=== PATIENT | male | born 1945 | race Caucasian/White ===

== ENCOUNTER → 2017-09-04 10:28 | Outpatient (CLI) | payer MEDICARE, OTHER, SELFPAY ==
[2017-09-04 11:26] LABS: Alanine Aminotransferase 30 IU/L (21-72); Albumin 4.5 g/dL (3.5-5.0); Albumin Globulin Ratio 1.5 (1.0-2.8); Alkaline Phosphatase 97 U/L (38-126); Aspartate Aminotransferase 21 IU/L (17-59); Bilirubin Total 0.8 mg/dL (0.2-1.3); Calcium 9.5 mg/dL (8.4-10.2); Estimated Glomerular Filt Rate > 60.0 mL/min (>60); Glucose 90 mg/dL (80-110); HEMOLYSIS 21 (0-50); Sodium 141 mmol/L (137-145); Total Protein 7.5 g/dL (6.3-8.2)
[2017-09-04 12:01] LABS: Thyroid Stimulating Hormone 3.75 uIU/mL (0.47-4.68)
== END ==
PROVIDERS: PCP Family Medicine; Visit Provider Family Medicine
DX: E03.9 Hypothyroidism, unspecified (principal)
CPT/HCPCS: 36415; 80053; 84443

== ENCOUNTER → 2017-10-03 14:20 | Outpatient (CLI) | payer MEDICARE, OTHER, SELFPAY ==
[2017-10-03 15:27] LABS: Add Manual Diff / Slide Review NO; Basophils Percent Auto 1.1 % (0-2); Eosinophils Percent Auto 6.1 % (2-4); Hematocrit 45.7 % (41-53); Hemoglobin 15.8 g/dL (13.5-17.5); Lymphocytes Percent Auto 8.6 % (25-40); Mean Corpuscular HGB Conc 34.6 % (30-36); Mean Corpuscular Hemoglobin 31.8 PG (26-34); Mean Corpuscular Volume 92.1 fL (80-100); Monocytes Percent Auto 9.4 % (3-14); Neutrophils Absolute Auto 4700 /uL (3000-5900); Neutrophils Percent Auto 74.8 % (50-75); Platelet Count 206 X10^3/uL (150-400); Red Blood Cell Count 4.97 X10^6/uL (4.5-5.9); Red Cell Distribution Width 14.6 % (11.6-14.8); White Blood Cell Count 6.3 X10^3/uL (4.5-11.0)
[2017-10-03 15:43] LABS: INR 1.2 (0.9-1.3); Prothrombin Time 13.5 SECONDS (10.1-12.7)
[2017-10-03 15:53] LABS: Alanine Aminotransferase 24 IU/L (21-72); Albumin 4.5 g/dL (3.5-5.0); Albumin Globulin Ratio 1.5 (1.0-2.8); Alkaline Phosphatase 105 U/L (38-126); Aspartate Aminotransferase 23 IU/L (17-59); Bilirubin Total 0.5 mg/dL (0.2-1.3); Blood Urea Nitrogen 20 mg/dL (9-20); Calcium 9.5 mg/dL (8.4-10.2); Carbon Dioxide 25 mmol/L (22-32); Chloride 105 mmol/L (98-107); Estimated Glomerular Filt Rate > 60.0 mL/min (>60); Glucose 89 mg/dL (80-110); HEMOLYSIS < 15 (0-50); Sodium 142 mmol/L (137-145); Total Protein 7.5 g/dL (6.3-8.2)
== END ==
PROVIDERS: PCP Family Medicine; Visit Provider Internal Medicine
DX: Z79.01 Long term (current) use of anticoagulants (principal); K92.1 Melena
CPT/HCPCS: 36415; 80053; 85025; 85610

== ENCOUNTER 2017-10-24 09:32 | Day surgery (SDC) | payer MEDICARE, OTHER, SELFPAY ==
--- NOTE | 2017-10-24 | PATH_ITS ---
[facility] Accession Number: [id number] . 01 Material submitted: . PART A: GE JUNCTION PART B: GASTRIC PART C: ASCENDING COLON . 02 Diagnosis: A. Gastroesophageal Junction, Biopsy: Squamocolumnar junctional mucosa with mild reactive features of reflux esophagitis. Negative for specialized intestinal metaplasia on alcian blue. Negative for dysplasia or malignancy. . B. Stomach, Biopsies: Gastric antral mucosa with reactive gastropathy, intestinal metaplasia, and focal active inflammation. Intestinal metaplasia highlighted in one of three antral fragments on alcian blue stain. Negative for Helicobacter organisms by immunohistochemistry. Negative for dysplasia or malignancy. . C. Ascending Colon Polyps: Fragments of tubular adenoma/tubulovillous adenoma. Negative for high-grade dysplasia or malignancy. MRV/10/28/2017 . 02 Comment: Part B) The findings in the gastric biopsy raise a differential diagnosis including infection (including Helicobacter pylori despite negative immunohistochemistry), drug/toxin-induced injury, and in the appropriate clinical setting, Crohn's disease. . 02 Electronically signed: . Rob Cheng MD, PhD, Pathologist NPI- [id number] . 01 Gross description: . Three specimens are received in formalin, labeled Renny Perkins: . A. Labeled GE junction biopsies and consists of four jang tissue fragments, 0.2-0.3 cm. The specimen is submitted in toto in cassette A1. B. Labeled gastric biopsies and consists of three jang tissue fragments, 0.3-0.6 cm. The specimen is submitted in toto in cassette B1. C. Labeled ascending colon polyp and consists of one irregular jang brown polypoid tissue, 1.5 x 1.0 x 1.0 cm. The base cannot be positively identified grossly. The polyp is sectioned and is friable upon sectioning. The specimen is submitted entirely in cassettes C1 and C2. (GUILLERMINA:[id number]) /FRR . 02 Microscopic: . Part A: An alcian blue stain is performed to evaluate for specialized intestinal metaplasia and is negative for goblet cells. A control stain shows appropriate reactivity. . Part B: An alcian blue stain is performed to evaluate for specialized intestinal metaplasia and highlights a focus of goblet cells in one of three fragments of antral mucosa. In the setting of intestinal metaplasia and active gastritis, an immunohistochemical stain is performed to evaluate for Helicobacter organisms and is negative. A control stain shows appropriate reactivity. . * This test was developed and its performance characteristics determined by [employer]. It has not been cleared or approved by the U.S. Food and Drug Administration. The FDA has determined that such clearance or approval is not necessary. This test is used for clinical purposes. It should not be regarded as investigational or for research. . 02 Pathologist provided ICD-10: K21.0, K29.70, D12.2 . 02 CPT . 687773, 669020, 213867, V29305, 338937, 179533 Performed at: 01 [facility] [address] [id number] MD Greg Sierra MD Phone: [phone] Performed at: 02 [facility] [address] [place] [id number] MD Merlin Patel MD Phone: [phone]
[2017-10-24 10:21] VITALS: BP 158/94; PULSE 84; RESP 16; TEMP 36.1; O2SAT 98; BMI 30.5
[2017-10-24] MEDS: SODIUM CHLORIDE 0.9% 1,000 ML 200 ML IV (10:47)
--- NOTE | 2017-10-24 12:16 | PM.PREOP ---
Pre-operative Note Interval Note Pre-op Check: History & Physical Reviewed by Physician and Exam Performed H&P completed within 30 days and has changed as indicated here:: No change ASA Class (for procedural sedation): II
--- NOTE | 2017-10-24 12:47 | SUR.OPER ---
to endo from opd via cart respirations unlabored iv patent positioned per self for procedure
--- NOTE | 2017-10-24 13:25 | SUR.OPER ---
tolerated procedure well
[2017-10-24 13:31] VITALS: BP 140/95; PULSE 70; RESP 18; TEMP 36; O2SAT 95
[2017-10-24] MEDS: LIDOCAINE 4% SOLN 50 ML 20 ML TOP (13:32)
[2017-10-24] MEDS: fentaNYL 250 MCG/5 ML INJ 200 MCG IV (13:32)
[2017-10-24] MEDS: MIDAZOLAM 5 MG/5 ML VIAL IV (13:33)
[2017-10-24 13:36] VITALS: BP 129/96; PULSE 74; RESP 16; O2SAT 95
[2017-10-24 13:41] VITALS: BP 141/93; PULSE 78; RESP 14; O2SAT 94
--- NOTE | 2017-10-24 13:44 | P.OP.ENDO_ITS ---
Operative Date/Time/Diagnoses Date of procedure: 10/24/17 Time of procedure: 13:30 Pre-op diagnosis: Epigastric pain. Melena. Bright red Blood per rectum Post-op diagnosis: same (Extensive diverticulosis of the colon. One large polyp in the ascending colon. Mild gastritis. Distal esophagus inflamed. May have Dennison's.) Procedure & Clinicians Study performed: EGD with cold biopsy. colonoscopy with hot snare polypectomy Same procedure as scheduled: Yes Indications: Blood per GI tract Surgeon: Gerardo Frederick Procedure Notes SCOAP/Timeout: Performed Procedure in detail: The patient had topical anesthetic applied to oropharynx. he was placed in left lateral decubitus position and underwent IV sedation directed by the surgeon consisting of fentanyl and Versed. A bite block was inserted and the scope was advanced through it into the esophagus. The esophagus was unremarkable. GE junction was noted at 40 cm and was inflamed with the suggestion of Dennison's esophagus being present.. The stomach insufflated well. There were no lesions seen in the body, antrum or at the incisura. In the pre-pyloric antrum there was several raised reddened lesions which I biopsied. The pyloric channel was [widely patent]. The duodenum was unremarkable to the 4th part. The scope was brought back into the stomach and retroflexed. The proximal stomach was normal in appearance. There was no hiatal hernia. The scope was straightened and brought out through the esophagus again. No lesions were seen. The scope was removed and the patient tolerated the procedure well. The patient was repositioned and underwent additional IV sedation directed by the surgeon consisting of fentanyl and Versed. Digital exam was unremarkable. The scope was inserted and advanced through the rectum into the sigmoid, descending, transverse, and ascending colon.[The patient was noted to have extensive diverticulosis with the most heavy concentration in the sigmoid. The lumen of some of these were quite large.]. The cecum was reached identified by the ileocecal valve and the appendiceal opening. I had to apply pressure and insert a stiffener in order to reach the cecum. The scope was gradually brought out. Polyps were found at[the ascending colon just before reaching the ileocecal valve. This was snared. It appeared to be completely removed.]. The scope ultimately was retroflexed in the rectum. The appearance was normal except for some small hemorrhoids.. 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 Biopsies taken at the GE junction.), diverticulosis (Extensive especially in the sigmoid.), gastritis (Principally in the antrum pre-pyloric area), internal hemorrhoids and polyp (Ascending colon ) Specimen(s): other (Random stomach. GE junction. Ascending colon polyp) Recommendations: Colonscopy in 5 years Plan for aftercare: Patient received a letter Follow up: as needed Disposition: PACU
[2017-10-24 13:49] VITALS: BP 132/78; PULSE 75; RESP 16; TEMP 36.2; O2SAT 96
[2017-10-24 13:57] VITALS: BP 131/80; PULSE 70; RESP 16; TEMP 36.5; O2SAT 94
== END 2017-10-24 14:18 | disposition home or self-care (01) ==
PROVIDERS: PCP Family Medicine; Visit Provider Specialist
PROC: 0DJD8ZZ Inspection of Lower Intestinal Tract, Via Natural or Artificial Opening Endoscopic (ICD-10-PCS; CPT 45378; principal; 2017-10-24 10:45)
PROC: 0DJ08ZZ Inspection of Upper Intestinal Tract, Via Natural or Artificial Opening Endoscopic (ICD-10-PCS; CPT 43235; 2017-10-24 10:45)
DX: K92.1 Melena (principal); K57.30 Diverticulosis of large intestine without perforation or abscess without bleeding; D12.2 Benign neoplasm of ascending colon; K64.8 Other hemorrhoids; K29.70 Gastritis, unspecified, without bleeding; K21.0 Gastro-esophageal reflux disease with esophagitis; Z87.891 Personal history of nicotine dependence; Z79.01 Long term (current) use of anticoagulants; I48.91 Unspecified atrial fibrillation
CPT/HCPCS: 45380; 43239; 45385; 99152; 99153; J2250; J3010

== ENCOUNTER → 2018-03-25 11:48 | Outpatient (CLI) | payer MEDICARE, OTHER, SELFPAY ==
[2018-03-25 12:54] LABS: Add Manual Diff / Slide Review NO; Basophils Percent Auto 1.4 % (0-2); Eosinophils Percent Auto 6.4 % (2-4); Hematocrit 47.7 % (41-53); Hemoglobin 15.8 g/dL (13.5-17.5); Lymphocytes Percent Auto 8.2 % (25-40); Mean Corpuscular HGB Conc 33.1 % (30-36); Mean Corpuscular Hemoglobin 28.8 PG (26-34); Monocytes Percent Auto 8.3 % (3-14); Neutrophils Absolute Auto 4200 /uL (3000-5900); Neutrophils Percent Auto 75.7 % (50-75); Platelet Count 213 X10^3/uL (150-400); Red Blood Cell Count 5.49 X10^6/uL (4.5-5.9); Red Cell Distribution Width 16.2 % (11.6-14.8); White Blood Cell Count 5.5 X10^3/uL (4.5-11.0)
[2018-03-25 13:28] LABS: BUN Creatinine Ratio 15.8 (6-22); Blood Urea Nitrogen 19 mg/dL (9-20); Calcium 9.6 mg/dL (8.4-10.2); Carbon Dioxide 25 mmol/L (22-32); Chloride 104 mmol/L (98-107); Estimated Glomerular Filt Rate 59.3 mL/min (>60); Glucose 93 mg/dL (80-110); HEMOLYSIS < 15 (0-50); Potassium 4.6 mmol/L (3.4-5.1); Sodium 142 mmol/L (137-145)
== END ==
PROVIDERS: PCP Family Medicine; Visit Provider Internal Medicine Cardiovascular Disease
DX: I48.0 Paroxysmal atrial fibrillation (principal)
CPT/HCPCS: 36415; 80048; 85025

== ENCOUNTER → 2018-05-15 09:28 | Outpatient (CLI) | payer MEDICARE, OTHER, SELFPAY ==
--- NOTE | 2018-05-15 | DI.ECHO.S_ITS ---
[place]---------+ [facility] +---------+ : : [address] : : : : [address] : : : : Phone: [phone] Echocardiogram Report + + :Name: PABLO WHALEN Study Date: 05/15/2018 Height: 72 in : :[facility] Weight: 235 lb : : Gender: Male BSA: 2.3 m2 : :: 1945 Age: 72 yrs BP: 138/70 mmHg: :Reason For Study: Aortic, Ascending Aneurysm : :Ordering Physician: Matt : :Rosanne Carr Performed By: Flaca Keating : :Referring: Dr. Berry Richmond : + + Interpretation Summary 1) Normal left ventricular thickness, size, wall motion, and systolic function (EF 65-70%). 2) Normal right ventricular size and function. 3) Diastolic parameters suggest a pseudonormalization pattern, consistent with probable elevated filling pressures. 4) No significant valvular abnormalities. 5) The aortic root is moderately dilated at 4.8cm. 6) Compared to the Echo done 01/15/2016, no significant change. Procedure: A two-dimensional transthoracic echocardiogram with color flow and Doppler was performed. The study quality was technically adequate. Comparison is made with the echocardiogram of 01-15-16. The patient was in normal sinus rhythm during the exam. Left Ventricle: The left ventricle is normal in size. Proximal septal thickening is noted. There is normal left ventricular wall thickness. The ejection fraction is estimated to be 65-70%. Left ventricular systolic function is normal without focal wall motion abnormalities. Diastolic parameters suggest a pseudonormalization pattern, consistent with probable elevated filling pressures. Right Ventricle: The right ventricle grossly appears normal in size with probable normal systolic function. Atria: The left atrium is moderately dilated. Right atrial size is normal. The interatrial septum is intact with no evidence for an atrial septal defect. Mitral Valve: The mitral valve is grossly normal. There is trace mitral regurgitation. Aortic Valve: The aortic valve opens well. The aortic valve is trileaflet. There is no aortic valve stenosis. There is mild aortic regurgitation. Tricuspid Valve: The tricuspid valve leaflets are thin and pliable. There is mild to moderate tricuspid regurgitation. The right ventricular systolic pressure is estimated to be at least 33 mmHg based on an estimated right atrial pressure of 3 mm Hg. Pulmonic Valve: The pulmonic valve is not well seen, but is grossly normal. There is trace pulmonic regurgitation. Great Vessels: The aortic root is moderately dilated. This is unchanged compared to the previous study. The ascending aorta is at the upper limits of normal in size. The aortic arch is at the upper limits of normal in size. The IVC is of normal diameter and collapses greater than 50% with a sniff. This suggests a low right atrial pressure of 3 mm Hg. Pericardium/ Pleura There is no pericardial effusion. There is no pleural effusion. MMode/2D Measurements & Calculations LVIDd: 4.8 cm Ao root diam: 4.8 cm LVIDs: 2.5 cm Aortic Jxn: 3.3 cm FS: 49.0 % asc Aorta Diam: 3.7 cm EPSS: 1.1 cm Ao Arch Diam (Prox Trans): 3.3 cm IVSd: 1.3 cm LVPWd: 0.79 cm LV frey. diameter/BSA (cm/m^2): 2.1 LV sys. diameter/BSA (cm/m^2): 1.1 LA dimension: 4.6 cm RA long axis: 5.4 cm LA A2 area: 23.6 cm2 RA area: 22.6 cm2 LA A4 area: 28.5 cm2 RA vol: 80.6 ml LA length (vol): 6.2 cm RA : 35.3 ml/m2 LA vol: 91.5 ml IVC diam: 1.8 cm LA vol index: 40.1 ml/m2 RVDd major: 5.1 cm RVD1 (basal): 3.2 cm RVD2 (mid): 2.6 cm Doppler Measurements & Calculations Ao V2 max: 144.9 cm/sec MV E max caden: 97.4 cm/sec Ao V2 mean: 88.9 cm/sec MV A max caden: 93.3 cm/sec Ao max P.4 mmHg MV E/A: 1.0 Ao mean P.8 mmHg Med Peak E' Caden: 6.2 cm/sec Ao V2 VTI: 29.1 cm E/E' med: 15.7 Lat Peak E' Caden: 4.9 cm/sec E/E' lat: 19.7 E/e' average: 17.7 MV dec time: 0.20 sec MV P1/2t: 58.6 msec TR max caden: 271.7 cm/sec MV P1/2t max caden: 98.7 cm/sec TR max P.5 mmHg MVA(P1/2t): 3.8 cm2 PA V2 max: 99.7 cm/sec PA V2 mean: 66.1 cm/sec PA mean P.0 mmHg PA Accel Time: 0.09 sec Reading Physician:05:54 PM
== END ==
PROVIDERS: PCP Family Medicine; Visit Provider Internal Medicine Cardiovascular Disease
DX: I08.3 Combined rheumatic disorders of mitral, aortic and tricuspid valves (principal); I71.2 Thoracic aortic aneurysm, without rupture
CPT/HCPCS: 93306

== ENCOUNTER 2019-03-04 13:04 | Emergency (ER) | payer MEDICARE, OTHER, SELFPAY ==
[2019-03-04 13:05] VITALS: BP 137/81; PULSE 61; RESP 18; O2SAT 96
--- NOTE | 2019-03-04 13:27 | DI.RAD.S_ITS ---
PROCEDURE: XR KNEE RT 3V INDICATIONS: R posterior knee pain TECHNIQUE: 3 views of the knee were acquired. COMPARISON: None. FINDINGS: Bones: No fractures or dislocations. No suspicious bony lesions. There is moderate lateral femoral tibia joint space narrowing seen. On the sunrise view, there is moderate patellofemoral joint space narrowing seen. Osteophyte formation can be seen along the margins of the patella. Soft tissues: No significant joint effusion. No suspicious soft tissue calcifications. 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 If there is strong clinical suspicion for internal derangement of this joint, please consider a dedicated MRI for further evaluation (assuming that there is no contraindication to MRI). Dictated by: Ricardo Lundberg M.D. on 03/04/2019 at 12:40 Approved by: Ricardo Lundberg M.D. on 03/04/2019 at 12:41
--- NOTE | 2019-03-04 13:30 | ED.LOWEXIN ---
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 He states it started 6 days ago while he was dancing. He has neuropathy in his legs and noticed that there was more pressure in his knee and that his boots were sticking to the for and not sliding causing his knee to twist. He complaint of gradually increasing pain over the past few days, this morning he woke up and was unable to stand on his knee due the pain. He states the pain is a constant dull aching 2/10 pain that is worse with palpation, he also has an intermittent 6/10 sharp stabbing pain that is worse with weight-bearing. He denies any swelling, ecchymosis, erythema, increased temperature, fevers, nausea, vomiting, diarrhea, abdominal pain, or other concerns. He denies any trauma to the area. He denies any history of right knee injuries or surgeries. Related Data Previous Rx's Medication Instructions Recorded triamcinolone acetonide 0.5 % 1 applictn TOP BID #15 gram 10/20/18 topical cream apixaban 5 mg tablet 5 mg PO BID #180 tab 11/26/18 diltiazem HCl 180 mg 180 mg PO DAILY #90 cap 11/26/18 capsule,extended release 24 hr levothyroxine 50 mcg tablet 50 mcg PO QAM #90 tab 11/26/18 omeprazole 20 mg capsule,delayed 20 mg PO DAILY #30 cap 11/26/18 release oxycodone 5 mg tablet See Rx Instructions PO Q6H PRN #90 03/04/19 tab Allergies Allergy/AdvReac Type Severity Reaction Status Date / Time No Known Drug Allergies Allergy Unverified 11/26/18 15:11 Review of Systems <BRYANT Orr - Last Filed: 03/04/19 14:08> Review of Systems Narrative: REVIEW OF SYSTEMS: GENERAL: Denies fever or chills. HENT: No head trauma. EYES: No double vision or vision loss. CARDIOVASCULAR: No chest pain or syncope. RESPIRATORY: No shortness of breath or cough. GASTROINTESTINAL: No nausea, vomiting, diarrhea, or constipation. GENITOURINARY: No flank pain or dysuria. MUSCULOSKELETAL: Complains of right knee pain, see HPI. INTEGUMENTARY: No rash, lesions, or pruritus. NEURO: No numbness, tingling. PSYCH: No behavior or mood changes. Patient History <BRYANT Orr - Last Filed: 03/04/19 14:08> Medical History Atrial fibrillation, currently in sinus rhythm (Chronic) Chronic anticoagulation (Chronic) Surgical History History of surgery (Resolved 2014) Status post appendectomy (Inactive) Status post neck dissection (Resolved) Social History household members: spouse Smoking Status: Former smoker alcohol intake: never substance use type: does not use Substance Use Type: does not use Exam <BRYANT Orr - Last Filed: 03/04/19 14:08> Initial Vital Signs Initial Vital Signs: Vital Signs Pulse Rate 61 03/04/19 13:05 Respiratory Rate 18 03/04/19 13:05 Blood Pressure 137/81 03/04/19 13:05 Pulse Oximetry 96 03/04/19 13:05 PHYSICAL EXAMINATION: GENERAL: Well groomed, alert, and cooperative. Answers questions promptly and appropriately. Vital signs noted. HENT: Normocephalic, atraumatic. EYES: Symmetrical, sclera white, no periorbital swelling. CARDIOVASCULAR: Regular rate. RESPIRATORY: Normal respiratory rate, trachea midline, airway patent. No stridor, nasal flaring or accessory muscle use. Lungs are clear in all robles. MUSCULOSKELETAL: Tenderness to the posterior aspect of right knee, no joint line tenderness. Negative drawer sign, knee remain stable. Negative Luís sign. No erythema, swelling, or ecchymosis. Normal gait and coordination. Equal tone and mass bilaterally. No spinal tenderness or deformities. EXTREMITIES: CMS intact. No pedal edema. SKIN: Warm, dry, soft, appropriate color for ethnicity. No lesions, rashes, or wounds. NEURO: Alert and Oriented X 3. No sensory deficits. PSYCH: Appropriate affect and mood. <Jordi Bowens DO - Last Filed: 03/04/19 14:34> Initial Vital Signs Initial Vital Signs: Vital Signs Pulse Rate 61 03/04/19 13:05 Respiratory Rate 18 03/04/19 13:05 Blood Pressure 137/81 03/04/19 13:05 Pulse Oximetry 96 03/04/19 13:05 Course <BRYANT Orr - Last Filed: 03/04/19 14:08> Course Course Narrative: Patient was given crutches and a knee immobilizer emergency department, crutch states she was performed. Orders Ordered: ED Orders 03/04/19 13:27 XR knee RT 3V Stat Consultations Consultation #1: Patient staffed with Dr. Bowens. Vital Signs Vital signs: Vital Signs - 8 hr 03/04/19 13:05 Pulse Rate 61 Respiratory Rate 18 Blood Pressure 137/81 Pulse Oximetry 96 <Jordi Bowens DO - Last Filed: 03/04/19 14:34> Orders Ordered: ED Orders 03/04/19 13:27 XR knee RT 3V Stat Vital Signs Vital signs: Vital Signs - 8 hr 03/04/19 13:05 Pulse Rate 61 Respiratory Rate 18 Blood Pressure 137/81 Pulse Oximetry 96 MDM - Extremity Injury (Lower) <BRYANT Orr - Last Filed: 03/04/19 14:08> Medical Records Attestation: I reviewed the patient's medical records. Lab Data Attestation: I reviewed the patient's lab results. Imaging Data Knee XR: Radiologist's impression: [address] [address] XRay Report Signed Patient: Renny Perkins PMR#: [id number] : 5Acct:[id number] Age/Sex: 73 / MDate of Service: 03/04/19 Loc: ED Accession Number: [id number] Procedure: XR knee RT 3V Ordering Provider: Shannan Cooper PROCEDURE: XR KNEE RT 3V INDICATIONS: R posterior knee pain TECHNIQUE: 3 views of the knee were acquired. COMPARISON: None. FINDINGS: Bones: No fractures or dislocations. No suspicious bony lesions. There is moderate lateral femoral tibia joint space narrowing seen. On the sunrise view, there is moderate patellofemoral joint space narrowing seen. Osteophyte formation can be seen along the margins of the patella. Soft tissues: No significant joint effusion. No suspicious soft tissue calcifications. 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 If there is strong clinical suspicion for internal derangement of this joint, please consider a dedicated MRI for further evaluation (assuming that there is no contraindication to MRI). Dictated by: Ricardo Lundberg M.D. on 03/04/2019 at 12:40 Approved by: Ricardo Lundberg M.D. on 03/04/2019 at 12:41 MDM Narrative Medical decision making narrative: This is a 73-year-old male with right knee pain without reports of trauma. X-rays negative for any fractures. Differential includes pain from arthritis, tendon injury (less likely due to stable knee, negative drawer sign), and/or meniscus injury (possible due to mechanism of injury). Patient was given a knee immobilizer and crutches. He was encouraged to follow up with his primary care provider and or an orthopedic for further evaluation. Strict return precautions given and follow-up instructions discussed. Discharge Plan Departure Patient Disposition: Home Clinical Impression: Acute knee pain Qualifiers: Laterality: right Qualified Code(s): M25.561 - Pain in right knee Internal derangement of knee Qualifiers: Laterality: right Qualified Code(s): M23.91 - Unspecified internal derangement of right knee Instructions: DI for Knee Pain Activity Restrictions/Additional Instructions: Thank you for entrusting me with your care today. As discussed, your x-rays are negative for any fractures, the films did show some arthritis. We have placed her knee in a knee immobilizer and have given you crutches. Please follow up with your primary care provider in the next week or the orthopedic listed below for re-evaluation and/or further testing if indicated. Return emergency department for new or worsening symptoms such as chest pain, shortness of breath, facial droop, or etc. Prescriptions: No Action triamcinolone acetonide 0.5 % cream 1 applictn TOP BID Qty: 15 RF: 0 oxycodone 5 mg tablet See Rx Instructions PO Q6H PRN (Reason: pain) Qty: 90 RF: 0 Eliquis 5 mg tablet 5 mg PO BID Qty: 180 RF: 3 diltiazem HCl 180 mg capsule,extended release 24hr 180 mg PO DAILY Qty: 90 RF: 3 levothyroxine 50 mcg tablet 50 mcg PO QAM Qty: 90 RF: 3 omeprazole 20 mg capsule,delayed release(DR/EC) 20 mg PO DAILY Qty: 30 RF: 4 Referrals: Ramakrishna Arce PA-C [[facility]] - (Right posterior knee pain, negative x-ray. ) Berry Richmond MD [Primary Care Provider] - <Jordi Bowens DO - Last Filed: 03/04/19 14:34> Sign Out Provider Sign Out Attestation: Dr Bowens Co-Sign Statement: I was available for consultation during this patient's emergency department visit. This chart is signed by myself for administrative purposes only. I did not have direct contact with this patient during this visit. They were seen independently by the APC.
[2019-03-04 14:15] VITALS: BP 132/68; PULSE 67; RESP 15; O2SAT 99
== END 2019-03-04 14:16 | disposition home or self-care (01) ==
PROVIDERS: Emergency Provider Nurse Practitioner; PCP Family Medicine
DX: M25.561 Pain in right knee (principal); M23.91 Unspecified internal derangement of right knee
CPT/HCPCS: 73562; 99283

== ENCOUNTER → 2019-03-09 11:10 | Outpatient (CLI) | payer MEDICARE, OTHER, SELFPAY ==
--- NOTE | 2019-03-09 11:39 | DI.MRI.S_ITS ---
PROCEDURE: MR KNEE RT WO CON INDICATIONS: unstable right knee, pain TECHNIQUE: Noncontrast sagittal PD fast spin echo and T2 fast spin echo with fat saturation, sagittal 3-D FLASH with fat saturation; coronal T1 spin echo and PD fast spin echo with fat saturation, and axial PD fast spin echo with fat saturation through the knee. COMPARISON: 8:12. [facility], CR, XR KNEE RT 3V, 03/04/2019, 13:25. FINDINGS: Image quality: Excellent. Menisci: There is complex tear involving the posterior horn and body of the medial meniscus. Lateral meniscal extrusion. There is truncation of the body and posterior horn of the lateral meniscus. There is degenerative tear of the anterior horn of the lateral meniscus extending to the anterior lip statement. Cruciate ligaments: There may be partial tear of the distal anterior cruciate ligament, which is likely chronic. There is no associated soft tissue or bone marrow edema. The posterior cruciate ligament appears intact. Medial structures: The medial collateral ligament appears intact. The semimembranosus tendon insertions appears thickened, likely secondary to tendinitis. The meniscocapsular junction appears intact. Visualized portions of the pes anserinus tendons appear normal. No abnormal bursal fluid. Lateral structures: The lateral collateral ligament and the biceps femoris tendon appear intact. The popliteus tendon appears normal. Iliotibial band appears normal. Anterior structures: The quadriceps and patellar tendons appear intact. Patellar alignment is normal. No femoral trochlear dysplasia or ventral trochlear prominence. No edema in the infrapatellar fat pad. Bones and cartilage: No bone marrow contusions or fractures. There is tricompartmental cartilage thinning and fibrillation, most post in the medial femorotibial compartment. Joint space: There is small to moderate knee joint effusion. No Barrett's cyst. Normal appearing synovial plicae are incidentally noted. IMPRESSION: 1. Complex tear of the posterior horn and body of the medial meniscus. 2. Lateral meniscal extrusion with truncation of the body and posterior horn. There is degenerative tear of the anterior horn extending to the anterior root effacement. 3. Partial tear of the distal anterior cruciate ligament is suspected, most likely chronic. 4. Tricompartmental cartilage loss. 5. Small to moderate knee joint effusion. Dictated by: Yisel Hogue M.D. on 03/09/2019 at 13:29 Approved by: Yisel Hogue M.D. on 03/09/2019 at 18:53
== END ==
PROVIDERS: PCP Family Medicine; Visit Provider Family Medicine
DX: M25.361 Other instability, right knee (principal); M25.561 Pain in right knee; S83.231A Complex tear of medial meniscus, current injury, right knee, initial encounter; M25.461 Effusion, right knee
CPT/HCPCS: 73721

== ENCOUNTER → 2020-02-11 07:03 | Outpatient (CLI) | payer MEDICARE, OTHER, SELFPAY ==
[2020-02-11 08:37] LABS: Add Manual Diff / Slide Review NO; Basophils Absolute Auto 100 /uL (0-100); Basophils Percent Auto 1.2 % (0-2); Eosinophils Absolute Auto 100 /uL (0-450); Eosinophils Percent Auto 1.3 % (2-4); Hematocrit 48.4 % (41-53); Hemoglobin 16.3 g/dL (13.5-17.5); Lymphocytes Absolute Auto 600 /uL (1100-4500); Mean Corpuscular HGB Conc 33.7 % (30-36); Mean Corpuscular Hemoglobin 31.5 PG (26-34); Mean Corpuscular Volume 93.3 fL (80-100); Monocytes Absolute Auto 600 /uL (0-900); Monocytes Percent Auto 9.7 % (3-14); Neutrophils Absolute Auto 5000 /uL (1500-7000); Neutrophils Percent Auto 78.8 % (50-75); Platelet Count 227 X10^3/uL (150-400); Red Blood Cell Count 5.19 X10^6/uL (4.5-5.9); Red Cell Distribution Width 14.1 % (11.6-14.8); White Blood Cell Count 6.4 X10^3/uL (4.5-11.0)
[2020-02-11 08:48] LABS: Alanine Aminotransferase 17 IU/L (<50); Albumin 4.5 g/dL (3.5-5.0); Albumin Globulin Ratio 1.6 (1.0-2.8); Alkaline Phosphatase 100 U/L (38-126); Aspartate Aminotransferase 21 IU/L (17-59); BUN Creatinine Ratio 23.6 (6-22); Bilirubin Total 0.6 mg/dL (0.2-1.3); Blood Urea Nitrogen 26 mg/dL (9-20); Calcium 9.4 mg/dL (8.4-10.2); Carbon Dioxide 29 mmol/L (22-32); Chloride 103 mmol/L (98-107); Cholesterol 196 mg/dL (140-199); Estimated Glomerular Filt Rate > 60.0 mL/min (>60); Globulin 2.8 g/dL (1.7-4.1); Glucose 89 mg/dL (80-110); HDL Cholesterol 46 mg/dL (40-60); HEMOLYSIS < 15 (0-50); LDL Cholesterol Calculated 126 mg/dL (<100); Potassium 4.9 mmol/L (3.4-5.1); Sodium 138 mmol/L (137-145); Total Protein 7.3 g/dL (6.3-8.2); Triglycerides 122 mg/dL (35-150)
[2020-02-11 09:12] LABS: Prostate Specific Antigen Scrn 1.18 ng/mL (0.1-4.0)
[2020-02-11 09:39] LABS: Thyroid Stimulating Hormone 4.58 uIU/mL (0.47-4.68)
== END ==
PROVIDERS: PCP Family Medicine; Referring Provider Family Medicine; Visit Provider Family Medicine
DX: E86.0 Dehydration (principal); Z86.79 Personal history of other diseases of the circulatory system; Z12.5 Encounter for screening for malignant neoplasm of prostate
CPT/HCPCS: 36415; 80053; 80061; 84443; 85025; G0103

== ENCOUNTER → 2020-05-15 13:42 | Outpatient (CLI) | payer MEDICARE, OTHER, SELFPAY ==
[2020-05-15 15:37] LABS: Thyroid Stimulating Hormone 3.42 uIU/mL (0.47-4.68)
[2020-05-15 15:59] LABS: Alanine Aminotransferase 19 IU/L (<50); Albumin 4.7 g/dL (3.5-5.0); Albumin Globulin Ratio 1.6 (1.0-2.8); Alkaline Phosphatase 116 U/L (38-126); Aspartate Aminotransferase 24 IU/L (17-59); BUN Creatinine Ratio 26.8 (6-22); Bilirubin Total 0.5 mg/dL (0.2-1.3); Blood Urea Nitrogen 26 mg/dL (9-20); Calcium 9.6 mg/dL (8.4-10.2); Carbon Dioxide 23 mmol/L (22-32); Chloride 106 mmol/L (98-107); Estimated Glomerular Filt Rate > 60.0 mL/min (>60); Glucose 96 mg/dL (80-110); HEMOLYSIS < 15 (0-50); Potassium 4.6 mmol/L (3.4-5.1); Sodium 139 mmol/L (137-145); Total Protein 7.7 g/dL (6.3-8.2)
[2020-05-23 14:17] LABS: SARS CoV19 IgG NEGATIVE
== END ==
PROVIDERS: PCP Family Medicine; Referring Provider Family Medicine; Visit Provider Family Medicine
DX: E03.9 Hypothyroidism, unspecified (principal); C41.1 Malignant neoplasm of mandible; Z20.822 Contact with and (suspected) exposure to COVID-19
CPT/HCPCS: 36415; 80053; 84439; 84443; 86769

== ENCOUNTER → 2020-08-21 08:10 | Outpatient (CLI) | payer MEDICARE, OTHER, SELFPAY ==
--- NOTE | 2020-08-21 | DI.ECHO.S_ITS ---
[facility]---------+ [facility] +---------+ : : [address] : [place] [address] : : : : [id number] : : : : Phone: [phone]+ Echocardiogram Report + + :Name: PABLO WHALEN Study Date: 08/21/2020 Height: 72 in : :[facility] ReadingLocation: Weight: 235 lb : : Gender: Male BSA: 2.3 m2 : :: 1945 Age: 75 yrs BP: 174/96 mmHg: :Reason For Study: Aortic, Ascending Aneurysm : :Ordering Physician: Augusto : :Rosanne Carr Performed By: Russell Medina : :Referring: AUGUSTO CARR : + + Interpretation Summary 1) Normal left ventricular thickness and size with low normal systolic function (EF 50-55%). 2) Normal right ventricular size and function. 3) No significant valvular abnormalities. 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 5) Hypertension present during the study (BP 174/96mmHg). 6) Compared to the Echo done 05/15/2018, LVEF has decreased from 65-70% to 50- 55% on this study and significant hypertension is present during the current study. Procedure: A two-dimensional transthoracic echocardiogram with color flow and Doppler was performed. The study quality was technically adequate. Comparison is made with the echocardiogram of 05/15/2018. Left Ventricle: The left ventricle is normal in size and wall thickness. Left ventricular systolic function is normal. The ejection fraction is estimated to be 50-55%. There are no focal wall motion abnormalities. Diastolic function could not be accurately assessed due to contradictory data. Right Ventricle: The right ventricle is normal in size and function. Atria: Both atria are normal in size. There is no Doppler evidence for an interatrial shunt. Mitral Valve: The mitral valve is normal in structure and function. There is mild mitral regurgitation. Aortic Valve: The aortic valve is normal in structure and function. There is mild aortic regurgitation. Tricuspid Valve: The tricuspid valve is normal in structure and function. There is a trace or physiologic amount of tricuspid regurgitation. Pulmonary artery pressures cannot be estimated because of the lack of a measurable TR jet velocity but the IVC suggests a CVP of around 3 mmHg. Pulmonic Valve: The pulmonic valve is not well seen, but is grossly normal. There is a trace or physiologic amount of pulmonic regurgitation. Great Vessels: The aortic root is moderately dilated. The dimensions of the ascending aorta are normal. The IVC is of normal diameter and collapses greater than 50% with a sniff. This suggests a low right atrial pressure of 3 mm Hg. Pericardium/ Pleura There is no pericardial effusion. There is no pleural effusion. MMode/2D Measurements & Calculations LVIDd: 5.4 cm LVOT diam: 2.5 cm LVIDs: 3.8 cm Ao root diam: 4.8 cm FS: 29.8 % asc Aorta Diam: 3.5 cm IVSd: 1.2 cm LVPWd: 1.2 cm LV frey. diameter/BSA (cm/m^2): 2.4 LV sys. diameter/BSA (cm/m^2): 1.7 LA A2 area: 14.6 cm2 RA area: 11.7 cm2 LA A4 area: 21.9 cm2 LA length (vol): 5.2 cm LA vol: 51.8 ml LA vol index: 22.7 ml/m2 TAPSE: 2.1 cm Doppler Measurements & Calculations Ao V2 max: 131.1 cm/sec LVOT Max Caden: 78.9 cm/sec Ao V2 mean: 96.1 cm/sec LV V1 max P.5 mmHg Ao max P.9 mmHg LV V1 VTI: 18.5 cm Ao mean P.1 mmHg KIRA(I,D): 2.9 cm2 Ao V2 VTI: 31.3 cm KIRA(V,D): 2.9 cm2 sev ratio: 0.59 KIRA indexed to BSA (cm^2/m^2): 1.3 MV E max caden: 87.7 cm/sec PA V2 max: 95.6 cm/sec MV A max caden: 106.0 cm/sec PA V2 mean: 67.6 cm/sec MV E/A: 0.83 PA mean P.0 mmHg Med Peak E' Caden: 4.0 cm/sec PA pr(Accel): 31.2 mmHg E/E' med: 21.9 Lat Peak E' Caden: 4.4 cm/sec E/E' lat: 19.8 E/e' average: 20.9 MV dec time: 0.23 sec SV(LVOT): 90.8 ml Reading Physician:12:32 PM
[2020-08-21 09:21] LABS: Add Manual Diff / Slide Review NO; Basophils Absolute Auto 100 /uL (0-100); Basophils Percent Auto 1.9 % (0-2); Eosinophils Absolute Auto 700 /uL (0-450); Eosinophils Percent Auto 13.3 % (2-4); Hematocrit 45.5 % (41-53); Hemoglobin 15.6 g/dL (13.5-17.5); Lymphocytes Absolute Auto 500 /uL (1100-4500); Lymphocytes Percent Auto 9.5 % (25-40); Mean Corpuscular HGB Conc 34.3 % (30-36); Mean Corpuscular Hemoglobin 31.3 PG (26-34); Mean Corpuscular Volume 91.2 fL (80-100); Monocytes Absolute Auto 600 /uL (0-900); Monocytes Percent Auto 10.5 % (3-14); Neutrophils Absolute Auto 3600 /uL (1500-7000); Neutrophils Percent Auto 64.8 % (50-75); Platelet Count 216 X10^3/uL (150-400); Red Blood Cell Count 4.99 X10^6/uL (4.5-5.9); Red Cell Distribution Width 14.5 % (11.6-14.8); White Blood Cell Count 5.6 X10^3/uL (4.5-11.0)
[2020-08-21 10:31] LABS: BUN Creatinine Ratio 19.8 (6-22); Blood Urea Nitrogen 21 mg/dL (9-20); Calcium 9.3 mg/dL (8.4-10.2); Carbon Dioxide 27 mmol/L (22-32); Chloride 105 mmol/L (98-107); Cholesterol 206 mg/dL (140-199); Estimated Glomerular Filt Rate > 60.0 mL/min (>60); Glucose 92 mg/dL (80-110); HDL Cholesterol 36 mg/dL (40-60); HEMOLYSIS < 15 (0-50); LDL Cholesterol Calculated 131 mg/dL (<100); Potassium 4.4 mmol/L (3.4-5.1); Sodium 140 mmol/L (137-145); Triglycerides 193 mg/dL (35-150)
== END ==
PROVIDERS: PCP Family Medicine; Referring Provider Internal Medicine Cardiovascular Disease; Visit Provider Internal Medicine Cardiovascular Disease
DX: I08.0 Rheumatic disorders of both mitral and aortic valves (principal); I77.810 Thoracic aortic ectasia; I10 Essential (primary) hypertension
CPT/HCPCS: 36415; 80048; 80061; 85025; 93306

== ENCOUNTER → 2020-08-28 11:47 | Outpatient (CLI) | payer MEDICARE, OTHER, SELFPAY ==
--- NOTE | 2020-08-28 11:49 | DI.RAD.S_ITS ---
PROCEDURE: XR CHEST 2V INDICATIONS: cough TECHNIQUE: 2 views of the chest were acquired. COMPARISON: [facility], CHEST 1 VIEW, 09/16/2015, 21:24. [facility], , CHEST 2 VIEW, 11/07/2012, 9:17. FINDINGS: Surgical changes and devices: Port-A-Cath in normal position from right-sided approach.. Lungs and pleura: Lungs are clear except for minimal linear scarring left lung base present at least since 2015. No pleural effusions or pneumothorax. Mediastinum: Mediastinal contours are normal. Heart size is normal. Bones and chest wall: No suspicious bony abnormalities. Soft tissues appear unremarkable. IMPRESSION: Port-A-Cath positioning normal. Mildly reduced inspiratory volume, no source of cough is found. Dictated by: Evans Lucas M.D. on 08/28/2020 at 13:55 Approved by: Evans Lucas M.D. on 08/28/2020 at 13:55
== END ==
PROVIDERS: PCP Family Medicine; Referring Provider Registered Nurse; Visit Provider Registered Nurse
DX: R05 Cough (principal); Z95.828 Presence of other vascular implants and grafts
CPT/HCPCS: 71046

== ENCOUNTER → 2021-03-23 11:44 | Outpatient (CLI) | payer MEDICARE, OTHER, SELFPAY ==
[2021-03-23 12:58] LABS: TSH w/ Reflex to FT4 2.69 uIU/mL (0.47-4.68)
[2021-03-23 13:00] LABS: Thyroid Stimulating Hormone 2.64 uIU/mL (0.47-4.68)
== END ==
PROVIDERS: PCP Family Medicine; Referring Provider Family Medicine; Visit Provider Family Medicine
DX: E03.9 Hypothyroidism, unspecified (principal)
CPT/HCPCS: 36415; 84439; 84443

== ENCOUNTER → 2021-03-26 09:51 | Outpatient (CLI) | payer MEDICARE, OTHER, SELFPAY ==
[2021-03-26 13:25] LABS: COVID19 -Nasal RAPID Negative (Negative)
== END ==
PROVIDERS: PCP Family Medicine; Visit Provider Nurse Practitioner Family
DX: Z20.822 Contact with and (suspected) exposure to COVID-19 (principal); R05.9 Cough, unspecified; R06.2 Wheezing; R50.9 Fever, unspecified; R51.9 Headache, unspecified
CPT/HCPCS: 87635

== ENCOUNTER → 2021-06-12 16:39 | Outpatient (CLI) | payer MEDICARE, OTHER, SELFPAY ==
[2021-06-12 17:32] LABS: Add Manual Diff / Slide Review NO; Basophils Absolute Auto 100 /uL (0-100); Basophils Percent Auto 1.5 % (0-2); Eosinophils Absolute Auto 500 /uL (0-450); Eosinophils Percent Auto 7.8 % (2-4); Hematocrit 45.5 % (41-53); Hemoglobin 15.3 g/dL (13.5-17.5); Lymphocytes Absolute Auto 700 /uL (1100-4500); Lymphocytes Percent Auto 11.8 % (25-40); Mean Corpuscular HGB Conc 33.5 % (30-36); Mean Corpuscular Hemoglobin 30.1 PG (26-34); Mean Corpuscular Volume 89.8 fL (80-100); Monocytes Absolute Auto 600 /uL (0-900); Monocytes Percent Auto 9.5 % (3-14); Neutrophils Absolute Auto 4100 /uL (1500-7000); Neutrophils Percent Auto 69.4 % (50-75); Platelet Count 215 X10^3/uL (150-400); Red Blood Cell Count 5.07 X10^6/uL (4.5-5.9); Red Cell Distribution Width 14.8 % (11.6-14.8)
[2021-06-12 17:47] LABS: Alanine Aminotransferase 26 IU/L (<50); Albumin 4.7 g/dL (3.5-5.0); Albumin Globulin Ratio 1.7 (1.0-2.8); Alkaline Phosphatase 134 U/L (38-126); Aspartate Aminotransferase 32 IU/L (17-59); BUN Creatinine Ratio 18.6 (6-22); Bilirubin Total 0.3 mg/dL (0.2-1.3); Blood Urea Nitrogen 19 mg/dL (9-20); Carbon Dioxide 25 mmol/L (22-32); Chloride 105 mmol/L (98-107); Estimated Glomerular Filt Rate > 60.0 mL/min (>60); Globulin 2.8 g/dL (1.7-4.1); Glucose 90 mg/dL (80-110); HEMOLYSIS 20 (0-50); Potassium 4.8 mmol/L (3.4-5.1); Sodium 137 mmol/L (137-145); Total Protein 7.5 g/dL (6.3-8.2)
[2021-06-12 18:31] LABS: INR 1.2 (0.9-1.3); Prothrombin Time 13.4 SECONDS (10.1-12.7)
== END ==
PROVIDERS: PCP Family Medicine; Referring Provider Family Medicine; Visit Provider Family Medicine
DX: I82.402 Acute embolism and thrombosis of unspecified deep veins of left lower extremity (principal); Z01.818 Encounter for other preprocedural examination
CPT/HCPCS: 36415; 80053; 85025; 85610

== ENCOUNTER → 2021-07-25 09:21 | Outpatient (CLI) | payer MEDICARE, OTHER, SELFPAY ==
[2021-07-25 10:27] LABS: Add Manual Diff / Slide Review NO; Basophils Absolute Auto 100 /uL (0-100); Basophils Percent Auto 2.1 % (0-2); Eosinophils Absolute Auto 700 /uL (0-450); Eosinophils Percent Auto 12.1 % (2-4); Hematocrit 45.5 % (41-53); Hemoglobin 15.1 g/dL (13.5-17.5); Lymphocytes Absolute Auto 700 /uL (1100-4500); Lymphocytes Percent Auto 13.5 % (25-40); Mean Corpuscular HGB Conc 33.2 % (30-36); Mean Corpuscular Hemoglobin 29.9 PG (26-34); Mean Corpuscular Volume 90.1 fL (80-100); Monocytes Absolute Auto 700 /uL (0-900); Monocytes Percent Auto 11.9 % (3-14); Neutrophils Absolute Auto 3300 /uL (1500-7000); Neutrophils Percent Auto 60.4 % (50-75); Platelet Count 203 X10^3/uL (150-400); Red Blood Cell Count 5.05 X10^6/uL (4.5-5.9); Red Cell Distribution Width 14.9 % (11.6-14.8); White Blood Cell Count 5.5 X10^3/uL (4.5-11.0)
[2021-07-25 10:46] LABS: Carbon Dioxide 26 mmol/L (22-32); Chloride 104 mmol/L (98-107); HEMOLYSIS < 15 (0-50); Potassium 5.1 mmol/L (3.4-5.1); Sodium 140 mmol/L (137-145)
== END ==
PROVIDERS: PCP Family Medicine; Referring Provider Orthopaedic Surgery; Visit Provider Orthopaedic Surgery
DX: Z01.818 Encounter for other preprocedural examination (principal); Z01.812 Encounter for preprocedural laboratory examination
CPT/HCPCS: 36415; 80051; 85025; 93005; 93010

== ENCOUNTER → 2021-08-02 13:17 | Outpatient (CLI) | payer MEDICARE, OTHER, SELFPAY ==
[2021-08-02 15:03] LABS: COVID19 -Nasal RAPID Negative (Negative)
== END ==
PROVIDERS: PCP Family Medicine; Visit Provider Family Medicine Sleep Medicine
DX: Z20.822 Contact with and (suspected) exposure to COVID-19 (principal)
CPT/HCPCS: 87635; C9803

== ENCOUNTER 2021-08-03 11:15 | Day surgery (SDC) | payer MEDICARE, OTHER, SELFPAY ==
[2021-07-26 08:53] VITALS: BMI 32.5
[2021-08-03] VITALS (14 sets, daily range): BP systolic 133–161; BP diastolic 66–96; PULSE 68–90; RESP 12–92; TEMP 35.8–36.8; O2SAT 14–98; BMI 32.5
--- NOTE | 2021-08-03 06:00 | DI.RAD.S_ITS ---
PROCEDURE: XR KNEE RT 1TO2V INDICATIONS: posthesis placement TECHNIQUE: 2 view(s) of the knee acquired. COMPARISON: [facility], CR, XR KNEE RT 3V, 03/04/2019, 13:25. FINDINGS: Bones: Patient is status post knee joint arthroplasty. Hardware components are in expected positions. Visualized bony structures are intact. Soft tissues: Overlying postoperative changes are noted. IMPRESSION: Expected immediate postoperative appearance, status post total right knee arthroplasty. Dictated by: Chang Carrillo M.D. on 08/03/2021 at 16:06 Approved by: Chang Carrillo M.D. on 08/03/2021 at 16:06
[2021-08-03] MEDS: LACTATED RINGERS 1,000 ML 42 ML IV ×2 (12:20→14:13)
[2021-08-03] MEDS: CELECOXIB 200 MG CAPSULE PO (12:21)
[2021-08-03] MEDS: PREGABALIN 75 MG CAPSULE PO (12:21)
[2021-08-03] MEDS: ACETAMINOPHEN 325 MG TABLET 975 MG PO (12:21)
--- NOTE | 2021-08-03 13:10 | PM.PREOP ---
Pre-operative Note COVID-19 COVID-19 status: Negative Interval Note History & Physical reviewed/Exam performed by Physician: Yes Changes to H&P: No
[2021-08-03] MEDS: CEFAZOLIN 2 GM/20 ML SYRINGE IV ×2 (13:18→21:03)
[2021-08-03] MEDS: TRANEXAMIC ACID 1,000 MG VIAL 1000 MG INJ (13:30)
[2021-08-03] MEDS: LIDOCAINE 1% W/EPI 20 ML INJ (13:30)
--- NOTE | 2021-08-03 13:42 | SUR.OPER ---
Supine on padded OR bed. Pillow under head, arms secured on padded armboards <90 degree abduction. Safety belt across torso. Non-operative leg secured with tape over blanket over lower leg. Operative leg secured in DeMayo/Yaw/Nathe positioner. Foam padded brace at thigh of operative leg.
[2021-08-03] MEDS: BUPIVACAINE 0.25% W/ EPI (PF) 40 ML, BUPIVACAINE LIPOSOME 266 MG, SODIUM CHLORIDE 0.9% ... INJ (13:50)
[2021-08-03] MEDS: BUPIVACAINE 0.25% W/ EPI (PF) 20 ML, TRANEXAMIC ACID 1,000 MG, SODIUM CHLORIDE 0.9% 10 ML INJ (13:52)
--- NOTE | 2021-08-03 15:04 | PM.OP.1 ---
Operative Date/Time/Diagnoses Date of procedure: 08/03/21 Time of procedure: 15:06 Pre-op diagnosis: Right knee osteoarthritis Post-op diagnosis: same Procedure & Clinicians Procedure: Right total knee arthroplasty Same procedure as scheduled: Yes Indications: The patient presents today for total knee arthroplasty after failure of conservative treatment. The nature of the procedure including the risks and benefits, alternatives, postoperative course and expected outcome were discussed and all questions answered. Consent was obtained. Operative site confirmed and marked. Surgeon: Greg Fischer Vice President Safety: Nadja Vela Anesthesia Type: General, Spinal and Local Operative Notes Closure Type: primary Specimen(s): none sent Applied: implant(s) Estimated Blood Loss (mL): 20 Blood products transfused: none Tourniquet time (min): 60 Procedure in detail: The patient was taken to the operative suite and placed under anesthesia. The patient was given prophylactic antibiotics prior to surgery. The patient was also given tranexamic acid, 1 g, just prior to surgery for postoperative hemostasis. The lateral knee was prepped and the joint injected with 20 mL of 1% Lidocaine with epinephrine. The knee was then prepped and draped in usual sterile fashion. The leg was exsanguinated with an Esmarch dressing and the tourniquet raised to 250 torr. A 15 cm anterior incision was made. Next a medial trivector arthrotomy was made. The extensor mechanism was marked to ensure accurate repair. Initial exposing dissection was carried out medially and laterally. The knee was then flexed and the intramedullary femoral guide rosa placed. The distal femoral cut was made in 6? of valgus at the +0 position. The femoral size was measured and the appropriate cutting block was then placed and the anterior, posterior and chamfer cuts made. The intramedullary tibial alignment rosa was then placed. The guide was set to remove approximately 10 mm from the less affected medial side. The proximal tibial cut was then made with an oscillating saw. All meniscus and bony debris was then removed. Posterior femoral osteophytes removed with a curved osteotome. Flexion extension gaps were checked. There is mild tightness laterally. This was corrected with percutaneous release of the lateral structures using a pie crust technique with a 15 blade. The soft tissues were then injected with a combination of 20 mL of half percent Marcaine with epinephrine and 20 mL of Exparel. The trial components were then placed. The knee was then extended and the patellar thickness was measured and a cut made removing approximately 7-8 mm of bone. The patella was then sized and drilled. Some excess lateral bone was excised and the patellofemoral ligament released. The knee went into full extension and flexion beyond 130?. There was excellent medial-lateral balance throughout motion. Patellar tracking was excellent. The trial components were removed and the knee was cleansed with Pulsavac irrigation and dried. The final components were cemented with high viscosity vacuum mixed bone cement with antibiotics. The joint was filled with a dilute Betadine solution. The knee was held in extension and the patellar clamped until the cement was adequately cured. The knee was then irrigated. The extensor mechanism was closed with 5 interrupted #1 Vicryl sutures and a running Quill suture at approximately 90 degrees of flexion. The joint was then injected with a combination of 1 g of tranexamic acid and 20 mL of quarter percent Marcaine with epinephrine. The subcutaneous tissue was closed with 2 0 Vicryl. The skin was closed with absorbable subcuticular sutures and surgical adhesive. An Aquacel dressing and Jose wrap were then applied. The patient tolerated the procedure well and was returned to recovery room in good condition. Complications: none Post-operative Condition: stable Disposition: PACU Plan for aftercare: [facility] Protocol.
--- NOTE | 2021-08-03 15:13 | P.DS_ITS ---
History of Present Illness History of Present Illness Chief complaint: RT TKA *OPB* Discharge Providers Provider Discharge Date: 08/31/21 Primary care physician: Marcus Segovia DO Consults: 08/03/21 06:00 Consult to Anesthesiology Routine Comment: Consulting Provider: Anesthesiologist Reason for consultation: Regional block for post operative pain control Discharge provider: Greg Fischer MD Exam Vital Signs (past 8 hours): - 08/03/21 12:05 Temperature 98.2 F Pulse Rate 80 Respiratory Rate 16 Blood Pressure 153/83 H Pulse Oximetry 98 Oxygen Delivery Method Room Air Objective Labs Result Diagrams: 08/04/21 05:18 PFSH Medical History Aortic root dilatation Atrial fibrillation, currently in sinus rhythm Chronic anticoagulation Cough Easy bruising HTN (hypertension) PAF (paroxysmal atrial fibrillation) (2014) Port-A-Cath in place (2014) Preoperative clearance Viral illness Surgical History History of surgery (2014) Hx of tonsillectomy Hx of transurethral resection of prostate Status post appendectomy Status post neck dissection (2014) Social History household members: spouse Smoking Status: Former smoker alcohol intake: never substance use type: does not use Discharge Assessment & Plan Assessment and Plan Assessment: Stable postop day 1 status post right total knee replacement. Plan of Treatment: Discharged home. Follow up in 2 weeks at [facility] orthopedic Surgeons. Discharge prescriptions have been provided by Dr. Fischer yesterday including oxycodone for pain relief. He is on Eliquis and this will be utilized as DVT prophylaxis. Discharge Plan Discharge Plan Patient Disposition: Home Discharge orders & Medications Discharge Orders: Discharge (Order); Ordered 08/04/21 Ordered By: Emiliano Downs Prescriptions: Continued gabapentin 300 mg capsule See Rx Instructions .ROUTE .COMPLEX Qty: 90 2RF Dose Instruction: TAKE ONE CAPSULE BY MOUTH NIGHTLY AT BEDTIME Rx Instructions: TAKE ONE CAPSULE BY MOUTH NIGHTLY AT BEDTIME oxycodone 5 mg tablet See Rx Instructions PO Q6H PRN (Reason: pain) Qty: 120 0RF Dose Instruction: PO Q6H PRN; Rx Instructions: Take 1-2 tabs by mouth every 6 hours as needed for pain. Eliquis 5 mg tablet 5 mg PO BID Qty: 180 3RF diltiazem HCl 240 mg capsule,extended release 24hr 240 mg PO DAILY Qty: 90 3RF losartan 50 mg Tablet 50 mg PO BEDTIME 0RF acetaminophen 500 mg Tablet 1,000 mg PO TID 0RF No Action levothyroxine 50 mcg tablet See Rx Instructions .ROUTE .COMPLEX Qty: 90 3RF Dose Instruction: Take one tablet by mouth once daily in the morning. Rx Instructions: Take one tablet by mouth once daily in the morning. Medication counseling provided by Pharmacist: No Follow up/Referrals: Greg Fischer MD [Physician] - 2 Weeks Marcus Segovia DO [Primary Care Provider] - Diet/Activity/Treatments Diet: Diet as Tolerated and Regular Activity: Progress activity and weight-bearing as tolerated. Cold/Heat Therapy: May ice the knee for 20 minutes at a time as needed for pain and swelling. Other treatments: Use Tylenol 500 mg up to every 4 hours in addition to prescribe oxycodone. Continue Eliquis for DVT prophylaxis. Skin/Wound/Dressing Care Report to your healthcare provider any signs of infection, such as:: chills, fever, increased pain, unusual drainage and unusual redness Dressing: May leave dressing in place until clinic follow-up. May shower over dressing as long as remains intact. Visit Report/Discharge Packet Instructions: DI for Knee Replacement, How to Prevent Falls, DI for Pres cription Opioid Use Stand Alone Forms: Surgery Discharge Discharge Data Primary Care Provider: Marcus Segovia Attending Provider: Greg Fischer
--- NOTE | 2021-08-03 15:47 | PC.NURSE ---
Day shift: Pt on AC unit from PACU at approx 1545. VS WNL. RA 94%. CMS ok. JANEL and Aquacel CDI. Medicated for pain per MAR. IV infusing. Oriented to room and call light. tolerating SCD's. He is A&Ox4. Will continue with post-op plan of care.
--- NOTE | 2021-08-03 15:49 | SUR.PHASEI ---
08/03/[id number] wide awake and alert. reports pain rt knee 04/30. dull ache. ice/elevation. vss. ekg nsr, rare pvc. hx of P.AF. csm rt foot: strong 2+ pulses dp/pt rt foot, cool,refill approx 3 secs. sensation / motion returning more as spinal progressing more downward. can bend knees and weak dorsi/planter flexion. tolerated po fluids. port a cath for iv fluids saline locked for floor. bilateral hearing aids insiut.wearing glasses also. to floor by hospital bed with RNs, one walker,one back pack,and one plastic clothing bag. updated earlier on status.
[2021-08-03] MEDS: OXYCODONE IR 10 MG TABLET PO (16:02)
[2021-08-03] MEDS: LACTATED RINGERS 1,000 ML 100 ML IV (16:15)
[2021-08-03] MEDS: HYDROMORPHONE 2 MG TABLET PO ×3 (17:04→23:03)
[2021-08-03] MEDS: HYDROMORPHONE 0.5 MG INJ 0.2 MG IV (17:05)
[2021-08-03] MEDS: ACETAMINOPHEN 325 MG TABLET 650 MG PO (20:07)
[2021-08-03] MEDS: GABAPENTIN 300 MG CAPSULE PO (20:08)
[2021-08-03] MEDS: ASPIRIN EC 81 MG TABLET PO (20:08)
[2021-08-03] MEDS: DOCUSATE 100 MG CAPSULE PO (20:08)
[2021-08-03] MEDS: APIXABAN 5 MG TABLET PO (20:08)
[2021-08-03] MEDS: LOSARTAN 50 MG TABLET PO (20:10)
--- NOTE | 2021-08-03 21:37 | PC.NURSE ---
Patient is alert and oriented. [place] with bilateral hearing aids. Breath sounds CTA with RA sat of 93%. HRR; BP is trending high and was 152/85 at last check. Denied nausea. BT present and patient states he is passing flatus. Voiding per urinal; denied dysuria, frequency or urgency. Is able to turn himself in bed. Not out of bed since return from surgery so gait not assessed at this time. Aquacel dressing to right knee covered w/jean wrap is CDI. Did complain of 7/10 pain and was medicated with dilaudid and reassessed at 4/10; has ice to knee as well. 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 Wearing bilateral calf SCD's. Fall risk score is moderate and bed alarm is activated.
[2021-08-04] MEDS: LACTATED RINGERS 1,000 ML 100 ML IV (01:24)
[2021-08-04] MEDS: HYDROMORPHONE 2 MG TABLET PO ×4 (02:11→11:25)
[2021-08-04 03:00] VITALS: BP 149/63; PULSE 76; RESP 17; TEMP 36.4; O2SAT 95
[2021-08-04] MEDS: CEFAZOLIN 2 GM/20 ML SYRINGE IV (05:05)
[2021-08-04] MEDS: LEVOTHYROXINE 50 MCG TABLET PO (05:19)
[2021-08-04] MEDS: SODIUM CHLORIDE 0.9% FLUSH 10 ML IV ×2 (05:22→08:33)
[2021-08-04 05:42] LABS: Hemoglobin 13.5 g/dL (13.5-17.5)
[2021-08-04 08:00] VITALS: BP 150/79; PULSE 73; RESP 17; TEMP 36.8; O2SAT 93
[2021-08-04] MEDS: ASPIRIN EC 81 MG TABLET PO (08:19)
[2021-08-04] MEDS: ACETAMINOPHEN 325 MG TABLET 650 MG PO (08:19)
[2021-08-04] MEDS: DOCUSATE 100 MG CAPSULE PO (08:20)
[2021-08-04] MEDS: APIXABAN 5 MG TABLET PO (08:20)
[2021-08-04] MEDS: dilTIAZem CD 240 MG CAP PO (08:20)
--- NOTE | 2021-08-04 09:13 | P.DS_ITS ---
History of Present Illness History of Present Illness Date Patient Seen: 08/04/21 Time Patient Seen: 09:13 Chief complaint: RT TKA *OPB* Narrative: History and physical is contained in the chart previously completed note. Please refer to that note for this information. Discharge Providers Provider Date of admission: August 03, 2021 Discharge Date: 08/04/21 Primary care physician: Marcus Segovia DO Consults: 08/03/21 15:47 Consult to Discharge Planning Routine Comment: Consult to Physical Therapy Evaluate & Treat Comment: Physician Instructions: postop TKA protocol Consult to Respiratory Therapy Evaluate & Treat Comment: Physician Instructions: Evaluate and treat Discharge provider: Emiliano Downs MD Summary Hospital Course Discharge Diagnosis: 1. Right knee osteoarthritis Hospital Course: The patient was admitted to the hospital and taken directly to the operating room on August 03, 2021 where he underwent a right total knee replacement. He did well postoperatively but was admitted overnight. He is stable on postoperative day 1 and ready for discharge. Status at Discharge Cognitive/behavioral status at discharge: at baseline, oriented Functional status at discharge: uses cane/walker Overall status at discharge: patient is progressing back to baseline Time Spent with Patient Time spent: Less than 30 minutes Exam Vital Signs (past 8 hours): - 08/04/21 03:00 08/04/21 08:00 Temperature 97.5 F L 98.2 F Pulse Rate 76 73 Respiratory Rate 17 17 Blood Pressure 149/63 H 150/79 H Pulse Oximetry 95 93 Oxygen Delivery Method Room Air Oxygen Flow Rate 0 Narrative Exam Narrative: Right knee wound is dressed with no drainage on the bandage. Calf is soft. Light touch and motion are intact in the right lower extremity. Objective Labs Result Diagrams: 08/04/21 05:18 Labs: Laboratory Results - last 24 hr 08/04/21 05:18 Hgb 13.5 Hct 41.0 PFSH Medical History (Updated 07/26/21 @ 08:52 by Ivelisse Romero RN) Aortic root dilatation Atrial fibrillation, currently in sinus rhythm Chronic anticoagulation Cough Easy bruising HTN (hypertension) PAF (paroxysmal atrial fibrillation) (2014) Port-A-Cath in place (2014) Preoperative clearance Viral illness Surgical History (Updated 07/25/21 @ 14:14 by Ivelisse Romero RN) History of surgery (2014) Hx of tonsillectomy Hx of transurethral resection of prostate Status post appendectomy Status post neck dissection (2014) Social History household members: spouse Smoking Status: Former smoker alcohol intake: never substance use type: does not use Discharge Assessment & Plan Assessment and Plan Assessment: Stable postop day 1 status post right total knee replacement. Plan of Treatment: Discharged home. Follow up in 2 weeks at [facility] orthopedic Surgeons. Discharge prescriptions have been provided by Dr. Fischer yesterday including oxycodone for pain relief. He is on Eliquis and this will be utilized as DVT prophylaxis. Discharge Plan Discharge Plan Patient Disposition: Home Discharge orders & Medications Discharge Orders: Discharge (Order); Ordered 08/04/21 Ordered By: Emiliano Downs Prescriptions: Continued gabapentin 300 mg capsule See Rx Instructions .ROUTE .COMPLEX Qty: 90 2RF Dose Instruction: TAKE ONE CAPSULE BY MOUTH NIGHTLY AT BEDTIME Rx Instructions: TAKE ONE CAPSULE BY MOUTH NIGHTLY AT BEDTIME levothyroxine 50 mcg tablet See Rx Instructions .ROUTE .COMPLEX Qty: 30 0RF Dose Instruction: Take one tablet by mouth once daily in the morning. Rx Instructions: Take one tablet by mouth once daily in the morning. oxycodone 5 mg tablet See Rx Instructions PO Q6H PRN (Reason: pain) Qty: 120 0RF Dose Instruction: PO Q6H PRN; Rx Instructions: Take 1-2 tabs by mouth every 6 hours as needed for pain. Eliquis 5 mg tablet 5 mg PO BID Qty: 180 3RF diltiazem HCl 240 mg capsule,extended release 24hr 240 mg PO DAILY Qty: 90 3RF losartan 50 mg Tablet 50 mg PO BEDTIME 0RF acetaminophen 500 mg Tablet 1,000 mg PO TID 0RF Medication counseling provided by Pharmacist: No Follow up/Referrals: Greg Fischer MD [Physician] - 2 Weeks Marcus Segovia DO [Primary Care Provider] - Diet/Activity/Treatments Diet: Diet as Tolerated and Regular Activity: Progress activity and weight-bearing as tolerated. Cold/Heat Therapy: May ice the knee for 20 minutes at a time as needed for pain and swelling. Other treatments: Use Tylenol 500 mg up to every 4 hours in addition to prescribe oxycodone. Continue Eliquis for DVT prophylaxis. Skin/Wound/Dressing Care Report to your healthcare provider any signs of infection, such as:: chills, fever, increased pain, unusual drainage and unusual redness Dressing: May leave dressing in place until clinic follow-up. May shower over dressing as long as remains intact. Visit Report/Discharge Packet Instructions: DI for Knee Replacement Stand Alone Forms: Surgery Discharge Discharge Data Primary Care Provider: Marcus Segovia Attending Provider: Greg Fischer
--- NOTE | 2021-08-04 10:33 | PT.IIE ---
Addendum entered and electronically signed by Florinda Lay, PT 08/04/21 10:37: Charges [id number], [id number] x1 Original Note: Current Diagnoses Bilateral primary osteoarthritis of knee (08/03/21) Surgery Performed Operation Date: 08/03/21 13:00 Actual Procedures p Total Knee Arthroplasty(Right) - Greg Fischer MD Medical History (Last Updated 07/26/21 @ 08:52 by Ivelisse Romero RN) Aortic root dilatation Atrial fibrillation, currently in sinus rhythm Chronic anticoagulation Cough Easy bruising HTN (hypertension) PAF (paroxysmal atrial fibrillation) (2014) Port-A-Cath in place (2014) Preoperative clearance Viral illness Physical Therapy Inpatient Evaluation/Re-Eval M1 PT/OT-IP Prior Functional Status Start: 08/04/21 10:15 Freq: Status: Active Protocol: Document 08/04/21 10:16 BC (Rec: 08/04/21 10:31 [id number]) Medical Review Prior Functional Status Medical History Reviewed Yes Mobility and Gait Independent, no a.d. Activities of Daily Living and IADL's Independent Prior Functional Level (Other details) Independent. Lives with spouse in 2 story home. Enjoys gardening. Working with OPPT for knee arthritis. Social History Household Members spouse Living Arrangements House Number of Floors (Floors) Two Floors Number of Stairs To Enter/Railing? 1 step to enter home; 14 steps with landing half way for bedroom. Home Equipment Front Wheel Walker,Straight Cane,Raised Toilet Seat w/ Armrests Employment Status Retired Additional Social History Comment Pt reports spouse is able to provide physical assist as needed M2 PT-IP Current Condition Start: 08/04/21 10:15 Freq: Status: Active Protocol: Document 08/04/21 10:16 BC (Rec: 08/04/21 10:31 [id number]) Physical Therapy Current Condition Current Condition Evaluation Date 08/04/21 Treatment Diagnosis altered gait pattern, impaired LE strength and ROM Onset Date 08/03/21 M3 PT-IP Subjective Start: 08/04/21 10:15 Freq: Status: Active Protocol: Document 08/04/21 10:16 BC (Rec: 08/04/21 10:31 [id number]) Subjective Physical Therapy Visit Type Type Initial Evaluation Visit Start Time 09:00 Visit Stop Time 09:35 Total Visit Minutes 31 Physical Therapy Visit Comments Patient Comments Pt very motivated to participate with PT. He is able to verbalize prior education from PT regarding standard TKA exercises for bed /chair and use of walker. Patient Goals To go home today Review stairs with SPC and railing Therapy Pain Assessment Pain When Pain Assessed At Rest Pain Present Pain Present Pain Reported Location rt knee Intensity 4 Scale Used Numeric (0 - 10) Description Acute M4 PT-IP Mobility and Gait Start: 08/04/21 10:15 Freq: Status: Active Protocol: Document 08/04/21 10:16 (Rec: 08/04/21 10:31 [id number]) PT-Bed Mobility Assessment Supine to Sit Supine to Sit Independent Scooting Scooting to Edge of Bed Independent Scooting Up and Down in Bed Independent PT-Transfer Assessment Sit to and From Stand Sit to and from Stand Standby Assistance Equipment Transfer Assistive Device Front Wheeled Walker Transfers Transfer Destination Bed,Chair,Wheelchair Transfer Technique Stand Pivot Transfer Ability Level of Assist Standby Assistance Comments Mobility Comments STS x6 reps from recliner, EOB and w/c levels. Cued for first rep in regards to RLE placement. Stand pivot x3 reps with FWW Gait Assessment Gait Gait Assistance Required: Standby Assistance Distance (Feet) 50 Assistive Devices Assistive Device Front Wheeled Walker Gait Deviations General Gait Pattern Decreased Stride Length,Step- to Gait Factors Limiting Gait Function Factors Limiting Gait Function Decreased Strength,Limited Range of Motion Comments Gait Comments 50' x4 reps with FWW. Gait pattern is typical step to s/p R TKA. No signs of RLE buckling during weight shifting. Stair Climbing Assessment Evaluation Level of Assist On Stairs Contact Guard Assistance, Minimal Assistance Devices Stair Climbing Assistive Devices Straight Cane,Left Railing, Right Railing Technique/Endurance Stair Climbing Direction Ascend and Descend Stair Climbing Technique Step to Step Number of Steps Climbed 3 Query Text: Comments Stair Climbing Comments Pt requesting review of technique for stair mgmt with rail/SPC. Visual demonstration provided first. Pt then able to complete 3 steps with CGA to min A. Min A needed 1x when he did not properly sequence cane. This was allowed so that he could learn difference between placement of cane on proper step and how this provides support. PT-Balance Assessment Sitting Balance and Reactions Static Sitting Balance Ability Normal Dynamic Sitting Balance Ability Normal Standing Balance and Reactions Static Standing Balance Ability Fair Dynamic Standing Balance Ability Fair Device Used FWW M5 PT-IP Objective Assessments Start: 08/04/21 10:15 Freq: Status: Active Protocol: Document 08/04/21 10:16 (Rec: 08/04/21 10:31 [id number]) Orientation Orientation/Cognition Level of Alertness Alert Orientation Name,Age,Birthday,Month,Date, Year,Day of Week,Place, Situation Safety Awareness Understands Safety Issues Memory Description No Deficits Noted Gross Range of Motion Upper Extremity ROM Assessment Within Functional Limits Lower Extremity ROM Assessment Right Impaired Impairments R knee AROM grossly 5-80 demonstrated Strength Upper Extremity Strength Assessment Within Functional Limits Lower Extremity Strength Assessment Right Impaired Hip 3/5 Knee 3/5 Ankle 5/5 Coordination Assessment Gross Coordination Gross Coordination WNL Sensation Assessment Sensation Gross Sensation Right LE Impaired,Left LE Impaired Light Touch Impaired Sensation Description Numbness Comments Sensation Comments 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 Muscle Tone Muscle Tone WNL Yes M6 PT-IP Treatment Start: 08/04/21 10:15 Freq: Status: Active Protocol: Document 08/04/21 10:16 BC (Rec: 08/04/21 10:31 [id number]) Physical Therapy Treatment Exercises Exercises Ankle Pumps,Quad Sets Education Education Provided Precautions,Post-Op Packet, Safety M7 PT-IP Assessment and Plan Start: 08/04/21 10:15 Freq: Status: Active Protocol: Document 08/04/21 10:16 BC (Rec: 08/04/21 10:31 [id number]) PT Summary Assessment and Plan Potential Rehabilitation Potential Excellent Status of Condition at Evaluation Stable Summary Impairments Pain,ROM,Strength,Balance, Transfers,Gait Progress Towards Goals Progressing Toward Goals Assessment Summary Pt admitted s/p R TKA due to OA. He reports PLOF of complete independence with worsening knee pain and strength over last year. He was attended OPPT. He lives with his spouse in a two story home. 1 step to enter. He has a bath/bed on first floor but reports to therapist he would really like to be able to sleep in his own bed on second floor. CLOF: Pt is able to demonstrate independent bed mobility and SBA for transfers /gait. He has excellent recall of training he received from OPPT. He uses FWW appropriately. He was able to consistently demonstrate good transfer and gait techniques. Per Pt request, we reviewed stair mgmt with single rail and SPC (he was taught this in OPPT). After visual demonstration Pt was able to ascend/descend stairs with CGA . He did note fatigability with stairs. He does have a landing usp up his 13-14 steps that he can safely place a chair to sit and rest if needed. At this time I educated him on risks with stairs on his first several days at home. Recommend that if he is feeling weak, lightheaded he should stay on first floor. If he elects to do stairs he has excellent recall of proper technique, good strength and a safety plan with chair to rest/ assisting. Pt will be appropriate for d/c home when medically stable. Goals Transfer Goal Independent Gait Goal Independent Gait Distance 150 Other Goals Ascend/descend 13 steps with SBA, railing and SPC. Days to Meet Goals 4 Frequency of Treatment Frequency Of Treatment Twice a Day Treatment Plan Physical Therapy Treatment Plan Bed Mobility Training,Transfer Training,Gait Training, Therapeutic Exercise,Balance Retraining,Post Op Education, Discharge Planning, Neuromuscular Re-ed, Coordination Retraining,Manual Therapy Weight Bearing Status Weight Bearing Status Weight Bear as Tolerated Recommendations To Nursing Amount of Assist Needed Standby Assistance,1 Person Assist Discharge Recommendations PT Discharge Recommendations Home with Assistance, Outpatient PT Transportation Needs at Discharge Private Vehicle
[2021-08-04 11:00] VITALS: BP 137/76; PULSE 84; RESP 17; TEMP 37.2; O2SAT 93
--- NOTE | 2021-08-04 12:51 | CM.DANOTE ---
DCP Brief Assessment Note Patient is a 76 yo male who was admitted on 08/03/21 for RTKA. Pt has M[place] and [place] for [place] and his PCP is Dr. Marcus Segovia. EMR was reviewed. Per Ortho , pt tolerated surgical intervention well and is medically stable to d/c home today with no identified barriers to discharge. Per PT, pt lives at home in [place] in a two level home with spouse and is active and independent with ADLs and mobility at baseline. Pt participated in stair training and was able to tolerate with cane and has plan for chair for rest half way up his 16 split level stairs. Spouse was present and can assist pt as needed and physically capable to help. Recommending safe d/c home with outpt PT that pt already has set up. Per RN, pt voiding independently with bowel tones and tolerating diet and no concerns with discharge at this time. SW attempted to meet bedside with pt and spouse but they had discharged home prior to lunch time. No needs identified. Plan: Patient discharged home via spouse POV and outpt PT set up and no further discharge needs at this time. AVELINO Rodriguez
== END 2021-08-04 12:14 | disposition home or self-care (01) ==
LOC: OR 11:19 → AC 11:22
PROVIDERS: PCP Family Medicine; Referring Provider Orthopaedic Surgery; Visit Provider Orthopaedic Surgery
PROC: 0SRC0JZ Replacement of Right Knee Joint with Synthetic Substitute, Open Approach (ICD-10-PCS; CPT 27447; principal; 2021-08-03 13:00)
DX: M17.11 Unilateral primary osteoarthritis, right knee (principal); I48.91 Unspecified atrial fibrillation; I10 Essential (primary) hypertension; Z79.01 Long term (current) use of anticoagulants; Z87.891 Personal history of nicotine dependence
CPT/HCPCS: 27447; 36415; 73560; 85014; 85018; 97161; 97530; C1776; C9290; J0690; J1100; J1170; J1642; J2250; J2405; J2704; J3010

== ENCOUNTER 2021-08-06 18:29 | Inpatient (IN) | payer MEDICARE, OTHER, SELFPAY ==
[2021-08-03 18:16] VITALS: BMI 32.5
[2021-08-06] VITALS (27 sets, daily range): BP systolic 120–173; BP diastolic 44–73; PULSE 74–103; RESP 15–63; TEMP 37.1–37.2; O2SAT 86–97
--- NOTE | 2021-08-06 18:41 | DI.RAD.S_ITS ---
PROCEDURE: XR CHEST 1V INDICATIONS: SOB, recent surgery TECHNIQUE: One view of the chest was acquired. COMPARISON: [facility], CR, XR CHEST 2V, 08/28/2020, 12:00. FINDINGS: Surgical changes and devices: Right-sided Port-A-Cath in place Lungs and pleura: Blunting the right costophrenic angle with right basilar atelectasis and or infiltrate. Left lung and pleural space clear. Mediastinum: Mediastinal contours appear normal. Heart size is normal. Bones and chest wall: No suspicious bony lesions. Overlying soft tissues appear unremarkable. IMPRESSION: Right basilar atelectasis and or infiltrate with small pleural effusion Approved by: Mehul Brown M.D. on 08/06/2021 at 18:07
--- NOTE | 2021-08-06 19:12 | ED_ITS ---
HPI - Weakness General Chief complaint: Weakness Stated complaint: Unable to ambulate Time Seen by Provider: 08/06/21 18:41 Source: patient and EMS Mode of arrival: EMS History of Present Illness HPI Narrative: 76-year-old male with history of squamous cell of the mandible, DVT, previously on anticoagulation which had been stopped just prior to his right total knee surgery performed on Friday. He presents today by EMS for evaluation of significant pain in his right knee with generalized weakness and inability to ambulate. He denies any fever chills. He has no dizziness, chest pain, nausea or vomiting. He denies shortness of breath, however EMS noted pulse ox in the mid 80s. He states he has had a rather poor appetite since the surgery and pain is been difficult to control. His pain is worse with motion and seems to improve with rest Related Data Home Medications Medication Instructions Recorded Confirmed acetaminophen 500 mg tablet 1,000 mg PO TID 07/25/21 08/03/21 losartan 50 mg tablet 50 mg PO BEDTIME 07/25/21 07/25/21 Previous Rx's Medication Instructions Recorded apixaban 5 mg tablet (Eliquis) 5 mg PO BID #180 tab 02/15/20 diltiazem HCl 240 mg 240 mg PO DAILY #90 cap 02/15/20 capsule,extended release 24 hr gabapentin 300 mg capsule See Rx Instructions .ROUTE 05/08/21 .COMPLEX #90 cap oxycodone 5 mg tablet See Rx Instructions PO Q6H PRN 08/01/21 #120 tab levothyroxine 50 mcg tablet See Rx Instructions .ROUTE 08/06/21 .COMPLEX #90 tab Allergies Allergy/AdvReac Type Severity Reaction Status Date / Time No Known Drug Allergies Allergy Verified 08/06/21 18:51 Review of Systems Review of Systems Narrative: GENERAL: See HPI HEENT: Denies sinus pain, ear pain, sore throat, difficulty swallowing, dizziness. RESPIRATORY: See HPI CARDIOVASCULAR: See HPI GASTROINTESTINAL: Denies nausea, vomiting, abdominal pain, diarrhea, constipation, melena. : Denies dysuria, frequency, incontinence, hematuria, urinary retention. MUSCULOSKELETAL: d see HPI SKIN: Denies rash, skin lesions, or other NEUROLOGIC: Denies weakness, headache, numbness, change in speech, confusion, seizures, incoordination. PSYCHIATRIC: No concerning psychosocial issues. 12 point review of systems is negative except for those stated above Patient History Medical History Aortic root dilatation Atrial fibrillation, currently in sinus rhythm Chronic anticoagulation Cough Easy bruising HTN (hypertension) PAF (paroxysmal atrial fibrillation) (2014) Port-A-Cath in place (2014) Preoperative clearance Viral illness Surgical History History of surgery (2014) Hx of tonsillectomy Hx of transurethral resection of prostate Status post appendectomy Status post neck dissection (2014) Social History household members: spouse Smoking Status: Former smoker alcohol intake: never substance use type: does not use Smoking Status: Former smoker Substance Use Type: does not use Exam Narrative Exam Narrative: GENERAL: 76 year old patient appears stated age. Ill-appearing, no significant increased work of breathing, however hypoxemic on arrival HEAD: Atraumatic. Normocephalic. EYES: Pupils equal round and reactive. Extraocular motions intact. No scleral icterus. No injection or drainage. ENT: Nose without bleeding, purulent drainage. Throat without erythema, tonsillar hypertrophy or exudate. Airway patent. NECK: Trachea midline. Non tender CARDIOVASCULAR: Regular rate and rhythm without murmurs, gallops, or rubs. RESPIRATORY: Clear to auscultation. Breath sounds equal bilaterally. No wheezes, rales, or rhonchi. GASTROINTESTINAL: Abdomen soft, non-tender, nondistended. EXTREMITIES: Right knee with decreased range of motion secondary to pain, moderate effusion and erythema, expected postop appearance BACK: Nontender without deformity or crepitance. No flank tenderness. NEURO: AOx3. SKIN: No rash or erythema of visible areas Initial Vital Signs Initial Vital Signs: Vital Signs Temperature 98.7 F 08/06/21 18:38 Pulse Rate 89 08/06/21 18:38 Respiratory Rate 19 08/06/21 18:38 Blood Pressure 144/70 H 08/06/21 18:38 Pulse Oximetry 87 L 08/06/21 18:38 Course Orders Ordered: ED Orders 08/06/21 18:41 XR chest 1V Stat Urinalysis and Microscopic Stat Urine Culture Stat EKG-12 Lead Stat 08/06/21 19:09 ABG [Arterial Blood Gas] Stat 08/06/21 19:10 Blood Culture Stat Complete Blood Count AUTO DIFF Stat Comprehensive Metabolic Panel Stat Lactate (Lactic Acid) Stat NT-proBNP (BNP-Adult 18+) Stat Procalcitonin Stat Troponin & CK Cardiac Panel Stat Type and Screen Stat 08/06/21 19:16 CT angio chest PE protocol Stat Respiratory Panel (Film Array) Stat Sodium Chloride (Normal Saline 0.9%) 1,000 mls @ 200 mls/hr IV CONT CLAUDE Last Admin: 08/06/21 19:42 Dose: 200 mls/hr Documented by: ITZ Discontinued Medications Hydromorphone HCl (Hydromorphone 0.5 Mg Inj) 0.5 mg IV NOW ONE Stop: 08/06/21 19:16 Last Admin: 08/06/21 19:42 Dose: 0.5 mg Documented by: ITZ Ondansetron HCl (Ondansetron 4 Mg/2 Ml Inj) 4 mg IV NOW ONE Stop: 08/06/21 19:16 Last Admin: 08/06/21 19:42 Dose: 4 mg Documented by: ITZ Vital Signs Vital signs: Vital Signs - 8 hr 08/06/21 18:38 08/06/21 18:52 08/06/21 18:54 Temperature 98.7 F Pulse Rate 89 101 H 101 H Respiratory Rate 19 20 15 Blood Pressure 144/70 H 147/67 H Pulse Oximetry 87 L 91 89 L 08/06/21 19:00 08/06/21 19:15 08/06/21 19:30 Temperature Pulse Rate 100 H 103 H 98 H Respiratory Rate 33 H 19 23 Blood Pressure 141/62 H 163/71 H Pulse Oximetry 97 93 94 08/06/21 19:45 08/06/21 20:09 08/06/21 20:15 Temperature Pulse Rate 98 H 93 H 93 H Respiratory Rate 24 24 19 Blood Pressure Pulse Oximetry 94 92 91 08/06/21 20:26 08/06/21 20:30 08/06/21 20:33 Temperature Pulse Rate 89 92 H 91 H Respiratory Rate 24 23 22 Blood Pressure 173/73 H Pulse Oximetry 88 L 92 91 08/06/21 20:45 08/06/21 21:00 08/06/21 21:15 Temperature Pulse Rate 86 84 93 H Respiratory Rate 20 21 27 H Blood Pressure Pulse Oximetry 91 90 L 91 08/06/21 21:30 08/06/21 21:45 08/06/21 22:00 Temperature Pulse Rate 93 H 87 84 Respiratory Rate 25 H Blood Pressure Pulse Oximetry 93 90 L 86 L 08/06/21 22:01 08/06/21 22:15 08/06/21 22:16 Temperature Pulse Rate 85 91 H 87 Respiratory Rate 63 H Blood Pressure 147/71 H 120/56 L Pulse Oximetry 94 95 95 08/06/21 22:30 08/06/21 22:31 08/06/21 22:45 Temperature Pulse Rate 83 80 82 Respiratory Rate Blood Pressure 169/71 H Pulse Oximetry 95 96 96 08/06/21 22:46 Temperature Pulse Rate 86 Respiratory Rate Blood Pressure 166/71 H Pulse Oximetry 94 MDM - Weakness Lab Data Result diagrams: 08/06/21 19:10 08/06/21 19:10 Labs: Lab Results 08/06/21 08/06/21 08/06/21 Range/Units 18:41 19:09 19:10 WBC 10.6 (4.5-11.0) X10^3/uL RBC 3.76 L (4.5-5.9) X10^6/uL Hgb 11.3 L (13.5-17.5) g/dL Hct 33.4 L (41-53) % MCV 88.8 (80-100) fL MCH 30.1 (26-34) PG MCHC 33.9 (30-36) % RDW 14.5 (11.6-14.8) % Plt Count 180 (150-400) X10^3/uL Neut % (Auto) 83.6 H (50-75) % Lymph % (Auto) 2.5 L (25-40) % [place] % (Auto) 12.6 (3-14) % Eos % (Auto) 0.4 L (2-4) % Baso % (Auto) 0.9 (0-2) % Neut # (Auto) 8800 H (4336-6246) /uL Lymph # (Auto) 300 L (3518-9987) /uL [place] # (Auto) 1300 H (0-900) /uL Eos # (Auto) 0 (0-450) /uL Baso # (Auto) 100 (0-100) /uL ABG pH 7.46 H (7.35-7.45) ABG pCO2 36.5 (35-45) mmHg ABG pO2 77 L (80-100) mmHg ABG HCO3 26 (22-26) mmol/L ABG Total CO2 27 (21-31) mmol/L ABG O2 Saturation 96 (95-100) % ABG Base Excess 2.0 (-2-2) mmol/L FiO2 36 Sodium (137-145) mmol/L Potassium (3.4-5.1) mmol/L Chloride (98-107) mmol/L Carbon Dioxide (22-32) mmol/L BUN (9-20) mg/dL Creatinine (0.66-1.25) mg/dL Estimated GFR (>60) mL/min BUN/Creatinine Ratio (6-22) Glucose (80-110) mg/dL Lactate (0.7-2.1) mmol/L Calcium (8.4-10.2) mg/dL Total Bilirubin (0.2-1.3) mg/dL AST (17-59) IU/L ALT (<50) IU/L Alkaline Phosphatase (38-126) U/L Total Creatine Kinase (55-170) U/L CK-MB (CK-2) (<2.37) ng/mL CK-MB (CK-2) Rel Index (1.5-5.0) % Troponin I (0.01-0.034) ng/mL NT-Pro-B Natriuret Pep (<450) pg/mL Total Protein (6.3-8.2) g/dL Albumin (3.5-5.0) g/dL Globulin (1.7-4.1) g/dL Albumin/Globulin Ratio (1.0-2.8) Procalcitonin (<0.5) ng/mL Urine Color Yellow Urine Appearance Clear Urine pH 6.0 (4.5-8.0) Ur Specific [place] 1.020 (1.000-1.035) Urine Protein 1+ H (Negative) Urine Glucose (UA) Negative (Negative) g/dL Urine Ketones 1+ H (NEGATIVE) Urine Occult Blood 3+ H (Negative) Urine Nitrate Negative (Negative) Urine Bilirubin Negative (NEGATIVE) Urine Urobilinogen 0.2 (0.2) E.U./dL Ur Leukocyte Esterase Negative (NEGATIVE) Urine RBC 5-10/hpf H (0-5/HPF) Urine WBC 1-5/hpf (0-5/HPF) Ur Squamous Epith Cells 0-1 /hpf (0-5/HPF) Amorphous Sediment 1+ Urine Bacteria Few (2-10) H (None) Urine Mucus 1+ H (Negative) Ur Culture Indicated? Specimen cultured Chlamy pneumoniae PCR (Not Detect) Adenovirus (PCR) (Not Detect) B. pertussis DNA (PCR) (Not Detecte) B.parapertussis DNA PCR (Not Detecte) Coronavirus OC43 (PCR) (Not Detect) Coronavirus HKU1 (PCR) (Not Detect) Coronavirus 229E (PCR) (Not Detect) SARS-CoV-2 (PCR) (Not Detecte) Coronavirus NL63 (PCR) (Not Detect) Human Metapneumovir PCR (Not Detect) Influenza Type A (PCR) (Not Detect) Influenza Type B (PCR) (Not Detect) M. pneumoniae (PCR) (Not Detect) Parainfluenza 1 (PCR) (Not Detect) Parainfluenza 2 (PCR) (Not Detect) Parainfluenza 3 (PCR) (Not Detect) Parainfluenza 4 (PCR) (Not Detect) RSV (PCR) (Not Detect) Entero/Rhino (PCR) (Not Detect) Blood Type Antibody Screen 08/06/21 08/06/21 08/06/21 Range/Units 19:10 19:10 19:10 WBC (4.5-11.0) X10^3/uL RBC (4.5-5.9) X10^6/uL Hgb (13.5-17.5) g/dL Hct (41-53) % MCV (80-100) fL MCH (26-34) PG MCHC (30-36) % RDW (11.6-14.8) % Plt Count (150-400) X10^3/uL Neut % (Auto) (50-75) % Lymph % (Auto) (25-40) % [place] % (Auto) (3-14) % Eos % (Auto) (2-4) % Baso % (Auto) (0-2) % Neut # (Auto) (5002-5483) /uL Lymph # (Auto) (7014-8608) /uL [place] # (Auto) (0-900) /uL Eos # (Auto) (0-450) /uL Baso # (Auto) (0-100) /uL ABG pH (7.35-7.45) ABG pCO2 (35-45) mmHg ABG pO2 (80-100) mmHg ABG HCO3 (22-26) mmol/L ABG Total CO2 (21-31) mmol/L ABG O2 Saturation (95-100) % ABG Base Excess (-2-2) mmol/L FiO2 Sodium 134 L (137-145) mmol/L Potassium 4.1 (3.4-5.1) mmol/L Chloride 98 (98-107) mmol/L Carbon Dioxide 26 (22-32) mmol/L BUN 17 (9-20) mg/dL Creatinine 1.23 (0.66-1.25) mg/dL Estimated GFR > 60 (>60) mL/min BUN/Creatinine Ratio 13.8 (6-22) Glucose 122 H (80-110) mg/dL Lactate 1.4 (0.7-2.1) mmol/L Calcium 8.0 L (8.4-10.2) mg/dL Total Bilirubin 1.2 (0.2-1.3) mg/dL AST 29 (17-59) IU/L ALT 20 (<50) IU/L Alkaline Phosphatase 96 (38-126) U/L Total Creatine Kinase 322 H (55-170) U/L CK-MB (CK-2) 1.07 (<2.37) ng/mL CK-MB (CK-2) Rel Index 0.3 L (1.5-5.0) % Troponin I < 0.012 (0.01-0.034) ng/mL NT-Pro-B Natriuret Pep 218 (<450) pg/mL Total Protein 6.5 (6.3-8.2) g/dL Albumin 3.8 (3.5-5.0) g/dL Globulin 2.7 (1.7-4.1) g/dL Albumin/Globulin Ratio 1.4 (1.0-2.8) Procalcitonin 0.35 (<0.5) ng/mL Urine Color Urine Appearance Urine pH (4.5-8.0) Ur Specific [place] (1.000-1.035) Urine Protein (Negative) Urine Glucose (UA) (Negative) g/dL Urine Ketones (NEGATIVE) Urine Occult Blood (Negative) Urine Nitrate (Negative) Urine Bilirubin (NEGATIVE) Urine Urobilinogen (0.2) E.U./dL Ur Leukocyte Esterase (NEGATIVE) Urine RBC (0-5/HPF) Urine WBC (0-5/HPF) Ur Squamous Epith Cells (0-5/HPF) Amorphous Sediment Urine Bacteria (None) Urine Mucus (Negative) Ur Culture Indicated? Chlamy pneumoniae PCR (Not Detect) Adenovirus (PCR) (Not Detect) B. pertussis DNA (PCR) (Not Detecte) B.parapertussis DNA PCR (Not Detecte) Coronavirus OC43 (PCR) (Not Detect) Coronavirus HKU1 (PCR) (Not Detect) Coronavirus 229E (PCR) (Not Detect) SARS-CoV-2 (PCR) (Not Detecte) Coronavirus NL63 (PCR) (Not Detect) Human Metapneumovir PCR (Not Detect) Influenza Type A (PCR) (Not Detect) Influenza Type B (PCR) (Not Detect) M. pneumoniae (PCR) (Not Detect) Parainfluenza 1 (PCR) (Not Detect) Parainfluenza 2 (PCR) (Not Detect) Parainfluenza 3 (PCR) (Not Detect) Parainfluenza 4 (PCR) (Not Detect) RSV (PCR) (Not Detect) Entero/Rhino (PCR) (Not Detect) Blood Type O Negative Antibody Screen Negative 08/06/21 Range/Units 19:16 WBC (4.5-11.0) X10^3/uL RBC (4.5-5.9) X10^6/uL Hgb (13.5-17.5) g/dL Hct (41-53) % MCV (80-100) fL MCH (26-34) PG MCHC (30-36) % RDW (11.6-14.8) % Plt Count (150-400) X10^3/uL Neut % (Auto) (50-75) % Lymph % (Auto) (25-40) % [place] % (Auto) (3-14) % Eos % (Auto) (2-4) % Baso % (Auto) (0-2) % Neut # (Auto) (7293-0870) /uL Lymph # (Auto) (1374-5237) /uL [place] # (Auto) (0-900) /uL Eos # (Auto) (0-450) /uL Baso # (Auto) (0-100) /uL ABG pH (7.35-7.45) ABG pCO2 (35-45) mmHg ABG pO2 (80-100) mmHg ABG HCO3 (22-26) mmol/L ABG Total CO2 (21-31) mmol/L ABG O2 Saturation (95-100) % ABG Base Excess (-2-2) mmol/L FiO2 Sodium (137-145) mmol/L Potassium (3.4-5.1) mmol/L Chloride (98-107) mmol/L Carbon Dioxide (22-32) mmol/L BUN (9-20) mg/dL Creatinine (0.66-1.25) mg/dL Estimated GFR (>60) mL/min BUN/Creatinine Ratio (6-22) Glucose (80-110) mg/dL Lactate (0.7-2.1) mmol/L Calcium (8.4-10.2) mg/dL Total Bilirubin (0.2-1.3) mg/dL AST (17-59) IU/L ALT (<50) IU/L Alkaline Phosphatase (38-126) U/L Total Creatine Kinase (55-170) U/L CK-MB (CK-2) (<2.37) ng/mL CK-MB (CK-2) Rel Index (1.5-5.0) % Troponin I (0.01-0.034) ng/mL NT-Pro-B Natriuret Pep (<450) pg/mL Total Protein (6.3-8.2) g/dL Albumin (3.5-5.0) g/dL Globulin (1.7-4.1) g/dL Albumin/Globulin Ratio (1.0-2.8) Procalcitonin (<0.5) ng/mL Urine Color Urine Appearance Urine pH (4.5-8.0) Ur Specific [place] (1.000-1.035) Urine Protein (Negative) Urine Glucose (UA) (Negative) g/dL Urine Ketones (NEGATIVE) Urine Occult Blood (Negative) Urine Nitrate (Negative) Urine Bilirubin (NEGATIVE) Urine Urobilinogen (0.2) E.U./dL Ur Leukocyte Esterase (NEGATIVE) Urine RBC (0-5/HPF) Urine WBC (0-5/HPF) Ur Squamous Epith Cells (0-5/HPF) Amorphous Sediment Urine Bacteria (None) Urine Mucus (Negative) Ur Culture Indicated? Chlamy pneumoniae PCR Not detected (Not Detect) Adenovirus (PCR) Not detected (Not Detect) B. pertussis DNA (PCR) Not detected (Not Detecte) B.parapertussis DNA PCR Not detected (Not Detecte) Coronavirus OC43 (PCR) Not detected (Not Detect) Coronavirus HKU1 (PCR) Not detected (Not Detect) Coronavirus 229E (PCR) Not detected (Not Detect) SARS-CoV-2 (PCR) Not detected (Not Detecte) Coronavirus NL63 (PCR) Not detected (Not Detect) Human Metapneumovir PCR Not detected (Not Detect) Influenza Type A (PCR) Not detected (Not Detect) Influenza Type B (PCR) Not detected (Not Detect) M. pneumoniae (PCR) Not detected (Not Detect) Parainfluenza 1 (PCR) Not detected (Not Detect) Parainfluenza 2 (PCR) Not detected (Not Detect) Parainfluenza 3 (PCR) Not detected (Not Detect) Parainfluenza 4 (PCR) Not detected (Not Detect) RSV (PCR) Not detected (Not Detect) Entero/Rhino (PCR) Not detected (Not Detect) Blood Type Antibody Screen Imaging Data Chest x-ray: Radiologist Impression: [address] [address] XRay Report Signed Patient: Renny Perkins MR#: [id number] : 1945 Acct:[id number] Age/Sex: 76 / M Date of Service: 08/06/21 Loc: ED Accession Number: [id number] ?? Procedure: XR chest 1V Ordering Provider: Yvon Kolb D.O. PROCEDURE:? XR CHEST 1V ? INDICATIONS:? SOB, recent surgery ? TECHNIQUE:? One view of the chest was acquired.? ? COMPARISON:? [facility], CR, XR CHEST 2V, 08/28/2020, 12:00. ? FINDINGS:? ? Surgical changes and devices:? Right-sided Port-A-Cath in place ? Lungs and pleura:? Blunting the right costophrenic angle with right basilar atelectasis and or infiltrate.? Left lung and pleural space clear. ? Mediastinum:? Mediastinal contours appear normal.? Heart size is normal.? ? Bones and chest wall:? No suspicious bony lesions.? Overlying soft tissues appear unremarkable.? ? IMPRESSION:? ? Right basilar atelectasis and or infiltrate with small pleural effusion ? ? ? Approved by: Mehul Brown M.D. on 08/06/2021 at 18:07? CT scan - chest: Radiologist Impression: Renny Perkins??76??M??1945 ? Allergy/Adv: No Known Drug Allergies Close Chest CTA (Signed) Refugio Yee - 08/06/21 Chest X-Ray (Signed) Mehul Brown - 08/06/21 Knee X-Ray (Signed) Chang Carrillo - 08/03/21 Chest X-Ray (Signed) Evans Lucas - 08/28/20 Echocardiogram Ultrasound (Signed) Matt Carr - 08/21/20 Knee MRI (Signed) LennieEledwayne - 03/09/19 Knee X-Ray (Signed) Ricardo Lundberg - 03/04/19 Echocardiogram Ultrasound (Signed) Matt Carr - 05/15/18 Telemetry Strips 10/24/17 Radiology - Historical 02/21/17 Radiology - Historical 01/15/16 Telemetry Strips 01/10/16 Radiology - Historical 01/10/16 Radiology - Historical 09/16/15 Launch?[place] [address] CT Scan Report Signed Patient: Renny Perkins MR#: [id number] : 1945 Acct:[id number] Age/Sex: 76 / M Date of Service: 08/06/21 Loc: ED Accession Number: [id number] ?? Procedure: CT angio chest PE protocol Ordering Provider: Yvon Kolb D.O. PROCEDURE:? CT ANGIO CHEST PE PROTOCOL ? INDICATIONS:? hypoxemia, recent surgery, hx cancer ? TECHNIQUE:? After the administration of intravenous contrast, 2 mm thick sections acquired from the pulmonary apices to the posterior costophrenic angles.? 3-dimensional maximum intensity projection (MIP) coronal and sagittal reformats were then acquired through the thorax.? For radiation dose reduction, the following was used:? automated exposure control, adjustment of mA and/or kV according to patient size.? ? COMPARISON:? None. ? FINDINGS:? Image quality:? Excellent.? ? Pulmonary arteries:? Pulmonary arteries are normal in size, and demonstrate no intraluminal filling defects to suggest central pulmonary embolism.? ? Lungs and pleura:? Dependent atelectasis.? Calcified granuloma in the left upper lobe.? No pleural effusions or pneumothorax.? Central and peripheral airways are patent.? ? Mediastinum:? Heart size is normal, without pericardial effusion.? Moderate coronary artery calcifications in the LAD.? No mediastinal or hilar adenopathy.? Mediastinal and left hilar calcified lymph nodes.? Thoracic aorta is normal in caliber and enhancement.? Esophagus is normal in caliber, without hiatal hernia.? ? Bones and chest wall:? Right-sided port with the catheter in the upper 3rd of the SVC.? No suspicious bony lesions.? Ribs and thoracic spine appear intact throughout.? Thyroid gland is unremarkable.? No axillary or supraclavicular adenopathy.? ? Abdomen:? Low-density right renal cyst.? Probable punctate nonobstructing left kidney stone.? Cholelithiasis.? Diverticulosis.? Splenic calcified granuloma.? Small splenule at the left abdomen.? ? IMPRESSION:? 1. No pulmonary embolism. ? 2. Dependent atelectasis.? No pleural effusion. ? 3. Cholelithiasis. ? ? ? Dictated by: Refugio Yee M.D. on 08/06/2021 at 21:11 ? ? Approved by: Refugio Yee M.D. on 08/06/2021 at 21:1 MDM Narrative Medical decision making narrative: Patient with recent knee surgery presents with weakness and knee pain and though he does not complain of shortness of breath he is hypoxemic. Labs are reassuring and imaging shows no pneumonia, abnormal fluid collection or pulmonary embolism. He is having pain in his knee and other is some swelling and redness it is not out of the expected in the aftermath of his recent surgery a few days ago. He does not normally require supplemental oxygen and will be hospitalized for further evaluation, treatment and stabilization Discharge Plan Departure Patient Disposition: Admitted as Observation Clinical Impression: Acute hypoxemic respiratory failure Admit Date/Time: 08/06/21 22:53 Admit Provider: Loren Keita
--- NOTE | 2021-08-06 19:16 | DI.CT.S_ITS ---
PROCEDURE: CT ANGIO CHEST PE PROTOCOL INDICATIONS: hypoxemia, recent surgery, hx cancer TECHNIQUE: After the administration of intravenous contrast, 2 mm thick sections acquired from the pulmonary apices to the posterior costophrenic angles. 3-dimensional maximum intensity projection (MIP) coronal and sagittal reformats were then acquired through the thorax. For radiation dose reduction, the following was used: automated exposure control, adjustment of mA and/or kV according to patient size. COMPARISON: None. FINDINGS: Image quality: Excellent. Pulmonary arteries: Pulmonary arteries are normal in size, and demonstrate no intraluminal filling defects to suggest central pulmonary embolism. Lungs and pleura: Dependent atelectasis. Calcified granuloma in the left upper lobe. No pleural effusions or pneumothorax. Central and peripheral airways are patent. Mediastinum: Heart size is normal, without pericardial effusion. Moderate coronary artery calcifications in the LAD. No mediastinal or hilar adenopathy. Mediastinal and left hilar calcified lymph nodes. Thoracic aorta is normal in caliber and enhancement. Esophagus is normal in caliber, without hiatal hernia. Bones and chest wall: Right-sided port with the catheter in the upper 3rd of the SVC. No suspicious bony lesions. Ribs and thoracic spine appear intact throughout. Thyroid gland is unremarkable. No axillary or supraclavicular adenopathy. Abdomen: Low-density right renal cyst. Probable punctate nonobstructing left kidney stone. Cholelithiasis. Diverticulosis. Splenic calcified granuloma. Small splenule at the left abdomen. IMPRESSION: 1. No pulmonary embolism. 2. Dependent atelectasis. No pleural effusion. 3. Cholelithiasis. Dictated by: Refugio Yee M.D. on 08/06/2021 at 21:11 Approved by: Refugio Yee M.D. on 08/06/2021 at 21:17
[2021-08-06 19:20] LABS: pH ABG 7.46 (7.35-7.45)
[2021-08-06 19:21] LABS: Fractionated Inspired Oxygen 36; HCO3 ABG 26 mmol/L (22-26); Oxygen Saturation ABG 96 % (95-100); PCO2 ABG 36.5 mmHg (35-45); PO2 ABG 77 mmHg (80-100); TCO2 ABG 27 mmol/L (21-31)
[2021-08-06 19:31] LABS: Add Manual Diff / Slide Review NO; Basophils Absolute Auto 100 /uL (0-100); Basophils Percent Auto 0.9 % (0-2); Eosinophils Absolute Auto 0 /uL (0-450); Eosinophils Percent Auto 0.4 % (2-4); Hematocrit 33.4 % (41-53); Hemoglobin 11.3 g/dL (13.5-17.5); Lymphocytes Absolute Auto 300 /uL (1100-4500); Lymphocytes Percent Auto 2.5 % (25-40); Mean Corpuscular HGB Conc 33.9 % (30-36); Mean Corpuscular Hemoglobin 30.1 PG (26-34); Mean Corpuscular Volume 88.8 fL (80-100); Monocytes Absolute Auto 1300 /uL (0-900); Monocytes Percent Auto 12.6 % (3-14); Neutrophils Absolute Auto 8800 /uL (1500-7000); Neutrophils Percent Auto 83.6 % (50-75); Platelet Count 180 X10^3/uL (150-400); Red Blood Cell Count 3.76 X10^6/uL (4.5-5.9); Red Cell Distribution Width 14.5 % (11.6-14.8); White Blood Cell Count 10.6 X10^3/uL (4.5-11.0)
[2021-08-06 19:38] LABS: Alanine Aminotransferase 20 IU/L (<50); Albumin 3.8 g/dL (3.5-5.0); Albumin Globulin Ratio 1.4 (1.0-2.8); Alkaline Phosphatase 96 U/L (38-126); Aspartate Aminotransferase 29 IU/L (17-59); BUN Creatinine Ratio 13.8 (6-22); Bilirubin Total 1.2 mg/dL (0.2-1.3); Blood Urea Nitrogen 17 mg/dL (9-20); Carbon Dioxide 26 mmol/L (22-32); Chloride 98 mmol/L (98-107); Creatine Kinase 322 U/L (55-170); Estimated Glomerular Filt Rate > 60 mL/min (>60); Globulin 2.7 g/dL (1.7-4.1); Glucose 122 mg/dL (80-110); HEMOLYSIS < 15 (0-50); Lactate (Lactic Acid) 1.4 mmol/L (0.7-2.1); Potassium 4.1 mmol/L (3.4-5.1); Sodium 134 mmol/L (137-145); Total Protein 6.5 g/dL (6.3-8.2)
[2021-08-06] MEDS: ONDANSETRON 4 MG/2 ML INJ IV (19:42)
[2021-08-06] MEDS: SODIUM CHLORIDE 0.9% 1,000 ML 200 ML IV (19:42)
[2021-08-06] MEDS: HYDROMORPHONE 0.5 MG INJ IV (19:42)
[2021-08-06 19:50] LABS: NT-proBNP (BNP-Adult 18+) 218 pg/mL (<450); Troponin I < 0.012 ng/mL (0.01-0.034)
[2021-08-06 19:53] LABS: CKMB % Relative Index 0.3 % (1.5-5.0); Creatine Kinase MB 1.07 ng/mL (<2.37)
[2021-08-06 19:55] LABS: Procalcitonin 0.35 ng/mL (<0.5)
[2021-08-06 19:56] LABS: Appearance Urine UA CLEAR; Bilirubin Urine UA NEGATIVE (NEGATIVE); Color Urine UA YELLOW; Glucose Urine UA NEGATIVE (Negative); Ketones Urine UA 1+ (NEGATIVE); Leukocyte Esterase Urine UA NEGATIVE (NEGATIVE); Nitrite Urine UA NEGATIVE (Negative); Occult Blood Urine UA 3+ (Negative); Protein Urine UA 1+ (Negative); Urobilinogen Urine UA 0.2 E.U./dL (0.2)
[2021-08-06 20:03] LABS: Amorphous Sediment Urine 1+; Bacteria Urine Few (2-10); Culture Indicated Urine Specimen Cultured; Mucus Urine 1+ (Negative); RBC Urine 5-10/HPF (0-5/HPF); Squamous Epithelial Cell Urine 0-1 /HPF (0-5/HPF); WBC Urine 1-5/HPF (0-5/HPF)
[2021-08-06 20:43] LABS: Adenovirus Not Detected (Not Detect); B. parapertussis Not Detected (Not Detecte); Bordetella pertussis Not Detected (Not Detecte); Chlamydophila pneumoniae Not Detected (Not Detect); Coronavirus 229E Not Detected (Not Detect); Coronavirus HKU1 Not Detected (Not Detect); Coronavirus NL 63 Not Detected (Not Detect); Coronavirus OC43 Not Detected (Not Detect); Human Metapneumovirus Not Detected (Not Detect); Human Rhinovirus/Enterovirus Not Detected (Not Detect); Influenza A Not Detected (Not Detect); Influenza B Not Detected (Not Detect); Mycoplasma pneumoniae Not Detected (Not Detect); Parainfluenza Virus 1 Not Detected (Not Detect); Parainfluenza Virus 2 Not Detected (Not Detect); Parainfluenza Virus 3 Not Detected (Not Detect); Parainfluenza Virus 4 Not Detected (Not Detect); Respiratory Syncytial Virus Not Detected (Not Detect); SARS- CoV-2 Not Detected (Not Detecte)
[2021-08-07] VITALS (13 sets, daily range): BP systolic 116–147; BP diastolic 44–70; PULSE 71–100; RESP 14–20; TEMP 36.5–38; O2SAT 90–98; BMI 27.1
[2021-08-07] MEDS: ACETAMINOPHEN 325 MG TABLET 650 MG PO ×2 (01:12→12:00)
[2021-08-07] MEDS: SODIUM CHLORIDE 0.9% 1,000 ML 150 ML IV ×2 (01:14→06:58)
--- NOTE | 2021-08-07 01:34 | PC.ADMIT ---
Admission Note: Pt admitted to acute care, arrived on 08/06/21 0195. Pt alert and oriented X 3. c/o right knee pain which is red and warm to touch. Pt is on 6 L [place] oxygen and sating 85-94%. lungs are diminished throughout. Tele in place. Pt NPO for the night. will continue to monitor. The patient,Renny Perkins,76 y/o, was given written information regarding hospital policies, unit procedures and contact persons. Patient's smoking status: Former smoker. Vital Signs - 8 hr 08/06/21 18:38 08/06/21 18:52 08/06/21 18:54 Temperature 98.7 F Pulse Rate 89 101 H 101 H Respiratory Rate 19 20 15 Blood Pressure 144/70 H 147/67 H Pulse Oximetry 87 L 91 89 L 08/06/21 19:00 08/06/21 19:15 08/06/21 19:30 Temperature Pulse Rate 100 H 103 H 98 H Respiratory Rate 33 H 19 23 Blood Pressure 141/62 H 163/71 H Pulse Oximetry 97 93 94 08/06/21 19:45 08/06/21 20:09 08/06/21 20:15 Temperature Pulse Rate 98 H 93 H 93 H Respiratory Rate 24 24 19 Blood Pressure Pulse Oximetry 94 92 91 08/06/21 20:26 08/06/21 20:30 08/06/21 20:33 Temperature Pulse Rate 89 92 H 91 H Respiratory Rate 24 23 22 Blood Pressure 173/73 H Pulse Oximetry 88 L 92 91 08/06/21 20:45 08/06/21 21:00 08/06/21 21:15 Temperature Pulse Rate 86 84 93 H Respiratory Rate 20 21 27 H Blood Pressure Pulse Oximetry 91 90 L 91 08/06/21 21:30 08/06/21 21:45 08/06/21 22:00 Temperature Pulse Rate 93 H 87 84 Respiratory Rate 25 H Blood Pressure Pulse Oximetry 93 90 L 86 L 08/06/21 22:01 08/06/21 22:15 08/06/21 22:16 Temperature Pulse Rate 85 91 H 87 Respiratory Rate 63 H Blood Pressure 147/71 H 120/56 L Pulse Oximetry 94 95 95 08/06/21 22:30 08/06/21 22:31 08/06/21 22:45 Temperature Pulse Rate 83 80 82 Respiratory Rate Blood Pressure 169/71 H Pulse Oximetry 95 96 96 08/06/21 22:46 08/06/21 23:00 08/06/21 23:30 Temperature 98.9 F Pulse Rate 86 82 74 Respiratory Rate 20 Blood Pressure 166/71 H 127/44 L Pulse Oximetry 94 93 08/07/21 01:12 Temperature 100.4 F H Pulse Rate Respiratory Rate Blood Pressure Pulse Oximetry
--- NOTE | 2021-08-07 04:13 | P.HP_ITS ---
History of Present Illness History of Present Illness Date Patient Seen: 08/07/21 Time Patient Seen: 01:15 Chief complaint: S/P R TKR, unable to ambulate, hypoxia Narrative: Renny Perkins is a 76-year-old male with a history of atrial fibrillation currently anticoagulated on apixaban, hypertension, paroxysmal atrial fibrillation, history of cancer the mandible with a Port-A-Cath, and DVT, previously on anticoagulation which was stoped 3 days prior to a total right knee replacement surgery done on August 03 and discharged on August 04. He re-presented today stating he has been unable to get in and out of bed without having to call EMS to help him. He states that the bed is too high for him to get easily in and out of. He denies shortness of breath though feels that he is quite weak, denies chest pain, nausea vomiting, abdominal pain, changes in bl adder or bowel control, and lower extremity neuropathy. He is been taking pain medications for his right knee and states he is constipated due to taking pain meds. When he presented to the emergency room he was noted to be hypoxic and there was concerned that he might have a pulmonary embolism. Studies they did were negative for a PE. He was asked to be admitted for further strengthening and mobilization and to help address his ongoing hypoxia and to see if it would develop into something to definitively treat such as a pneumonia. When he arrived to the floor the patient was febrile with a temperature of 102? and examination of the patient's surgical site appeared to be swollen and hotter at the site than the surrounding tissues concerning for postoperative wound infection or possible hardware rejection. Orthopedic surgery was consulted by myself and they recommended the patient be made NPO and that they would see him 1st thing in the morning. Patient's T-max was 100.4? and it is currently 97.7, blood pressure is 126/48, heart rate 78, respiratory rate 18 with an oxygen satu ration of 94% on 6 L, he weighs 90.7 kg with a BMI of 27.1. He is mildly anemic with a hemoglobin and hematocrit of 11.3 and 33.4 which is a drop from his normal baseline, he has a very mild left shift of 80 100, CABG pH is 7.46 with an ABG PO2 of 77, sodium 134, glucose 122, lactate is normal, calcium 8.0, total creatinine kinase was 322, troponin was normal, and proBNP was within normal limits, procalcitonin was 0.35, UA indicated bacteria, and COVID-19 PCR is negative. Patient History Medical History Aortic root dilatation Atrial fibrillation, currently in sinus rhythm Chronic anticoagulation Cough Easy bruising HTN (hypertension) PAF (paroxysmal atrial fibrillation) (2014) Port-A-Cath in place (2014) Preoperative clearance Viral illness Surgical History History of surgery (2014) Hx of tonsillectomy Hx of transurethral resection of prostate Status post appendectomy Status post neck dissection (2014) Family & Social History Social History: household members spouse Prior Living Arrangements House Safety & Behavioral: Feels Safe in Current No Environment Been Physically Hurt or No Threatened By a Person Suicidal Ideation Description None Tobacco & Substance use: Tobacco type cigarettes,smokeless tobacco Smoking Status Former smoker alcohol intake never Substance Use Type does not use Meds Home Medications and Allergies Home Medications Medication Instructions Recorded Confirmed Type apixaban 5 mg tablet (Eliquis) 5 mg PO BID #180 tab 02/15/20 08/07/21 Rx diltiazem HCl 240 mg 240 mg PO DAILY #90 cap 02/15/20 08/07/21 Rx capsule,extended release 24 hr gabapentin 300 mg capsule See Rx Instructions .ROUTE 05/08/21 08/07/21 Rx .COMPLEX #90 cap acetaminophen 500 mg tablet 1,000 mg PO TID 07/25/21 08/07/21 History losartan 50 mg tablet 50 mg PO BEDTIME 07/25/21 08/07/21 History oxycodone 5 mg tablet See Rx Instructions PO Q6H PRN 08/01/21 08/07/21 Rx #120 tab levothyroxine 50 mcg tablet See Rx Instructions .ROUTE 08/06/21 08/07/21 Rx .COMPLEX #90 tab Allergies Allergy/AdvReac Type Severity Reaction Status Date / Time No Known Drug Allergies Allergy Verified 08/06/21 18:51 Review of Systems Review of Systems ROS: Yes All systems reviewed with the patient and are negative except as otherwise documented Exam Vital Signs (past 8 hours): - 08/06/21 20:15 08/06/21 20:26 04/18/22 20:30 Temperature Pulse Rate 93 H 89 92 H Respiratory Rate 19 24 23 Blood Pressure Pulse Oximetry 91 88 L 92 08/06/21 20:33 08/06/21 20:45 08/06/21 21:00 Temperature Pulse Rate 91 H 86 84 Respiratory Rate 22 20 21 Blood Pressure 173/73 H Pulse Oximetry 91 91 90 L 08/06/21 21:15 08/06/21 21:30 08/06/21 21:45 Temperature Pulse Rate 93 H 93 H 87 Respiratory Rate 27 H 25 H Blood Pressure Pulse Oximetry 91 93 90 L 08/06/21 22:00 08/06/21 22:01 08/06/21 22:15 Temperature Pulse Rate 84 85 91 H Respiratory Rate Blood Pressure 147/71 H Pulse Oximetry 86 L 94 95 08/06/21 22:16 08/06/21 22:30 08/06/21 22:31 Temperature Pulse Rate 87 83 80 Respiratory Rate 63 H Blood Pressure 120/56 L 169/71 H Pulse Oximetry 95 95 96 08/06/21 22:45 08/06/21 22:46 08/06/21 23:00 Temperature Pulse Rate 82 86 82 Respiratory Rate Blood Pressure 166/71 H Pulse Oximetry 96 94 93 08/06/21 23:30 08/07/21 00:00 08/07/21 01:12 Temperature 98.9 F 98.0 F 100.4 F H Pulse Rate 74 74 Respiratory Rate 20 20 Blood Pressure 127/44 L 127/44 L Pulse Oximetry 91 08/07/21 02:00 Temperature 98.6 F Pulse Rate Respiratory Rate Blood Pressure Pulse Oximetry Oxygen Delivery Method Nasal Cannula Oxygen Flow Rate 6 Narrative Exam Narrative: Gen: Alert, oriented, well-developed 76 y.o. male, appears uncomfortable HEENT: normocephalic, atraumatic, conjunctiva clear, sclera non-icteric, oral mucosa pink and moist Neck: supple, full ROM, no JVD, trachea is midline Resp: Lungs CTA, non-labored breathing CV: RRR, no murmur or rubs Abd: soft, non-tender, normoactive BTs Skin: no lesions or rashes, dry and intact Neuro: Alert and oriented X 4 w/no focal deficits. Speech clear and coherent. Extremities: right knee is swollen and surgical site ouside of the dressing is warm to touch compared to other parts of his upper and lower leg, is normall ambulatory, negative Rom?s sign Psyche: normal mood and affect. Objective Labs Result Diagrams: 08/06/21 19:10 08/06/21 19:10 Labs: Laboratory Results - last 24 hr 08/06/21 08/06/21 08/06/21 18:41 19:09 19:10 WBC 10.6 RBC 3.76 L Hgb 11.3 L Hct 33.4 L MCV 88.8 MCH 30.1 MCHC 33.9 RDW 14.5 Plt Count 180 Neut % (Auto) 83.6 H Lymph % (Auto) 2.5 L [place] % (Auto) 12.6 Eos % (Auto) 0.4 L Baso % (Auto) 0.9 Neut # (Auto) 8800 H Lymph # (Auto) 300 L [place] # (Auto) 1300 H Eos # (Auto) 0 Baso # (Auto) 100 ABG pH 7.46 H ABG pCO2 36.5 ABG pO2 77 L ABG HCO3 26 ABG Total CO2 27 ABG O2 Saturation 96 ABG Base Excess 2.0 FiO2 36 Sodium Potassium Chloride Carbon Dioxide BUN Creatinine Estimated GFR BUN/Creatinine Ratio Glucose Lactate Calcium Total Bilirubin AST ALT Alkaline Phosphatase Total Creatine Kinase CK-MB (CK-2) CK-MB (CK-2) Rel Index Troponin I NT-Pro-B Natriuret Pep Total Protein Albumin Globulin Albumin/Globulin Ratio Procalcitonin Urine Color Yellow Urine Appearance Clear Urine pH 6.0 Ur Specific [place] 1.020 Urine Protein 1+ H Urine Glucose (UA) Negative Urine Ketones 1+ H Urine Occult Blood 3+ H Urine Nitrate Negative Urine Bilirubin Negative Urine Urobilinogen 0.2 Ur Leukocyte Esterase Negative Urine RBC 5-10/hpf H Urine WBC 1-5/hpf Ur Squamous Epith Cells 0-1 /hpf Amorphous Sediment 1+ Urine Bacteria Few (2-10) H Urine Mucus 1+ H Ur Culture Indicated? Specimen cultured Chlamy pneumoniae PCR Adenovirus (PCR) B. pertussis DNA (PCR) B.parapertussis DNA PCR Coronavirus OC43 (PCR) Coronavirus HKU1 (PCR) Coronavirus 229E (PCR) SARS-CoV-2 (PCR) Coronavirus NL63 (PCR) Human Metapneumovir PCR Influenza Type A (PCR) Influenza Type B (PCR) M. pneumoniae (PCR) Parainfluenza 1 (PCR) Parainfluenza 2 (PCR) Parainfluenza 3 (PCR) Parainfluenza 4 (PCR) RSV (PCR) Entero/Rhino (PCR) Blood Type Antibody Screen 08/06/21 08/06/21 08/06/21 19:10 19:10 19:10 WBC RBC Hgb Hct MCV MCH MCHC RDW Plt Count Neut % (Auto) Lymph % (Auto) [place] % (Auto) Eos % (Auto) Baso % (Auto) Neut # (Auto) Lymph # (Auto) [place] # (Auto) Eos # (Auto) Baso # (Auto) ABG pH ABG pCO2 ABG pO2 ABG HCO3 ABG Total CO2 ABG O2 Saturation ABG Base Excess FiO2 Sodium 134 L Potassium 4.1 Chloride 98 Carbon Dioxide 26 BUN 17 Creatinine 1.23 Estimated GFR > 60 BUN/Creatinine Ratio 13.8 Glucose 122 H Lactate 1.4 Calcium 8.0 L Total Bilirubin 1.2 AST 29 ALT 20 Alkaline Phosphatase 96 Total Creatine Kinase 322 H CK-MB (CK-2) 1.07 CK-MB (CK-2) Rel Index 0.3 L Troponin I < 0.012 NT-Pro-B Natriuret Pep 218 Total Protein 6.5 Albumin 3.8 Globulin 2.7 Albumin/Globulin Ratio 1.4 Procalcitonin 0.35 Urine Color Urine Appearance Urine pH Ur Specific [place] Urine Protein Urine Glucose (UA) Urine Ketones Urine Occult Blood Urine Nitrate Urine Bilirubin Urine Urobilinogen Ur Leukocyte Esterase Urine RBC Urine WBC Ur Squamous Epith Cells Amorphous Sediment Urine Bacteria Urine Mucus Ur Culture Indicated? Chlamy pneumoniae PCR Adenovirus (PCR) B. pertussis DNA (PCR) B.parapertussis DNA PCR Coronavirus OC43 (PCR) Coronavirus HKU1 (PCR) Coronavirus 229E (PCR) SARS-CoV-2 (PCR) Coronavirus NL63 (PCR) Human Metapneumovir PCR Influenza Type A (PCR) Influenza Type B (PCR) M. pneumoniae (PCR) Parainfluenza 1 (PCR) Parainfluenza 2 (PCR) Parainfluenza 3 (PCR) Parainfluenza 4 (PCR) RSV (PCR) Entero/Rhino (PCR) Blood Type O Negative Antibody Screen Negative 08/06/21 19:16 WBC RBC Hgb Hct MCV MCH MCHC RDW Plt Count Neut % (Auto) Lymph % (Auto) [place] % (Auto) Eos % (Auto) Baso % (Auto) Neut # (Auto) Lymph # (Auto) [place] # (Auto) Eos # (Auto) Baso # (Auto) ABG pH ABG pCO2 ABG pO2 ABG HCO3 ABG Total CO2 ABG O2 Saturation ABG Base Excess FiO2 Sodium Potassium Chloride Carbon Dioxide BUN Creatinine Estimated GFR BUN/Creatinine Ratio Glucose Lactate Calcium Total Bilirubin AST ALT Alkaline Phosphatase Total Creatine Kinase CK-MB (CK-2) CK-MB (CK-2) Rel Index Troponin I NT-Pro-B Natriuret Pep Total Protein Albumin Globulin Albumin/Globulin Ratio Procalcitonin Urine Color Urine Appearance Urine pH Ur Specific [place] Urine Protein Urine Glucose (UA) Urine Ketones Urine Occult Blood Urine Nitrate Urine Bilirubin Urine Urobilinogen Ur Leukocyte Esterase Urine RBC Urine WBC Ur Squamous Epith Cells Amorphous Sediment Urine Bacteria Urine Mucus Ur Culture Indicated? Chlamy pneumoniae PCR Not detected Adenovirus (PCR) Not detected B. pertussis DNA (PCR) Not detected B.parapertussis DNA PCR Not detected Coronavirus OC43 (PCR) Not detected Coronavirus HKU1 (PCR) Not detected Coronavirus 229E (PCR) Not detected SARS-CoV-2 (PCR) Not detected Coronavirus NL63 (PCR) Not detected Human Metapneumovir PCR Not detected Influenza Type A (PCR) Not detected Influenza Type B (PCR) Not detected M. pneumoniae (PCR) Not detected Parainfluenza 1 (PCR) Not detected Parainfluenza 2 (PCR) Not detected Parainfluenza 3 (PCR) Not detected Parainfluenza 4 (PCR) Not detected RSV (PCR) Not detected Entero/Rhino (PCR) Not detected Blood Type Antibody Screen Assessment & Plan Assessment & Plan narrative: Renny Perkins is admitted for further evaluation of acute hypoxic respiratory failure and a suspected post-operative wound infection. 1. Acute hypoxic respiratory failure, present on admission * CT angio of the chest r/out PE, noting a calcified granuloma of the left upper lobe and dependent atelectasis * RT consult for supplemental oxygen and DuoNeb nebulizers 2. Suspected postoperative wound infection, acute, present on admission * Consulted with Dr. Downs, orthopedic surgery, recommended patient be made NPO and that they would see him in the morning * He was to have resumed his apixaban in the morning and this is been held * Pain control with acetaminophen, gabapentin, tramadol and oxycodone 3. Paroxysmal atrial fibrillation, chronic * Continue home dose of diltiazem 240 mg extended release once daily 4. Hypothyroidism, chronic * Continue home dose of levothyroxine 50 mcg p.o. daily 5. Essential hypertension, chronic * Continue home dose of losartan 50 mg p.o. at bedtime VTE Prophylaxis: Wells risk score 6 [X] Bilateral SCDs [] Patient is currently anticoagulated on apixaban but this is being held in anticipation that the patient may require 2nd surgery tomorrow. Patient is admitted to the inpatient service due to the severity of disease, risks of further disease progression and this stay is expected to exceed 2 mi dnights. FEN: IV fluids: NS at 100 ml/hour, diet: NPO, labs: CBC, C/BMP, liver enzymes, Mag, PT/INR Consultants Dr. Downs, care and involvement in the patient?s care is appreciated. Dispo: unknown at this time Code status: DNR/DNI as discussed with the patient who identifies his Genoveva as his surrogate and POA. [X] I have utilized all available immediate resources to obtain, update, or r eview of the patient's current medications COVID-19 COVID-19 status: Negative Result date/Date tested (Pos, Neg/Pending): 08/07/21 Scores Wells' Criteria for PE Clinical signs and symptoms of DVT: Yes PE is #1 Dx or equally likely: No Heart rate > 100: No Immobilization at least 3 days or surg in previous 4 weeks: Yes History of PE or DVT: Yes Hemoptysis: No Malignancy w/Treatment within 6 months or palliative: No Wells' PE Score total: 6.0 Quality VTE Deep Vein Thrombosis/Pulmonary Embolism Present on Admission: No MIPS - Admit I confirm the patient?s Advance Care Plan is present, Code status is documented, Surrogate decision maker is in patient?s record [If Yes, STOP here]: Yes MIPS - DC The patient has current or prior documentation of left ventricular ejection fraction (LVEF) less than 40%, or moderate or severely depressed left ventricular systolic function.: No
[2021-08-07] MEDS: LEVOTHYROXINE 50 MCG TABLET PO (05:50)
[2021-08-07 06:16] LABS: Add Manual Diff / Slide Review NO; Basophils Absolute Auto 100 /uL (0-100); Basophils Percent Auto 0.7 % (0-2); Eosinophils Absolute Auto 200 /uL (0-450); Eosinophils Percent Auto 1.8 % (2-4); Hematocrit 27.4 % (41-53); Hemoglobin 9.3 g/dL (13.5-17.5); Lymphocytes Absolute Auto 500 /uL (1100-4500); Lymphocytes Percent Auto 5.8 % (25-40); Mean Corpuscular HGB Conc 34.1 % (30-36); Mean Corpuscular Hemoglobin 30.4 PG (26-34); Monocytes Absolute Auto 1400 /uL (0-900); Neutrophils Absolute Auto 6400 /uL (1500-7000); Neutrophils Percent Auto 75.7 % (50-75); Platelet Count 148 X10^3/uL (150-400); Red Blood Cell Count 3.08 X10^6/uL (4.5-5.9); Red Cell Distribution Width 14.5 % (11.6-14.8); White Blood Cell Count 8.5 X10^3/uL (4.5-11.0)
[2021-08-07 06:23] LABS: INR 1.5 (0.9-1.3); Prothrombin Time 17.3 SECONDS (10.1-12.7)
[2021-08-07 06:27] LABS: Alanine Aminotransferase 17 IU/L (<50); Albumin 2.8 g/dL (3.5-5.0); Albumin Globulin Ratio 1.2 (1.0-2.8); Alkaline Phosphatase 77 U/L (38-126); Aspartate Aminotransferase 25 IU/L (17-59); Bilirubin Total 0.7 mg/dL (0.2-1.3); Bilirubin Unconjugated 0.8 mg/dL (0.0-1.1); Globulin 2.4 g/dL (1.7-4.1); HEMOLYSIS < 15 (0-50); Total Protein 5.2 g/dL (6.3-8.2)
--- NOTE | 2021-08-07 06:53 | P.CONS_ITS ---
History of Present Illness Consult details Date Patient Seen: 08/07/21 Time Patient Seen: 06:54 Chief complaint: S/P R TKR, unable to ambulate, hypoxia Reason for consult: Rule out infection of right knee Requesting provider: Loren Keita Narrative: Mr. Perkins is a 76-year-old gentleman who underwent a right total knee replacement performed by Dr. Greg Fischer on August 03, 2021. He was admitted late yesterday evening for hypoxia and difficulty with ambulation. This was initially for a potential pulmonary embolism workup. His CT scan for pulmonary embolism is negative but it does show atelectasis. Orthopedics was consulted for ongoing postoperative care and due to cutaneous warmth around the knee and a low-grade fever of 100.4. Meds Home Medications and Allergies Home Medications Medication Instructions Recorded Confirmed Type apixaban 5 mg tablet (Eliquis) 5 mg PO BID #180 tab 02/15/20 08/07/21 Rx diltiazem HCl 240 mg 240 mg PO DAILY #90 cap 02/15/20 08/07/21 Rx capsule,extended release 24 hr gabapentin 300 mg capsule See Rx Instructions .ROUTE 05/08/21 08/07/21 Rx .COMPLEX #90 cap acetaminophen 500 mg tablet 1,000 mg PO TID 07/25/21 08/07/21 History losartan 50 mg tablet 50 mg PO BEDTIME 07/25/21 08/07/21 History oxycodone 5 mg tablet See Rx Instructions PO Q6H PRN 08/01/21 08/07/21 Rx #120 tab levothyroxine 50 mcg tablet See Rx Instructions .ROUTE 08/06/21 08/07/21 Rx .COMPLEX #90 tab Allergies Allergy/AdvReac Type Severity Reaction Status Date / Time No Known Drug Allergies Allergy Verified 08/06/21 18:51 Review of Systems Review of Systems Narrative: He has had difficulty with breathing and trouble ambulating postoperatively. Exam Vital Signs (past 8 hours): - 08/06/21 23:00 08/06/21 23:30 08/07/21 00:00 Temperature 98.9 F 98.0 F Pulse Rate 82 74 74 Respiratory Rate 20 20 Blood Pressure 127/44 L 127/44 L Pulse Oximetry 93 91 08/07/21 01:12 08/07/21 02:00 08/07/21 03:58 Temperature 100.4 F H 98.6 F Pulse Rate 78 Respiratory Rate 20 Blood Pressure Pulse Oximetry 91 08/07/21 04:00 Temperature 97.7 F Pulse Rate 78 Respiratory Rate 18 Blood Pressure 126/48 L Pulse Oximetry 94 Oxygen Delivery Method Nasal Cannula Oxygen Flow Rate 14 Narrative Exam Narrative: On physical examination he is resting comfortably in his hospital bed. Respirations are even and nonlabored however pulse oximetry reading on nasal cannula is 87%. The right lower extremity is examined after removal of the dressing. There is significant edema surrounding the knee with bruising. There is no erythema around the wound, no new drainage, only dried blood. Skin is slightly warm as one would anticipate after major surgery. Objective Labs Result Diagrams: 08/07/21 06:00 08/06/21 19:10 Labs: Laboratory Results - last 24 hr 08/06/21 08/06/21 08/06/21 18:41 19:09 19:10 WBC 10.6 RBC 3.76 L Hgb 11.3 L Hct 33.4 L MCV 88.8 MCH 30.1 MCHC 33.9 RDW 14.5 Plt Count 180 Neut % (Auto) 83.6 H Lymph % (Auto) 2.5 L Bonner % (Auto) 12.6 Eos % (Auto) 0.4 L Baso % (Auto) 0.9 Neut # (Auto) 8800 H Lymph # (Auto) 300 L Bonner # (Auto) 1300 H Eos # (Auto) 0 Baso # (Auto) 100 PT INR ABG pH 7.46 H ABG pCO2 36.5 ABG pO2 77 L ABG HCO3 26 ABG Total CO2 27 ABG O2 Saturation 96 ABG Base Excess 2.0 FiO2 36 Sodium Potassium Chloride Carbon Dioxide BUN Creatinine Estimated GFR BUN/Creatinine Ratio Glucose Lactate Calcium Total Bilirubin Conjugated Bilirubin Unconjugated Bilirubin AST ALT Alkaline Phosphatase Total Creatine Kinase CK-MB (CK-2) CK-MB (CK-2) Rel Index Troponin I NT-Pro-B Natriuret Pep Total Protein Albumin Globulin Albumin/Globulin Ratio Procalcitonin Urine Color Yellow Urine Appearance Clear Urine pH 6.0 Ur Specific [place] 1.020 Urine Protein 1+ H Urine Glucose (UA) Negative Urine Ketones 1+ H Urine Occult Blood 3+ H Urine Nitrate Negative Urine Bilirubin Negative Urine Urobilinogen 0.2 Ur Leukocyte Esterase Negative Urine RBC 5-10/hpf H Urine WBC 1-5/hpf Ur Squamous Epith Cells 0-1 /hpf Amorphous Sediment 1+ Urine Bacteria Few (2-10) H Urine Mucus 1+ H Ur Culture Indicated? Specimen cultured Chlamy pneumoniae PCR Adenovirus (PCR) B. pertussis DNA (PCR) B.parapertussis DNA PCR Coronavirus OC43 (PCR) Coronavirus HKU1 (PCR) Coronavirus 229E (PCR) SARS-CoV-2 (PCR) Coronavirus NL63 (PCR) Human Metapneumovir PCR Influenza Type A (PCR) Influenza Type B (PCR) M. pneumoniae (PCR) Parainfluenza 1 (PCR) Parainfluenza 2 (PCR) Parainfluenza 3 (PCR) Parainfluenza 4 (PCR) RSV (PCR) Entero/Rhino (PCR) Blood Type Antibody Screen 08/06/21 08/06/21 08/06/21 19:10 19:10 19:10 WBC RBC Hgb Hct MCV MCH MCHC RDW Plt Count Neut % (Auto) Lymph % (Auto) Bonner % (Auto) Eos % (Auto) Baso % (Auto) Neut # (Auto) Lymph # (Auto) Bonner # (Auto) Eos # (Auto) Baso # (Auto) PT INR ABG pH ABG pCO2 ABG pO2 ABG HCO3 ABG Total CO2 ABG O2 Saturation ABG Base Excess FiO2 Sodium 134 L Potassium 4.1 Chloride 98 Carbon Dioxide 26 BUN 17 Creatinine 1.23 Estimated GFR > 60 BUN/Creatinine Ratio 13.8 Glucose 122 H Lactate 1.4 Calcium 8.0 L Total Bilirubin 1.2 Conjugated Bilirubin Unconjugated Bilirubin AST 29 ALT 20 Alkaline Phosphatase 96 Total Creatine Kinase 322 H CK-MB (CK-2) 1.07 CK-MB (CK-2) Rel Index 0.3 L Troponin I < 0.012 NT-Pro-B Natriuret Pep 218 Total Protein 6.5 Albumin 3.8 Globulin 2.7 Albumin/Globulin Ratio 1.4 Procalcitonin 0.35 Urine Color Urine Appearance Urine pH Ur Specific [place] Urine Protein Urine Glucose (UA) Urine Ketones Urine Occult Blood Urine Nitrate Urine Bilirubin Urine Urobilinogen Ur Leukocyte Esterase Urine RBC Urine WBC Ur Squamous Epith Cells Amorphous Sediment Urine Bacteria Urine Mucus Ur Culture Indicated? Chlamy pneumoniae PCR Adenovirus (PCR) B. pertussis DNA (PCR) B.parapertussis DNA PCR Coronavirus OC43 (PCR) Coronavirus HKU1 (PCR) Coronavirus 229E (PCR) SARS-CoV-2 (PCR) Coronavirus NL63 (PCR) Human Metapneumovir PCR Influenza Type A (PCR) Influenza Type B (PCR) M. pneumoniae (PCR) Parainfluenza 1 (PCR) Parainfluenza 2 (PCR) Parainfluenza 3 (PCR) Parainfluenza 4 (PCR) RSV (PCR) Entero/Rhino (PCR) Blood Type O Negative Antibody Screen Negative 08/06/21 08/07/21 08/07/21 19:16 06:00 06:00 WBC 8.5 RBC 3.08 L Hgb 9.3 L Hct 27.4 L MCV 89.0 MCH 30.4 MCHC 34.1 RDW 14.5 Plt Count 148 L Neut % (Auto) 75.7 H Lymph % (Auto) 5.8 L Bonner % (Auto) 16.0 H Eos % (Auto) 1.8 L Baso % (Auto) 0.7 Neut # (Auto) 6400 Lymph # (Auto) 500 L Bonner # (Auto) 1400 H Eos # (Auto) 200 Baso # (Auto) 100 PT INR ABG pH ABG pCO2 ABG pO2 ABG HCO3 ABG Total CO2 ABG O2 Saturation ABG Base Excess FiO2 Sodium Potassium Chloride Carbon Dioxide BUN Creatinine Estimated GFR BUN/Creatinine Ratio Glucose Lactate Calcium Total Bilirubin 0.7 Conjugated Bilirubin 0.0 Unconjugated Bilirubin 0.8 AST 25 ALT 17 Alkaline Phosphatase 77 Total Creatine Kinase CK-MB (CK-2) CK-MB (CK-2) Rel Index Troponin I NT-Pro-B Natriuret Pep Total Protein 5.2 L Albumin 2.8 L Globulin 2.4 Albumin/Globulin Ratio 1.2 Procalcitonin Urine Color Urine Appearance Urine pH Ur Specific [place] Urine Protein Urine Glucose (UA) Urine Ketones Urine Occult Blood Urine Nitrate Urine Bilirubin Urine Urobilinogen Ur Leukocyte Esterase Urine RBC Urine WBC Ur Squamous Epith Cells Amorphous Sediment Urine Bacteria Urine Mucus Ur Culture Indicated? Chlamy pneumoniae PCR Not detected Adenovirus (PCR) Not detected B. pertussis DNA (PCR) Not detected B.parapertussis DNA PCR Not detected Coronavirus OC43 (PCR) Not detected Coronavirus HKU1 (PCR) Not detected Coronavirus 229E (PCR) Not detected SARS-CoV-2 (PCR) Not detected Coronavirus NL63 (PCR) Not detected Human Metapneumovir PCR Not detected Influenza Type A (PCR) Not detected Influenza Type B (PCR) Not detected M. pneumoniae (PCR) Not detected Parainfluenza 1 (PCR) Not detected Parainfluenza 2 (PCR) Not detected Parainfluenza 3 (PCR) Not detected Parainfluenza 4 (PCR) Not detected RSV (PCR) Not detected Entero/Rhino (PCR) Not detected Blood Type Antibody Screen 08/07/21 06:00 WBC RBC Hgb Hct MCV MCH MCHC RDW Plt Count Neut % (Auto) Lymph % (Auto) Bonner % (Auto) Eos % (Auto) Baso % (Auto) Neut # (Auto) Lymph # (Auto) Bonner # (Auto) Eos # (Auto) Baso # (Auto) PT 17.3 H INR 1.5 H ABG pH ABG pCO2 ABG pO2 ABG HCO3 ABG Total CO2 ABG O2 Saturation ABG Base Excess FiO2 Sodium Potassium Chloride Carbon Dioxide BUN Creatinine Estimated GFR BUN/Creatinine Ratio Glucose Lactate Calcium Total Bilirubin Conjugated Bilirubin Unconjugated Bilirubin AST ALT Alkaline Phosphatase Total Creatine Kinase CK-MB (CK-2) CK-MB (CK-2) Rel Index Troponin I NT-Pro-B Natriuret Pep Total Protein Albumin Globulin Albumin/Globulin Ratio Procalcitonin Urine Color Urine Appearance Urine pH Ur Specific [place] Urine Protein Urine Glucose (UA) Urine Ketones Urine Occult Blood Urine Nitrate Urine Bilirubin Urine Urobilinogen Ur Leukocyte Esterase Urine RBC Urine WBC Ur Squamous Epith Cells Amorphous Sediment Urine Bacteria Urine Mucus Ur Culture Indicated? Chlamy pneumoniae PCR Adenovirus (PCR) B. pertussis DNA (PCR) B.parapertussis DNA PCR Coronavirus OC43 (PCR) Coronavirus HKU1 (PCR) Coronavirus 229E (PCR) SARS-CoV-2 (PCR) Coronavirus NL63 (PCR) Human Metapneumovir PCR Influenza Type A (PCR) Influenza Type B (PCR) M. pneumoniae (PCR) Parainfluenza 1 (PCR) Parainfluenza 2 (PCR) Parainfluenza 3 (PCR) Parainfluenza 4 (PCR) RSV (PCR) Entero/Rhino (PCR) Blood Type Antibody Screen [facility] Medical History Aortic root dilatation Atrial fibrillation, currently in sinus rhythm Chronic anticoagulation Cough Easy bruising HTN (hypertension) PAF (paroxysmal atrial fibrillation) (2015) Port-A-Cath in place (2015) Preoperative clearance Viral illness Surgical History History of surgery (2015) Hx of tonsillectomy Hx of transurethral resection of prostate Status post appendectomy Status post neck dissection (2015) Social History household members: spouse Tobacco & Substance Use Smoking Status: Former smoker alcohol intake: never substance use type: does not use Assessment & Plan Assessment & Plan narrative: He appears to have no evidence of infection currently in the knee. The swelling, cutaneous warmth and bruising are all consistent with a total knee replacement 4 days ago. There is no erythema or drainage at the wound site. His white count is normal. His procalcitonin level is also normal. A temperature maximum of 100.4 is consistent with atelectasis and with inflammation after surgery. At this point he can continue physical therapy. Orthopedics will monitor him while he is in the hospital. Dr. Fischer has been informed, he is currently out of town. Time Spent With Patient Critical Care time: I spent a total of [] minutes of critical care time on this patient's care today; this time is exclusive of procedural time.
[2021-08-07] MEDS: DOCUSATE 100 MG CAPSULE PO ×2 (08:41→22:06)
[2021-08-07] MEDS: dilTIAZem CD 240 MG CAP PO (08:43)
[2021-08-07] MEDS: HYDROMORPHONE 0.5 MG INJ IV (08:59)
--- NOTE | 2021-08-07 12:12 | CM.DANOTE ---
DCP: Case received, EMR reviewed and met with patient. Introduced self and role. Was able to obtain information regarding patient's baseline activity level prior to hospitalization. DCP assessment completed with information currently available. Patient is a 76 year old male who admitted yesterday evening to the care of the hospitalist team. PCP: Dr. Segovia. Payer: confirmed: Medicare/[facility]. Patient came to the hospital via private ambulance secondary to having a fall at home. Patient had fallen out of his bed, unable to get up. He just had recent knee surgery here at the hospital last Friday. Patient was diagnosed with acute respiratory failure, is currently on oxygen. Met with patient in his room. He is alert and oriented, oxygen in place. He resides here in [place] with his spouse, Genoveva. He confirmed that he had recent knee surgery, has stairs, was able to climb stairs into his room, but his knee started stiffening up, and he fell twice. He stated, I didn't feel short of breath at the time. He has been using a FWW at home, not currently driving. P: DCP to continue to follow closely. He has P.T. orders, will see how he does with P.T. Jelena Diane RN/Firefighting Equipment Specialist Discharge Planning/Care Management CM Discharge Assessment Start: 08/07/21 11:51 Freq: Status: Active Protocol: Document 08/07/21 11:51 (Rec: 08/07/21 12:00 [id number]) Discharge Planning Assessment Assigned Production Operations Inspector Jelena Diane RN/Firefighting Equipment Specialist Advance Directives? Yes Advance Directives on File No History Provided By Patient,Medical Record Prior Living Arrangements House Household Members spouse Type of transporation used prior to Drives own vehicle admit Caregiver for Another No DME Already Rented / Owned FWW / Walker Comment Patient does have history of alcohol use. Discussed resources. Discharge Plan Home Transportation Arrangement Spouse Referrals Initiated None needed Whiteboard Updated in Patient Room with Yes name and ext. # of Production Operations Inspector Review Status In Process Next Review Type Continued Stay Review
[2021-08-07] MEDS: MORPHINE 2 MG/ML INJ IV (13:09)
--- NOTE | 2021-08-07 13:17 | PT-IP ANOTE ---
Received PT orders and reviewed the chart. Met with pt to discuss PLOF. Noted pt's SpO2 was 88-89% on 14L/min O2. RN was aware and consulting RT. Will check on pt later if appropriate for PT evaluation.
--- NOTE | 2021-08-07 13:32 | DI.RAD.S_ITS ---
PROCEDURE: XR CHEST 1V INDICATIONS: Hypoxia TECHNIQUE: One view of the chest was acquired. COMPARISON: [facility], CR, XR CHEST 1V, 08/06/2021, 18:45. FINDINGS: Surgical changes and devices: Right chest wall central venous port a catheter. Lungs and pleura: Right costophrenic angle blunting may represent a tiny pleural effusion. No visible pleural effusion on the left. No pneumothorax. No acute airspace opacity identified. Mediastinum: Mediastinal contours appear normal. Heart size is normal. Bones and chest wall: No suspicious bony lesions. Overlying soft tissues appear unremarkable. IMPRESSION: Right costophrenic angle blunting which may represent a small pleural effusion. No acute finding otherwise. Dictated by: Anselmo Pleitez M.D. on 08/07/2021 at 16:03 Approved by: Anselmo Pleitez M.D. on 08/07/2021 at 16:03
--- NOTE | 2021-08-07 13:33 | DI.ECHO.S_ITS ---
[facility] +---------+ [facility] +---------+ : : [address] : : : : [id number] : : : : Phone: [phone] Echocardiogram Report + + :Name: PABLO WHALEN Study Date: 08/07/2021 Height: 72 in : :[facility] ReadingLocation: Weight: 200 lb : : Gender: Male BSA: 2.1 m2 : :: 1945 Age: 76 yrs BP: 147/61 mmHg: :Reason For Study: [id number] : :Ordering Physician: ZACK, : :ADRIÁN Performed By: Emily Pepe : :Referring: ADRIÁN DIXON : + + Interpretation Summary 1) Normal left ventricular thickness, size, normal systolic function (EF 60- 65%). 2) Normal right ventricular size and function. 3) No significant valvular abnormalities. 4) The aortic root is moderately dilated at 4.7cm. 5) Compared to the Echo done 08/21/2020, no significant change. Procedure: A two-dimensional transthoracic echocardiogram with color flow and Doppler was performed. The study quality was technically adequate. Comparison is made with the echocardiogram of 08/21/2020. Patient had difficulty laying on left side due to recent knee surgery and pain. The patient had frequent PVCs during the exam. The patient was in sinus rhythm with heart rates between 82-94 bpm during the exam. Left Ventricle: The left ventricle is normal in size and wall thickness. The ejection fraction is estimated to be 60-65%. There are no obvious focal wall motion abnormalities noted but poor endocardial definition reduces the sensitivity for the detection of such. Right Ventricle: The right ventricle is normal in size and function. Atria: The left atrial size is normal. Right atrial size is normal. There is no Doppler evidence for an interatrial shunt. Mitral Valve: The mitral valve is normal in structure and function. There is no mitral regurgitation noted. Aortic Valve: The aortic valve is trileaflet. The aortic valve opens well. There is no aortic valve stenosis. There is mild aortic regurgitation. Tricuspid Valve: The tricuspid valve is normal in structure and function. There is a trace or physiologic amount of tricuspid regurgitation. Pulmonary artery pressures cannot be estimated because of the lack of a measurable TR jet velocity but the IVC suggests a CVP of around 3 mmHg. Pulmonic Valve: The pulmonic valve leaflets are thin and pliable; valve motion is normal. There is a trace or physiologic amount of pulmonic regurgitation. Great Vessels: The aortic root is moderately dilated. The dimensions of the ascending aorta are normal. The IVC is of normal diameter and collapses greater than 50% with a sniff. This suggests a low right atrial pressure of 3 mm Hg. Pericardium/ Pleura There is no pericardial effusion. There is no pleural effusion. MMode/2D Measurements & Calculations LVIDd: 4.3 cm LVOT diam: 2.3 cm LVIDs: 2.9 cm Ao root diam: 4.7 cm FS: 32.2 % asc Aorta Diam: 3.5 cm IVSd: 1.1 cm LVPWd: 0.91 cm LV frey. diameter/BSA (cm/m^2): 2.0 LV sys. diameter/BSA (cm/m^2): 1.4 LA A2 area: 19.6 cm2 RA long axis: 5.5 cm LA A4 area: 21.2 cm2 RA area: 13.8 cm2 LA length (vol): 5.7 cm RA vol: 29.5 ml LA vol: 61.7 ml RA : 13.8 ml/m2 LA vol index: 29.0 ml/m2 IVC diam: 1.9 cm RVD1 (basal): 3.4 cm RVD2 (mid): 3.4 cm TAPSE: 2.2 cm Doppler Measurements & Calculations Ao V2 max: 195.0 cm/sec LVOT Max Caden: 116.6 cm/sec Ao V2 mean: 140.5 cm/sec LV V1 max P.4 mmHg Ao max P.4 mmHg LV V1 VTI: 23.9 cm Ao mean P.8 mmHg KIRA(I,D): 2.9 cm2 Ao V2 VTI: 34.4 cm KIRA(V,D): 2.5 cm2 sev ratio: 0.69 KIRA indexed to BSA (cm^2/m^2): 1.4 MV E max caden: 95.7 cm/sec PA V2 max: 130.9 cm/sec MV A max caden: 77.8 cm/sec PA V2 mean: 89.7 cm/sec MV E/A: 1.2 PA mean P.6 mmHg Med Peak E' Caden: 6.9 cm/sec PA pr(Accel): 46.9 mmHg E/E' med: 13.9 Lat Peak E' Caden: 9.5 cm/sec E/E' lat: 10.1 E/e' average: 12.0 MV dec time: 0.24 sec SV(LVOT): 100.8 ml Reading Physician:04:34 PM
--- NOTE | 2021-08-07 13:50 | P.PN_ITS ---
Subjective Subjective Date Patient Seen: 08/07/21 Interval history: 76-year-old man status post right total knee arthroplasty admitted to the hospital with significant right knee pain and generalized weakness. Patient has been found to be markedly hypoxic. He is on 13 L of oxygen to maintain a saturation 92%. He denies any chest pain. The patient had evaluation in the emergency room which revealed a CT angio which was negative for PE. He is on apixaban which was held prior to his knee surgery. The patient reports he is constipated. He also feels the oxycodone is not helpful for his significant right knee pain. Exam Vital Signs (past 8 hours): - 08/07/21 08:00 08/07/21 11:40 08/07/21 11:45 Temperature 99.5 F Pulse Rate 83 81 Respiratory Rate 18 20 Blood Pressure 147/61 H Pulse Oximetry 90 L 94 08/07/21 12:00 Temperature 98.7 F Pulse Rate 80 Respiratory Rate 18 Blood Pressure 128/59 L Pulse Oximetry 92 Oxygen Delivery Method High Flow Nasal Cannula Oxygen Flow Rate 13 Narrative Exam Narrative: Elderly male lying in bed uncomfortable Chest Other: Right chest wall with a Port-A-Cath in place Resp Other: Lungs: Clear to auscultation Cardio Other: Cardiac exam: Regular rate and rhythm normal S1-S2 GI Other: Abdomen soft and nontender Extrem Other: Right knee with warmth, mild erythema, mild tenderness on the lateral portion jelly in place No drainage, no exudates noted Objective Labs Result Diagrams: 08/07/21 06:00 08/06/21 19:10 Labs: Laboratory Results - last 24 hr 08/06/21 08/06/21 08/06/21 18:41 19:09 19:10 WBC 10.6 RBC 3.76 L Hgb 11.3 L Hct 33.4 L MCV 88.8 MCH 30.1 MCHC 33.9 RDW 14.5 Plt Count 180 Neut % (Auto) 83.6 H Lymph % (Auto) 2.5 L Drew % (Auto) 12.6 Eos % (Auto) 0.4 L Baso % (Auto) 0.9 Neut # (Auto) 8800 H Lymph # (Auto) 300 L Drew # (Auto) 1300 H Eos # (Auto) 0 Baso # (Auto) 100 PT INR ABG pH 7.46 H ABG pCO2 36.5 ABG pO2 77 L ABG HCO3 26 ABG Total CO2 27 ABG O2 Saturation 96 ABG Base Excess 2.0 FiO2 36 Sodium Potassium Chloride Carbon Dioxide BUN Creatinine Estimated GFR BUN/Creatinine Ratio Glucose Lactate Calcium Total Bilirubin Conjugated Bilirubin Unconjugated Bilirubin AST ALT Alkaline Phosphatase Total Creatine Kinase CK-MB (CK-2) CK-MB (CK-2) Rel Index Troponin I NT-Pro-B Natriuret Pep Total Protein Albumin Globulin Albumin/Globulin Ratio Procalcitonin Urine Color Yellow Urine Appearance Clear Urine pH 6.0 Ur Specific [place] 1.020 Urine Protein 1+ H Urine Glucose (UA) Negative Urine Ketones 1+ H Urine Occult Blood 3+ H Urine Nitrate Negative Urine Bilirubin Negative Urine Urobilinogen 0.2 Ur Leukocyte Esterase Negative Urine RBC 5-10/hpf H Urine WBC 1-5/hpf Ur Squamous Epith Cells 0-1 /hpf Amorphous Sediment 1+ Urine Bacteria Few (2-10) H Urine Mucus 1+ H Ur Culture Indicated? Specimen cultured Chlamy pneumoniae PCR Adenovirus (PCR) B. pertussis DNA (PCR) B.parapertussis DNA PCR Coronavirus OC43 (PCR) Coronavirus HKU1 (PCR) Coronavirus 229E (PCR) SARS-CoV-2 (PCR) Coronavirus NL63 (PCR) Human Metapneumovir PCR Influenza Type A (PCR) Influenza Type B (PCR) M. pneumoniae (PCR) Parainfluenza 1 (PCR) Parainfluenza 2 (PCR) Parainfluenza 3 (PCR) Parainfluenza 4 (PCR) RSV (PCR) Entero/Rhino (PCR) Blood Type Antibody Screen 08/06/21 08/06/21 08/06/21 19:10 19:10 19:10 WBC RBC Hgb Hct MCV MCH MCHC RDW Plt Count Neut % (Auto) Lymph % (Auto) Drew % (Auto) Eos % (Auto) Baso % (Auto) Neut # (Auto) Lymph # (Auto) Drew # (Auto) Eos # (Auto) Baso # (Auto) PT INR ABG pH ABG pCO2 ABG pO2 ABG HCO3 ABG Total CO2 ABG O2 Saturation ABG Base Excess FiO2 Sodium 134 L Potassium 4.1 Chloride 98 Carbon Dioxide 26 BUN 17 Creatinine 1.23 Estimated GFR > 60 BUN/Creatinine Ratio 13.8 Glucose 122 H Lactate 1.4 Calcium 8.0 L Total Bilirubin 1.2 Conjugated Bilirubin Unconjugated Bilirubin AST 29 ALT 20 Alkaline Phosphatase 96 Total Creatine Kinase 322 H CK-MB (CK-2) 1.07 CK-MB (CK-2) Rel Index 0.3 L Troponin I < 0.012 NT-Pro-B Natriuret Pep 218 Total Protein 6.5 Albumin 3.8 Globulin 2.7 Albumin/Globulin Ratio 1.4 Procalcitonin 0.35 Urine Color Urine Appearance Urine pH Ur Specific [place] Urine Protein Urine Glucose (UA) Urine Ketones Urine Occult Blood Urine Nitrate Urine Bilirubin Urine Urobilinogen Ur Leukocyte Esterase Urine RBC Urine WBC Ur Squamous Epith Cells Amorphous Sediment Urine Bacteria Urine Mucus Ur Culture Indicated? Chlamy pneumoniae PCR Adenovirus (PCR) B. pertussis DNA (PCR) B.parapertussis DNA PCR Coronavirus OC43 (PCR) Coronavirus HKU1 (PCR) Coronavirus 229E (PCR) SARS-CoV-2 (PCR) Coronavirus NL63 (PCR) Human Metapneumovir PCR Influenza Type A (PCR) Influenza Type B (PCR) M. pneumoniae (PCR) Parainfluenza 1 (PCR) Parainfluenza 2 (PCR) Parainfluenza 3 (PCR) Parainfluenza 4 (PCR) RSV (PCR) Entero/Rhino (PCR) Blood Type O Negative Antibody Screen Negative 08/06/21 08/07/21 08/07/21 19:16 06:00 06:00 WBC 8.5 RBC 3.08 L Hgb 9.3 L Hct 27.4 L MCV 89.0 MCH 30.4 MCHC 34.1 RDW 14.5 Plt Count 148 L Neut % (Auto) 75.7 H Lymph % (Auto) 5.8 L Drew % (Auto) 16.0 H Eos % (Auto) 1.8 L Baso % (Auto) 0.7 Neut # (Auto) 6400 Lymph # (Auto) 500 L Drew # (Auto) 1400 H Eos # (Auto) 200 Baso # (Auto) 100 PT INR ABG pH ABG pCO2 ABG pO2 ABG HCO3 ABG Total CO2 ABG O2 Saturation ABG Base Excess FiO2 Sodium Potassium Chloride Carbon Dioxide BUN Creatinine Estimated GFR BUN/Creatinine Ratio Glucose Lactate Calcium Total Bilirubin 0.7 Conjugated Bilirubin 0.0 Unconjugated Bilirubin 0.8 AST 25 ALT 17 Alkaline Phosphatase 77 Total Creatine Kinase CK-MB (CK-2) CK-MB (CK-2) Rel Index Troponin I NT-Pro-B Natriuret Pep Total Protein 5.2 L Albumin 2.8 L Globulin 2.4 Albumin/Globulin Ratio 1.2 Procalcitonin Urine Color Urine Appearance Urine pH Ur Specific [place] Urine Protein Urine Glucose (UA) Urine Ketones Urine Occult Blood Urine Nitrate Urine Bilirubin Urine Urobilinogen Ur Leukocyte Esterase Urine RBC Urine WBC Ur Squamous Epith Cells Amorphous Sediment Urine Bacteria Urine Mucus Ur Culture Indicated? Chlamy pneumoniae PCR Not detected Adenovirus (PCR) Not detected B. pertussis DNA (PCR) Not detected B.parapertussis DNA PCR Not detected Coronavirus OC43 (PCR) Not detected Coronavirus HKU1 (PCR) Not detected Coronavirus 229E (PCR) Not detected SARS-CoV-2 (PCR) Not detected Coronavirus NL63 (PCR) Not detected Human Metapneumovir PCR Not detected Influenza Type A (PCR) Not detected Influenza Type B (PCR) Not detected M. pneumoniae (PCR) Not detected Parainfluenza 1 (PCR) Not detected Parainfluenza 2 (PCR) Not detected Parainfluenza 3 (PCR) Not detected Parainfluenza 4 (PCR) Not detected RSV (PCR) Not detected Entero/Rhino (PCR) Not detected Blood Type Antibody Screen 08/07/21 06:00 WBC RBC Hgb Hct MCV MCH MCHC RDW Plt Count Neut % (Auto) Lymph % (Auto) Drew % (Auto) Eos % (Auto) Baso % (Auto) Neut # (Auto) Lymph # (Auto) Drew # (Auto) Eos # (Auto) Baso # (Auto) PT 17.3 H INR 1.5 H ABG pH ABG pCO2 ABG pO2 ABG HCO3 ABG Total CO2 ABG O2 Saturation ABG Base Excess FiO2 Sodium Potassium Chloride Carbon Dioxide BUN Creatinine Estimated GFR BUN/Creatinine Ratio Glucose Lactate Calcium Total Bilirubin Conjugated Bilirubin Unconjugated Bilirubin AST ALT Alkaline Phosphatase Total Creatine Kinase CK-MB (CK-2) CK-MB (CK-2) Rel Index Troponin I NT-Pro-B Natriuret Pep Total Protein Albumin Globulin Albumin/Globulin Ratio Procalcitonin Urine Color Urine Appearance Urine pH Ur Specific [place] Urine Protein Urine Glucose (UA) Urine Ketones Urine Occult Blood Urine Nitrate Urine Bilirubin Urine Urobilinogen Ur Leukocyte Esterase Urine RBC Urine WBC Ur Squamous Epith Cells Amorphous Sediment Urine Bacteria Urine Mucus Ur Culture Indicated? Chlamy pneumoniae PCR Adenovirus (PCR) B. pertussis DNA (PCR) B.parapertussis DNA PCR Coronavirus OC43 (PCR) Coronavirus HKU1 (PCR) Coronavirus 229E (PCR) SARS-CoV-2 (PCR) Coronavirus NL63 (PCR) Human Metapneumovir PCR Influenza Type A (PCR) Influenza Type B (PCR) M. pneumoniae (PCR) Parainfluenza 1 (PCR) Parainfluenza 2 (PCR) Parainfluenza 3 (PCR) Parainfluenza 4 (PCR) RSV (PCR) Entero/Rhino (PCR) Blood Type Antibody Screen [facility] Medical History Aortic root dilatation Atrial fibrillation, currently in sinus rhythm Chronic anticoagulation Cough Easy bruising HTN (hypertension) PAF (paroxysmal atrial fibrillation) (2014) Port-A-Cath in place (2014) Preoperative clearance Viral illness Surgical History History of surgery (2014) Hx of tonsillectomy Hx of transurethral resection of prostate Status post appendectomy Status post neck dissection (2015) Social History household members: spouse Smoking Status: Former smoker alcohol intake: never substance use type: does not use Assessment & Plan Assessment & Plan narrative: Acute hypoxic respiratory failure, present on admission * CT angio of the chest r/out PE, noting a calcified granuloma of the left upper lobe and dependent atelectasis * RT consult for supplemental oxygen and DuoNeb nebulizers * will check proBNP, check Troponin, repeat Echo, recheck ABG, Chest Xray, continue IS 2. Right Knee Pain, post operative pain * Consulted with Dr. Downs, orthopedic surgery, recommended patient be made NPO and that they would see him in the morning, ORtho consulted, no intervention n eeded * will resume apixaban * Pain poorly controlled, d/c oxycodone, start oral dilaudid 3. Paroxysmal atrial fibrillation, chronic * Continue home dose of diltiazem 240 mg extended release once daily 4. Hypothyroidism, chronic * Continue home dose of levothyroxine 50 mcg p.o. daily 5. Essential hypertension, chronic * Continue home dose of losartan 50 mg p.o. at bedtime Time Spent With Patient Critical Care time: I spent a total of [] minutes of critical care time on this patient's care today; this time is exclusive of procedural time. Quality VTE Deep Vein Thrombosis/Pulmonary Embolism Present on Admission: No
--- NOTE | 2021-08-07 14:18 | PT.IIE ---
Current Diagnoses Acute respiratory failure with hypoxia (08/06/21) Medical History (Last Reviewed 08/07/21 @ 06:56 by Emiliano Downs MD) Aortic root dilatation Atrial fibrillation, currently in sinus rhythm Chronic anticoagulation Cough Easy bruising HTN (hypertension) PAF (paroxysmal atrial fibrillation) (2014) Port-A-Cath in place (2014) Preoperative clearance Viral illness Physical Therapy Inpatient Evaluation/Re-Eval M1 PT/OT-IP Prior Functional Status Start: 08/07/21 11:38 Freq: NEEDED Status: Active Protocol: Document 08/07/21 14:18 AW (Rec: 08/07/21 15:29 AW [id number]) Medical Review Prior Functional Status Medical History Reviewed Yes Communication Pt is [place] and typically uses [employer]. He is able to make his needs known. Mobility and Gait Pt is typically indpendent without AD. He has been using FWW since R TKA on 08/03/21. He reports falling twice while home after surgery. Activities of Daily Living and IADL's Independent at baseline. Since surgery, has needed assist to get dressed and to shower. Social History Household Members spouse Living Arrangements House Number of Floors (Floors) Two Floors Number of Stairs To Enter/Railing? 1 BIRGIT. 15 steps up to bedroom level (3 + landing + 12 all with unilateral rail). Home Equipment Front Wheel Walker,Straight Cane,Raised Toilet Seat w/ Armrests Employment Status Retired Additional Social History Comment Pt states his bed is too tall for him to comfortably get into since surgery. He has a recliner downstairs where he can sleep when he goes home. Pt lives with his spouse, Genoveva, who is able to provide physical assist as needed. M2 PT-IP Current Condition Start: 08/07/21 11:38 Freq: NEEDED Status: Active Protocol: Document 08/07/21 14:18 AW (Rec: 08/07/21 15:29 AW [id number]) Physical Therapy Current Condition Current Condition Evaluation Date 08/07/21 Treatment Diagnosis acute hypoxic respiratory failure; s/p R TKA; impaired mobility Onset Date 08/04/21 M3 PT-IP Subjective Start: 08/07/21 11:38 Freq: NEEDED Status: Active Protocol: Document 08/07/21 14:18 AW (Rec: 08/07/21 15:29 AW [id number]) Subjective Physical Therapy Visit Type Type Initial Evaluation Visit Start Time 13:38 Visit Stop Time 14:18 Total Visit Minutes 40 Notes Pt was initially hypoxic with sats 87-89% on 13 L/min O2. Checked back and pt was 92-94% on same flow rate at rest. Physical Therapy Visit Comments Patient Comments Pt agreed to work with PT Patient Goals Pt hopes to return home with spouse support but is open to rehab options. Therapy Pain Assessment Pain When Pain Assessed During Mobility Pain Present Pain Present Pain Reported Location Right Lower Leg Intensity 6 Scale Used 4/10 at rest after medication Pain Behaviors Facial Grimacing,Guarding, Wincing Pain Management Techniques Apply Cold,Elevation, Modification of Treatment, Timing of Activity with Medications M4 PT-IP Mobility and Gait Start: 08/07/21 11:38 Freq: NEEDED Status: Active Protocol: Document 08/07/21 14:18 AW (Rec: 08/07/21 15:29 AW [id number]) PT-Bed Mobility Assessment Supine to Sit Supine to Sit Maximum Assistance,1 Person Assistance,Head of Bed Elevated Sit to Supine Sit to Supine Moderate Assistance,1 Person Assistance Scooting Scooting to Edge of Bed Contact Guard Assistance Scooting Up and Down in Bed Minimal Assistance PT-Transfer Assessment Sit to and From Stand Sit to and from Stand Maximum Assistance,1 Person Assistance,Use of Upper Extremities Equipment Transfer Assistive Device Gait Belt,Front Wheeled Walker Orthotic/Prosthetic Devices or Brace: No Comments Mobility Comments Pt was lying in bed as PT arrived. BP 120/58 HR 89 SpO2 92% on 13 L/min. Pt needed max assist to move his operative leg to the right side of the bed and to sit up EOB. He was SOB and SpO2 decreased to 87%. PT cued pt for breathing through nose and SpO2 recovered to 90% as respiratory rate decreased. Pt agreed to try standing next to bed and needed max A and max cues. He was unable to extend knees or hips but he did clear his hips from the bed. He sat EOB and SpO2 dropped to 85%. After recovering SpO2 to 90%, pt tried to stand again with similar result. He was severely fatigued and requested return to bed. Mod A for return to supine and min A for scooting up in the bed with heavy dependence on the bed rail. SpO2 was 89% as PT departed. Informed RN. Gait Assessment Comments Gait Comments Unable to advance to gait at this encounter. Stair Climbing Assessment Comments Stair Climbing Comments Not assessed. Pt not safe for stairs. PT-Balance Assessment Sitting Balance and Reactions Static Sitting Balance Ability Good Dynamic Sitting Balance Ability Fair Standing Balance and Reactions Static Standing Balance Ability Poor Dynamic Standing Balance Ability Poor Device Used FWW M5 PT-IP Objective Assessments Start: 08/07/21 11:38 Freq: NEEDED Status: Active Protocol: Document 08/07/21 14:18 AW (Rec: 08/07/21 15:29 AW [id number]) Orientation Orientation/Cognition Level of Alertness Alert Orientation Name,Day of Week,Place, Situation Language Function Ability Hard of Hearing Safety Awareness Understands Safety Issues Gross Range of Motion Lower Extremity ROM Assessment Right Impaired Strength Lower Extremity Strength Assessment Right Impaired Hip 3/5 Knee 3-/5 Ankle 4/5 Sensation Assessment Sensation Gross Sensation Right LE Impaired,Left LE Impaired Light Touch Impaired Proprioception (Position) Impaired Sensation Description Numbness Comments Sensation Comments 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 Muscle Tone Muscle Tone WNL Yes M6 PT-IP Treatment Start: 08/07/21 11:38 Freq: NEEDED Status: Active Protocol: Document 08/07/21 14:18 AW (Rec: 08/07/21 15:29 AW [id number]) Physical Therapy Treatment Exercises Exercises Ankle Pumps,Quad Sets,Heel Slides Education Education Provided Weight Bearing Status,Safety Other Treatments Other Treatment Performed Pt tolerates heel slides only passively and only to ~30 degrees flexion. M7 PT-IP Assessment and Plan Start: 08/07/21 11:38 Freq: NEEDED Status: Active Protocol: Document 08/07/21 14:18 AW (Rec: 08/07/21 15:29 AW [id number]) PT Summary Assessment and Plan Potential Rehabilitation Potential Good Status of Condition at Evaluation Evolving Summary Impairments Pain,ROM,Strength,Balance, Sensation,Bed Mobility, Transfers,Gait,Activity Tolerance Assessment Summary Sergio is a 76 yo man seen for PT evaluation on POD4 following R TKA. He was discharged home with assist on POD1 but developed increased RLE pain and hypoxia. He is independent in all regards at baseline. When he discharged home, he was using FWW but had two falls. Pt required max assist for bed mobility and attempts to stand at the bedside today. SpO2 dropped from 92% to 85% during attempts to stand with 13L/min supplemental O2. RLE pain is significantly limiting his mobility. Depending on progress, pt may need SNF rehab. If he improves during his hospital course, he may be able to discharge home with home health services. Goals Bed Mobility Goal Standby Assistance Transfer Goal Contact Guard Assistance,Front Wheeled Walker Gait Goal Contact Guard Assistance,Front Wheel Walker Gait Distance 150 Other Goals - up/down 1 platform step with FWW CGA Days to Meet Goals 7 Frequency of Treatment Frequency Of Treatment Once a Day Treatment Plan Physical Therapy Treatment Plan Bed Mobility Training,Transfer Training,Gait Training, Therapeutic Exercise,Balance Retraining,Post Op Education, Discharge Planning,Hot or Cold Pack,Neuromuscular Re-ed Other Recommendations and Next Treatment monitor SpO2; sit to stand; Focus transfer; gait with FWW if able Precautions Other Precautions SpO2; falls Recommendations To Nursing Amount of Assist Needed 2 Person Assist Discharge Recommendations PT Discharge Recommendations Home with Assistance,Home Health,SNF Rehab,Home vs SNF Transportation Needs at Discharge Wheelchair/Cabulance
[2021-08-07 15:04] LABS: Creatine Kinase 351 U/L (55-170)
[2021-08-07 15:14] LABS: NT-proBNP (BNP-Adult 18+) 154 pg/mL (<450)
[2021-08-07 15:18] LABS: Troponin I < 0.012 ng/mL (0.01-0.034)
[2021-08-07 15:20] LABS: CKMB % Relative Index 0.3 % (1.5-5.0); Creatine Kinase MB 1.05 ng/mL (<2.37)
[2021-08-07] MEDS: APIXABAN 5 MG TABLET PO ×2 (15:28→22:07)
[2021-08-07] MEDS: HYDROMORPHONE 2 MG TABLET PO ×3 (15:29→22:06)
[2021-08-07] MEDS: MAGNESIUM HYDROXIDE 30 ML UDC PO (19:24)
[2021-08-07] MEDS: BISACODYL 5 MG TABLET 10 MG PO (19:24)
[2021-08-07 20:35] LABS: Creatine Kinase 283 U/L (55-170)
[2021-08-07 20:48] LABS: Troponin I < 0.012 ng/mL (0.01-0.034)
[2021-08-07 20:51] LABS: CKMB % Relative Index 0.2 % (1.5-5.0); Creatine Kinase MB 0.68 ng/mL (<2.37)
[2021-08-07] MEDS: ACETAMINOPHEN 325 MG TABLET 975 MG PO (22:06)
[2021-08-07] MEDS: SENNOSIDES 8.6 MG TABLET 17.2 MG PO (22:06)
[2021-08-07] MEDS: GABAPENTIN 300 MG CAPSULE PO (22:07)
[2021-08-08] VITALS (9 sets, daily range): BP systolic 109–137; BP diastolic 56–73; PULSE 56–87; RESP 16–20; TEMP 36–37.7; O2SAT 93–98
[2021-08-08 06:05] LABS: Add Manual Diff / Slide Review NO; Basophils Absolute Auto 100 /uL (0-100); Basophils Percent Auto 0.9 % (0-2); Eosinophils Absolute Auto 400 /uL (0-450); Eosinophils Percent Auto 5.6 % (2-4); Hematocrit 30.3 % (41-53); Hemoglobin 10.3 g/dL (13.5-17.5); Lymphocytes Absolute Auto 400 /uL (1100-4500); Lymphocytes Percent Auto 4.7 % (25-40); Mean Corpuscular HGB Conc 33.9 % (30-36); Mean Corpuscular Hemoglobin 30.4 PG (26-34); Mean Corpuscular Volume 89.8 fL (80-100); Monocytes Absolute Auto 1100 /uL (0-900); Monocytes Percent Auto 14.3 % (3-14); Neutrophils Absolute Auto 5900 /uL (1500-7000); Neutrophils Percent Auto 74.5 % (50-75); Platelet Count 169 X10^3/uL (150-400); Red Blood Cell Count 3.37 X10^6/uL (4.5-5.9); Red Cell Distribution Width 14.1 % (11.6-14.8)
[2021-08-08] MEDS: ACETAMINOPHEN 325 MG TABLET 975 MG PO ×3 (06:07→22:09)
[2021-08-08] MEDS: LEVOTHYROXINE 50 MCG TABLET PO (06:07)
[2021-08-08] MEDS: HYDROMORPHONE 2 MG TABLET PO ×6 (06:08→22:24)
[2021-08-08 06:11] LABS: Alanine Aminotransferase 35 IU/L (<50); Albumin 2.7 g/dL (3.5-5.0); Albumin Globulin Ratio 1.2 (1.0-2.8); Alkaline Phosphatase 109 U/L (38-126); Aspartate Aminotransferase 42 IU/L (17-59); Bilirubin Total 0.7 mg/dL (0.2-1.3); Bilirubin Unconjugated 0.7 mg/dL (0.0-1.1); Globulin 2.3 g/dL (1.7-4.1); HEMOLYSIS < 15 (0-50)
[2021-08-08 06:13] LABS: BUN Creatinine Ratio 21.2 (6-22); Blood Urea Nitrogen 21 mg/dL (9-20); Calcium 7.9 mg/dL (8.4-10.2); Carbon Dioxide 30 mmol/L (22-32); Chloride 106 mmol/L (98-107); Estimated Glomerular Filt Rate > 60 mL/min (>60); Glucose 105 mg/dL (80-110); HEMOLYSIS < 15 (0-50); Magnesium 2.3 mg/dL (1.6-2.3); Potassium 4.1 mmol/L (3.4-5.1); Sodium 139 mmol/L (137-145)
--- NOTE | 2021-08-08 08:06 | P.PN_ITS ---
Subjective Subjective Date Patient Seen: 08/08/21 Time Patient Seen: 08:06 Interval history: patient states his pain is moderate to severe. currently well controlled with current pain meds. Denies shortness of breath or chest pain. No nausea or vomiting. Denies fever or chills. Exam Vital Signs (past 8 hours): - 08/08/21 00:30 08/08/21 04:00 08/08/21 07:41 Temperature 99.9 F H 96.8 F L Pulse Rate 79 66 84 Respiratory Rate 18 18 18 Blood Pressure 109/61 113/58 L Pulse Oximetry 96 94 Oxygen Delivery Method High Flow Nasal Cannula Oxygen Flow Rate 8 Narrative Exam Narrative: 76-year-old male resting comfortably in bed in no apparent distress. Dressing is clean, dry and intact. Right calf is Soft and nontender. Motor function is intact bilateral lower extremities. Sensation grossly intact to light touch bilat. LE. Const General: cooperative Orientation: alert Resp Effort & Inspection: normal respiratory effort Objective Labs Result Diagrams: 08/08/21 05:36 08/08/21 05:36 Labs: Laboratory Results - last 24 hr 08/06/21 08/07/21 08/07/21 19:09 14:47 14:47 WBC RBC Hgb Hct MCV MCH MCHC RDW Plt Count Neut % (Auto) Lymph % (Auto) [place] % (Auto) Eos % (Auto) Baso % (Auto) Neut # (Auto) Lymph # (Auto) [place] # (Auto) Eos # (Auto) Baso # (Auto) ABG pH 7.46 H ABG pCO2 36.5 ABG pO2 77 L ABG HCO3 26 ABG Total CO2 27 ABG O2 Saturation 96 ABG Base Excess 2.0 FiO2 36 Sodium Potassium Chloride Carbon Dioxide BUN Creatinine Estimated GFR BUN/Creatinine Ratio Glucose Calcium Magnesium Total Bilirubin Conjugated Bilirubin Unconjugated Bilirubin AST ALT Alkaline Phosphatase Total Creatine Kinase 351 H CK-MB (CK-2) 1.05 CK-MB (CK-2) Rel Index 0.3 L Troponin I < 0.012 NT-Pro-B Natriuret Pep 154 Total Protein Albumin Globulin Albumin/Globulin Ratio 08/07/21 08/08/21 08/08/21 20:16 05:36 05:36 WBC 8.0 RBC 3.37 L Hgb 10.3 L Hct 30.3 L MCV 89.8 MCH 30.4 MCHC 33.9 RDW 14.1 Plt Count 169 Neut % (Auto) 74.5 Lymph % (Auto) 4.7 L [place] % (Auto) 14.3 H Eos % (Auto) 5.6 H Baso % (Auto) 0.9 Neut # (Auto) 5900 Lymph # (Auto) 400 L [place] # (Auto) 1100 H Eos # (Auto) 400 Baso # (Auto) 100 ABG pH ABG pCO2 ABG pO2 ABG HCO3 ABG Total CO2 ABG O2 Saturation ABG Base Excess FiO2 Sodium Potassium Chloride Carbon Dioxide BUN Creatinine Estimated GFR BUN/Creatinine Ratio Glucose Calcium Magnesium Total Bilirubin 0.7 Conjugated Bilirubin 0.0 Unconjugated Bilirubin 0.7 AST 42 ALT 35 Alkaline Phosphatase 109 Total Creatine Kinase 283 H CK-MB (CK-2) 0.68 CK-MB (CK-2) Rel Index 0.2 L Troponin I < 0.012 NT-Pro-B Natriuret Pep Total Protein 5.0 L Albumin 2.7 L Globulin 2.3 Albumin/Globulin Ratio 1.2 08/08/21 05:36 WBC RBC Hgb Hct MCV MCH MCHC RDW Plt Count Neut % (Auto) Lymph % (Auto) [place] % (Auto) Eos % (Auto) Baso % (Auto) Neut # (Auto) Lymph # (Auto) [place] # (Auto) Eos # (Auto) Baso # (Auto) ABG pH ABG pCO2 ABG pO2 ABG HCO3 ABG Total CO2 ABG O2 Saturation ABG Base Excess FiO2 Sodium 139 Potassium 4.1 Chloride 106 Carbon Dioxide 30 BUN 21 H Creatinine 0.99 Estimated GFR > 60 BUN/Creatinine Ratio 21.2 Glucose 105 Calcium 7.9 L Magnesium 2.3 Total Bilirubin Conjugated Bilirubin Unconjugated Bilirubin AST ALT Alkaline Phosphatase Total Creatine Kinase CK-MB (CK-2) CK-MB (CK-2) Rel Index Troponin I NT-Pro-B Natriuret Pep Total Protein Albumin Globulin Albumin/Globulin Ratio [facility] Medical History Aortic root dilatation Atrial fibrillation, currently in sinus rhythm Chronic anticoagulation Cough Easy bruising HTN (hypertension) PAF (paroxysmal atrial fibrillation) (2014) Port-A-Cath in place (2014) Preoperative clearance Viral illness Surgical History History of surgery (2015) Hx of tonsillectomy Hx of transurethral resection of prostate Status post appendectomy Status post neck dissection (2014) Social History household members: spouse Smoking Status: Former smoker alcohol intake: never substance use type: does not use Assessment & Plan Assessment & Plan narrative: Patient readmitted on August 07, 2021 and being followed by hospitalist for acute hypoxic respiratory failure, paroxysmal atrial fibrillation chronic, hypothyroidism, essential hypertension Patient status post right total knee arthroplasty, continue routine total knee arthroplasty protocol Multimodal pain management Disposition home when medically stable per hospitalist Follow-up with [facility] for routine postop appointment Time Spent With Patient Critical Care time: I spent a total of [] minutes of critical care time on this patient's care today; this time is exclusive of procedural time. Quality VTE Deep Vein Thrombosis/Pulmonary Embolism Present on Admission: No
[2021-08-08] MEDS: dilTIAZem CD 240 MG CAP PO (09:27)
[2021-08-08] MEDS: SENNOSIDES 8.6 MG TABLET 17.2 MG PO ×2 (09:27→21:01)
[2021-08-08] MEDS: DOCUSATE 100 MG CAPSULE PO ×2 (09:28→21:01)
[2021-08-08] MEDS: MAGNESIUM HYDROXIDE 30 ML UDC PO (09:28)
[2021-08-08] MEDS: APIXABAN 5 MG TABLET PO ×2 (09:28→21:01)
--- NOTE | 2021-08-08 11:44 | PT-IP ANOTE ---
Pt declined working with therapy when arrived at 1140 stated just got back into bed from being on BSC, and got in trouble because did it himself. Pt requested be seen by PT latest in afternoon so can take a nap and have more energy. SALES/MARKETING unable see pt, will return in afternoon to assess progress.
--- NOTE | 2021-08-08 14:56 | PT.IPTN ---
Current Diagnoses Acute respiratory failure with hypoxia (08/06/21) Physical Therapy Treatment Note M2 PT-IP Current Condition Start: 08/07/21 11:38 Freq: NEEDED Status: Active Protocol: Document 08/07/21 14:18 AW (Rec: 08/07/21 15:29 AW [id number]) Physical Therapy Current Condition Current Condition Evaluation Date 08/07/21 Treatment Diagnosis acute hypoxic respiratory failure; s/p R TKA; impaired mobility Onset Date 08/04/21 M3 PT-IP Subjective Start: 08/07/21 11:38 Freq: NEEDED Status: Active Protocol: Document 08/08/21 14:42 KS (Rec: 08/08/21 15:21 KS [id number]) Subjective Physical Therapy Visit Type Type Treatment Note Visit Start Time 14:42 Visit Stop Time 14:56 Total Visit Minutes 14 Physical Therapy Visit Comments Patient Comments Pt agreed to work with PT Patient Goals Pt hopes to return home with spouse support but is open to rehab options. M4 PT-IP Mobility and Gait Start: 08/07/21 11:38 Freq: NEEDED Status: Active Protocol: Document 08/08/21 14:42 KS (Rec: 08/08/21 15:21 KS [id number]) PT-Bed Mobility Assessment Supine to Sit Supine to Sit Minimal Assistance,1 Person Assistance,Head of Bed Elevated,Bedrails Sit to Supine Sit to Supine Minimal Assistance,1 Person Assistance Scooting Scooting to Edge of Bed Contact Guard Assistance Scooting Up and Down in Bed Minimal Assistance PT-Transfer Assessment Sit to and From Stand Sit to and from Stand Minimal Assistance,1 Person Assistance,Use of Upper Extremities Equipment Transfer Assistive Device Gait Belt,Front Wheeled Walker Orthotic/Prosthetic Devices or Brace: No Transfers Transfer Destination Bed Transfer Technique Pt ambulated w/ FWW Transfer Ability Level of Assist Minimal Assistance,1 Person Assistance,Use of Upper Extremities Comments Mobility Comments Pt in bed upon arrival on 3L O2 95% and agreeable to PT. Min A for sup<>sit w/ HOB elevated, CGA for scooting EOB , Min A and cues for sit<> stand w/ FWW. Pt then took ~4 small steps forward and c/o fatigue in BUE and O2 desat 79 %. Instructed pt to back up and sit down. Pt able to back up and take small steps laterally towards HOB. Upon sitting, O2 quickly increased to mid 90s w/ cues. Pt refused further ambulation or sit<> stands due to fatigue and required Min A for LE elevation back into bed. Pt then completed 1x10 quad sets and glute sets. Pt left in bed w/ all needs in reach. Gait Assessment Gait Gait Assistance Required: Contact Guard Assist,Minimum Assistance,1 Person Assist Distance (Feet) 6 Able to Maintain Weight Bearing Status Yes During Gait Assistive Devices Assistive Device Front Wheeled Walker Gait Deviations General Gait Pattern Antalgic,Decreased Stride Length,Decreased Feet Clearance,Flexed Trunk,Step-to Gait Factors Limiting Gait Function Factors Limiting Gait Function Decreased Strength,Pain,Poor Balance Comments Gait Comments Pt only able to tolerate ~6 ft ambulation w/ FWW due to low activity tolerance and quick approach to fatigue. Required cues for upright posture. Stair Climbing Assessment Comments Stair Climbing Comments Not assessed. Pt not safe for stairs. PT-Balance Assessment Sitting Balance and Reactions Static Sitting Balance Ability Good Dynamic Sitting Balance Ability Fair Standing Balance and Reactions Static Standing Balance Ability Fair Dynamic Standing Balance Ability Poor Device Used FWW M5 PT-IP Objective Assessments Start: 08/07/21 11:38 Freq: NEEDED Status: Active Protocol: Document 08/07/21 14:18 AW (Rec: 08/07/21 15:29 AW [id number]) Orientation Orientation/Cognition Level of Alertness Alert Orientation Name,Day of Week,Place, Situation Language Function Ability Hard of Hearing Safety Awareness Understands Safety Issues Gross Range of Motion Lower Extremity ROM Assessment Right Impaired Strength Lower Extremity Strength Assessment Right Impaired Hip 3/5 Knee 3-/5 Ankle 4/5 Sensation Assessment Sensation Gross Sensation Right LE Impaired,Left LE Impaired Light Touch Impaired Proprioception (Position) Impaired Sensation Description Numbness Comments Sensation Comments 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 Muscle Tone Muscle Tone WNL Yes M6 PT-IP Treatment Start: 08/07/21 11:38 Freq: NEEDED Status: Active Protocol: Document 08/08/21 14:42 KS (Rec: 08/08/21 15:21 KS [id number]) Physical Therapy Treatment Exercises Exercises Gluteal Sets,Quad Sets Education Education Provided Weight Bearing Status,Safety M7 PT-IP Assessment and Plan Start: 08/07/21 11:38 Freq: NEEDED Status: Active Protocol: Document 08/08/21 14:42 KS (Rec: 08/08/21 15:21 KS [id number]) PT Summary Assessment and Plan Potential Rehabilitation Potential Good Status of Condition at Evaluation Evolving Summary Impairments Pain,ROM,Strength,Balance, Sensation,Bed Mobility, Transfers,Gait,Activity Tolerance Assessment Summary Pt continues to be limited by low tolerance for activity and weakness. Min A for bed mobility and sit<>stand. Only able to tolerate ~6 ft ambulation w/ cues for upright posture, quick approach to BUE fatigue. Desat to 79% on 3L following ambulation but recovered quickly to low-mid 90s. Pt may likely need SNF rehab due to poor activity tolerance. If he improves during his hospital course, he may be able to discharge home with home health services. Goals Bed Mobility Goal Standby Assistance Transfer Goal Contact Guard Assistance,Front Wheeled Walker Gait Goal Contact Guard Assistance,Front Wheel Walker Gait Distance 150 Other Goals - up/down 1 platform step with FWW CGA Days to Meet Goals 7 Frequency of Treatment Frequency Of Treatment Once a Day Treatment Plan Physical Therapy Treatment Plan Bed Mobility Training,Transfer Training,Gait Training, Therapeutic Exercise,Balance Retraining,Post Op Education, Discharge Planning,Hot or Cold Pack,Neuromuscular Re-ed Other Recommendations and Next Treatment monitor SpO2; sit to stand; Focus transfer; gait with FWW if able Precautions Other Precautions SpO2; falls Recommendations To Nursing Amount of Assist Needed 2 Person Assist Discharge Recommendations PT Discharge Recommendations Home with Assistance,Home Health,SNF Rehab,Home vs SNF Transportation Needs at Discharge Wheelchair/Cabulance
--- NOTE | 2021-08-08 15:38 | CM.DPC ---
DCP Cont: Per MD, pt had significant oxygen needs yesterday and last night (14LO2) but has been able to be weaned down today but still requiring oxygen NC but all imaging negative. Pt was recently here for knee surgery and discharged to home and then readmit for SOB, weakness. Per PT, pt was able to participate but only went 6 feet ambulation before de-satting and pending progress recommending SNF vs HH. SW met bedside with pt and explained role and he confirms he is feeling better and feels he has made good progress. SW discussed SNF vs HH and pt states he has not had HH but his spouse has. Pt feels he will continue to make progress by tomorrow and he is very motivated and capable and has plans to not go upstairs to the bedroom but now has the main floor set up to stay there. Pt currently strongly declines SNF and also does not feel HH needed if he continues to progress and declines HH referral at this time but agreeable with SW to check in tomorrow to see if any d/c needs. Pt states spouse is available for assist and very capable. Plan: SW to follow tomorrow for pt progress to determine if HH needed at discharge as pt currently declining both SNF and HH. AVELINO Rodriguez
--- NOTE | 2021-08-08 15:46 | P.PN_ITS ---
Subjective Subjective Date Patient Seen: 08/08/21 Interval history: 76-year-old male known status post right total knee arthroplasty admitted to the hospital for generalized weakness. Patient reports his pain has improved significantly. He remains hypoxic however his oxygenation has improved. He is now on 4 L of oxygen. The patient does admit to taking several oxycodone at home for pain. It is suspected that this may have suppressed his respiratory drive resulting in hypoventilation, and hypoxia. He denies any chest pain. Overall he feels significantly improved Exam Vital Signs (past 8 hours): - 08/08/21 12:00 08/08/21 15:05 Temperature 98.1 F Pulse Rate 87 Respiratory Rate 20 Blood Pressure 137/56 L Pulse Oximetry 98 94 Oxygen Delivery Method High Flow Nasal Cannula Oxygen Flow Rate 4 Narrative Exam Narrative: Pleasant male lying in bed in no obvious distress Resp Other: Lungs decreased breath sounds but clear to auscultation Cardio Other: Cardiac exam: Regular rate and rhythm normal S1-S2 GI Other: Abdomen: Soft and nontender nondistended Extrem Other: Extremities: Right knee with an Jose bandage in place Objective Labs Result Diagrams: 08/08/21 05:36 08/08/21 05:36 Labs: Laboratory Results - last 24 hr 08/07/21 08/08/21 08/08/21 20:16 05:36 05:36 WBC 8.0 RBC 3.37 L Hgb 10.3 L Hct 30.3 L MCV 89.8 MCH 30.4 MCHC 33.9 RDW 14.1 Plt Count 169 Neut % (Auto) 74.5 Lymph % (Auto) 4.7 L [place] % (Auto) 14.3 H Eos % (Auto) 5.6 H Baso % (Auto) 0.9 Neut # (Auto) 5900 Lymph # (Auto) 400 L [place] # (Auto) 1100 H Eos # (Auto) 400 Baso # (Auto) 100 Sodium Potassium Chloride Carbon Dioxide BUN Creatinine Estimated GFR BUN/Creatinine Ratio Glucose Calcium Magnesium Total Bilirubin 0.7 Conjugated Bilirubin 0.0 Unconjugated Bilirubin 0.7 AST 42 ALT 35 Alkaline Phosphatase 109 Total Creatine Kinase 283 H CK-MB (CK-2) 0.68 CK-MB (CK-2) Rel Index 0.2 L Troponin I < 0.012 Total Protein 5.0 L Albumin 2.7 L Globulin 2.3 Albumin/Globulin Ratio 1.2 08/08/21 05:36 WBC RBC Hgb Hct MCV MCH MCHC RDW Plt Count Neut % (Auto) Lymph % (Auto) [place] % (Auto) Eos % (Auto) Baso % (Auto) Neut # (Auto) Lymph # (Auto) [place] # (Auto) Eos # (Auto) Baso # (Auto) Sodium 139 Potassium 4.1 Chloride 106 Carbon Dioxide 30 BUN 21 H Creatinine 0.99 Estimated GFR > 60 BUN/Creatinine Ratio 21.2 Glucose 105 Calcium 7.9 L Magnesium 2.3 Total Bilirubin Conjugated Bilirubin Unconjugated Bilirubin AST ALT Alkaline Phosphatase Total Creatine Kinase CK-MB (CK-2) CK-MB (CK-2) Rel Index Troponin I Total Protein Albumin Globulin Albumin/Globulin Ratio [facility] Medical History Aortic root dilatation Atrial fibrillation, currently in sinus rhythm Chronic anticoagulation Cough Easy bruising HTN (hypertension) PAF (paroxysmal atrial fibrillation) (2014) Port-A-Cath in place (2014) Preoperative clearance Viral illness Surgical History History of surgery (2014) Hx of tonsillectomy Hx of transurethral resection of prostate Status post appendectomy Status post neck dissection (2014) Social History household members: spouse Smoking Status: Former smoker alcohol intake: never substance use type: does not use Assessment & Plan Assessment & Plan narrative: Acute hypoxic respiratory failure, present on admission * CT angio of the chest r/out PE, noting a calcified granuloma of the left upper lobe and dependent atelectasis * RT consult for supplemental oxygen and DuoNeb nebulizers * will check proBNP, check Troponin, repeat Echo, recheck ABG, Chest Xray, continue IS2. * Chest x-ray shows small pleural effusion, no pulmonary edema, repeat echo is unchanged from previously, no wall motion abnormalities, EF 60%, troponins are negative * Overall the patient's oxygenation is improving, will continue to titrate oxygen off suspect hypoxia related to hypoventilation * Continue physical therapy, once patient is able to ambulate and is no longer hypoxic he will be appropriate for discharge home Right Knee Pain, post operative pain * Consulted with Dr. Downs, orthopedic surgery, ORtho consulted, no intervention needed * will resume apixaban * Pain poorly controlled, d/c oxycodone, start oral dilaudid-pain control improved * 3. Paroxysmal atrial fibrillation, chronic * Continue home dose of diltiazem 240 mg extended release once daily and apixaban 4. Hypothyroidism, chronic * Continue home dose of levothyroxine 50 mcg p.o. daily 5. Essential hypertension, chronic * Continue home dose of losartan 50 mg p.o. at bedtime Time Spent With Patient Critical Care time: I spent a total of [] minutes of critical care time on this patient's care today; this time is exclusive of procedural time. Quality VTE Deep Vein Thrombosis/Pulmonary Embolism Present on Admission: No
[2021-08-08] MEDS: GABAPENTIN 300 MG CAPSULE PO (21:01)
[2021-08-08] MEDS: LOSARTAN 50 MG TABLET PO (21:01)
[2021-08-08] MEDS: SODIUM CHLORIDE 0.9% FLUSH 10 ML IV (21:03)
[2021-08-09] VITALS (10 sets, daily range): BP systolic 106–150; BP diastolic 53–69; PULSE 72–87; RESP 15–17; TEMP 36–37.2; O2SAT 87–96
[2021-08-09] MEDS: HYDROMORPHONE 2 MG TABLET PO ×7 (01:58→23:01)
[2021-08-09] MEDS: LEVOTHYROXINE 50 MCG TABLET PO (05:11)
[2021-08-09] MEDS: ACETAMINOPHEN 325 MG TABLET 975 MG PO ×3 (05:22→21:44)
[2021-08-09 06:48] LABS: BUN Creatinine Ratio 20.2 (6-22); Blood Urea Nitrogen 19 mg/dL (9-20); Calcium 7.9 mg/dL (8.4-10.2); Carbon Dioxide 32 mmol/L (22-32); Chloride 102 mmol/L (98-107); Estimated Glomerular Filt Rate > 60 mL/min (>60); Glucose 98 mg/dL (80-110); HEMOLYSIS < 15 (0-50); Magnesium 2.2 mg/dL (1.6-2.3); Sodium 136 mmol/L (137-145)
[2021-08-09 06:49] LABS: Alanine Aminotransferase 40 IU/L (<50); Albumin 2.9 g/dL (3.5-5.0); Albumin Globulin Ratio 1.3 (1.0-2.8); Alkaline Phosphatase 122 U/L (38-126); Aspartate Aminotransferase 39 IU/L (17-59); Bilirubin Total 0.9 mg/dL (0.2-1.3); Globulin 2.2 g/dL (1.7-4.1); HEMOLYSIS < 15 (0-50); Total Protein 5.1 g/dL (6.3-8.2)
[2021-08-09] MEDS: DOCUSATE 100 MG CAPSULE PO (08:54)
[2021-08-09] MEDS: MAGNESIUM HYDROXIDE 30 ML UDC PO (08:54)
[2021-08-09] MEDS: APIXABAN 5 MG TABLET PO ×2 (08:55→21:45)
[2021-08-09] MEDS: SENNOSIDES 8.6 MG TABLET 17.2 MG PO (08:55)
[2021-08-09] MEDS: SODIUM CHLORIDE 0.9% FLUSH 10 ML IV ×3 (08:55→21:47)
[2021-08-09] MEDS: dilTIAZem CD 240 MG CAP PO (08:55)
--- NOTE | 2021-08-09 09:47 | PT.IPTN ---
Current Diagnoses Acute respiratory failure with hypoxia (08/08/21) Physical Therapy Treatment Note M2 PT-IP Current Condition Start: 08/07/21 11:38 Freq: NEEDED Status: Active Protocol: Document 08/07/21 14:18 AW (Rec: 08/07/21 15:29 AW [id number]) Physical Therapy Current Condition Current Condition Evaluation Date 08/07/21 Treatment Diagnosis acute hypoxic respiratory failure; s/p R TKA; impaired mobility Onset Date 08/04/21 M3 PT-IP Subjective Start: 08/07/21 11:38 Freq: NEEDED Status: Active Protocol: Document 08/09/21 09:27 KS (Rec: 08/09/21 12:11 KS [id number]) Subjective Physical Therapy Visit Type Type Treatment Note Visit Start Time 09:27 Visit Stop Time 09:47 Total Visit Minutes 20 Physical Therapy Visit Comments Patient Comments Pt agreed to work with PT Patient Goals Pt hopes to return home with spouse support but is open to rehab options. M4 PT-IP Mobility and Gait Start: 08/07/21 11:38 Freq: NEEDED Status: Active Protocol: Document 08/09/21 09:27 KS (Rec: 08/09/21 12:11 KS [id number]) PT-Bed Mobility Assessment Supine to Sit Supine to Sit Contact Guard Assistance,Head of Bed Elevated,Bedrails Sit to Supine Sit to Supine Minimal Assistance,1 Person Assistance Scooting Scooting to Edge of Bed Contact Guard Assistance PT-Transfer Assessment Sit to and From Stand Sit to and from Stand Contact Guard Assistance, Minimal Assistance,1 Person Assistance,Use of Upper Extremities Equipment Transfer Assistive Device Gait Belt,Front Wheeled Walker Orthotic/Prosthetic Devices or Brace: No Transfers Transfer Destination Bed Transfer Technique Pt ambulated w/ FWW Transfer Ability Level of Assist Minimal Assistance,1 Person Assistance,Use of Upper Extremities Comments Mobility Comments Pt in bed on 3L upon arrival satting mid 90s. CGA for sup<> sit w/ HOB raised and bed rails. CGA for scooting EOB. Pt sit<>stand w/ CGA/Min A w/ FWW and O2 stable. Pt ambulated ~20 ft w/ FWW CGA w/ very slow step to gait and cues for upright posture. Pt returned to bed to take seated rest break and O2 91%. Pt completed second bout of 20 ft ambulation w/ FWW CGA but had very quick approach to fatigue and mildly labored breathing. O2 89% but increased quickly after sitting down. Pt refused further ambulation. Min A for sit<>sup for LE assistance into bed. Reveiwed LE exercises and pt left in bed w / all needs in reach. Gait Assessment Gait Gait Assistance Required: Contact Guard Assist,1 Person Assist Distance (Feet) 20 Able to Maintain Weight Bearing Status Yes During Gait Assistive Devices Assistive Device Gait Belt,Front Wheeled Walker Gait Deviations General Gait Pattern Antalgic,Decreased Stride Length,Decreased Feet Clearance,Flexed Trunk,Step-to Gait Factors Limiting Gait Function Factors Limiting Gait Function Decreased Strength,Pain,Poor Balance Comments Gait Comments Pt able to complete 2 bouts of 20 ft ambulation w/ FWW on 3L O2 w/ very quick approach to fatigue. Stair Climbing Assessment Comments Stair Climbing Comments Not assessed. Pt not safe for stairs. Will try tomorrow if pt stronger. PT-Balance Assessment Sitting Balance and Reactions Static Sitting Balance Ability Good Dynamic Sitting Balance Ability Fair Standing Balance and Reactions Static Standing Balance Ability Fair Dynamic Standing Balance Ability Fair Device Used FWW M5 PT-IP Objective Assessments Start: 08/07/21 11:38 Freq: NEEDED Status: Active Protocol: Document 08/07/21 14:18 AW (Rec: 08/07/21 15:29 AW [id number]) Orientation Orientation/Cognition Level of Alertness Alert Orientation Name,Day of Week,Place, Situation Language Function Ability Hard of Hearing Safety Awareness Understands Safety Issues Gross Range of Motion Lower Extremity ROM Assessment Right Impaired Strength Lower Extremity Strength Assessment Right Impaired Hip 3/5 Knee 3-/5 Ankle 4/5 Sensation Assessment Sensation Gross Sensation Right LE Impaired,Left LE Impaired Light Touch Impaired Proprioception (Position) Impaired Sensation Description Numbness Comments Sensation Comments 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 Muscle Tone Muscle Tone WNL Yes M6 PT-IP Treatment Start: 08/07/21 11:38 Freq: NEEDED Status: Active Protocol: Document 08/09/21 09:27 KS (Rec: 08/09/21 12:11 KS [id number]) Physical Therapy Treatment Exercises Exercises Ankle Pumps,Gluteal Sets,Quad Sets,Heel Slides Education Education Provided Weight Bearing Status,Safety M7 PT-IP Assessment and Plan Start: 08/07/21 11:38 Freq: NEEDED Status: Active Protocol: Document 08/09/21 09:27 KS (Rec: 08/09/21 12:11 KS [id number]) PT Summary Assessment and Plan Potential Rehabilitation Potential Good Status of Condition at Evaluation Evolving Summary Impairments Pain,ROM,Strength,Balance, Sensation,Bed Mobility, Transfers,Gait,Activity Tolerance Assessment Summary Pt tolerated more activity w/ less assist tday but still limited by weakness and low activity tolerance. Only able to ambulate 20 ft before requiring seated rest break due to SOB and fatigue. CGA to Min A for bed mobility and transfers. Pt will need to complete stair training and improve activity tolerance if going home. Goals Bed Mobility Goal Standby Assistance Transfer Goal Contact Guard Assistance,Front Wheeled Walker Gait Goal Contact Guard Assistance,Front Wheel Walker Gait Distance 150 Other Goals - up/down 1 platform step with FWW CGA Days to Meet Goals 7 Frequency of Treatment Frequency Of Treatment Once a Day Treatment Plan Physical Therapy Treatment Plan Bed Mobility Training,Transfer Training,Gait Training, Therapeutic Exercise,Balance Retraining,Post Op Education, Discharge Planning,Hot or Cold Pack,Neuromuscular Re-ed Other Recommendations and Next Treatment monitor SpO2; sit to stand; Focus transfer; gait with FWW if able Precautions Other Precautions SpO2; falls Recommendations To Nursing Amount of Assist Needed 2 Person Assist Discharge Recommendations PT Discharge Recommendations Home with Assistance,Home Health,SNF Rehab,Home vs SNF Transportation Needs at Discharge Wheelchair/Cabulance
[2021-08-09] MEDS: POLYVINYL ALCOHOL DROPS 1 DROPS EYE-BOTH (14:40)
--- NOTE | 2021-08-09 14:53 | PM.PN.1 ---
Subjective Subjective Date Patient Seen: 08/09/21 Time Patient Seen: 14:54 Interval history: Patient states his of right knee pain is currently moderate. It is well controlled with current pain medications. He denies any chest pain or shortness of breath. No nausea or vomiting. No fevers, chills, night sweats. He notes he is overall feeling much improved from yesterday. Exam Vital Signs (past 8 hours): - 08/09/21 10:00 08/09/21 11:15 08/09/21 14:28 Temperature 97.9 F Pulse Rate 87 Respiratory Rate 15 Blood Pressure 106/53 L Pulse Oximetry 93 87 L 92 Oxygen Delivery Method Nasal Cannula Oxygen Flow Rate 2 Narrative Exam Narrative: Pleasant 76-year-old male, resting comfortably in bed, no acute distress. Dressing is clean, dry, intact. Bilateral lower extremity: Motor functions are grossly intact, sensation is grossly intact to light touch, calves are soft and nontender to palpation. Respirations are normal and he is able to speak easily in full sentences. Objective Labs Result Diagrams: 08/08/21 05:36 08/09/21 06:04 Labs: Laboratory Results - last 24 hr 08/09/21 08/09/21 06:04 06:04 Sodium 136 L Potassium 4.0 Chloride 102 Carbon Dioxide 32 BUN 19 Creatinine 0.94 Estimated GFR > 60 BUN/Creatinine Ratio 20.2 Glucose 98 Calcium 7.9 L Magnesium 2.2 Total Bilirubin 0.9 Conjugated Bilirubin 0.0 Unconjugated Bilirubin 1.0 AST 39 ALT 40 Alkaline Phosphatase 122 Total Protein 5.1 L Albumin 2.9 L Globulin 2.2 Albumin/Globulin Ratio 1.3 [facility] Medical History Aortic root dilatation Atrial fibrillation, currently in sinus rhythm Chronic anticoagulation Cough Easy bruising HTN (hypertension) PAF (paroxysmal atrial fibrillation) (2014) Port-A-Cath in place (2014) Preoperative clearance Viral illness Surgical History History of surgery (2014) Hx of tonsillectomy Hx of transurethral resection of prostate Status post appendectomy Status post neck dissection (2014) Social History household members: spouse Smoking Status: Former smoker alcohol intake: never substance use type: does not use Assessment & Plan Assessment & Plan narrative: Patient readmitted on August 07, 2021 and being followed by hospitalist for acute hypoxic respiratory failure, paroxysmal atrial fibrillation chronic, hypothyroidism, essential hypertension Patient status post right total knee arthroplasty, continue routine total knee arthroplasty protocol Multimodal pain management Disposition home when medically stable per hospitalist Follow-up with [facility] for routine postop appointment Dr. Fischer is specifically requesting that the patient be discharged on a prescription of oral Dilaudid, as he feels oral oxycodone help contribute to his current readmission. Time Spent With Patient Critical Care time: I spent a total of [] minutes of critical care time on this patient's care today; this time is exclusive of procedural time. Quality VTE Deep Vein Thrombosis/Pulmonary Embolism Present on Admission: No
--- NOTE | 2021-08-09 15:27 | P.PN_ITS ---
Subjective Subjective Date Patient Seen: 08/09/21 Interval history: 76-year-old male status post total knee arthroplasty admitted to the hospital for generalized weakness and significant pain. Patient has been hypoxic however he feels significantly improved. His pain is well controlled. He was able to get up with physical therapy. We have been tapering his oxygen down quite nicely. Patient feels like he is making significant progress Exam Vital Signs (past 8 hours): - 08/09/21 10:00 08/09/21 11:15 08/09/21 14:28 Temperature 97.9 F Pulse Rate 87 Respiratory Rate 15 Blood Pressure 106/53 L Pulse Oximetry 93 87 L 92 08/09/21 15:25 Temperature 96.8 F L Pulse Rate 72 Respiratory Rate 16 Blood Pressure 133/61 Pulse Oximetry 96 Oxygen Delivery Method Nasal Cannula Oxygen Flow Rate 3 Narrative Exam Narrative: Pleasant male lying in bed in no obvious distress Resp Other: Lungs: Clear to auscultation Cardio Other: Cardiac exam: Irregularly irregular normal S1-S2 GI Other: Abdomen soft nontender nondistended Objective Labs Result Diagrams: 08/08/21 05:36 08/09/21 06:04 Labs: Laboratory Results - last 24 hr 08/09/21 08/09/21 06:04 06:04 Sodium 136 L Potassium 4.0 Chloride 102 Carbon Dioxide 32 BUN 19 Creatinine 0.94 Estimated GFR > 60 BUN/Creatinine Ratio 20.2 Glucose 98 Calcium 7.9 L Magnesium 2.2 Total Bilirubin 0.9 Conjugated Bilirubin 0.0 Unconjugated Bilirubin 1.0 AST 39 ALT 40 Alkaline Phosphatase 122 Total Protein 5.1 L Albumin 2.9 L Globulin 2.2 Albumin/Globulin Ratio 1.3 [facility] Medical History Aortic root dilatation Atrial fibrillation, currently in sinus rhythm Chronic anticoagulation Cough Easy bruising HTN (hypertension) PAF (paroxysmal atrial fibrillation) (2014) Port-A-Cath in place (2014) Preoperative clearance Viral illness Surgical History History of surgery (2014) Hx of tonsillectomy Hx of transurethral resection of prostate Status post appendectomy Status post neck dissection (2014) Social History household members: spouse Smoking Status: Former smoker alcohol intake: never substance use type: does not use Assessment & Plan Assessment & Plan narrative: Acute hypoxic respiratory failure, present on admission * CT angio of the chest r/out PE, noting a calcified granuloma of the left upper lobe and dependent atelectasis * RT consult for supplemental oxygen and DuoNeb nebulizers * will check proBNP, check Troponin, repeat Echo, recheck ABG, Chest Xray, continue IS2. * Chest x-ray shows small pleural effusion, no pulmonary edema, repeat echo is unchanged from previously, no wall motion abnormalities, EF 60%, troponins are negative * Overall the patient's oxygenation is improving, will continue to titrate oxygen off suspect hypoxia related to hypoventilation, now on 2 liters and at times off oxygen * Continue physical therapy, once patient is able to ambulate and is no longer hypoxic he will be appropriate for discharge home?Right Knee Pain, post operative pain * Consulted with Dr. Downs, orthopedic surgery, ORtho consulted, no intervention needed * will resume apixaban * Pain poorly controlled, d/c oxycodone, start oral dilaudid-pain control improved * plans is discharge home off oxycodone and on oral dilaudid * 3. Paroxysmal atrial fibrillation, chronic * Continue home dose of diltiazem 240 mg extended release once daily and apixaban ?4. Hypothyroidism, chronic * Continue home dose of levothyroxine 50 mcg p.o. daily 5. Essential hypertension, chronic * Continue home dose of losartan 50 mg p.o. at bedtime Aniticipate discharge home tomorrow Time Spent With Patient Critical Care time: I spent a total of [] minutes of critical care time on this patient's care today; this time is exclusive of procedural time. Quality VTE Deep Vein Thrombosis/Pulmonary Embolism Present on Admission: No
[2021-08-09] MEDS: GABAPENTIN 300 MG CAPSULE PO (21:44)
[2021-08-09] MEDS: LOSARTAN 50 MG TABLET PO (21:45)
[2021-08-10] VITALS (10 sets, daily range): BP systolic 114–138; BP diastolic 55–69; PULSE 72–88; RESP 16–18; TEMP 35.6–37.3; O2SAT 91–97
[2021-08-10] MEDS: HYDROMORPHONE 2 MG TABLET PO ×6 (02:55→21:20)
[2021-08-10] MEDS: ACETAMINOPHEN 325 MG TABLET 975 MG PO ×3 (06:18→21:55)
[2021-08-10] MEDS: LEVOTHYROXINE 50 MCG TABLET PO (06:19)
[2021-08-10] MEDS: MAGNESIUM HYDROXIDE 30 ML UDC PO (10:22)
[2021-08-10] MEDS: dilTIAZem CD 240 MG CAP PO (10:23)
[2021-08-10] MEDS: DOCUSATE 100 MG CAPSULE PO ×2 (10:23→21:19)
[2021-08-10] MEDS: APIXABAN 5 MG TABLET PO ×2 (10:24→21:19)
[2021-08-10] MEDS: SENNOSIDES 8.6 MG TABLET 17.2 MG PO ×2 (10:24→21:18)
--- NOTE | 2021-08-10 11:28 | PT.IPTN ---
Current Diagnoses Acute respiratory failure with hypoxia (08/08/21) Physical Therapy Treatment Note M2 PT-IP Current Condition Start: 08/07/21 11:38 Freq: NEEDED Status: Active Protocol: Document 08/07/21 14:18 AW (Rec: 08/07/21 15:29 AW [id number]) Physical Therapy Current Condition Current Condition Evaluation Date 08/07/21 Treatment Diagnosis acute hypoxic respiratory failure; s/p R TKA; impaired mobility Onset Date 08/04/21 M3 PT-IP Subjective Start: 08/07/21 11:38 Freq: NEEDED Status: Active Protocol: Document 08/10/21 11:00 KS (Rec: 08/10/21 13:33 KS [id number]) Subjective Physical Therapy Visit Type Type Treatment Note Visit Start Time 11:00 Visit Stop Time 11:28 Total Visit Minutes 28 Physical Therapy Visit Comments Patient Comments Pt agreed to work with PT Patient Goals Pt hopes to return home with spouse support but is open to rehab options. M4 PT-IP Mobility and Gait Start: 08/07/21 11:38 Freq: NEEDED Status: Active Protocol: Document 08/10/21 11:00 KS (Rec: 08/10/21 13:33 KS [id number]) PT-Bed Mobility Assessment Supine to Sit Supine to Sit Contact Guard Assistance,Head of Bed Elevated,Bedrails Sit to Supine Sit to Supine Standby Assistance,1 Person Assistance,Head of Bed Elevated Scooting Scooting to Edge of Bed Contact Guard Assistance PT-Transfer Assessment Sit to and From Stand Sit to and from Stand Contact Guard Assistance,1 Person Assistance,Use of Upper Extremities Equipment Transfer Assistive Device Gait Belt,Front Wheeled Walker Orthotic/Prosthetic Devices or Brace: No Transfers Transfer Destination Bed Transfer Technique Pt ambulated w/ FWW Transfer Ability Level of Assist Contact Guard Assistance,1 Person Assistance,Use of Upper Extremities Comments Mobility Comments Pt in bed upon arrival w/ spouse in room for caregiver training. Pt sup<>sit and scooted EOB CGA w/ HOB raised. Pt states he will sleep in recliner at home. Instructed pts on how to apply gaitbelt and provide assistance and FWW stabilization. Pt sit<>stand CGA and ambulated ~10 ft to platform step. Pt able to ascend/descend platform step w / FWW w/ CGA and cues for sequencing. He then sat EOB for rest break. O2 mid to high 90s throughout . After seated rest break, pt completed platform step again this time w/ providing CGA and FWW stabilization. He then ambulated back to bed and returned to bed SBA. He still has quick approach to fatigue and can only tolerate short distances ambulation. Instructed pts to place chair inside doorway of home so pt can sit and rest after ambulating and completing step to get inside. Pt and agreeable. Pt left in bed w/ all needs in reach. Gait Assessment Gait Gait Assistance Required: Contact Guard Assist,1 Person Assist Distance (Feet) 20 Able to Maintain Weight Bearing Status Yes During Gait Assistive Devices Assistive Device Gait Belt,Front Wheeled Walker Gait Deviations General Gait Pattern Antalgic,Decreased Stride Length,Decreased Feet Clearance,Flexed Trunk,Step-to Gait Factors Limiting Gait Function Factors Limiting Gait Function Decreased Strength,Pain,Poor Balance Comments Gait Comments Pt still limited by low tolerance for activity but states his can pull right up to front step leading into home. Pt agreeable to build up ambulaton tolerance slowly and pay close attention to breathing and enery conservation techniques. Stair Climbing Assessment Evaluation Level of Assist On Stairs Contact Guard Assistance,1 Person Assistance Devices Stair Climbing Assistive Devices Front Wheel Walker Technique/Endurance Stair Climbing Direction Ascend and Descend Stair Climbing Technique Step to Step Number of Steps Climbed 1 Stair Climbing Set # Repetitions (reps) 2 Comments Stair Climbing Comments Pt able to ascend/descend platform step twice this AM, once w/ [employer]OR [employer] and once w/ his providing CGA. Required cues for sequencing of FWW and LE. Pt and feel safe to complete step leading into home. PT-Balance Assessment Sitting Balance and Reactions Static Sitting Balance Ability Good Dynamic Sitting Balance Ability Good Standing Balance and Reactions Static Standing Balance Ability Good Dynamic Standing Balance Ability Fair Device Used FWW M5 PT-IP Objective Assessments Start: 08/07/21 11:38 Freq: NEEDED Status: Active Protocol: Document 08/07/21 14:18 AW (Rec: 08/07/21 15:29 AW [id number]) Orientation Orientation/Cognition Level of Alertness Alert Orientation Name,Day of Week,Place, Situation Language Function Ability Hard of Hearing Safety Awareness Understands Safety Issues Gross Range of Motion Lower Extremity ROM Assessment Right Impaired Strength Lower Extremity Strength Assessment Right Impaired Hip 3/5 Knee 3-/5 Ankle 4/5 Sensation Assessment Sensation Gross Sensation Right LE Impaired,Left LE Impaired Light Touch Impaired Proprioception (Position) Impaired Sensation Description Numbness Comments Sensation Comments 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 Muscle Tone Muscle Tone WNL Yes M6 PT-IP Treatment Start: 08/07/21 11:38 Freq: NEEDED Status: Active Protocol: Document 08/10/21 11:00 KS (Rec: 08/10/21 13:33 KS [id number]) Physical Therapy Treatment Education Education Provided Weight Bearing Status,Safety M7 PT-IP Assessment and Plan Start: 08/07/21 11:38 Freq: NEEDED Status: Active Protocol: Document 08/10/21 11:00 KS (Rec: 08/10/21 13:33 KS [id number]) PT Summary Assessment and Plan Potential Rehabilitation Potential Good Status of Condition at Evaluation Evolving Summary Impairments Pain,ROM,Strength,Balance, Sensation,Bed Mobility, Transfers,Gait,Activity Tolerance Assessment Summary Completed caregiver training w / pts today who was able to provide appropriate cues and assistance for gait belt application, sit<>stand, ambulation, and platform step. Pt SBA to CGA for bed mobility and CGA for transfers , ambulation, and stairs. He ambulated ~20 ft and completed 2x platform step CGA w/ cues for sequencing. He continues to be limited by low activity tolerance, but denied SOB todat and remained in 90s on RA. Pts states she feels capable of assisting pt when needed and he has outpatient rehab scheduled to begin next week. Pt may go home w/ assisting when medically stable. Goals Bed Mobility Goal Standby Assistance Transfer Goal Contact Guard Assistance,Front Wheeled Walker Gait Goal Contact Guard Assistance,Front Wheel Walker Gait Distance 150 Other Goals - up/down 1 platform step with FWW CGA Days to Meet Goals 7 Frequency of Treatment Frequency Of Treatment Once a Day Treatment Plan Physical Therapy Treatment Plan Bed Mobility Training,Transfer Training,Gait Training, Therapeutic Exercise,Balance Retraining,Post Op Education, Discharge Planning,Hot or Cold Pack,Neuromuscular Re-ed Other Recommendations and Next Treatment monitor SpO2; sit to stand; Focus transfer; gait with FWW if able Precautions Other Precautions SpO2; falls Recommendations To Nursing Amount of Assist Needed 2 Person Assist Discharge Recommendations PT Discharge Recommendations Home with Assistance,Home Health Transportation Needs at Discharge Wheelchair/Cabulance
--- NOTE | 2021-08-10 13:34 | CM.DPC ---
DCP Cont: Met with patient in his room. Introduced self. Had met patient a couple of days ago. He is pleasant, alert and oriented. He indicated, I really wanted to go home today, but they were worried about my oxygen. According to nurse, Selvin, he is mostly in need of oxygen when he sleeps. Patient indicated, he really doesn't think he needs home health, but can check in with him tomorrow. P: DCP to continue to follow, and will check in with patient tomorrow. Jelena Diane RN/Radiographer Angiogram
[2021-08-10] MEDS: POLYVINYL ALCOHOL DROPS 1 DROPS EYE-BOTH ×2 (14:10→21:27)
--- NOTE | 2021-08-10 17:52 | P.PN_ITS ---
Subjective Subjective Date Patient Seen: 08/10/21 Time Patient Seen: 17:52 Interval history: 76-year-old male status post total knee arthroplasty admitted to the hospital for generalized weakness and significant pain.? Patient has been hypoxic however he feels significantly improved.? His pain is well controlled.? He was able to get up with physical therapy.? We have been tapering his oxygen down quite nicely but still is requiring 1-2 L today.? Patient feels like he is making significant progress Exam Vital Signs (past 8 hours): - 08/10/21 11:00 08/10/21 15:00 Temperature 97.0 F L 99.2 F Pulse Rate 88 83 Respiratory Rate 18 18 Blood Pressure 114/69 135/60 Pulse Oximetry 96 94 Oxygen Delivery Method Nasal Cannula Oxygen Flow Rate 1 Narrative Exam Narrative: Pleasant male lying in bed in no obvious distress Resp Other: Lungs:? Clear to auscultation Cardio Other: Cardiac exam:? Irregularly irregular normal S1-S2 GI Other: Abdomen soft nontender nondistended Objective Labs Result Diagrams: 08/08/21 05:36 08/09/21 06:04 [facility] Medical History Aortic root dilatation Atrial fibrillation, currently in sinus rhythm Chronic anticoagulation Cough Easy bruising HTN (hypertension) PAF (paroxysmal atrial fibrillation) (2014) Port-A-Cath in place (2014) Preoperative clearance Viral illness Surgical History History of surgery (2014) Hx of tonsillectomy Hx of transurethral resection of prostate Status post appendectomy Status post neck dissection (2014) Social History household members: spouse Smoking Status: Former smoker alcohol intake: never substance use type: does not use Assessment & Plan Assessment & Plan narrative: 1. Acute hypoxic respiratory failure, present on admission, * CT angio of the chest r/out PE, noting a calcified granuloma of the left upper lobe and dependent atelectasis * RT consult for supplemental oxygen and DuoNeb nebulizers * likely secondary to opiate use in setting of recent surgery and severe atelectasis. Continues to improve but still requiring O2 today. * Chest x-ray shows small pleural effusion, no pulmonary edema, repeat echo is unchanged from previously, no wall motion abnormalities, EF 60%, troponins are negative * Continue physical therapy, once patient is able to ambulate and is no longer hypoxic he will be appropriate for discharge home? 2. Right Knee Pain, post operative pain * Consulted with Dr. Downs, orthopedic surgery, ORtho consulted, no intervention needed * will resume apixaban * Pain poorly controlled, d/c oxycodone, start oral dilaudid-pain control improved * plans is discharge home off oxycodone and on oral dilaudid 3. Paroxysmal atrial fibrillation, chronic * Continue home dose of diltiazem 240 mg extended release once daily and apixaban? 4. Hypothyroidism, chronic * Continue home dose of levothyroxine 50 mcg p.o. daily 5. Essential hypertension, chronic * Continue home dose of losartan 50 mg p.o. at bedtime Aniticipate discharge home tomorrow (once O2 is no longer needed which appears to be soon). Time Spent With Patient Critical Care time: I spent a total of [] minutes of critical care time on this patient's care today; this time is exclusive of procedural time. Quality VTE Deep Vein Thrombosis/Pulmonary Embolism Present on Admission: No
[2021-08-10] MEDS: LOSARTAN 50 MG TABLET PO (21:19)
[2021-08-10] MEDS: GABAPENTIN 300 MG CAPSULE PO (21:20)
[2021-08-11] MEDS: HYDROMORPHONE 2 MG TABLET PO ×3 (00:59→11:48)
[2021-08-11 04:00] VITALS: BP 137/71; PULSE 80; RESP 17; TEMP 35.9; O2SAT 97
[2021-08-11] MEDS: ACETAMINOPHEN 325 MG TABLET 975 MG PO (06:07)
[2021-08-11] MEDS: LEVOTHYROXINE 50 MCG TABLET PO (06:07)
--- NOTE | 2021-08-11 07:11 | PM.PN.1 ---
Subjective Subjective Date Patient Seen: 08/11/21 Time Patient Seen: 07:11 Interval history: Patient states his knee pain is mild. Denies fever or chills. No nausea vomiting. No shortness of breath or chest pain. Exam Vital Signs (past 8 hours): - 08/10/21 23:15 08/11/21 04:00 Temperature 98 F 96.7 F L Pulse Rate 74 80 Respiratory Rate 17 17 Blood Pressure 127/64 137/71 Pulse Oximetry 96 97 Oxygen Delivery Method Nasal Cannula Oxygen Flow Rate 0 Narrative Exam Narrative: 76-year-old male resting comfortably in bed in no apparent distress. Knee dressing is Clean, dry, intact.. Motor functions intact distal right lower extremity. Sensation grossly intact light touch distal right lower extremity. Const General: cooperative Nutritional Appearance: average body habitus Resp Effort & Inspection: normal respiratory effort and able to speak in complete sentences Objective Labs Result Diagrams: 08/08/21 05:36 08/09/21 06:04 [facility] Medical History Aortic root dilatation Atrial fibrillation, currently in sinus rhythm Chronic anticoagulation Cough Easy bruising HTN (hypertension) PAF (paroxysmal atrial fibrillation) (2014) Port-A-Cath in place (2014) Preoperative clearance Viral illness Surgical History History of surgery (2014) Hx of tonsillectomy Hx of transurethral resection of prostate Status post appendectomy Status post neck dissection (2014) Social History household members: spouse Smoking Status: Former smoker alcohol intake: never substance use type: does not use Assessment & Plan Assessment & Plan narrative: Patient underwent right total knee replacement by Dr. Fischer on August 03, 2021. He was readmitted on August 07, 2021 for hypoxia and difficulty with ambulation. Patient strengths in ambulation has improved. Patient is requiring less oxygen while in the hospital. Patient to continue physical therapy, routine postop total knee replacement protocol Patient will be discharged home when stable per hospitalist. Time Spent With Patient Time with patient: less than 30 minutes Critical Care time: I spent a total of [] minutes of critical care time on this patient's care today; this time is exclusive of procedural time. Quality VTE Deep Vein Thrombosis/Pulmonary Embolism Present on Admission: No
[2021-08-11 07:30] VITALS: O2SAT 92
[2021-08-11 07:32] VITALS: O2SAT 98
[2021-08-11 07:34] VITALS: O2SAT 96
[2021-08-11 08:00] VITALS: BP 123/63; PULSE 77; RESP 18; TEMP 36.8; O2SAT 95
[2021-08-11] MEDS: SENNOSIDES 8.6 MG TABLET 17.2 MG PO (08:54)
[2021-08-11] MEDS: DOCUSATE 100 MG CAPSULE PO (08:54)
[2021-08-11] MEDS: dilTIAZem CD 240 MG CAP PO (08:54)
[2021-08-11] MEDS: APIXABAN 5 MG TABLET PO (08:54)
--- NOTE | 2021-08-11 09:35 | PT-IP ANOTE ---
Attempted to see pt at 9:35 AM, pt refused therapy stating he is ready to go home and has no further needs. Successfully completed caregiver training yesterday.
[2021-08-11 12:05] VITALS: BP 146/61; PULSE 77; RESP 18; TEMP 36.9; O2SAT 99
--- NOTE | 2021-08-11 12:33 | PM.DS.1 ---
History of Present Illness History of Present Illness Date Patient Seen: 08/11/21 Time Patient Seen: 12:33 Chief complaint: S/P R TKR, unable to ambulate, hypoxia Narrative: Per BRYANT Gramajo: Renny Perkins is a 76-year-old male with a history of atrial fibrillation currently anticoagulated on apixaban, hypertension, paroxysmal atrial fibrillation, history of cancer the mandible with a Port-A-Cath, and DVT, previously on anticoagulation which was stoped 3 days prior to a total right knee replacement surgery done on August 03 and discharged on August 04.? He re-presented today stating he has been unable to get in and out of bed without having to call EMS to help him.? He states that the bed is too high for him to get easily in and out of.? He denies shortness of breath though feels that he is quite weak, denies chest pain, nausea vomiting, abdominal pain, changes in bladder or bowel control, and lower extremity neuropathy.? He is been taking pain medications for his right knee and states he is constipated due to taking pain meds.? When he presented to the emergency room he was noted to be hypoxic and there was concerned that he might have a pulmonary embolism.? Studies they did were negative for a PE.? He was asked to be admitted for further strengthening and mobilization and to help address his ongoing hypoxia and to see if it would develop into something to definitively treat such as a pneumonia.? When he arrived to the floor the patient was febrile with a temperature of 102? and examination of the patient's surgical site appeared to be swollen and hotter at the site than the surrounding tissues concerning for postoperative wound infection or possible hardware rejection.? Orthopedic surgery was consulted by myself and they recommended the patient be made NPO and that they would see him 1st thing in the morning.? Patient's T-max was 100.4? and it is currently 97.7, blood pressure is 126/48, heart rate 78, respiratory rate 18 with an oxygen saturation of 94% on 6 L, he weighs 90.7 kg with a BMI of 27.1.? He is mildly anemic with a hemoglobin and hematocrit of 11.3 and 33.4 which is a drop from his normal baseline, he has a very mild left shift of 80 100, CABG pH is 7.46 with an ABG PO2 of 77, sodium 134, glucose 122, lactate is normal, calcium 8.0, total creatinine kinase was 322, troponin was normal, and proBNP was within normal limits, procalcitonin was 0.35, UA indicated bacteria, and COVID-19 PCR is negative. Discharge Providers Provider Date of admission: 08/08/21 09:45 Discharge Date: 08/11/21 Primary care physician: Marcus Segovia DO Consults: 08/07/21 00:03 Consult to Physical Therapy Evaluate & Treat Comment: s/p right total knee Physician Instructions: Evaluate and Treat 08/07/21 00:08 Consult to Respiratory Therapy Evaluate & Treat Comment: ARF, hypoxia Physician Instructions: Evaluate and treat 08/07/21 01:12 Consult to Physician Routine Comment: Consulting Provider: Emiliano Downs Reason for consultation: s/p TKR 08/03, wound area is hot, pt. febrile Has provider been notified: Yes 08/07/21 09:04 Consult to Respiratory Therapy Evaluate & Treat Comment: Physician Instructions: Evaluate and treat Discharge provider: Yoandy Gonzalez DO Summary Hospital Course Discharge Diagnosis: Please see hospital course by problem list noted below Hospital Course: 1. Acute hypoxic respiratory failure, present on admission, due to atelectasis from opiate use. -his acute respiratory failure was likely in the setting of opiate use in severe atelectasis. CT angiogram of the chest was done to rule out PE which was negative but did show a calcified granuloma of the left upper lobe and atelectasis. Chest x-ray did show small pleural effusion without pulmonary edema, repeat echocardiogram was performed which showed a normal ejection fraction with an EF of 60%, that was unchanged from prior studies. He was slowly weaned off of oxygen, which took a bit longer than expected, but on the day of discharge he was no longer requiring oxygen at rest or with ambulation with physical therapy. 2. Right Knee Pain, post operative pain -orthopedic surgery was consulted but there were no further operative interventions. His oxycodone was changed to oral Dilaudid as an inpatient. 3. Paroxysmal atrial fibrillation, chronic - Continued home dose of diltiazem 240 mg extended release once daily and apixaban? 4. Hypothyroidism, chronic - Continued home dose of levothyroxine 50 mcg p.o. daily 5. Essential hypertension, chronic - Continued home dose of losartan 50 mg p.o. at bedtime Time Spent with Patient Time spent: Greater than 30 minutes Exam Vital Signs (past 8 hours): - 08/11/21 07:30 08/11/21 07:32 08/11/21 07:34 Temperature Pulse Rate Respiratory Rate Blood Pressure Pulse Oximetry 92 98 96 08/11/21 08:00 08/11/21 12:05 Temperature 98.3 F 98.4 F Pulse Rate 77 77 Respiratory Rate 18 18 Blood Pressure 123/63 146/61 H Pulse Oximetry 95 99 Oxygen Delivery Method Room Air Oxygen Flow Rate 0 Narrative Exam Narrative: Pleasant male lying in bed in no obvious distress Resp Other: Lungs:? Clear to auscultation Cardio Other: Cardiac exam:? Irregularly irregular normal S1-S2 GI Other: Abdomen soft nontender nondistended Objective Labs Result Diagrams: 08/08/21 05:36 08/09/21 06:04 [facility] Medical History Aortic root dilatation Atrial fibrillation, currently in sinus rhythm Chronic anticoagulation Cough Easy bruising HTN (hypertension) PAF (paroxysmal atrial fibrillation) (2014) Port-A-Cath in place (2014) Preoperative clearance Viral illness Surgical History History of surgery (2014) Hx of tonsillectomy Hx of transurethral resection of prostate Status post appendectomy Status post neck dissection (2014) Social History household members: spouse Smoking Status: Former smoker alcohol intake: never substance use type: does not use Discharge Plan Discharge Plan Patient Disposition: Home Provider Discharge Comment: You were admitted to the hospital with low oxygen, likely due to opiate pain medications. Please follow up with your PCP and surgeon as previously scheduled. Continue to use the incentive spirometer at home. Would recommend a pulse oximeter at home to monitor your oxygen intermittently. Discharge orders & Medications Prescriptions: Continued gabapentin 300 mg capsule See Rx Instructions .ROUTE .COMPLEX Qty: 90 2RF Dose Instruction: TAKE ONE CAPSULE BY MOUTH NIGHTLY AT BEDTIME Rx Instructions: TAKE ONE CAPSULE BY MOUTH NIGHTLY AT BEDTIME oxycodone 5 mg tablet See Rx Instructions PO Q6H PRN (Reason: pain) Qty: 120 0RF Dose Instruction: PO Q6H PRN; Rx Instructions: Take 1-2 tabs by mouth every 6 hours as needed for pain. levothyroxine 50 mcg tablet See Rx Instructions .ROUTE .COMPLEX Qty: 90 3RF Dose Instruction: Take one tablet by mouth once daily in the morning. Rx Instructions: Take one tablet by mouth once daily in the morning. Eliquis 5 mg tablet 5 mg PO BID Qty: 180 3RF diltiazem HCl 240 mg capsule,extended release 24hr 240 mg PO DAILY Qty: 90 3RF losartan 50 mg Tablet 50 mg PO BEDTIME 0RF acetaminophen 500 mg Tablet 1,000 mg PO TID 0RF Follow up/Referrals: Marcus Segovia, [Primary Care Provider] - Diet/Activity/Treatments Diet: Diet as Tolerated Activity: As tolerated. Visit Report/Discharge Packet Instructions: DI for Heart Failure, DI for Prescription Opioid Use Discharge Data Primary Care Provider: Marcus Segovia Quality VTE Deep Vein Thrombosis/Pulmonary Embolism Present on Admission: No
== END 2021-08-11 13:41 | disposition home or self-care (01) | DRG 189 ==
LOC: ED 18:55 → AC 22:53
PROVIDERS: Internal Medicine; Admitting Provider Nurse Practitioner Family; Emergency Provider Emergency Medicine; PCP Family Medicine; Visit Provider Nurse Practitioner Family
DX: J96.01 Acute respiratory failure with hypoxia (principal); J98.11 Atelectasis; I48.0 Paroxysmal atrial fibrillation; E03.9 Hypothyroidism, unspecified; I10 Essential (primary) hypertension; G89.18 Other acute postprocedural pain; R53.1 Weakness; T40.605A Adverse effect of unspecified narcotics, initial encounter; Z79.01 Long term (current) use of anticoagulants; Z87.891 Personal history of nicotine dependence; Z66 Do not resuscitate; Z96.651 Presence of right artificial knee joint; Z20.822 Contact with and (suspected) exposure to COVID-19
CPT/HCPCS: 36415; 36600; 71045; 71275; 80048; 80053; 80076; 81001; 82550; 82553; 82805; 83605; 83735; 83880; 84145; 84484; 85025; 85610; 86850; 86900; 86901; 87040; 87086; 87633; 93005; 93306; 94762; 96374; 96375; 97116; 97162; 97530; 99284; 99285; G0378; J1170; J1642; J2270; J2405; Q9967

== ENCOUNTER → 2021-09-21 09:04 | Outpatient (CLI) | payer MEDICARE, OTHER, SELFPAY ==
[2021-08-07 01:22] VITALS: BMI 27.1
--- NOTE | 2021-09-21 09:06 | DI.ECHO.S_ITS ---
[facility]---------+ [facility] +---------+ : : [address] : [place] : : : : [id number] : : : : Phone: [phone] Echocardiogram Report + + :Name: PABLO WHALEN Study Date: 09/21/2021 Height: 72 in : :[facility] ReadingLocation: Weight: 230 lb : : Gender: Male BSA: 2.3 m2 : :: 1945 Age: 76 yrs BP: 157/93 mmHg: :Reason For Study: Aortic, Ascending Aneurysm : :Ordering Physician: CHRISTINA, : :[place] Performed By: Russell Medina : :Referring: AUGUSTO CARR : + + Interpretation Summary 1) Normal left ventricular thickness, size, normal systolic function (EF 55- 60%). 2) Normal right ventricular size and function. 3) There is mild aortic regurgitation. 4) The aortic root is moderately dilated at 4.6cm. 5) Hypertension present during the study (BP 157/93mm Hg(). 6) Compared to the Echo done 08/07/2021, no significant change. Procedure: A two-dimensional transthoracic echocardiogram with color flow and Doppler was performed. The study quality was technically adequate. Comparison is made with the echocardiogram of 08/07/2021. Left Ventricle: The left ventricle is normal in size and wall thickness. Left ventricular systolic function is normal. The ejection fraction is estimated to be 55-60%. There are no focal wall motion abnormalities. Diastolic parameters suggest a relaxation abnormality of the left ventricle, consistent with probable normal filling pressures. Right Ventricle: The right ventricle is normal in size and function. Atria: Both atria are normal in size. The interatrial septum grossly appears intact with no obvious evidence for an atrial septal defect. Mitral Valve: The mitral valve is normal in structure and function. There is mild mitral regurgitation. Aortic Valve: The aortic valve is normal in structure and function. There is no aortic valve stenosis. There is mild aortic regurgitation. Tricuspid Valve: The tricuspid valve is normal in structure and function. There is trace tricuspid regurgitation. Pulmonary artery pressures cannot be estimated because of the lack of a measurable TR jet velocity. Pulmonic Valve: The pulmonic valve is normal in structure and function. There is a trace or physiologic amount of pulmonic regurgitation. Great Vessels: The aortic root is moderately dilated. The dimensions of the ascending aorta are normal. The IVC is of normal diameter and collapses greater than 50% with a sniff. This suggests a low right atrial pressure of 3 mm Hg. Pericardium/ Pleura There is no pericardial effusion. There is no pleural effusion. MMode/2D Measurements & Calculations LVIDd: 4.4 cm LVOT diam: 2.3 cm LVIDs: 3.0 cm Ao root diam: 4.6 cm FS: 32.6 % asc Aorta Diam: 3.4 cm IVSd: 0.97 cm LVPWd: 0.80 cm LV frey. diameter/BSA (cm/m^2): 2.0 LV sys. diameter/BSA (cm/m^2): 1.3 LA A2 area: 20.1 cm2 RA long axis: 5.6 cm LA A4 area: 16.8 cm2 RA area: 16.6 cm2 LA length (vol): 5.3 cm RA vol: 42.0 ml LA vol: 54.3 ml RA : 18.6 ml/m2 LA vol index: 24.0 ml/m2 TAPSE: 3.7 cm Doppler Measurements & Calculations Ao V2 max: 145.9 cm/sec LVOT Max Caden: 81.3 cm/sec Ao V2 mean: 105.8 cm/sec LV V1 max P.6 mmHg Ao max P.5 mmHg LV V1 VTI: 18.1 cm Ao mean P.8 mmHg KIRA(I,D): 2.3 cm2 Ao V2 VTI: 31.8 cm KIRA(V,D): 2.3 cm2 sev ratio: 0.57 KIRA indexed to BSA (cm^2/m^2): 1.0 MV E max caden: 68.2 cm/sec SV(LVOT): 74.3 ml MV A max caden: 96.5 cm/sec MV E/A: 0.71 Med Peak E' Caden: 5.4 cm/sec E/E' med: 12.7 Lat Peak E' Caden: 6.6 cm/sec E/E' lat: 10.4 E/e' average: 11.5 MV dec time: 0.25 sec Reading Physician:11:15 AM
== END ==
PROVIDERS: PCP Family Medicine; Referring Provider Internal Medicine Cardiovascular Disease; Visit Provider Internal Medicine Cardiovascular Disease
DX: I08.0 Rheumatic disorders of both mitral and aortic valves (principal); I77.810 Thoracic aortic ectasia
CPT/HCPCS: 93306

== ENCOUNTER 2021-11-08 12:13 | Inpatient (IN) | payer MEDICARE, OTHER, SELFPAY ==
[2021-08-07 01:22] VITALS: BMI 27.1
[2021-11-08 12:21] VITALS: BP 136/72; PULSE 77; RESP 20; TEMP 36.4; O2SAT 98; BMI 31.8
--- NOTE | 2021-11-08 12:28 | DI.RAD.S_ITS ---
PROCEDURE: XR HIP W PEL IF DONE LT 2V INDICATIONS: Fall TECHNIQUE: AP pelvis with lateral view(s) of the left hip(s). COMPARISON: None. FINDINGS: Bones: Impacted transcervical femoral neck fracture is not well seen on radiography due to limited positioning. No acute pelvic ring disruption identified. Lumbosacral degenerative changes. Mild right hip osteoarthritis. Soft tissues: The visualized bowel gas pattern is normal. No suspicious soft tissue calcifications. IMPRESSION: Limited positioning. Impacted left femoral transcervical fracture. Dictated by: Simba Mercedes M.D. on 11/08/2021 at 13:05 Approved by: Simba Mercedes M.D. on 11/08/2021 at 13:08
--- NOTE | 2021-11-08 13:33 | ED_ITS ---
HPI - Fall <Clau Rothman [facility] - Last Filed: 11/08/21 18:58> General Chief Complaint: Fall Stated Complaint: fell on lt. hip Time Seen by Provider: 11/08/21 12:31 Source: patient Mode of arrival: Wheelchair History of Present Illness HPI Narrative: This is a 76-year-old male with history of atrial fibrillation on Eliquis, three months status post right total knee replacement, who presents to the emergency department complaining of left hip pain after he tripped on a hose at the gas station falling with all of his weight onto his left hip. Patient reports that he was not able to get up, he states that he is never fallen so hard before and he has never experienced type of pain before. A good Mormon helped him into his van which he drove to the hospital for evaluation. The good Mormon helped him into the emergency department and patient reports that he is not able to put any weight on his foot. He denies any numbness or tingling in his foot, he denies any open wound. Dr. Fischer completed his right total knee replacement, his primary care provider is Dr. Segovia. Patient reports that he has been a good state of health without any recent illness. He denies any groin pain or incontinence, denies hitting his head. He takes oxycodone at home for his pain, he denies taking any oxycodone today. Patient has a right chest port, reports that he last took his Eliquis this morning. States that his tetanus likely needs updated. Related Data Home Medications Medication Instructions Recorded Confirmed acetaminophen 500 mg tablet 1,000 mg PO TID 07/25/21 11/08/21 losartan 50 mg tablet 50 mg PO BEDTIME 07/25/21 11/08/21 Previous Rx's Medication Instructions Recorded apixaban 5 mg tablet (Eliquis) 5 mg PO BID #180 tabs 02/15/20 diltiazem HCl 240 mg 240 mg PO DAILY #90 caps 02/15/20 capsule,extended release 24 hr gabapentin 300 mg capsule See Rx Instructions .Route 05/08/21 .COMPLEX #90 caps levothyroxine 50 mcg tablet See Rx Instructions .Route 08/06/21 .COMPLEX #90 tabs oxycodone 5 mg tablet See Rx Instructions PO Q6H PRN 11/01/21 pain #120 tabs Allergies Allergy/AdvReac Type Severity Reaction Status Date / Time No Known Drug Allergies Allergy Verified 11/08/21 12:31 Review of Systems <BRYANT Ames - Last Filed: 11/08/21 18:58> Review of Systems Narrative: General: denies fever, chills Head/Neck: denies headache, neck pain Eyes: denies visual changes, eye pain Cardio: denies chest pain, palpitations Respiratory: denies shortness of breath, cough GI: denies abdominal pain, nausea, vomiting, or diarrhea : denies dysuria, hematuria or flank pain MSK: Endorses 10/10 left hip pain especially with movement, denies muscle weakness, sensation changes or swelling Skin: denies rash, itching or wound Neuro: denies numbness, tingling, dizziness Patient History <BRYANT Ames - Last Filed: 11/08/21 18:58> Medical History Aortic root dilatation Atrial fibrillation, currently in sinus rhythm Chronic anticoagulation Cough Easy bruising HTN (hypertension) PAF (paroxysmal atrial fibrillation) (2014) Port-A-Cath in place (2014) Preoperative clearance Viral illness Surgical History History of surgery (2014) Hx of tonsillectomy Hx of total knee replacement Hx of transurethral resection of prostate Status post appendectomy Status post neck dissection (2014) Social History household members: spouse Smoking Status: Former smoker alcohol intake: never substance use type: does not use Smoking Status: Former smoker alcohol intake frequency: 0-2 drinks per day Substance Use Type: does not use Exam <BRYANT Ames - Last Filed: 11/08/21 18:58> Narrative Exam Narrative: Independently reviewed vitals signs and nursing notes. General: cooperative, comfortable, in no acute distress, well groomed Head: atraumatic, symmetrical facial expressions Neck: supple Eyes: equal round and reactive, EOMI, conjunctiva normal Nose: nares patent, no rhinorrhea Mouth/Throat: moist mucus membranes Cardiovascular: regular rate and rhythm, no peripheral edema, warm extremities Respiratory: normal effort, able to speak in complete sentences, no audible wheezing, stridor, or rales. No retractions or tachypnea. GI: abdomen soft, nontender to palpation, nondistended, no masses, no exquisite tenderness with exam, without guarding or rebound. MSK: moves all extremities, left hip movement limited due to pain, neuro vascularly intact, normal tone Skin: brisk capillary refill, no rash, no erythema Neuro: normal speech and cognition, A&O x3 Psych: mental status is grossly normal, congruent mood, normal affect, pleasant and cooperative Initial Vital Signs Initial Vital Signs: Vital Signs Temperature 97.6 F 11/08/21 12:21 Pulse Rate 77 11/08/21 12:21 Respiratory Rate 20 11/08/21 12:21 Blood Pressure 136/72 11/08/21 12:21 Pulse Oximetry 98 11/08/21 12:21 Oxygen Delivery Method 11/08/21 12:21 <Molly Olivares DO - Last Filed: 11/09/21 18:42> Initial Vital Signs Initial Vital Signs: Vital Signs Temperature 97.6 F 11/08/21 12:21 Pulse Rate 77 11/08/21 12:21 Respiratory Rate 20 11/08/21 12:21 Blood Pressure 136/72 11/08/21 12:21 Pulse Oximetry 98 11/08/21 12:21 Oxygen Delivery Method 11/08/21 12:21 Course <BRYANT Ames - Last Filed: 11/08/21 18:58> Orders Ordered: Acetaminophen (Acetaminophen 325 Mg Tablet) 650 mg PO Q6HR PRN PRN Reason: Fever/Mild Pain (1-3) Diltiazem HCl (Diltiazem Cd 240 Mg Cap) 240 mg PO DAILY [facility] Last Admin: 11/09/21 10:49 Dose: 240 mg Documented By: CLL Gabapentin (Gabapentin 300 Mg Capsule) 300 mg PO BEDTIME [facility] Last Admin: 11/08/21 22:12 Dose: 300 mg Documented By: CN Heparin Sodium (Porcine) (Heparin 500 Unit/5 Ml Port Flush) 500 unit IV PRN PRN PRN Reason: Flush Hydromorphone HCl (Hydromorphone 0.5 Mg Inj) 0.5 mg IV Q3H PRN PRN Reason: Pain, Moderate (4-6) Last Admin: 11/09/21 14:03 Dose: 0.5 mg Documented By: Admin: 11/09/21 10:49 Dose: 0.5 mg Documented By: Admin: 11/09/21 07:40 Dose: 0.5 mg Documented By: Admin: 11/09/21 04:07 Dose: 0.5 mg Documented By: Admin: 11/09/21 00:30 Dose: 0.5 mg Documented By: Admin: 11/08/21 20:39 Dose: 0.5 mg Documented By: Admin: 11/08/21 15:25 Dose: 0.5 mg Documented By: JAMIR Sodium Chloride (Normal Saline 0.9%) 1,000 mls @ 100 mls/hr IV CONT [facility] Last Admin: 11/09/21 17:15 Dose: 100 mls/hr Documented By: Infusion: 11/09/21 17:13 Dose: 100 mls/hr Documented By: Admin: 11/09/21 14:03 Dose: 100 mls/hr Documented By: KAMILLA Lactated Ringer's (Lactated Ringers) 1,000 mls @ 42 mls/hr IV CONT [facility] Last Admin: 11/09/21 18:13 Dose: 42 mls/hr Documented By: SKYLER Ceftriaxone Sodium 2,000 mg/ (Sodium Chloride) 100 mls @ 200 mls/hr IV Q24H [facility] Vancomycin HCl/Dextrose (Vancomycin) 2,000 mg in 400 mls @ 200 mls/hr IV NOW ONE Stop: 11/09/21 20:59 Levothyroxine Sodium (Levothyroxine 50 Mcg Tablet) 50 mcg PO DAILY@0600 [facility] Last Admin: 11/09/21 06:05 Dose: 50 mcg Documented By: AMANDA Losartan Potassium (Losartan 50 Mg Tablet) 50 mg PO BEDTIME [facility] Last Admin: 11/08/21 20:40 Dose: 50 mg Documented By: AMANDA Oxycodone/Acetaminophen (Oxycodone/Acetaminophen 5/325 Tablet) 1 tab PO Q4HR PRN PRN Reason: Pain, Moderate (4-6) Last Admin: 11/09/21 06:12 Dose: 1 tab Documented By: Admin: 11/09/21 02:13 Dose: 1 tab Documented By: Admin: 11/08/21 22:12 Dose: 1 tab Documented By: AMANDA Vancomycin HCl (Vancomycin Per Pharmacy) 1 request MISC NOW ONE Stop: 11/09/21 18:26 Discontinued Medications Cefazolin Sodium/Dextrose (Cefazolin 2 Gm/20 Ml Syringe) 2 gm IV NOW ONE Stop: 11/09/21 18:15 Diphtheria/Tetanus/Acell Pertussis (Tet,Diph,Pertuss(Acell),Vac/Pf 0.5 Ml Syringe) 0.5 ml IM .ONCE ONE Stop: 11/08/21 14:02 Last Admin: 11/08/21 15:26 Dose: Not Given Documented By: JAMIR Gabapentin (Gabapentin 300 Mg Capsule) 300 mg PO BEDTIME [facility] Heparin Sodium (Porcine) (Heparin 5,000 Unit/Ml Vial) 5,000 unit SUBCUT BID [facility] Stop: 11/08/21 21:01 Hydromorphone HCl (Hydromorphone 0.5 Mg Inj) 0.3 mg IV NOW ONE Stop: 11/08/21 13:29 Last Admin: 11/08/21 14:16 Dose: 0.3 mg Documented By: NIKI Sodium Chloride (Normal Saline 0.9%) 500 mls @ 21 mls/hr IV CONT [facility] Last Admin: 11/08/21 15:20 Dose: Not Given Documented By: JAMIR Naloxone HCl (Naloxone 0.4 Mg/Ml Vial) 0.1 mg IV Q2MIN PRN PRN Reason: Opiate Reversal Oxycodone/Acetaminophen (Oxycodone/Acetaminophen 5/325 Tablet) 1 tab PO NOW ONE Stop: 11/08/21 13:28 Last Admin: 11/08/21 14:16 Dose: 1 tab Documented By: NIKI Polyethylene Glycol (Polyethylene Glycol 3350 17 Gm Powd.Pack) 17 gm PO DAILY PRN PRN Reason: Constipation Sennosides (Sennosides 8.6 Mg Tablet) 17.2 mg PO DAILY PRN PRN Reason: Constipation Consultations Consultation #1: Consultation with Dr. Meyers regarding patient's left femoral neck fracture, he understands that the patient will be admitted through the hospitalist and a consultation was placed for him. He declines any imaging requests. Vital Signs Vital signs: Vital Signs - 8 hr 11/08/21 12:21 Temperature 97.6 F Pulse Rate 77 Respiratory Rate 20 Blood Pressure 136/72 Pulse Oximetry 98 Oxygen Delivery Method Room Air <Molly Olivares, DO - Last Filed: 11/09/21 18:42> Orders Ordered: Acetaminophen (Acetaminophen 325 Mg Tablet) 650 mg PO Q6HR PRN PRN Reason: Fever/Mild Pain (1-3) Diltiazem HCl (Diltiazem Cd 240 Mg Cap) 240 mg PO DAILY [facility] Last Admin: 11/09/21 10:49 Dose: 240 mg Documented By: MARISA Gabapentin (Gabapentin 300 Mg Capsule) 300 mg PO BEDTIME [facility] Last Admin: 11/08/21 22:12 Dose: 300 mg Documented By: AMANDA Heparin Sodium (Porcine) (Heparin 500 Unit/5 Ml Port Flush) 500 unit IV PRN PRN PRN Reason: Flush Hydromorphone HCl (Hydromorphone 0.5 Mg Inj) 0.5 mg IV Q3H PRN PRN Reason: Pain, Moderate (4-6) Last Admin: 11/09/21 14:03 Dose: 0.5 mg Documented By: Admin: 11/09/21 10:49 Dose: 0.5 mg Documented By: Admin: 11/09/21 07:40 Dose: 0.5 mg Documented By: Admin: 11/09/21 04:07 Dose: 0.5 mg Documented By: Admin: 11/09/21 00:30 Dose: 0.5 mg Documented By: Admin: 11/08/21 20:39 Dose: 0.5 mg Documented By: Admin: 11/08/21 15:25 Dose: 0.5 mg Documented By: JAMIR Sodium Chloride (Normal Saline 0.9%) 1,000 mls @ 100 mls/hr IV CONT [facility] Last Admin: 11/09/21 17:15 Dose: 100 mls/hr Documented By: Infusion: 11/09/21 17:13 Dose: 100 mls/hr Documented By: Admin: 11/09/21 14:03 Dose: 100 mls/hr Documented By: KAMILLA Lactated Ringer's (Lactated Ringers) 1,000 mls @ 42 mls/hr IV CONT [facility] Last Admin: 11/09/21 18:13 Dose: 42 mls/hr Documented By: SKYLER Ceftriaxone Sodium 2,000 mg/ (Sodium Chloride) 100 mls @ 200 mls/hr IV Q24H [facility] Vancomycin HCl/Dextrose (Vancomycin) 2,000 mg in 400 mls @ 200 mls/hr IV NOW ONE Stop: 11/09/21 20:59 Levothyroxine Sodium (Levothyroxine 50 Mcg Tablet) 50 mcg PO DAILY@0600 [facility] Last Admin: 11/09/21 06:05 Dose: 50 mcg Documented By: AMANDA Losartan Potassium (Losartan 50 Mg Tablet) 50 mg PO BEDTIME [facility] Last Admin: 11/08/21 20:40 Dose: 50 mg Documented By: AMANDA Oxycodone/Acetaminophen (Oxycodone/Acetaminophen 5/325 Tablet) 1 tab PO Q4HR PRN PRN Reason: Pain, Moderate (4-6) Last Admin: 11/09/21 06:12 Dose: 1 tab Documented By: Admin: 11/09/21 02:13 Dose: 1 tab Documented By: Admin: 11/08/21 22:12 Dose: 1 tab Documented By: AMANDA Vancomycin HCl (Vancomycin Per Pharmacy) 1 request MISC NOW ONE Stop: 11/09/21 18:26 Discontinued Medications Cefazolin Sodium/Dextrose (Cefazolin 2 Gm/20 Ml Syringe) 2 gm IV NOW ONE Stop: 11/09/21 18:15 Diphtheria/Tetanus/Acell Pertussis (Tet,Diph,Pertuss(Acell),Vac/Pf 0.5 Ml Syringe) 0.5 ml IM .ONCE ONE Stop: 11/08/21 14:02 Last Admin: 11/08/21 15:26 Dose: Not Given Documented By: JAMIR Gabapentin (Gabapentin 300 Mg Capsule) 300 mg PO BEDTIME [facility] Heparin Sodium (Porcine) (Heparin 5,000 Unit/Ml Vial) 5,000 unit SUBCUT BID [facility] Stop: 11/08/21 21:01 Hydromorphone HCl (Hydromorphone 0.5 Mg Inj) 0.3 mg IV NOW ONE Stop: 11/08/21 13:29 Last Admin: 11/08/21 14:16 Dose: 0.3 mg Documented By: NIKI Sodium Chloride (Normal Saline 0.9%) 500 mls @ 21 mls/hr IV CONT [facility] Last Admin: 11/08/21 15:20 Dose: Not Given Documented By: JAMIR Naloxone HCl (Naloxone 0.4 Mg/Ml Vial) 0.1 mg IV Q2MIN PRN PRN Reason: Opiate Reversal Oxycodone/Acetaminophen (Oxycodone/Acetaminophen 5/325 Tablet) 1 tab PO NOW ONE Stop: 11/08/21 13:28 Last Admin: 11/08/21 14:16 Dose: 1 tab Documented By: CSD Polyethylene Glycol (Polyethylene Glycol 3350 17 Gm Powd.Pack) 17 gm PO DAILY PRN PRN Reason: Constipation Sennosides (Sennosides 8.6 Mg Tablet) 17.2 mg PO DAILY PRN PRN Reason: Constipation Vital Signs Vital signs: Vital Signs - 8 hr 11/08/21 12:21 Temperature 97.6 F Pulse Rate 77 Respiratory Rate 20 Blood Pressure 136/72 Pulse Oximetry 98 Oxygen Delivery Method Room Air MDM - Fall <Clau Neirw, [facility] - Last Filed: 11/08/21 18:58> Lab Data Result diagrams: 11/09/21 05:30 11/09/21 05:30 Imaging Data Extremity x-ray #1: Radiologist's Impression: PROCEDURE:? XR HIP W PEL IF DONE LT 2V ? INDICATIONS:? Fall ? TECHNIQUE:? AP pelvis with lateral view(s) of the left hip(s).? ? COMPARISON:? None. ? FINDINGS:? ? Bones:? Impacted transcervical femoral neck fracture is not well seen on ra diography due to limited positioning.? No acute pelvic ring disruption identified.? Lumbosacral degenerative changes.? Mild right hip osteoarthritis. ? Soft tissues:? The visualized bowel gas pattern is normal.? No suspicious soft tissue calcifications.? ? ? IMPRESSION:? Limited positioning.? Impacted left femoral transcervical fracture. ? ? Dictated by: Simba Mercedes M.D. on 11/08/2021 at 13:05 ? ? Approved by: Simba Mercedes M.D. on 11/08/2021 at 13:08 ? ECG Data Interpretation: EKG independently reviewed by Dr. Olivares and reveals normal sinus rhythm at 65 bpm with regular axis and intervals. No STEMI, ST segment changes, arrhythmia, or acute ischemic changes. [facility] Narrative Medical decision making narrative: This is a 76-year-old male with a history of atrial fibrillation and chronic anticoagulation on apixaban 5 mg b.i.d. who presents to the emergency department after he tripped on a hose at the gas station falling directly onto his left hip. X-ray shows that he has a impacted transcervical femoral neck fracture. X-ray also shows mild right hip osteoarthritis, no pelvic ring disruption, and lumbosacral degenerative changes. This is a closed injury, patient's left pedal PT and DP pulses are 2+, he does not have any palpable or visible hematomas, his range of motion of his knee ankle and toes are intact without deficit, painful to change positions of his left leg. Was given 0.3 mg of IV hydromorphone and 5 mg of Percocet for his acute pain, patient takes oxycodone at home for his pain currently. He is three months status post a right total knee replacement completed by Dr. Fischer. For patient's cardiac history he takes diltiazem and losartan as well. Reports that he takes gabapentin for his chronic pain, levothyroxine, and acetaminophen. Patient is pleasant, did not have any loss of consciousness, his COVID PCR is negative. No leukocytosis or anemia, his PT is 14.5, INR is 1.3, patient last took his apixaban this morning. Patient's creatinine is 1.02 and this is stable with his baseline, no electrolyte abnormalities, no elevation in liver enzymes, his EKG does not show any acute changes or ST elevation, TSH is pending. Consultation with Dr. Meyers who understands that patient has a closed, neurovascularly intact, left transcervical femoral neck fracture and is currently anticoagulated on apixaban. Consultation with Dr. Lama the hospitalist who accepts patient for admission under the medicine service. Patient's tetanus was updated, patient was admitted under Dr. Lama the hospitalist with Dr. Meyers consulting. Discharge Plan Departure Patient Disposition: Admitted As Inpatient Clinical Impression: Chronic anticoagulation Femoral neck fracture Qualifiers: Encounter type: initial encounter Fracture type: closed Laterality: left Qualified Code(s): S72.002A - Fracture of unspecified part of neck of left femur, initial encounter for closed fracture Fall from standing Qualifiers: Encounter type: initial encounter Qualified Code(s): W19.XXXA - Unspecified fall, initial encounter Admit Date/Time: 11/08/21 13:54 Admit Provider: Rob Lama <Molly Olivares DO - Last Filed: 11/09/21 18:42> Cosign ED Attending Cosignature Attestation: I was immediately available in the department for consultation. Documentation has been reviewed. Patient has hip fracture. Agree with plan.
--- NOTE | 2021-11-08 14:01 | PM.HP.1 ---
History of Present Illness History of Present Illness Chief complaint: fell on lt. hip Narrative: Srinivasa Perkins is a 76-year-old male with past medical history of paroxysmal atrial fibrillation on Eliquis, hypertension, hypothyroidism, squamous cell carcinoma of the left neck in remission and obesity who presents with left hip fracture after tripping over a gas station hose while filling up his car. Patient states he attempted to grab onto a pilon to stabilize himself but instead and fell with his full weight onto his left side. He had immediate pain in his left hip. Bystander helped him into a scar where he then drove to the ER states his pain is currently an 8/10 in the hip. He did not strike his head. It is on Eliquis and last took a dose this morning 11/08. He denies any bleeding after his fall. He also denies chest pain, cough, shortness of breath, abdominal pain, diarrhea or dysuria. In the ED patient had a hip x-ray which showed impacted left femoral neck fracture. Dr. Meyers orthopedics was consulted. His vitals were normal but he was still in pain despite 0.3 mg of Dilaudid. Patient refused Tdap vaccine. Patient History Medical History (Updated 11/08/21 @ 15:59 by ELAINE AmesP) Aortic root dilatation Atrial fibrillation, currently in sinus rhythm Chronic anticoagulation Cough Easy bruising HTN (hypertension) PAF (paroxysmal atrial fibrillation) (2014) Port-A-Cath in place (2014) Preoperative clearance Viral illness Surgical History (Updated 11/08/21 @ 17:10 by Rob Lama DO) History of surgery (2014) Hx of tonsillectomy Hx of total knee replacement Hx of transurethral resection of prostate Status post appendectomy Status post neck dissection (2015) Family & Social History Social History: household members spouse Safety & Behavioral: Feels Safe in Current Yes Environment Been Physically Hurt or No Threatened By a Person Tobacco & Substance use: Tobacco type cigarettes,smokeless tobacco Smoking Status Former smoker alcohol intake never alcohol intake frequency 0-2 drinks per day Substance Use Type does not use Meds Home Medications and Allergies Home Medications Medication Instructions Recorded Confirmed Type apixaban 5 mg tablet (Eliquis) 5 mg PO BID #180 tabs 02/15/20 11/08/21 Rx diltiazem HCl 240 mg 240 mg PO DAILY #90 caps 02/15/20 11/08/21 Rx capsule,extended release 24 hr gabapentin 300 mg capsule See Rx Instructions .Route 05/08/21 11/08/21 Rx .COMPLEX #90 caps acetaminophen 500 mg tablet 1,000 mg PO TID 07/25/21 11/08/21 History losartan 50 mg tablet 50 mg PO BEDTIME 07/25/21 11/08/21 History levothyroxine 50 mcg tablet See Rx Instructions .Route 08/06/21 11/08/21 Rx .COMPLEX #90 tabs oxycodone 5 mg tablet See Rx Instructions PO Q6H PRN 11/01/21 11/08/21 Rx pain #120 tabs Allergies Allergy/AdvReac Type Severity Reaction Status Date / Time No Known Drug Allergies Allergy Verified 11/08/21 12:31 Review of Systems Review of Systems Narrative: All other systems reviewed with the patient and are negative unless otherwise stated. Exam Vital Signs (past 8 hours): - 11/08/21 12:21 Temperature 97.6 F Pulse Rate 77 Respiratory Rate 20 Blood Pressure 136/72 Pulse Oximetry 98 Oxygen Delivery Method Room Air Oxygen Delivery Method Room Air Narrative Exam Narrative: GEN: no acute distress HEENT: moist mucous membranes, PERRL NECK: trachea midline, no JVD CV: regular rate and rhythm, no murmurs CHEST: Port present on right chest, no surrounding erythema or induration PULM: clear bilaterally ABD: soft, nontender, nondistended, no organomegaly EXT: warm and well perfused with no edema, left extremity shortened and externally rotated, pain to palpation of left hip NEURO: awake, alert, oriented, no focal deficits Objective Labs Result Diagrams: 11/08/21 14:13 11/08/21 14:13 Assessment & Plan Assessment & Plan narrative: Srinivasa Perkins is a 76-year-old male with past medical history of paroxysmal atrial fibrillation on Eliquis, hypertension, hypothyroidism, squamous cell carcinoma of the left neck in remission and obesity who presents with left hip fracture after tripping over a gas station hose while filling up his car. # acute left femoral neck fracture -due to fall onto the pavement at a gas station -left hip x-ray shows impacted left femoral transcervical fracture -Dr. Meyers, ortho consulted by ED -hold home Eliquis for surgery, last dose morning of 11/08 -pain control -NPO at midnight # hypertension -BP elevated at 155/85 on admission -continue home losartan 50 mg at bedtime # neutrophilia with normal WBC -neutrophil count 780, WBC 9.1, afebrile -monitor for infection # obesity -BMI 31.9 # DVT prophylaxis -subcutaneous heparin then back to home Eliquis after surgery # hyperglycemia -glucose 112 on admission -monitor so with BMPs # paroxysmal atrial fibrillation, chronic -holding home Eliquis as above -continue home diltiazem 240 mg daily # hypothyroidism, chronic -continue home levothyroxine 50 mcg daily -check TSH # 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 Time Spent With Patient Critical Care time: I spent a total of [] minutes of critical care time on this patient's care today; this time is exclusive of procedural time.
[2021-11-08] MEDS: OXYCODONE/ACETAMINOPHEN 5/325 TABLET 1 TAB PO ×2 (14:16→22:12)
[2021-11-08] MEDS: HYDROMORPHONE 0.5 MG INJ 0.3 MG IV (14:16)
[2021-11-08 14:17] LABS: Add Manual Diff / Slide Review NO; Basophils Absolute Auto 100 /uL (0-100); Basophils Percent Auto 0.8 % (0-2); Eosinophils Absolute Auto 400 /uL (0-450); Eosinophils Percent Auto 3.8 % (2-4); Hematocrit 44.2 % (41-53); Hemoglobin 14.8 g/dL (13.5-17.5); Lymphocytes Absolute Auto 300 /uL (1100-4500); Lymphocytes Percent Auto 3.8 % (25-40); Mean Corpuscular HGB Conc 33.4 % (30-36); Mean Corpuscular Hemoglobin 29.3 PG (26-34); Mean Corpuscular Volume 87.7 fL (80-100); Monocytes Absolute Auto 600 /uL (0-900); Monocytes Percent Auto 6.6 % (3-14); Neutrophils Absolute Auto 7800 /uL (1500-7000); Platelet Count 231 X10^3/uL (150-400); Red Blood Cell Count 5.04 X10^6/uL (4.5-5.9); Red Cell Distribution Width 14.6 % (11.6-14.8); White Blood Cell Count 9.1 X10^3/uL (4.5-11.0)
[2021-11-08 14:29] LABS: INR 1.3 (0.9-1.3); Prothrombin Time 14.5 SECONDS (10.1-12.7)
[2021-11-08 14:37] LABS: Alanine Aminotransferase 17 IU/L (<50); Albumin 4.4 g/dL (3.5-5.0); Albumin Globulin Ratio 1.7 (1.0-2.8); Alkaline Phosphatase 126 U/L (38-126); Aspartate Aminotransferase 26 IU/L (17-59); BUN Creatinine Ratio 20.6 (6-22); Bilirubin Total 0.4 mg/dL (0.2-1.3); Blood Urea Nitrogen 21 mg/dL (9-20); Calcium 8.7 mg/dL (8.4-10.2); Carbon Dioxide 27 mmol/L (22-32); Chloride 105 mmol/L (98-107); Estimated Glomerular Filt Rate > 60 mL/min (>60); Globulin 2.6 g/dL (1.7-4.1); Glucose 112 mg/dL (80-110); HEMOLYSIS 22 (0-50); Potassium 4.8 mmol/L (3.4-5.1); Sodium 139 mmol/L (137-145)
[2021-11-08] MEDS: HYDROMORPHONE 0.5 MG INJ IV ×2 (15:25→20:39)
[2021-11-08 15:56] LABS: TSH w/ Reflex to FT4 2.78 uIU/mL (0.47-4.68)
[2021-11-08 16:34] LABS: COVID19 -Nasal RAPID Negative (Negative)
[2021-11-08 16:48] VITALS: BMI 31.8
[2021-11-08 16:59] VITALS: BP 155/85; PULSE 74; RESP 16; TEMP 36.7; O2SAT 98
[2021-11-08 18:00] VITALS: O2SAT 96
--- NOTE | 2021-11-08 18:06 | PM.CN ---
History of Present Illness Consult details Date Patient Seen: 11/08/21 Time Patient Seen: 18:00 Chief complaint: fell on lt. hip Narrative: 76-year-old gentleman who was admitted earlier today due to a ground level fall onto his left hip. Patient was at the gas station tripped over a hose and fell quite hard onto his left side. Patient is mainly complaining of left hip pain. Does have some abrasions to the arm and elbow but no significant injury to the upper extremity. After the fall was unable to get up and bear weight and was taken to the emergency room where x-ray showed a minimally displaced impacted femoral neck fracture. Patient states before the fall he was ambulating well and did not require any ambulatory devices. Meds Home Medications and Allergies Home Medications Medication Instructions Recorded Confirmed Type apixaban 5 mg tablet (Eliquis) 5 mg PO BID #180 tabs 02/15/20 11/08/21 Rx diltiazem HCl 240 mg 240 mg PO DAILY #90 caps 02/15/20 11/08/21 Rx capsule,extended release 24 hr gabapentin 300 mg capsule See Rx Instructions .Route 05/08/21 11/08/21 Rx .COMPLEX #90 caps acetaminophen 500 mg tablet 1,000 mg PO TID 07/25/21 11/08/21 History losartan 50 mg tablet 50 mg PO BEDTIME 07/25/21 11/08/21 History levothyroxine 50 mcg tablet See Rx Instructions .Route 08/06/21 11/08/21 Rx .COMPLEX #90 tabs oxycodone 5 mg tablet See Rx Instructions PO Q6H PRN 11/01/21 11/08/21 Rx pain #120 tabs Allergies Allergy/AdvReac Type Severity Reaction Status Date / Time No Known Drug Allergies Allergy Verified 11/08/21 12:31 Exam Vital Signs (past 8 hours): - 11/08/21 12:21 11/08/21 16:59 Temperature 97.6 F 98.1 F Pulse Rate 77 74 Respiratory Rate 20 16 Blood Pressure 136/72 155/85 H Pulse Oximetry 98 98 Oxygen Delivery Method Room Air Oxygen Delivery Method Room Air Narrative Exam Narrative: Patient is alert and oriented x3 in no apparent distress. Small cut to the left hand and some bruising over the left olecranon but normal range of motion of the elbow no pain with palpation over the olecranon no sign of any crepitus or instability. Full range of motion of the wrist and fingers. In regards to the lower extremity patient's left leg is slightly shortened and rotated when compared to the right. Normal range of motion of his toes ankle and knee. No sign of any significant swelling to the lower extremity. Compartments are soft. Nontender to palpation. Palpable pedal pulses. Objective Labs Result Diagrams: 11/08/21 14:13 11/08/21 14:13 Labs: Laboratory Results - last 24 hr 11/08/21 11/08/21 11/08/21 14:13 14:13 14:13 WBC 9.1 RBC 5.04 Hgb 14.8 Hct 44.2 MCV 87.7 MCH 29.3 MCHC 33.4 RDW 14.6 Plt Count 231 Neut % (Auto) 85.0 H Lymph % (Auto) 3.8 L [place] % (Auto) 6.6 Eos % (Auto) 3.8 Baso % (Auto) 0.8 Neut # (Auto) 7800 H Lymph # (Auto) 300 L [place] # (Auto) 600 Eos # (Auto) 400 Baso # (Auto) 100 PT 14.5 H INR 1.3 Sodium 139 Potassium 4.8 Chloride 105 Carbon Dioxide 27 BUN 21 H Creatinine 1.02 Estimated GFR > 60 BUN/Creatinine Ratio 20.6 Glucose 112 H Calcium 8.7 Total Bilirubin 0.4 AST 26 ALT 17 Alkaline Phosphatase 126 Total Protein 7.0 Albumin 4.4 Globulin 2.6 Albumin/Globulin Ratio 1.7 TSH SARS-CoV-2 (PCR) Blood Type Antibody Screen 11/08/21 11/08/21 11/08/21 14:13 14:20 14:20 WBC RBC Hgb Hct MCV MCH MCHC RDW Plt Count Neut % (Auto) Lymph % (Auto) [place] % (Auto) Eos % (Auto) Baso % (Auto) Neut # (Auto) Lymph # (Auto) [place] # (Auto) Eos # (Auto) Baso # (Auto) PT INR Sodium Potassium Chloride Carbon Dioxide BUN Creatinine Estimated GFR BUN/Creatinine Ratio Glucose Calcium Total Bilirubin AST ALT Alkaline Phosphatase Total Protein Albumin Globulin Albumin/Globulin Ratio TSH SARS-CoV-2 (PCR) Cancelled Negative Blood Type O Negative Antibody Screen Negative 11/08/21 15:01 WBC RBC Hgb Hct MCV MCH MCHC RDW Plt Count Neut % (Auto) Lymph % (Auto) [place] % (Auto) Eos % (Auto) Baso % (Auto) Neut # (Auto) Lymph # (Auto) [place] # (Auto) Eos # (Auto) Baso # (Auto) PT INR Sodium Potassium Chloride Carbon Dioxide BUN Creatinine Estimated GFR BUN/Creatinine Ratio Glucose Calcium Total Bilirubin AST ALT Alkaline Phosphatase Total Protein Albumin Globulin Albumin/Globulin Ratio TSH 2.78 SARS-CoV-2 (PCR) Blood Type Antibody Screen [facility] Medical History Aortic root dilatation Atrial fibrillation, currently in sinus rhythm Chronic anticoagulation Cough Easy bruising HTN (hypertension) PAF (paroxysmal atrial fibrillation) (2014) Port-A-Cath in place (2014) Preoperative clearance Viral illness Surgical History History of surgery (2014) Hx of tonsillectomy Hx of total knee replacement Hx of transurethral resection of prostate Status post appendectomy Status post neck dissection (2014) Social History household members: spouse Tobacco & Substance Use Smoking Status: Former smoker alcohol intake: never substance use type: does not use Assessment & Plan Assessment & Plan narrative: Patient with a impacted left femoral neck fracture. Due to this injury I did recommend surgical treatment to address the femoral neck fracture. This would require a closed reduction and percutaneous pinning of the femoral neck fracture. I went over the particular risk and limitations associated with the procedure and all of his questions and concerns were answered to his full satisfaction. The risk, benefits, alternatives, possible complications, operative course, and postop outcomes were discussed. Complications including but not limiting to bleeding, infection, fracture, nerve injury, continued pain postoperatively or instability postoperatively were discussed in detail. Medical complications including but not limited to deep venous thrombosis event, anesthesia complications with excessive bleeding, vascular events or cardiac events and other possible complications were discussed in detail. Need for postoperative rehabilitation and anticipated hospital stay and clinical course were discussed in detail. Patient acknowledges understanding and elects to proceed with surgery. Time Spent With Patient Critical Care time: I spent a total of [] minutes of critical care time on this patient's care today; this time is exclusive of procedural time.
[2021-11-08 20:30] VITALS: BP 147/84; PULSE 64; RESP 20; TEMP 36.4; O2SAT 96
[2021-11-08] MEDS: LOSARTAN 50 MG TABLET PO (20:40)
[2021-11-08] MEDS: GABAPENTIN 300 MG CAPSULE PO (22:12)
[2021-11-09] VITALS (18 sets, daily range): BP systolic 115–170; BP diastolic 55–99; PULSE 17–102; RESP 13–30; TEMP 36.2–38.1; O2SAT 88–97; BMI 31.8
--- NOTE | 2021-11-09 | DI.RAD.S_ITS ---
PROCEDURE: XR HIP W PEL IF DONE LT 2V INDICATIONS: LT HIP SURGERY TECHNIQUE: 2 views of the hip were acquired. COMPARISON: [facility], CR, XR HIP W PEL IF DONE LT 2V, 11/08/2021, 13:16. FINDINGS: 2 intraoperative fluoroscopic views demonstrate open reduction internal fixation of the previously described left femoral neck fracture. There is improved alignment status post placement of 3 fixation screws traversing the femoral neck. IMPRESSION: 1. Improved alignment status post ORIF of left femoral neck fracture. Dictated by: Greg Colon M.D. on 11/10/2021 at 1:25 Approved by: Greg Colon M.D. on 11/10/2021 at 1:26
[2021-11-09] MEDS: HYDROMORPHONE 0.5 MG INJ IV ×5 (00:30→14:03)
[2021-11-09] MEDS: OXYCODONE/ACETAMINOPHEN 5/325 TABLET 1 TAB PO ×3 (02:13→19:38)
[2021-11-09 06:01] LABS: Add Manual Diff / Slide Review NO; Basophils Absolute Auto 100 /uL (0-100); Basophils Percent Auto 1.3 % (0-2); Eosinophils Absolute Auto 600 /uL (0-450); Eosinophils Percent Auto 9.8 % (2-4); Hematocrit 42.1 % (41-53); Hemoglobin 14.1 g/dL (13.5-17.5); Lymphocytes Absolute Auto 500 /uL (1100-4500); Lymphocytes Percent Auto 7.6 % (25-40); Mean Corpuscular HGB Conc 33.4 % (30-36); Mean Corpuscular Hemoglobin 29.4 PG (26-34); Mean Corpuscular Volume 87.9 fL (80-100); Monocytes Absolute Auto 600 /uL (0-900); Monocytes Percent Auto 10.7 % (3-14); Neutrophils Absolute Auto 4200 /uL (1500-7000); Neutrophils Percent Auto 70.6 % (50-75); Platelet Count 207 X10^3/uL (150-400); Red Blood Cell Count 4.79 X10^6/uL (4.5-5.9); Red Cell Distribution Width 14.9 % (11.6-14.8)
[2021-11-09] MEDS: LEVOTHYROXINE 50 MCG TABLET PO (06:05)
[2021-11-09 06:10] LABS: BUN Creatinine Ratio 17.8 (6-22); Blood Urea Nitrogen 18 mg/dL (9-20); Calcium 8.4 mg/dL (8.4-10.2); Carbon Dioxide 29 mmol/L (22-32); Chloride 101 mmol/L (98-107); Estimated Glomerular Filt Rate > 60 mL/min (>60); Glucose 91 mg/dL (80-110); HEMOLYSIS < 15 (0-50); Potassium 4.5 mmol/L (3.4-5.1); Sodium 136 mmol/L (137-145)
--- NOTE | 2021-11-09 07:58 | PC.NURSE ---
Addendum entered by Maria Guadalupe Banerjee R.N. 11/09/21 17:57: Patients last dilaudid iv given around 1400. Patient just brought down to surgery at 1715. He was denying pain at that time. He had NS at 100cc/hr infusing that was heplocked. down to PACU for a short while to meet the Doctor. Addendum entered by Maria Guadalupe Banerjee R.N. 11/09/21 11:45: Patient given iv dilaudid and helpful. He is now npo and will have surgery around 1800. Original Note: Assessment- Patient is alert and oriented x4, he states that his pain level to l.hip is 8/10. Given iv dilaudid at 0740 and this does help with his discomfort. Ortho called this am and patient is to be NPO today until his surgery this evening. Water glass taken from patient, he asked for a sip and this RN explained to him that he has to remain NPO. IV Dilaudid will be used for pain medication and oral meds held. There is not an order to take medications by mouth, will talk to PA about this. Resting supine comfortably. PPx2.
--- NOTE | 2021-11-09 08:17 | OT.IPNOTE ---
Pt having sx this evening, therefore discharge OT eval orders and await for new orders after sx.
--- NOTE | 2021-11-09 08:19 | PM.PN.1 ---
Subjective Subjective Date Patient Seen: 11/09/21 Time Patient Seen: 15:00 Interval history: Patient states his pain 8/10 in the left hip but manageable if he doesn't move. Asking for increased dose of his pain meds. Has been NPO all day waiting for hip surgery with Dr. Meyers. To go tonight at 6pm. Exam Vital Signs (past 8 hours): - 11/09/21 00:40 11/09/21 06:05 Temperature 97.5 F L 97.2 F L Pulse Rate 78 67 Respiratory Rate 16 16 Blood Pressure 128/74 115/64 Pulse Oximetry 93 97 Oxygen Delivery Method Room Air Narrative Exam Narrative: GEN: no acute distress HEENT: moist mucous membranes, PERRL NECK: trachea midline, no JVD CV: regular rate and rhythm, no murmurs CHEST: Port present on right chest, no surrounding erythema or induration PULM: clear bilaterally ABD: soft, nontender, nondistended, no organomegaly EXT: warm and well perfused with no edema, left extremity shortened and externally rotated, pain to palpation of left hip NEURO: awake, alert, oriented, no focal deficits Objective Labs Result Diagrams: 11/09/21 05:30 11/09/21 05:30 Labs: Laboratory Results - last 24 hr 11/08/21 11/08/21 11/08/21 14:13 14:13 14:13 WBC 9.1 RBC 5.04 Hgb 14.8 Hct 44.2 MCV 87.7 MCH 29.3 MCHC 33.4 RDW 14.6 Plt Count 231 Neut % (Auto) 85.0 H Lymph % (Auto) 3.8 L [place] % (Auto) 6.6 Eos % (Auto) 3.8 Baso % (Auto) 0.8 Neut # (Auto) 7800 H Lymph # (Auto) 300 L [place] # (Auto) 600 Eos # (Auto) 400 Baso # (Auto) 100 PT 14.5 H INR 1.3 Sodium 139 Potassium 4.8 Chloride 105 Carbon Dioxide 27 BUN 21 H Creatinine 1.02 Estimated GFR > 60 BUN/Creatinine Ratio 20.6 Glucose 112 H Calcium 8.7 Total Bilirubin 0.4 AST 26 ALT 17 Alkaline Phosphatase 126 Total Protein 7.0 Albumin 4.4 Globulin 2.6 Albumin/Globulin Ratio 1.7 TSH SARS-CoV-2 (PCR) Blood Type Antibody Screen 11/08/21 11/08/21 11/08/21 14:13 14:20 14:20 WBC RBC Hgb Hct MCV MCH MCHC RDW Plt Count Neut % (Auto) Lymph % (Auto) [place] % (Auto) Eos % (Auto) Baso % (Auto) Neut # (Auto) Lymph # (Auto) [place] # (Auto) Eos # (Auto) Baso # (Auto) PT INR Sodium Potassium Chloride Carbon Dioxide BUN Creatinine Estimated GFR BUN/Creatinine Ratio Glucose Calcium Total Bilirubin AST ALT Alkaline Phosphatase Total Protein Albumin Globulin Albumin/Globulin Ratio TSH SARS-CoV-2 (PCR) Cancelled Negative Blood Type O Negative Antibody Screen Negative 11/08/21 11/09/21 11/09/21 15:01 05:30 05:30 WBC 6.0 RBC 4.79 Hgb 14.1 Hct 42.1 MCV 87.9 MCH 29.4 MCHC 33.4 RDW 14.9 H Plt Count 207 Neut % (Auto) 70.6 Lymph % (Auto) 7.6 L [place] % (Auto) 10.7 Eos % (Auto) 9.8 H Baso % (Auto) 1.3 Neut # (Auto) 4200 Lymph # (Auto) 500 L [place] # (Auto) 600 Eos # (Auto) 600 H Baso # (Auto) 100 PT INR Sodium 136 L Potassium 4.5 Chloride 101 Carbon Dioxide 29 BUN 18 Creatinine 1.01 Estimated GFR > 60 BUN/Creatinine Ratio 17.8 Glucose 91 Calcium 8.4 Total Bilirubin AST ALT Alkaline Phosphatase Total Protein Albumin Globulin Albumin/Globulin Ratio TSH 2.78 SARS-CoV-2 (PCR) Blood Type Antibody Screen [facility] Medical History Aortic root dilatation Atrial fibrillation, currently in sinus rhythm Chronic anticoagulation Cough Easy bruising HTN (hypertension) PAF (paroxysmal atrial fibrillation) (2014) Port-A-Cath in place (2014) Preoperative clearance Viral illness Surgical History History of surgery (2014) Hx of tonsillectomy Hx of total knee replacement Hx of transurethral resection of prostate Status post appendectomy Status post neck dissection (2014) Social History household members: spouse Smoking Status: Former smoker alcohol intake: never substance use type: does not use Assessment & Plan Assessment & Plan narrative: Srinivasa Perkins is a 76-year-old male with past medical history of paroxysmal atrial fibrillation on Eliquis, hypertension, hypothyroidism, squamous cell carcinoma of the left neck in remission and obesity who presents with left hip fracture after tripping over a gas station hose while filling up his car. # acute left femoral neck fracture -due to fall onto the pavement at a gas station -left hip x-ray shows impacted left femoral transcervical fracture -Dr. Meyers, ortho consulted by ED -hold home Eliquis for surgery, last dose morning of 11/08 -pain not well-controlled, increase dilaudid -OR at 6pm tonight # acute fever, not present on admission -patient has port, will need to rule out line infection vs PNA vs UTI -Temp 100.6F on 11/09 -Draw blood cultures from port and peripheral, UA and CXR -Start ceftriaxone and vanc post-op -F/u cultures # hypertension -BP elevated at 155/85 on admission -continue home losartan 50 mg at bedtime # neutrophilia with normal WBC -neutrophil count 780, WBC 9.1, afebrile -monitor for infection # obesity -BMI 31.9 # DVT prophylaxis -subcutaneous heparin then back to home Eliquis after surgery # hyperglycemia -glucose 112 on admission -monitor so with BMPs # paroxysmal atrial fibrillation, chronic -holding home Eliquis as above -continue home diltiazem 240 mg daily # hypothyroidism, chronic -continue home levothyroxine 50 mcg daily -check TSH # 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 Code status is full code COVID negative Proxy is Genoveva I have reviewed home meds and used all available resources to reconcile the home meds. Time Spent With Patient Critical Care time: I spent a total of [] minutes of critical care time on this patient's care today; this time is exclusive of procedural time. Quality VTE Deep Vein Thrombosis/Pulmonary Embolism Present on Admission: No
--- NOTE | 2021-11-09 08:53 | PT-IP ANOTE ---
PT eval received and EMR reviewed. Pt with L hip fx and is scheduled to have surgery today. Will d/c PT eval and will await new PT eval order post-surgery.
[2021-11-09] MEDS: dilTIAZem CD 240 MG CAP PO (10:49)
[2021-11-09] MEDS: SODIUM CHLORIDE 0.9% 1,000 ML 100 ML IV ×2 (14:03→17:15)
--- NOTE | 2021-11-09 16:27 | CM.DANOTE ---
Initial DCP Assessment Note Pt is a 76 yo male, resident of [place], arrives after a GLF w/subsequent hip fx, going to the OR today for repair. PCP: Dr. Segovia. Payer: confirmed: Medicare/[facility]. Reviewed chart, pt admitted mid July for his RT TKA and returned a few days later secondary to having a fall at home. Patient had returned home after both of these admissions. Patient off the floor today for his hip repair; according to recent notes: pt lives at home in [place] in a two level home with spouse and is active and independent with ADLs and mobility at baseline. Dispo depending on progress w/PT, may benefit from SNF before return home. Patient has MCR and currently inpatient status. CM team will plan to follow closely for coordination of plan AVELINO Stearns Discharge Planning/Care Management CM Discharge Assessment Start: 11/09/21 16:25 Freq: Status: Active Protocol: Document 11/09/21 16:25 LIU (Rec: 11/09/21 16:27 LIU [id number]) Discharge Planning Assessment Assigned Edi Programmer AVELINO Hagen DPOA/Assigned Designee Name Estrellita Perkins, spouse Contact Information [phone] Advance Directives? Yes Advance Directives on File No History Provided By Patient,Medical Record Prior Living Arrangements House Household Members spouse Type of transporation used prior to Drives own vehicle admit Independent with ADL's Yes Is patient alert and oriented? Yes Comment Will have to see how he does with P.T. Discharge Plan Home Transportation Arrangement Spouse
--- NOTE | 2021-11-09 18:02 | SUR.HOLD ---
Patient to pre-op/holding area from inpatient room 217 with at side; GCS 15; pain 8/10 to left hip; VSS; oral temperature 100.6. Oxygen saturation 88% on room air; placed on oxygen via 2 liters nasal cannula. NSR noted on monitor. Right chest wall portacath flushing well with good blood return; patent.
--- NOTE | 2021-11-09 18:05 | SUR.HOLD ---
Patient using urinal at bedside.
[2021-11-09] MEDS: LACTATED RINGERS 1,000 ML 42 ML IV (18:13)
--- NOTE | 2021-11-09 18:15 | PM.PREOP ---
Pre-operative Note Interval Note History & Physical reviewed/Exam performed by Physician: Yes Changes to H&P: No
--- NOTE | 2021-11-09 18:22 | DI.RAD.S_ITS ---
PROCEDURE: XR CHEST 1V INDICATIONS: fever TECHNIQUE: One view of the chest was acquired. COMPARISON: [facility], CR, XR CHEST 1V, 08/07/2021, 14:25. FINDINGS: Surgical changes and devices: Right IJ MediPort. Overlying monitoring wires. Lungs and pleura: Slightly decreased lung volumes. The visible lung robles are clear. Right lateral costophrenic sulcus blunting is again seen, potentially pleural tethering or effusion. Mediastinum: Heart is enlarged, stable. Normal mediastinal contour. No central venous congestion. Bones and chest wall: No suspicious bony lesions. Overlying soft tissues appear unremarkable. IMPRESSION: 1. Cardiomegaly without radiographic evidence of acute CHF. Dictated by: Philly Herr M.D. on 11/09/2021 at 20:24 Approved by: Philly Herr M.D. on 11/09/2021 at 20:26
[2021-11-09] MEDS: CEFAZOLIN 2 GM/20 ML SYRINGE IV (18:45)
--- NOTE | 2021-11-09 18:52 | SUR.HOLD ---
late entry: Hospitalist Dr Lama called to address patient's fever of 100.6 oral in pre-op holding area. Orders received for two sets of blood cultures, one from patient's indwelling port-a-cath and one from a separate peripheral line; Urine culture and CXR. This nurse demetris blood from portacath for first set of blood cultures; second set of cultures drawn from new IV site to Right forearm. Blood cultures to lab. Will obtain urine specimen and CXR after surgery.
--- NOTE | 2021-11-09 19:01 | SUR.OPER ---
Supine on padded [place] table with left leg secured in padded positioning boots and suspended in positioning spars, operative leg in traction per surgeon. Right leg on padded well leg mittal with gel pad and secured. Head on one pillow. Arm on non-operative side secured on padded armboard <90 degrees abduction. Arm on operative side padded and resting across chest then secured with tape over sheet. Padded perineal post in place per surgeon.
[2021-11-09] MEDS: BUPIVACAINE 0.5% (PF) VIAL 30 ML INJ (19:07)
[2021-11-09] MEDS: EPINEPHrine 1 MG/ML 0.15 MG INJ (19:09)
--- NOTE | 2021-11-09 19:31 | P.OP_ITS ---
Operative Date/Time/Diagnoses Date of procedure: 11/09/21 Time of procedure: 18:30 Pre-op diagnosis: Left femoral neck fracture Post-op diagnosis: same Procedure & Clinicians Procedure: Close reduction internal fixation left femoral neck fracture Same procedure as scheduled: Yes Indications: Impacted femoral neck fracture left Surgeon: Clark Meyers Click Yes if Unassisted: Yes Anesthesia Type: General Operative Notes Findings: Impacted minimally displaced femoral neck fracture left Closure Type: primary Estimated Blood Loss (mL): 20 Procedure in detail: On date of service, patient was met in the holding area where his operative site was signed and witnessed by the OR staff. Surgeries once again discussed with the patient and any remaining questions or concerns he had were answered fully. Patient received 2 g of Ancef preoperatively. Patient was taken back to the operating theater where general anesthesia was admitted. Patient was then transferred to the fracture table. Both feet were well padded and placed into fracture boot. A well-padded perineal post was placed. The left leg was slightly elevated and internally rotated was some distraction. The right leg was placed in scissor position on a lowered position. X-ray was brought in and AP and lateral views were obtained showing maintenance of a nondisplaced femoral neck fracture. Time-out had previously been formed verifying patient's name, procedure, and operative site. The leg was then prepped and draped in the normal sterile fashion. Ten blade was used to make a small incision on the lateral aspect of thigh. [place]wood elevator was then used to elevate off a small area of the muscular tissue so we could get to the shaft of the femur. Guidewire was placed up into the femoral head in a center center position. This was verified on x-ray. Once we were satisfied with the position of the guidewire 2 additional guidewires were placed using the targeting guide. These were also verified with AP and lateral views with the C- arm. Once we were satisfied with the positioning and of the 3 guidewires they were measured and the appropriate screws were placed. Final x-rays were obtained verifying screw positioning and maintenance of reduction of the femoral neck fracture. The wound was then copiously irrigated and then closed in a layered fashion. The wound was cleaned, dried, and dressed. Patient was taken to the PACU in stable condition. Complications: none Post-operative Condition: stable Disposition: Acute Care Plan for aftercare: Patient will follow-up postoperative protocol for close reduction internal fixation left femoral neck fracture. Patient can be partial weight-bearing to the left lower extremity.
[2021-11-09] MEDS: HYDROMORPHONE 2 MG INJ IV (19:37)
[2021-11-09] MEDS: ONDANSETRON 4 MG/2 ML INJ IV (19:38)
[2021-11-09] MEDS: ACETAMINOPHEN 325 MG TABLET 650 MG PO (19:38)
--- NOTE | 2021-11-09 19:50 | SUR.PHASEI ---
Patient using urinal at bedside to void. Urine specimen sent to lab; CXR completed at bedside.
--- NOTE | 2021-11-09 20:13 | SUR.PHASEI ---
Patient voiding to urinal 100 mls; urine specimen sent to lab.
[2021-11-09] MEDS: cefTRIAXone 2,000 MG in SODIUM CHLORIDE 0.9% 100 ML 200 MG IV (21:28)
[2021-11-09] MEDS: VANCOMYCIN 2,000 MG/400 ML PIGGYBACK 200 MG IV (21:28)
[2021-11-09] MEDS: LACTATED RINGERS 1,000 ML 125 ML IV (21:29)
[2021-11-09] MEDS: ACETAMINOPHEN SUSP 650 MG/20.3 ML UDC 1000 MG PO (21:29)
[2021-11-09] MEDS: MAGNESIUM HYDROXIDE 30 ML UDC PO (21:30)
[2021-11-09] MEDS: LOSARTAN 50 MG TABLET PO (21:30)
[2021-11-09] MEDS: GABAPENTIN 300 MG CAPSULE PO (21:30)
[2021-11-09] MEDS: DOCUSATE 100 MG CAPSULE PO (21:30)
[2021-11-09] MEDS: APIXABAN 5 MG TABLET PO (21:30)
--- NOTE | 2021-11-09 22:46 | PC.NURSE ---
Spoke to hospitalist Bossman BAUTISTA. Only use PIV while pending results for blood cultures to rule out possible Port access infection. No blood draws via port access.
[2021-11-09] MEDS: OXYCODONE IR 10 MG TABLET PO (22:54)
[2021-11-10] MEDS: OXYCODONE IR 10 MG TABLET PO ×7 (02:03→23:25)
[2021-11-10 04:28] VITALS: BP 118/57; PULSE 65; RESP 16; TEMP 36.8; O2SAT 96
[2021-11-10 05:21] LABS: Appearance Urine UA CLEAR; Bilirubin Urine UA NEGATIVE (NEGATIVE); Color Urine UA YELLOW; Glucose Urine UA NEGATIVE (Negative); Ketones Urine UA NEGATIVE (NEGATIVE); Leukocyte Esterase Urine UA NEGATIVE (NEGATIVE); Nitrite Urine UA NEGATIVE (Negative); Occult Blood Urine UA 3+ (Negative); Protein Urine UA NEGATIVE (Negative); Specific Gravity Urine UA 1.025 (1.000-1.035); Urobilinogen Urine UA 0.2 E.U./dL (0.2)
[2021-11-10 05:23] LABS: RBC Urine 1-5/HPF (0-5/HPF); WBC Urine None Seen (0-5/HPF)
[2021-11-10 05:24] LABS: Bacteria Urine Few (2-10); Culture Indicated Urine Cult Not Indicated
[2021-11-10] MEDS: LEVOTHYROXINE 50 MCG TABLET PO (05:35)
[2021-11-10 08:00] VITALS: BP 107/61; PULSE 64; RESP 18; TEMP 36.5; O2SAT 98
--- NOTE | 2021-11-10 08:13 | P.PN_ITS ---
Subjective Subjective Date Patient Seen: 11/10/21 Time Patient Seen: 12:00 Interval history: Patient had hip surgery last night and just prior to surgery had a fever of 100.6 F some blood cultures were drawn and antibiotics were started. He currently states he feels well with no fever, chills and his hip pain is well managed. Exam Vital Signs (past 8 hours): - 11/10/21 04:28 Temperature 98.3 F Pulse Rate 65 Respiratory Rate 16 Blood Pressure 118/57 L Pulse Oximetry 96 Oxygen Delivery Method Nasal Cannula Oxygen Flow Rate 2 Narrative Exam Narrative: GEN: no acute distress HEENT: moist mucous membranes, PERRL NECK: trachea midline, no JVD. Evidence of prior left mandibulectomy surgery. CV: regular rate and rhythm, no murmurs CHEST: Port present on right chest, no surrounding erythema or induration PULM: clear bilaterally ABD: soft, nontender, nondistended, no organomegaly EXT: warm and well perfused with no edema, left extremity with bandage over hip NEURO: awake, alert, oriented, no focal deficits Objective Labs Result Diagrams: 11/10/21 08:31 11/10/21 08:31 Labs: Laboratory Results - last 24 hr 11/10/21 04:20 Urine Color Yellow Urine Appearance Clear Urine pH 5.0 Ur Specific [place] 1.025 Urine Protein Negative Urine Glucose (UA) Negative Urine Ketones Negative Urine Occult Blood 3+ H Urine Nitrate Negative Urine Bilirubin Negative Urine Urobilinogen 0.2 Ur Leukocyte Esterase Negative Urine RBC 1-5/hpf Urine WBC None seen Urine Bacteria Few (2-10) H Ur Culture Indicated? Cult not indicated [facility] Medical History Aortic root dilatation Atrial fibrillation, currently in sinus rhythm Chronic anticoagulation Cough Easy bruising HTN (hypertension) PAF (paroxysmal atrial fibrillation) (2014) Port-A-Cath in place (2014) Preoperative clearance Viral illness Surgical History History of surgery (2014) Hx of tonsillectomy Hx of total knee replacement Hx of transurethral resection of prostate Status post appendectomy Status post neck dissection (2014) Social History household members: spouse Smoking Status: Former smoker alcohol intake: never substance use type: does not use Assessment & Plan Assessment & Plan narrative: Srinivasa Perkins is a 76-year-old male with past medical history of paroxysmal a trial fibrillation on Eliquis, hypertension, hypothyroidism, squamous cell carcinoma of the left neck in remission and obesity who presents with left hip fracture after tripping over a gas station hose while filling up his car. # acute left femoral neck fracture -due to fall onto the pavement at a gas station -left hip x-ray shows impacted left femoral transcervical fracture -Dr. Meyers, ortho consulted by ED -hold home Eliquis for surgery, last dose morning of 11/08 -pain well controlled on current regimen -can restart home eliquis per ortho -PT/OT evals, partial weight bearing per ortho # acute fever, not present on admission -patient has port, will need to rule out line infection vs PNA vs UTI -Temp 100.6F on 11/09 -UA and CXR normal -Continue ceftriaxone and vanc -F/u blood cultures, if negative at 48 hours can stop abx # hypertension -BP elevated at 155/85 on admission -continue home losartan 50 mg at bedtime # neutrophilia with normal WBC -neutrophil count 780, WBC 9.1, afebrile -monitor for infection # obesity -BMI 31.9 # DVT prophylaxis -eliquis # hyperglycemia -glucose elevated since admission -check A1c # paroxysmal atrial fibrillation, chronic -ortho restarted home elqiuis -continue home diltiazem 240 mg daily # hypothyroidism, chronic -continue home levothyroxine 50 mcg daily -check TSH # 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 -was on chemotherapy and radiation with last round of chemo in 2017 -still has a port -port flush orders placed Dispo: Likely home in 1-2 days per PT. Code status is full code COVID negative Proxy is [facility]. I have reviewed home meds and used all available resources to reconcile the home meds. Time Spent With Patient Critical Care time: I spent a total of [] minutes of critical care time on this patient's care today; this time is exclusive of procedural time. Quality VTE Deep Vein Thrombosis/Pulmonary Embolism Present on Admission: No
[2021-11-10 08:39] LABS: Add Manual Diff / Slide Review NO; Basophils Absolute Auto 0 /uL (0-100); Basophils Percent Auto 0.2 % (0-2); Eosinophils Absolute Auto 0 /uL (0-450); Eosinophils Percent Auto 0.1 % (2-4); Hematocrit 42.4 % (41-53); Hemoglobin 14.2 g/dL (13.5-17.5); Lymphocytes Absolute Auto 300 /uL (1100-4500); Lymphocytes Percent Auto 3.1 % (25-40); Mean Corpuscular HGB Conc 33.4 % (30-36); Mean Corpuscular Hemoglobin 29.3 PG (26-34); Mean Corpuscular Volume 87.7 fL (80-100); Monocytes Absolute Auto 300 /uL (0-900); Monocytes Percent Auto 3.7 % (3-14); Neutrophils Absolute Auto 8000 /uL (1500-7000); Neutrophils Percent Auto 92.9 % (50-75); Platelet Count 209 X10^3/uL (150-400); Red Blood Cell Count 4.83 X10^6/uL (4.5-5.9); Red Cell Distribution Width 15.3 % (11.6-14.8); White Blood Cell Count 8.7 X10^3/uL (4.5-11.0)
[2021-11-10 08:49] LABS: BUN Creatinine Ratio 18.3 (6-22); Blood Urea Nitrogen 19 mg/dL (9-20); Calcium 8.6 mg/dL (8.4-10.2); Carbon Dioxide 27 mmol/L (22-32); Chloride 98 mmol/L (98-107); Estimated Glomerular Filt Rate > 60 mL/min (>60); Glucose 157 mg/dL (80-110); HEMOLYSIS < 15 (0-50); Potassium 5.1 mmol/L (3.4-5.1); Sodium 134 mmol/L (137-145)
[2021-11-10] MEDS: DOCUSATE 100 MG CAPSULE PO ×2 (08:59→21:05)
[2021-11-10] MEDS: ACETAMINOPHEN SUSP 650 MG/20.3 ML UDC 1000 MG PO ×3 (09:00→20:39)
[2021-11-10] MEDS: APIXABAN 5 MG TABLET PO ×2 (09:01→20:38)
[2021-11-10] MEDS: dilTIAZem CD 240 MG CAP PO (09:01)
[2021-11-10 09:12] VITALS: O2SAT 93
--- NOTE | 2021-11-10 10:00 | PT.IIE ---
Current Diagnoses Displaced midcervical fracture of left femur, initial encounter for closed fracture (11/08/21) Surgery Performed Operation Date: 11/09/21 18:00 Actual Procedures p ORIF Left Femoral Neck Fracture/Cannulated Screws(Left) - Clark Meyers MD Surgical History (Last Reviewed 11/10/21 @ 10:20 by Ramakrishna Arce PA-C) History of surgery (2014) Hx of tonsillectomy Hx of total knee replacement Hx of transurethral resection of prostate Status post appendectomy Status post neck dissection (2014) Medical History (Last Reviewed 11/10/21 @ 10:20 by Ramakrishna Arce PA-C) Aortic root dilatation Atrial fibrillation, currently in sinus rhythm Chronic anticoagulation Cough Easy bruising HTN (hypertension) PAF (paroxysmal atrial fibrillation) (2014) Port-A-Cath in place (2014) Preoperative clearance Viral illness Physical Therapy Inpatient Evaluation/Re-Eval M1 PT/OT-IP Prior Functional Status Start: 11/10/21 12:47 Freq: NEEDED Status: Active Protocol: Document 11/10/21 10:00 AB (Rec: 11/10/21 13:08 [email or web address]) Medical Review Prior Functional Status Medical History Reviewed Yes Communication able to make needs known Mobility and Gait pt stated that he is independent with ambulation without AD. stated that he had TKA 3 months ago Activities of Daily Living and IADL's Pt was IND in most ADLs and IADLs. Pt states his assist with LB dressing when needed. Social History Household Members spouse Living Arrangements House Number of Floors (Floors) Two Floors Number of Stairs To Enter/Railing? Pt has one step to enter 15 steps to the second floor with R rail ascending Home Environment Standard Height Toilet,Walk in Shower,Tub/Shower Home Equipment Front Wheel Walker,Straight Cane Employment Status Retired Additional Social History Comment Pt states that his will get equipment from the [employer] closet. Pt can stay on the first floor of the house and sleep in the recliner. M2 PT-IP Current Condition Start: 11/10/21 12:47 Freq: NEEDED Status: Active Protocol: Document 11/10/21 10:00 AB (Rec: 11/10/21 13:08 [email or web address]) Physical Therapy Current Condition Current Condition Evaluation Date 11/10/21 Treatment Diagnosis L fem fx s/p close reduction & fixation; difficulty in walking Onset Date 11/08/21 M3 PT-IP Subjective Start: 11/10/21 12:47 Freq: NEEDED Status: Active Protocol: Document 11/10/21 10:00 AB (Rec: 11/10/21 13:08 AB [id number]) Subjective Physical Therapy Visit Type Type Initial Evaluation Visit Start Time 10:00 Visit Stop Time 10:48 Total Visit Minutes 48 Notes Clarification obtained from PAYAM Arce regarding pt's weight bearing status of PWB. stated that pt is 50% PWB. Number of RUBBER COMPOUNDER SUPERVISOR Visits 0 Physical Therapy Visit Comments Patient Comments agreeable to do PT M4 PT-IP Mobility and Gait Start: 11/10/21 12:47 Freq: NEEDED Status: Active Protocol: Document 11/10/21 10:00 AB (Rec: 11/10/21 13:08 AB [id number]) PT-Bed Mobility Assessment Supine to Sit Supine to Sit Maximum Assistance PT-Transfer Assessment Sit to and From Stand Sit to and from Stand Contact Guard Assistance, Moderate Assistance,Maximum Assistance Equipment Transfer Assistive Device Gait Belt,Front Wheeled Walker Orthotic/Prosthetic Devices or Brace: No Transfers Transfer Destination Chair Transfer Technique ambulated Transfer Ability Level of Assist Moderate Assistance,Maximum Assistance,1 Person Assistance ,Use of Upper Extremities Comments Mobility Comments educated pt on weight bearing restriction on LLE of 50% PWB. O2 sat with 2L/min O2: 94%. assessed O2 sat at room air: 92% completed supine to sit max A and max cues. able to sit on EOB SBA. O2 sat decreased to 87%. O2 put back on. educated on sit to stand technique while adhereing to LLE PWB restriction. completed sit to stand from EOB mod to max A and max cues. ambulated in room using FWW mod to max A ~ 25 ft. pt with increase R knee flexion in standing/ ambulation. pt ambulated to the sink using FWW mod A and was able to maintain standing min A while completing handwashing. pt ambulated to the chair using FWW mod A. agreed to sit on the chair and positioned. completed sit to stand from the chair CGA and repositioned. O2 sat 88% and cued for deep breathing. call light and table placed within reach. caregiver trainig set up with spouse at 1 pm today. Gait Assessment Gait Gait Assistance Required: Moderate Assistance,Maximum Assistance Distance (Feet) 25 Able to Maintain Weight Bearing Status Yes During Gait Assistive Devices Assistive Device Gait Belt,Front Wheeled Walker Orthotic/Prosthetic Devices or Brace: No Gait Deviations General Gait Pattern Decreased Stride Length, Decreased Feet Clearance,Step- to Gait Factors Limiting Gait Function Factors Limiting Gait Function Decreased Activity Tolerance, Decreased Strength,Limited Range of Motion,Pain,Poor Balance,Poor Safety Awareness PT-Balance Assessment Sitting Balance and Reactions Static Sitting Balance Ability Normal Dynamic Sitting Balance Ability Good Standing Balance and Reactions Static Standing Balance Ability Fair Dynamic Standing Balance Ability Fair Device Used FWW M5 PT-IP Objective Assessments Start: 11/10/21 12:47 Freq: NEEDED Status: Active Protocol: Document 11/10/21 10:00 AB (Rec: 11/10/21 13:08 AB [email or web address]) Orientation Orientation/Cognition Level of Alertness Alert Orientation Name,Age,Birthday,Month,Date, Year,Day of Week,Place, Situation Language Function Ability No Deficits Noted Safety Awareness Understands Safety Issues Memory Description No Deficits Noted Gross Range of Motion Lower Extremity ROM Assessment Right Impaired Impairments R knee extension : ~ 15 deg less to 0 Strength Lower Extremity Strength Hip 4-/5 Knee 4-/5 Coordination Assessment Gross Coordination Gross Coordination WNL Sensation Assessment Sensation Gross Sensation WNL Muscle Tone Muscle Tone WNL Yes M6 PT-IP Treatment Start: 11/10/21 12:47 Freq: NEEDED Status: Active Protocol: Document 11/10/21 10:00 AB (Rec: 11/10/21 13:08 [email or web address]) Physical Therapy Treatment Education Education Provided Precautions,Weight Bearing Status,Post-Op Packet,Safety M7 PT-IP Assessment and Plan Start: 11/10/21 12:47 Freq: NEEDED Status: Active Protocol: Document 11/10/21 10:00 AB (Rec: 11/10/21 13:08 [email or web address]) PT Summary Assessment and Plan Potential Rehabilitation Potential Good Status of Condition at Evaluation Evolving Summary Impairments Pain,ROM,Strength,Balance, Coordination,Sensation,Tone, Cognition,Bed Mobility, Transfers,Gait,Activity Tolerance Assessment Summary pt requiring max A with bed mobility. initially requiring mod to max A ambulation but able to complete with just mod A towards end of PT session. caregiver training set up at 1pm today. will continue to assess progress. Goals Bed Mobility Goal Independent Transfer Goal Independent,Front Wheeled Walker Gait Goal Independent,Front Wheel Walker Gait Distance 50 Other Goals up/down 1 step using fWW CGA Days to Meet Goals 5 Frequency of Treatment Frequency Of Treatment Twice a Day Treatment Plan Physical Therapy Treatment Plan Bed Mobility Training,Transfer Training,Gait Training, Therapeutic Exercise,Balance Retraining,Post Op Education, Discharge Planning,Hot or Cold Pack,Neuromuscular Re-ed, Coordination Retraining,Manual Therapy Weight Bearing Status Weight Bearing Status Partial Weight Bearing Allowed Weight Bearing Amount (enter % LLE: 50% PWB or #) (%) Recommendations To Nursing Amount of Assist Needed 1 Person Assist Discharge Recommendations PT Discharge Recommendations Home with 11/11 Assist Available,Home Health, Outpatient PT Transportation Needs at Discharge Private Vehicle
--- NOTE | 2021-11-10 10:18 | P.PN_ITS ---
Subjective Subjective Date Patient Seen: 11/10/21 Time Patient Seen: 10:18 Interval history: Patient's pain is mild. Denies fever or chills. No nausea or vomiting. Exam Vital Signs (past 8 hours): - 11/10/21 04:28 11/10/21 08:00 11/10/21 09:00 Temperature 98.3 F 97.7 F Pulse Rate 65 64 Respiratory Rate 16 18 Blood Pressure 118/57 L 107/61 Pulse Oximetry 96 98 Oxygen Delivery Method Nasal Cannula Oxygen Flow Rate 0 11/10/21 09:12 Temperature Pulse Rate Respiratory Rate Blood Pressure Pulse Oximetry 93 Oxygen Delivery Method Nasal Cannula Oxygen Flow Rate 2 Oxygen Delivery Method Nasal Cannula Oxygen Flow Rate 2 Narrative Exam Narrative: Pleasant 76-year-old male resting comfortably in bed in no apparent distress. Left hip dressing is Clean, dry, intact. Motor functions intact distal left lower extremity. Sensation grossly intact to light touch distal left lower extremity Const General: cooperative and comfortable Objective Labs Result Diagrams: 11/10/21 08:31 11/10/21 08:31 Labs: Laboratory Results - last 24 hr 11/10/21 11/10/21 11/10/21 04:20 08:31 08:31 WBC 8.7 RBC 4.83 Hgb 14.2 Hct 42.4 MCV 87.7 MCH 29.3 MCHC 33.4 RDW 15.3 H Plt Count 209 Neut % (Auto) 92.9 H D Lymph % (Auto) 3.1 L [place] % (Auto) 3.7 Eos % (Auto) 0.1 L Baso % (Auto) 0.2 Neut # (Auto) 8000 H Lymph # (Auto) 300 L [place] # (Auto) 300 Eos # (Auto) 0 Baso # (Auto) 0 Sodium 134 L Potassium 5.1 Chloride 98 Carbon Dioxide 27 BUN 19 Creatinine 1.04 Estimated GFR > 60 BUN/Creatinine Ratio 18.3 Glucose 157 H Calcium 8.6 Urine Color Yellow Urine Appearance Clear Urine pH 5.0 Ur Specific [place] 1.025 Urine Protein Negative Urine Glucose (UA) Negative Urine Ketones Negative Urine Occult Blood 3+ H Urine Nitrate Negative Urine Bilirubin Negative Urine Urobilinogen 0.2 Ur Leukocyte Esterase Negative Urine RBC 1-5/hpf Urine WBC None seen Urine Bacteria Few (2-10) H Ur Culture Indicated? Cult not indicated PFSH Medical History Aortic root dilatation Atrial fibrillation, currently in sinus rhythm Chronic anticoagulation Cough Easy bruising HTN (hypertension) PAF (paroxysmal atrial fibrillation) (2014) Port-A-Cath in place (2014) Preoperative clearance Viral illness Surgical History History of surgery (2014) Hx of tonsillectomy Hx of total knee replacement Hx of transurethral resection of prostate Status post appendectomy Status post neck dissection (2014) Social History household members: spouse Smoking Status: Former smoker alcohol intake: never substance use type: does not use Assessment & Plan Post-op Postoperative Procedures: Procedures Operation Date: 11/09/21 18:00 Actual Procedure Side Surgeon p ORIF Left Femoral Neck Fracture/Cannulated Screws Left Clark Meyers MD Postoperative day: 1 Postoperative status: doing well Postoperative status narrative: Postop day 1 status post closed reduction internal fixation left femoral neck fracture Postoperative plan narrative: Patient will follow-up postop protocol for closed reduction internal fixation left femoral neck fracture, can be partial weight- bearing to left lower extremity Disposition, per hospitalist Quality VTE Deep Vein Thrombosis/Pulmonary Embolism Present on Admission: No
--- NOTE | 2021-11-10 10:48 | OT.IP.EVAL ---
Current Diagnoses Displaced midcervical fracture of left femur, initial encounter for closed fracture (11/08/21) Surgery Performed Operation Date: 11/09/21 18:00 Actual Procedures p ORIF Left Femoral Neck Fracture/Cannulated Screws(Left) - Clark Meyers MD Past Medical History (Last Reviewed 11/10/21 @ 10:20 by Ramakrishna Arce PA-C) Aortic root dilatation Atrial fibrillation, currently in sinus rhythm Chronic anticoagulation Cough Easy bruising HTN (hypertension) PAF (paroxysmal atrial fibrillation) (2014) Port-A-Cath in place (2014) Preoperative clearance Viral illness Surgical History (Last Reviewed 11/10/21 @ 10:20 by Ramakrishna Arce PA-C) History of surgery (2014) Hx of tonsillectomy Hx of total knee replacement Hx of transurethral resection of prostate Status post appendectomy Status post neck dissection (2014) Occupational Therapy Inpatient Evaluation/Re-Eval M1 PT/OT-IP Prior Functional Status Start: 11/10/21 11:01 Freq: NEEDED Status: Active Protocol: Document 11/10/21 11:02 CGR (Rec: 11/10/21 11:22 CGR [id number]) Medical Review Prior Functional Status Medical History Reviewed Yes Communication Pt is an effective verbal communicator but is [place] with B hearing aides. Mobility and Gait Pt was IND in mobility prior to admit. Pt has a recent R knee replacement and is still getting therapy. Activities of Daily Living and IADL's Pt was IND in most ADLs and IADLs. Pt states his assist with LB dressing when needed. Social History Household Members spouse Living Arrangements House Number of Floors (Floors) Two Floors Number of Stairs To Enter/Railing? Pt has one step to enter and 15 steps to the second floor ( 3 steps, landing, then 12 steps). Home Environment Standard Height Toilet,Walk in Shower,Tub/Shower Home Equipment Front Wheel Walker,Straight Cane Employment Status Retired Additional Social History Comment Pt states that his will get equipment from the loan closet. Pt can stay on the first floor of the house and sleep in the recliner. M2 OT-IP Current Condition Start: 11/10/21 11:01 Freq: Status: Active Protocol: Document 11/10/21 11:02 CGR (Rec: 11/10/21 11:22 CGR [id number]) Occupational Therapy Current Condition Current Condition Evaluation Date 11/10/21 Treatment Diagnosis L hip fx, underwent closed reduction and internal fixation 11/09/21 Diagnosis Onset Date 11/08/21 Weight Bearing Status Weight Bearing Status Partial Weight Bearing Allowed Weight Bearing Amount (enter % 50% or less or #) (%) M3 OT- IP Subjective and Pain Start: 11/10/21 11:01 Freq: Status: Active Protocol: Document 11/10/21 11:02 CGR (Rec: 11/10/21 11:22 R [id number]) OT- Subjective Occupational Therapy Visit Type Type Initial Evaluation Visit Start Time 10:10 Visit Stop Time 10:48 Total Visit Minutes 38 Notes co-eval with P.T. OT Pain Assessment Pain When Pain Assessed At Rest Pain Present Pain Present Pain Reported Location Left Upper Leg Intensity 4 Scale Used Numeric (0 - 10) Management Techniques Distraction,Modification of Treatment,Re-positioning, Timing of Activity with Medications M4 OT- IP ADL's Start: 11/10/21 11:01 Freq: Status: Active Protocol: Document 11/10/21 11:02 CGR (Rec: 11/10/21 11:22 R [id number]) OT XUM-Udzy-Safldpt Comments OT Self-Feeding Comments not meal time OT ADL-Grooming General Evaluation Grooming Ability Standby Assistance Areas Needing Assistance Face Washing Comments OT Grooming Comments washing hands at sink OT ADL-Oral Care Comments Oral Care Comments pt performed prior to OT entering the room OT ADL-Dressing General Eval Lower Body Dressing Ability Total Assistance Areas Needing Assistance Socks Comments OT Dressing Comments Pt states his often helps him with LB dressing. OT ADL-Toileting Comments OT Toileting Comments not performed OT ADL-Bathing Comments OT Bathing Comments not performed M5 OT- IP IADL's Start: 11/10/21 11:01 Freq: Status: Active Protocol: Document 11/10/21 11:02 CGR (Rec: 11/10/21 11:22 R [id number]) OT-Instrumental Activities of Daily Living Deficits IADL Deficits Identified No Deficits Home Safety Awareness Awareness of Need for Assistance at Home Good Awareness Ability to Problem Solve Emergency Able to Problem Solve Situations Medication Management Medication Management No Deficits Identified Money Management Money Management No Deficits Identified Meal Preparation Meal Preparation Caregiver Provides Assist Advertising Photographer Advertising Photographer Caregiver Provides Assist Driving Driving Comments Pt understands that he can not drive till cleared by his MD. M6 OT- IP Functional Cognition Start: 11/10/21 11:01 Freq: Status: Active Protocol: Document 11/10/21 11:02 CGR (Rec: 11/10/21 11:22 CGR [id number]) Cognitive Factors Limiting Selfcare Function Cognitive Ability Level of Alertness Alert Patient Orientation Name,Age,Birthday,Month,Date, Year,Day of Week,Place, Situation Attention Span Ability Capable of Focused Attention, Capable of Sustained Attention Ability to Follow Commands Able to Follow Multi-Step Commands OT- Vision and Hearing OT- Hearing Assessment OT- Hearing Assessment Hearing Impaired,Use of Hearing Aids OT- Vision Assessment Visual Acuity Glasses All The Time Visual Attentiveness WFL Occular Pursuits WFL Visual Convergence WFL Vision Assessment Comments Pt wears bifocals M7 OT- IP Mobility and Balance Start: 11/10/21 11:01 Freq: Status: Active Protocol: Document 11/10/21 11:02 CGR (Rec: 11/10/21 11: CGR [id number]) OT- Bed Mobility Assessment Supine to Sit Supine to Sit Assist Maximum Assistance,1 Person Assistance Scooting Scooting to Edge of Bed Standby Assistance OT-Transfer Assessment Sit to and From Stand Sit to and from Stand Contact Guard Assistance, Maximum Assistance,1 Person Assistance Transfers Transfer Ability Moderate Assistance,1 Person Assistance Technique Transfer Destination Bed,Chair Transfer Technique Stand Step Pivot Devices Transfer Assistive Devices Gait Belt,Front Wheeled Walker Comments Mobility Comments Pt initially needed max a for sit to stand from bed for first attempt to stand. Pt then demonstrated CGA for sit to stand from chair with B arm rails. Pt ambulated in the room with mod a and use of the FWW and was able to maintain 50% or less weight to the L foot. OT- Gait Assessment Gait Gait Assistance Required: Moderate Assistance,1 Person Assist Assistive Devices Assistive Device Gait Belt,Front Wheeled Walker OT- Balance Assessment Sitting Balance and Reactions Static Sitting Balance Ability Good Dynamic Sitting Balance Ability Good M8 OT- IP Objective Assessments Start: 11/10/21 11:01 Freq: Status: Active Protocol: Document 11/10/21 11:02 CGR (Rec: 11/10/21 11:22 CGR [id number]) OT Gross Range of Motion Upper Extremity Range of Motion Assessment Within Functional Limits OT Strength Upper Extremity Strength Assessment Within Functional Limits Comments Strength Comments 08/23 OT- Coordination Assessment Upper Extremity Finger to Nose Test Within Functional Limits Finger Tapping Test Within Functional Limits OT-Muscle Tone Assessment Muscle Tone WNL Yes OT Sensation Assessment Comments Summary Comments Pt states he has no sensation to the L side of his face from a previous facial sx. All sensation is typical for his baseline at this time. M9 OT- IP Assessment and Plan Start: 11/10/21 11:01 Freq: Status: Active Protocol: Document 11/10/21 11:02 CGR (Rec: 11/10/21 11:22 CGR [id number]) OT Summary Assessment and Plan Potential Rehabilitation Potential Excellent Analytic Complexity at Evaluation Moderate Summary OT Impairments Pain,Balance,Functional Mobility,Grooming,Dressing, Toileting,Bathing,Toilet Transfers,Shower Transfers, Activity Tolerance Progress Towards Goals Progressing Toward Goals Assessment Summary Pt presents as a moderate complexity evaluation s/p admit for fall with L hip fx and underwent 11/09/21 closed fixation of the hip. Pt is 50% or less wb to the L hip. Pt has 1 step to enter and a flight to get to his bedroom but he states he can sleep in the first floor. Pt will need 2ww, tub transfer bench (tub is on the main level) and a toilet riser with arm rails. Pt is likely to be safe for discharge home with support from . Goals Grooming Goal Independent Dressing Goal Independent Toileting Goal Independent Bathing Goal Independent Toilet Transfer Goal Independent Shower Transfer Goal Independent Days to Meet Goals 5 Frequency of Treatment Frequency Of Treatment Once a Day Treatment Plan OT Treatment Plan ADL Training,Functional Mobility,Patient/Family Education,Discharge Planning Other Treatment Recommendations and Next Shower, LB dressing Treatment Focus Discharge Recommendations OT Discharge Recommendations Home with Assistance Home Equipment Needs tub transfer bench, 2ww, toilet riser with arm rests, w /c Transportation Needs at Discharge Private Vehicle
[2021-11-10 12:34] VITALS: BP 111/69; PULSE 75; RESP 18; TEMP 35.7; O2SAT 96
--- NOTE | 2021-11-10 13:09 | PT.IPTN ---
Current Diagnoses Displaced midcervical fracture of left femur, initial encounter for closed fracture (11/08/21) Surgery Performed Operation Date: 11/09/21 18:00 Actual Procedures p ORIF Left Femoral Neck Fracture/Cannulated Screws(Left) - Clark Meyers MD Physical Therapy Treatment Note M2 PT-IP Current Condition Start: 11/10/21 12:47 Freq: NEEDED Status: Active Protocol: Document 11/10/21 10:00 AB (Rec: 11/10/21 13:08 AB [email or web address]) Physical Therapy Current Condition Current Condition Evaluation Date 11/10/21 Treatment Diagnosis L fem fx s/p close reduction & fixation; difficulty in walking Onset Date 11/08/21 M3 PT-IP Subjective Start: 11/10/21 12:47 Freq: NEEDED Status: Active Protocol: Document 11/10/21 13:09 AB (Rec: 11/10/21 14:47 AB [email or web address]) Subjective Physical Therapy Visit Type Type Treatment Note Visit Start Time 13:09 Visit Stop Time 13:56 Total Visit Minutes 47 Number of IT PROGRAM AUDITOR Visits 0 Physical Therapy Visit Comments Patient Comments agreeable to do PT; spouse in room for caregiver training M4 PT-IP Mobility and Gait Start: 11/10/21 12:47 Freq: NEEDED Status: Active Protocol: Document 11/10/21 13:09 AB (Rec: 11/10/21 14:47 AB [email or web address]) PT-Bed Mobility Assessment Supine to Sit Supine to Sit Maximum Assistance Sit to Supine Sit to Supine Minimal Assistance,Moderate Assistance PT-Transfer Assessment Sit to and From Stand Sit to and from Stand Moderate Assistance,Maximum Assistance,1 Person Assistance ,Use of Upper Extremities Equipment Transfer Assistive Device Gait Belt,Front Wheeled Walker Orthotic/Prosthetic Devices or Brace: No Transfers Transfer Destination Bed Transfer Technique ambulated Transfer Ability Level of Assist Minimal Assistance,1 Person Assistance,Use of Upper Extremities Comments Mobility Comments pt sititng on chair. spouse in room for caregiver training. educated spouse on use of safety belt and how to assist pt. spouse was able to put safety belt on . assist pt with sit to stand but PT has to cue on techniques and how to assist. pt ambulated in room ~ 20 ft using FWW min A and sat on EOB. completed sit to supine min A with LE elevation. educated spouse on how to assist pt. pt completed supine to sit max A and max cues. educated again on techniques. Pt repeated supine to sit with spouse assisting and completed. sit to stand from EOB mod A to max A and max cues and spouse assisted and ambulated ~ 10 ft using fWW min A and back to bed. completed sit to supine mod A to elevate LE and spouse assisted. positioned pt in bed. call light and table placed within reach. pt stated that he is just tired and does not want to do stair climbing. Pt has one step to enter and talked about techniques on how to complete with 50% PWB. informed regarding attempted to do steps backwards so pt will have FWW UE support to step up and pt understood. Pt and spouse agreed to further caregiver training and set up at 1030 am tomorrow. Gait Assessment Gait Gait Assistance Required: Minimum Assistance Distance (Feet) 20 Able to Maintain Weight Bearing Status Yes During Gait Assistive Devices Assistive Device Gait Belt,Front Wheeled Walker Orthotic/Prosthetic Devices or Brace: No Gait Deviations General Gait Pattern Antalgic,Decreased Stride Length,Decreased Feet Clearance Factors Limiting Gait Function Factors Limiting Gait Function Decreased Activity Tolerance, Decreased Strength,Limited Range of Motion,Pain,Poor Balance,Poor Safety Awareness, Respiratory Distress M5 PT-IP Objective Assessments Start: 11/10/21 12:47 Freq: NEEDED Status: Active Protocol: Document 11/10/21 10:00 AB (Rec: 11/10/21 13:08 [email or web address]) Orientation Orientation/Cognition Level of Alertness Alert Orientation Name,Age,Birthday,Month,Date, Year,Day of Week,Place, Situation Language Function Ability No Deficits Noted Safety Awareness Understands Safety Issues Memory Description No Deficits Noted Gross Range of Motion Lower Extremity ROM Assessment Right Impaired Impairments R knee extension : ~ 15 deg less to 0 Strength Lower Extremity Strength Hip 4-/5 Knee 4-/5 Coordination Assessment Gross Coordination Gross Coordination WNL Sensation Assessment Sensation Gross Sensation WNL Muscle Tone Muscle Tone WNL Yes M6 PT-IP Treatment Start: 11/10/21 12:47 Freq: NEEDED Status: Active Protocol: Document 11/10/21 13:09 AB (Rec: 11/10/21 14:47 AB [email or web address]) Physical Therapy Treatment Education Education Provided Weight Bearing Status,Safety M7 PT-IP Assessment and Plan Start: 11/10/21 12:47 Freq: NEEDED Status: Active Protocol: Document 11/10/21 13:09 AB (Rec: 11/10/21 14:47 AB [email or web address]) PT Summary Assessment and Plan Potential Rehabilitation Potential Fair Summary Impairments Pain,ROM,Strength,Balance, Coordination,Sensation,Tone, Cognition,Bed Mobility, Transfers,Gait,Activity Tolerance Progress Towards Goals Slow Progress due to Activity Tolerance Assessment Summary caregiver training initiated but further training needed. set up another caregiver training for tomorrow at 1030 am. will continue to assess progress. pt also needs to complete stair climbing training prior to d/c. pt will also benefit from HHPT Goals Bed Mobility Goal Independent Transfer Goal Independent,Front Wheeled Walker Gait Goal Independent,Front Wheel Walker Gait Distance 50 Other Goals up/down 1 step using fWW CGA Days to Meet Goals 5 Frequency of Treatment Frequency Of Treatment Twice a Day Treatment Plan Physical Therapy Treatment Plan Bed Mobility Training,Transfer Training,Gait Training, Therapeutic Exercise,Balance Retraining,Post Op Education, Discharge Planning,Hot or Cold Pack,Neuromuscular Re-ed, Coordination Retraining,Manual Therapy Weight Bearing Status Weight Bearing Status Partial Weight Bearing Allowed Weight Bearing Amount (enter % LLE: 50% PWB or #) (%) Recommendations To Nursing Amount of Assist Needed 1 Person Assist Discharge Recommendations PT Discharge Recommendations Home with 11/11 Assist Available,Home Health, Outpatient PT Transportation Needs at Discharge Private Vehicle
[2021-11-10] MEDS: cefTRIAXone 2,000 MG in SODIUM CHLORIDE 0.9% 100 ML 200 MG IV (17:08)
[2021-11-10 19:00] VITALS: BP 126/62; PULSE 74; RESP 18; TEMP 36.3; O2SAT 100
[2021-11-10] MEDS: MAGNESIUM HYDROXIDE 30 ML UDC PO (21:02)
[2021-11-10 21:03] VITALS: BP 145/65; PULSE 67
[2021-11-10] MEDS: LOSARTAN 50 MG TABLET PO (21:03)
[2021-11-10] MEDS: GABAPENTIN 300 MG CAPSULE PO (21:05)
[2021-11-10] MEDS: VANCOMYCIN 1,750 MG in SODIUM CHLORIDE 0.9% 500 ML 250 MG IV (21:40)
[2021-11-11 00:33] VITALS: BP 109/55; PULSE 69; RESP 18; TEMP 36.3; O2SAT 94
[2021-11-11 04:56] VITALS: BP 123/58; PULSE 60; RESP 18; TEMP 36.5; O2SAT 94
[2021-11-11] MEDS: OXYCODONE IR 10 MG TABLET PO ×5 (05:30→23:40)
[2021-11-11] MEDS: LEVOTHYROXINE 50 MCG TABLET PO (05:30)
[2021-11-11 06:18] LABS: Add Manual Diff / Slide Review NO; Basophils Absolute Auto 100 /uL (0-100); Basophils Percent Auto 0.7 % (0-2); Eosinophils Absolute Auto 300 /uL (0-450); Eosinophils Percent Auto 3.1 % (2-4); Hematocrit 39.9 % (41-53); Hemoglobin 13.2 g/dL (13.5-17.5); Lymphocytes Absolute Auto 500 /uL (1100-4500); Lymphocytes Percent Auto 5.7 % (25-40); Mean Corpuscular HGB Conc 33.1 % (30-36); Mean Corpuscular Hemoglobin 29.1 PG (26-34); Mean Corpuscular Volume 87.9 fL (80-100); Monocytes Absolute Auto 900 /uL (0-900); Monocytes Percent Auto 10.3 % (3-14); Neutrophils Absolute Auto 6700 /uL (1500-7000); Neutrophils Percent Auto 80.2 % (50-75); Platelet Count 203 X10^3/uL (150-400); Red Blood Cell Count 4.54 X10^6/uL (4.5-5.9); Red Cell Distribution Width 14.9 % (11.6-14.8); White Blood Cell Count 8.3 X10^3/uL (4.5-11.0)
[2021-11-11 06:23] LABS: BUN Creatinine Ratio 24.7 (6-22); Blood Urea Nitrogen 23 mg/dL (9-20); Calcium 8.3 mg/dL (8.4-10.2); Carbon Dioxide 27 mmol/L (22-32); Chloride 103 mmol/L (98-107); Estimated Glomerular Filt Rate > 60 mL/min (>60); Glucose 100 mg/dL (80-110); HEMOLYSIS < 15 (0-50); Potassium 4.6 mmol/L (3.4-5.1); Sodium 136 mmol/L (137-145)
[2021-11-11 06:45] LABS: Hemoglobin A1C% w Est Avg Glu 5.5 % (4.0-6.0)
[2021-11-11 08:00] VITALS: BP 147/59; PULSE 68; RESP 16; TEMP 35.9; O2SAT 95
--- NOTE | 2021-11-11 08:19 | PM.PN.1 ---
Subjective Subjective Date Patient Seen: 11/11/21 Time Patient Seen: 10:00 Interval history: Patient does have some pain in his left hip but otherwise feels well. Denies fever or chills. Sitting up in bed eating currently. Exam Vital Signs (past 8 hours): - 11/11/21 00:33 11/11/21 04:56 Temperature 97.4 F L 97.7 F Pulse Rate 69 60 Respiratory Rate 18 18 Blood Pressure 109/55 L 123/58 L Pulse Oximetry 94 94 Oxygen Flow Rate 0 0 Oxygen Delivery Method Nasal Cannula Oxygen Flow Rate 0 Narrative Exam Narrative: GEN: no acute distress HEENT: moist mucous membranes, PERRL NECK: trachea midline, no JVD. Evidence of prior left mandibulectomy surgery. CV: regular rate and rhythm, no murmurs CHEST: Port present on right chest, no surrounding erythema or induration PULM: clear bilaterally ABD: soft, nontender, nondistended, no organomegaly EXT: warm and well perfused with no edema, left extremity with bandage over hip. Pain to palpation of the L hip. NEURO: awake, alert, oriented, no focal deficits Objective Labs Result Diagrams: 11/11/21 06:05 11/11/21 06:05 Labs: Laboratory Results - last 24 hr 11/10/21 11/10/21 11/11/21 08:31 08:31 06:05 WBC 8.7 8.3 RBC 4.83 4.54 Hgb 14.2 13.2 L Hct 42.4 39.9 L MCV 87.7 87.9 MCH 29.3 29.1 MCHC 33.4 33.1 RDW 15.3 H 14.9 H Plt Count 209 203 Neut % (Auto) 92.9 H D 80.2 H Lymph % (Auto) 3.1 L 5.7 L [place] % (Auto) 3.7 10.3 Eos % (Auto) 0.1 L 3.1 Baso % (Auto) 0.2 0.7 Neut # (Auto) 8000 H 6700 Lymph # (Auto) 300 L 500 L [place] # (Auto) 300 900 Eos # (Auto) 0 300 Baso # (Auto) 0 100 Sodium 134 L Potassium 5.1 Chloride 98 Carbon Dioxide 27 BUN 19 Creatinine 1.04 Estimated GFR > 60 BUN/Creatinine Ratio 18.3 Glucose 157 H Hemoglobin A1c Calcium 8.6 11/11/21 11/11/21 06:05 06:05 WBC RBC Hgb Hct MCV MCH MCHC RDW Plt Count Neut % (Auto) Lymph % (Auto) [place] % (Auto) Eos % (Auto) Baso % (Auto) Neut # (Auto) Lymph # (Auto) [place] # (Auto) Eos # (Auto) Baso # (Auto) Sodium 136 L Potassium 4.6 Chloride 103 Carbon Dioxide 27 BUN 23 H Creatinine 0.93 Estimated GFR > 60 BUN/Creatinine Ratio 24.7 H Glucose 100 Hemoglobin A1c 5.5 Calcium 8.3 L PFSH Medical History Aortic root dilatation Atrial fibrillation, currently in sinus rhythm Chronic anticoagulation Cough Easy bruising HTN (hypertension) PAF (paroxysmal atrial fibrillation) (2014) Port-A-Cath in place (2014) Preoperative clearance Viral illness Surgical History History of surgery (2014) Hx of tonsillectomy Hx of total knee replacement Hx of transurethral resection of prostate Status post appendectomy Status post neck dissection (2014) Social History household members: spouse Smoking Status: Former smoker alcohol intake: never substance use type: does not use Assessment & Plan Assessment & Plan narrative: Srinivasa Perkins is a 76-year-old male with past medical history of paroxysmal atrial fibrillation on Eliquis, hypertension, hypothyroidism, squamous cell carcinoma of the left neck in remission and obesity who presents with left hip fracture after tripping over a gas station hose while filling up his car. # acute left femoral neck fracture -due to fall onto the pavement at a gas station -left hip x-ray showed impacted left femoral transcervical fracture -Dr. Meyers, ortho consulted by ED -continue home eliquis -pain well controlled on current regimen -PT/OT evals, partial weight bearing per ortho -patient requesting HH, ADHESIVE BONDING MACHINE OPERATOR to setup # acute fever, not present on admission -patient has port, will need to rule out line infection vs PNA vs UTI -Temp 100.6F on 11/09 -UA and CXR normal -Continue ceftriaxone and vanc -Blood cultures negative at 24 hours, if negative at 48 hours can stop abx # hypertension -BP elevated at 155/85 on admission -continue home losartan 50 mg at bedtime # neutrophilia with normal WBC -neutrophil count 780, WBC 9.1, afebrile -monitor for infection # obesity -BMI 31.9 # DVT prophylaxis -eliquis # hyperglycemia -glucose elevated since admission -A1c 5.5% # paroxysmal atrial fibrillation, chronic -continue elqiuis -continue home diltiazem 240 mg daily # hypothyroidism, chronic -continue home levothyroxine 50 mcg daily -TSH 2.78 # 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 Code status is full code COVID negative Proxy is Gen[facility]. I have reviewed home meds and used all available resources to reconcile the home meds. Time Spent With Patient Critical Care time: I spent a total of [] minutes of critical care time on this patient's care today; this time is exclusive of procedural time. Quality VTE Deep Vein Thrombosis/Pulmonary Embolism Present on Admission: No
--- NOTE | 2021-11-11 09:24 | P.PN_ITS ---
Subjective Subjective Date Patient Seen: 11/11/21 Time Patient Seen: 09:15 Interval history: Patient is now postoperative day 2. From a left hip closed reduction internal fixation of left femoral neck fracture. Patient is doing very well. Pain is well controlled with his oral medication. Has been up with physical therapy. Exam Vital Signs (past 8 hours): - 11/11/21 04:56 Temperature 97.7 F Pulse Rate 60 Respiratory Rate 18 Blood Pressure 123/58 L Pulse Oximetry 94 Oxygen Flow Rate 0 Oxygen Delivery Method Nasal Cannula Oxygen Flow Rate 0 Narrative Exam Narrative: Patient's dressing is clean, dry, and intact. Positive dorsiflexion plantar flexion of the toes and ankles. Nontender to palpation to the posterior aspect of the calves. Palpable pedal pulses. Objective Labs Result Diagrams: 11/11/21 06:05 11/11/21 06:05 Labs: Laboratory Results - last 24 hr 11/11/21 11/11/21 11/11/21 06:05 06:05 06:05 WBC 8.3 RBC 4.54 Hgb 13.2 L Hct 39.9 L MCV 87.9 MCH 29.1 MCHC 33.1 RDW 14.9 H Plt Count 203 Neut % (Auto) 80.2 H Lymph % (Auto) 5.7 L [place] % (Auto) 10.3 Eos % (Auto) 3.1 Baso % (Auto) 0.7 Neut # (Auto) 6700 Lymph # (Auto) 500 L [place] # (Auto) 900 Eos # (Auto) 300 Baso # (Auto) 100 Sodium 136 L Potassium 4.6 Chloride 103 Carbon Dioxide 27 BUN 23 H Creatinine 0.93 Estimated GFR > 60 BUN/Creatinine Ratio 24.7 H Glucose 100 Hemoglobin A1c 5.5 Calcium 8.3 L PFS Medical History Aortic root dilatation Atrial fibrillation, currently in sinus rhythm Chronic anticoagulation Cough Easy bruising HTN (hypertension) PAF (paroxysmal atrial fibrillation) (2014) Port-A-Cath in place (2014) Preoperative clearance Viral illness Surgical History History of surgery (2014) Hx of tonsillectomy Hx of total knee replacement Hx of transurethral resection of prostate Status post appendectomy Status post neck dissection (2014) Social History household members: spouse Smoking Status: Former smoker alcohol intake: never substance use type: does not use Assessment & Plan Post-op Postoperative Procedures: Procedures Operation Date: 11/09/21 18:00 Actual Procedure Side Surgeon p ORIF Left Femoral Neck Fracture/Cannulated Screws Left Clark Meyers MD Postoperative day: 2 Postoperative status: doing well Postoperative plan: routine post-op care Postoperative plan narrative: Patient doing well after surgery to the left hip. Patient will continue to mobilize with physical therapy. Patient can be discharged home when medically cleared. Quality VTE Deep Vein Thrombosis/Pulmonary Embolism Present on Admission: No
[2021-11-11] MEDS: ACETAMINOPHEN SUSP 650 MG/20.3 ML UDC 1000 MG PO ×3 (09:39→20:32)
[2021-11-11] MEDS: APIXABAN 5 MG TABLET PO ×2 (09:41→20:34)
[2021-11-11] MEDS: DOCUSATE 100 MG CAPSULE PO ×2 (09:41→20:34)
[2021-11-11] MEDS: dilTIAZem CD 240 MG CAP PO (09:46)
--- NOTE | 2021-11-11 10:52 | CM.DPC ---
Addendum entered by AVELINO Rodriguez 11/11/21 11:43: ADD: Per PT, pt now requesting HH as he will have transportation issues and HH recommended. SW updated MD who was agreeable with HH and signed the F2F. SW called [facility] based on Vendor Calendar as pt has no preference and based on HH availability and made new referral to [facility] and confirmed they should have openings within 48 hours this week from d/c and SW faxed referral for review along with signed F2F and HH orders. Plan: SW to follow for likely d/c home with new [facility] and just faxing d/c summary to [facility] at discharge. BF Original Note: DCP Cont: Per MD, pt's final cultures will return tonight and if negative then pt can d/c home tomorrow if he remains medically stable. Per PT/OT, recommending safe d/c to home with spouse assist and PT set up further CG training for today around 1030 for stairs and pt could possibly benefit from HH. Per MD, pt really likes his established outpt PT and wants to continue with outpt rather than HH. Plan: SW to follow for final cultures to return to confirm plan of home via spouse POV tomorrow Mon with outpt PT f/u. AVELINO Rodriguez
--- NOTE | 2021-11-11 11:06 | PT.IPTN ---
Current Diagnoses Displaced midcervical fracture of left femur, initial encounter for closed fracture (11/08/21) Surgery Performed Operation Date: 11/09/21 18:00 Actual Procedures p ORIF Left Femoral Neck Fracture/Cannulated Screws(Left) - Clark Meyers MD Physical Therapy Treatment Note M2 PT-IP Current Condition Start: 11/10/21 12:47 Freq: NEEDED Status: Active Protocol: Document 11/10/21 10:00 AB (Rec: 11/10/21 13:08 AB [email or web address]) Physical Therapy Current Condition Current Condition Evaluation Date 11/10/21 Treatment Diagnosis L fem fx s/p close reduction & fixation; difficulty in walking Onset Date 11/08/21 M3 PT-IP Subjective Start: 11/10/21 12:47 Freq: NEEDED Status: Active Protocol: Document 11/11/21 11:06 NBM (Rec: 11/11/21 13:19 NBM [id number]) Subjective Physical Therapy Visit Type Type Treatment Note Visit Start Time 10:33 Visit Stop Time 11:06 Total Visit Minutes 33 Notes 50% PWB Number of DIRECTOR OF NATIONAL SALES Visits 1 Physical Therapy Visit Comments Patient Comments agreeable to do PT; spouse in room for caregiver training M4 PT-IP Mobility and Gait Start: 11/10/21 12:47 Freq: NEEDED Status: Active Protocol: Document 11/11/21 11:06 NBM (Rec: 11/11/21 13:19 NBM [id number]) PT-Bed Mobility Assessment Supine to Sit Supine to Sit Minimal Assistance,Moderate Assistance Sit to Supine Sit to Supine Minimal Assistance,Moderate Assistance Scooting Scooting to Edge of Bed Standby Assistance Scooting Up and Down in Bed Independent PT-Transfer Assessment Sit to and From Stand Sit to and from Stand Contact Guard Assistance, Minimal Assistance,1 Person Assistance,Use of Upper Extremities Equipment Transfer Assistive Device Gait Belt,Front Wheeled Walker Orthotic/Prosthetic Devices or Brace: No Transfers Transfer Destination Bed Transfer Technique ambulated Transfer Ability Level of Assist Minimal Assistance,1 Person Assistance,Use of Upper Extremities Comments Mobility Comments Pt in bed upon arrival. Spouse in room for caregiver training. Pt completed ankle pumps, heel slides and SAQ. Pt SBA to min A with bed mobility, completed supine to sit SBA to min A w/ min cues. Pt able to sit on EOB SBA. Spouse was able to put safety belt on w/ min cues from pt. Sit<>stand w/ caregiver modA with mod cues for technique while adhereing to LLE PWB restriction. Pt ambulated ~ 10ft w/FWW Abelardo, min cues for upright posture and weightbearing into UE. Pt completed ascending/descending PF w/ FWW x 2 (backwards approach ascending) w/ mod A and use of UE - caregiver provided assistance w/ 2nd rep successfully. Pt requested to return to bed d/t fatigue. Pt ambulated w/FWW CGA to bed and stand<>sit w/ mod cues for PWB technique. EOB<>supine Abelardo from caregiver w/ cues from PT to hook R foot under L - Abelardo from caregiver at end range. Pt ind w/ bed positioning. Call light and all needs within reach. Gait Assessment Gait Gait Assistance Required: Minimum Assistance Distance (Feet) 20 Able to Maintain Weight Bearing Status Yes During Gait Assistive Devices Assistive Device Gait Belt,Front Wheeled Walker Orthotic/Prosthetic Devices or Brace: No Gait Deviations General Gait Pattern Antalgic,Decreased Stride Length,Decreased Feet Clearance Factors Limiting Gait Function Factors Limiting Gait Function Decreased Activity Tolerance, Decreased Strength,Limited Range of Motion,Pain,Poor Balance,Poor Safety Awareness, Respiratory Distress Comments Gait Comments see Mobility Stair Climbing Assessment Evaluation Level of Assist On Stairs Moderate Assistance,1 Person Assistance Devices Stair Climbing Assistive Devices Front Wheel Walker Technique/Endurance Stair Climbing Direction Ascend and Descend Stair Climbing Technique Step to Step Number of Steps Climbed 1 Stair Climbing Set # Repetitions (reps) 2 Comments Stair Climbing Comments platform step w/ backwards approach for ascension. PT-Balance Assessment Sitting Balance and Reactions Static Sitting Balance Ability Good Dynamic Sitting Balance Ability Good Standing Balance and Reactions Static Standing Balance Ability Fair Dynamic Standing Balance Ability Fair Device Used FWW M5 PT-IP Objective Assessments Start: 11/10/21 12:47 Freq: NEEDED Status: Active Protocol: Document 11/10/21 10:00 AB (Rec: 11/10/21 13:08 AB [email or web address]) Orientation Orientation/Cognition Level of Alertness Alert Orientation Name,Age,Birthday,Month,Date, Year,Day of Week,Place, Situation Language Function Ability No Deficits Noted Safety Awareness Understands Safety Issues Memory Description No Deficits Noted Gross Range of Motion Lower Extremity ROM Assessment Right Impaired Impairments R knee extension : ~ 15 deg less to 0 Strength Lower Extremity Strength Hip 4-/5 Knee 4-/5 Coordination Assessment Gross Coordination Gross Coordination WNL Sensation Assessment Sensation Gross Sensation WNL Muscle Tone Muscle Tone WNL Yes M6 PT-IP Treatment Start: 11/10/21 12:47 Freq: NEEDED Status: Active Protocol: Document 11/11/21 11:06 NBM (Rec: 11/11/21 13:19 [facility] [id number]) Physical Therapy Treatment Exercises Exercises Ankle Pumps,Heel Slides,Short Arc Quads Education Education Provided Precautions,Weight Bearing Status,Safety M7 PT-IP Assessment and Plan Start: 11/10/21 12:47 Freq: NEEDED Status: Active Protocol: Document 11/11/21 11:06 NBM (Rec: 11/11/21 13:19 [facility] [id number]) PT Summary Assessment and Plan Potential Rehabilitation Potential Fair Summary Impairments Pain,ROM,Strength,Balance, Coordination,Sensation,Tone, Cognition,Bed Mobility, Transfers,Gait,Activity Tolerance Progress Towards Goals Slow Progress due to Activity Tolerance Assessment Summary Pt SBA to min A with bed mobility. Caregiver placed and secured safety belt correctly w/ min cues from pt. Pt progress is challenged w/ activity tolerance as pt walked in room ~20ft total and performed 2 reps up/down 1 PF step and was fatigued. Pt completed ascending/descending backwards w/ PF x 2 w/ mod A and use of UE. Pt would benefit from HHPT which pt and caregiver now request - HH notified. Goals Bed Mobility Goal Independent Transfer Goal Independent,Front Wheeled Walker Gait Goal Independent,Front Wheel Walker Gait Distance 50 Other Goals up/down 1 step using fWW CGA Days to Meet Goals 5 Frequency of Treatment Frequency Of Treatment Twice a Day Treatment Plan Physical Therapy Treatment Plan Bed Mobility Training,Transfer Training,Gait Training, Therapeutic Exercise,Balance Retraining,Post Op Education, Discharge Planning,Hot or Cold Pack,Neuromuscular Re-ed, Coordination Retraining,Manual Therapy Weight Bearing Status Weight Bearing Status Partial Weight Bearing Allowed Weight Bearing Amount (enter % LLE: 50% PWB or #) (%) Recommendations To Nursing Amount of Assist Needed 1 Person Assist Discharge Recommendations PT Discharge Recommendations Home with 11/11 Assist Available,Home Health, Outpatient PT Transportation Needs at Discharge Private Vehicle
[2021-11-11 12:00] VITALS: BP 135/79; PULSE 76; RESP 16; TEMP 36.6; O2SAT 92
--- NOTE | 2021-11-11 14:02 | PT-IP ANOTE ---
Checked on pt - pt sleeping.
--- NOTE | 2021-11-11 16:32 | PT.IPTN ---
Current Diagnoses Displaced midcervical fracture of left femur, initial encounter for closed fracture (11/08/21) Surgery Performed Operation Date: 11/09/21 18:00 Actual Procedures p ORIF Left Femoral Neck Fracture/Cannulated Screws(Left) - Clark Meyers MD Physical Therapy Treatment Note M2 PT-IP Current Condition Start: 11/10/21 12:47 Freq: NEEDED Status: Active Protocol: Document 11/10/21 10:00 AB (Rec: 11/10/21 13:08 AB [id number]) Physical Therapy Current Condition Current Condition Evaluation Date 11/10/21 Treatment Diagnosis L fem fx s/p close reduction & fixation; difficulty in walking Onset Date 11/08/21 M3 PT-IP Subjective Start: 11/10/21 12:47 Freq: NEEDED Status: Active Protocol: Document 11/11/21 16:32 NBM (Rec: 11/11/21 18:02 NBM [id number]) Subjective Physical Therapy Visit Type Type Treatment Note Visit Start Time 16:03 Visit Stop Time 16:32 Total Visit Minutes 29 Notes 50% PWB Number of CANINE SERVICE INSTRUCTOR TRAINER Visits 2 Physical Therapy Visit Comments Patient Comments agreeable to do PT; states spouse checked and two stairs into house, not three; wants to shower right after. M4 PT-IP Mobility and Gait Start: 11/10/21 12:47 Freq: NEEDED Status: Active Protocol: Document 11/11/21 16:32 NBM (Rec: 11/11/21 18:02 NBM [id number]) PT-Transfer Assessment Sit to and From Stand Sit to and from Stand Contact Guard Assistance, Minimal Assistance,1 Person Assistance,Use of Upper Extremities Equipment Transfer Assistive Device Gait Belt,Front Wheeled Walker Orthotic/Prosthetic Devices or Brace: No Transfers Transfer Destination Bedside Commode Transfer Technique ambulated Transfer Ability Level of Assist Minimal Assistance,1 Person Assistance,Use of Upper Extremities Comments Mobility Comments Pt in bed upon arrival w/ hearing aids in and wants to shower after PT. Advised pt to wait while nursing was notified, returned and pt was sitting EOB - advised to wait for assistance. Sit<>stand w / caregiver Abelardo with min cues for technique while adhereing to LLE PWB restriction. Pt ambulated ~150ft w/FWW CGA, min cues for upright posture and weightbearing into UE. Stand<>Sit Abelardo in w/c for FWW height adj. Sit<>Stand and ambulated w/FWW CGA ~5 ft to practice stairs w/ PF at base. Pt completed ascending/ descending PF then 6 step w/ FWW x 1 Abelardo (backwards approach ascending). Pt requested return to w/c d/t fatigue. Stand<>sit w/c. In room Sit<>stand Abelardo and ambulation ~5ft to shower commode. Stand<>sit modA w/ cues for shower bar support and LLE extension. Pt left on shower commode w/ TAPERING MACHINE OPERATOR. Gait Assessment Gait Gait Assistance Required: Minimum Assistance Distance (Feet) 160 Able to Maintain Weight Bearing Status Yes During Gait Assistive Devices Assistive Device Gait Belt,Front Wheeled Walker Orthotic/Prosthetic Devices or Brace: No Gait Deviations General Gait Pattern Antalgic,Decreased Stride Length,Decreased Feet Clearance Factors Limiting Gait Function Factors Limiting Gait Function Decreased Activity Tolerance, Decreased Strength,Limited Range of Motion,Pain,Poor Balance,Poor Safety Awareness, Respiratory Distress Comments Gait Comments see Mobility Stair Climbing Assessment Evaluation Level of Assist On Stairs Moderate Assistance,1 Person Assistance Devices Stair Climbing Assistive Devices Front Wheel Walker Technique/Endurance Stair Climbing Direction Ascend and Descend Stair Climbing Technique Step to Step Number of Steps Climbed 2 Stair Climbing Set # Repetitions (reps) 1 Comments Stair Climbing Comments platform step then 6 to mimic home entrance w/ backwards approach for ascension. PT-Balance Assessment Sitting Balance and Reactions Static Sitting Balance Ability Good Dynamic Sitting Balance Ability Good Standing Balance and Reactions Static Standing Balance Ability Fair Dynamic Standing Balance Ability Fair Device Used FWW M5 PT-IP Objective Assessments Start: 11/10/21 12:47 Freq: NEEDED Status: Active Protocol: Document 11/10/21 10:00 AB (Rec: 11/10/21 13:08 AB [id number]) Orientation Orientation/Cognition Level of Alertness Alert Orientation Name,Age,Birthday,Month,Date, Year,Day of Week,Place, Situation Language Function Ability No Deficits Noted Safety Awareness Understands Safety Issues Memory Description No Deficits Noted Gross Range of Motion Lower Extremity ROM Assessment Right Impaired Impairments R knee extension : ~ 15 deg less to 0 Strength Lower Extremity Strength Hip 4-/5 Knee 4-/5 Coordination Assessment Gross Coordination Gross Coordination WNL Sensation Assessment Sensation Gross Sensation WNL Muscle Tone Muscle Tone WNL Yes M6 PT-IP Treatment Start: 11/10/21 12:47 Freq: NEEDED Status: Active Protocol: Document 11/11/21 16:32 NB (Rec: 11/11/21 18:02 [facility] [id number]) Physical Therapy Treatment Education Education Provided Precautions,Weight Bearing Status,Safety M7 PT-IP Assessment and Plan Start: 11/10/21 12:47 Freq: NEEDED Status: Active Protocol: Document 11/11/21 16:32 NB (Rec: 11/11/21 18:02 [facility] [id number]) PT Summary Assessment and Plan Potential Rehabilitation Potential Fair Summary Impairments Pain,ROM,Strength,Balance, Coordination,Sensation,Tone, Cognition,Bed Mobility, Transfers,Gait,Activity Tolerance Progress Towards Goals Safe For Discharge,Goals Met Assessment Summary Improved activity tolerance from this morning ~20ft total ambulation w/FWW CGA and 1 PF step x2 w/FWW modA to ~160ft w /FWW CGA and two steps (PF,6) x 1 rep w/FWW Abelardo this treatment. Backwards approach ascending. Occasional cues for LLE extension with Sit<>Stand . Pt able to maintain PWB status. Current goals met at this time and pt okay to d/c home and would benefit from HHPT for continued strengthening and conditioning . Goals Bed Mobility Goal Independent Transfer Goal Independent,Front Wheeled Walker Gait Goal Independent,Front Wheel Walker Gait Distance 50 Other Goals up/down 1 step using fWW CGA Days to Meet Goals 5 Frequency of Treatment Frequency Of Treatment Twice a Day Treatment Plan Physical Therapy Treatment Plan Bed Mobility Training,Transfer Training,Gait Training, Therapeutic Exercise,Balance Retraining,Post Op Education, Discharge Planning,Hot or Cold Pack,Neuromuscular Re-ed, Coordination Retraining,Manual Therapy Weight Bearing Status Weight Bearing Status Partial Weight Bearing Allowed Weight Bearing Amount (enter % LLE: 50% PWB or #) (%) Recommendations To Nursing Amount of Assist Needed 1 Person Assist Discharge Recommendations PT Discharge Recommendations Home with 11/11 Assist Available,Home Health, Outpatient PT Transportation Needs at Discharge Private Vehicle
[2021-11-11] MEDS: cefTRIAXone 2,000 MG in SODIUM CHLORIDE 0.9% 100 ML 200 MG IV (18:15)
[2021-11-11 20:00] VITALS: BP 135/63; PULSE 68; RESP 14; TEMP 35.8; O2SAT 94
[2021-11-11] MEDS: MAGNESIUM HYDROXIDE 30 ML UDC PO (20:33)
[2021-11-11] MEDS: VANCOMYCIN 1,750 MG in SODIUM CHLORIDE 0.9% 500 ML 250 MG IV (20:33)
[2021-11-11 20:34] VITALS: BP 135/63; PULSE 68
[2021-11-11] MEDS: GABAPENTIN 300 MG CAPSULE PO (20:34)
[2021-11-11] MEDS: LOSARTAN 50 MG TABLET PO (20:34)
[2021-11-12] MEDS: LEVOTHYROXINE 50 MCG TABLET PO (06:24)
[2021-11-12] MEDS: OXYCODONE IR 10 MG TABLET PO ×5 (06:28→21:13)
[2021-11-12 07:25] VITALS: BP 138/61; PULSE 75; RESP 19; TEMP 36.4; O2SAT 97
--- NOTE | 2021-11-12 07:31 | P.PN_ITS ---
Subjective Subjective Date Patient Seen: 11/12/21 Time Patient Seen: 07:31 Interval history: Patient is complaining of [id number] left hip pain this morning. Overall he is feeling well. He is concerned about going home and is requesting to stay another day. I explained his disposition is based on his medical issues and passing physical therapy. He denies any fevers, chills, night sweats. Exam Vital Signs (past 8 hours): Oxygen Delivery Method Nasal Cannula Oxygen Flow Rate 0 Narrative Exam Narrative: Pleasant 76-year-old male, resting comfortably in bed, no acute distress. Dressing demonstrates some serosanguineous drainage approximately 50% of the bandage. There is no surrounding erythema or induration. Bilateral lower extremity: Motor functions are grossly intact, sensation is grossly intact to light touch, calves are soft and nontender to palpation. Objective Labs Result Diagrams: 11/11/21 06:05 11/11/21 06:05 [facility] Medical History Aortic root dilatation Atrial fibrillation, currently in sinus rhythm Chronic anticoagulation Cough Easy bruising HTN (hypertension) PAF (paroxysmal atrial fibrillation) (2014) Port-A-Cath in place (2014) Preoperative clearance Viral illness Surgical History History of surgery (2014) Hx of tonsillectomy Hx of total knee replacement Hx of transurethral resection of prostate Status post appendectomy Status post neck dissection (2014) Social History household members: spouse Smoking Status: Former smoker alcohol intake: never substance use type: does not use Assessment & Plan Post-op Postoperative Procedures: Procedures Operation Date: 11/09/21 18:00 Actual Procedure Side Surgeon p ORIF Left Femoral Neck Fracture/Cannulated Screws Left Clark Meyers MD Postoperative day: 3 Postoperative status: doing well Postoperative status narrative: Stable status post closed reduction internal fixation left femoral neck fracture Postoperative plan narrative: Patient will follow-up postop protocol for closed reduction internal fixation left femoral neck fracture, can be partial weight- bearing to left lower extremity Disposition, per hospitalist. Patient is requesting to stay another night, I explained it will be dependent on his medical issues including physical therapy. -orthopedics to sign off at this point. Please not hesitate to re-consult with any questions or concerns. Quality VTE Deep Vein Thrombosis/Pulmonary Embolism Present on Admission: No
[2021-11-12] MEDS: DOCUSATE 100 MG CAPSULE PO ×2 (08:34→21:03)
[2021-11-12] MEDS: dilTIAZem CD 240 MG CAP PO (08:34)
[2021-11-12] MEDS: ACETAMINOPHEN SUSP 650 MG/20.3 ML UDC 1000 MG PO ×2 (08:34→21:04)
[2021-11-12] MEDS: APIXABAN 5 MG TABLET PO ×2 (08:34→21:03)
--- NOTE | 2021-11-12 10:05 | OT.IP.TRT ---
Current Diagnoses Displaced midcervical fracture of left femur, initial encounter for closed fracture (11/08/21) Surgery Performed Operation Date: 11/09/21 18:00 Actual Procedures p ORIF Left Femoral Neck Fracture/Cannulated Screws(Left) - Clark Meyers MD Occupational Therapy Treatment Note M2 OT-IP Current Condition Start: 11/10/21 11:01 Freq: Status: Active Protocol: Document 11/10/21 11:02 CGR (Rec: 11/10/21 11:22 CGR [id number]) Occupational Therapy Current Condition Current Condition Evaluation Date 11/10/21 Treatment Diagnosis L hip fx, underwent closed reduction and internal fixation 11/09/21 Diagnosis Onset Date 11/08/21 Weight Bearing Status Weight Bearing Status Partial Weight Bearing Allowed Weight Bearing Amount (enter % 50% or less or #) (%) M3 OT- IP Subjective and Pain Start: 11/10/21 11:01 Freq: Status: Active Protocol: Document 11/12/21 10:19 CGR (Rec: 11/12/21 10:29 CGR [id number]) OT- Subjective Occupational Therapy Visit Type Type Progress Note Visit Start Time 09:41 Visit Stop Time 10:05 Total Visit Minutes 24 Notes Pt about to get up with nursing. Occupational Therapy Visit Comments Patient Comments I need to move my bowels OT Pain Assessment Pain When Pain Assessed During Mobility Pain Present Pain Present Pain Reported Location Left Upper Leg Scale Used did not rate Pain Behaviors Facial Grimacing Management Techniques Distraction,Modification of Treatment,Re-positioning M4 OT- IP ADL's Start: 11/10/21 11:01 Freq: Status: Active Protocol: Document 11/12/21 10:19 CGR (Rec: 11/12/21 10:29 CGR [id number]) OT [id number] Comments OT Self-Feeding Comments not meal time OT ADL-Grooming General Evaluation Grooming Ability Standby Assistance Areas Needing Assistance Face Washing Comments OT Grooming Comments standing at sink OT ADL-Oral Care General Eval Oral Care Ability Standby Assistance Areas of Assistance Brushing Teeth,Retrieving/Set- Up of Items Comments Oral Care Comments standing at sink OT ADL-Dressing Comments OT Dressing Comments not performed OT ADL-Toileting General Evaluation Toileting Ability Minimal Assistance Areas Needing Assistance Perform Perineal Hygiene Comments OT Toileting Comments Pt was able to perform back pericare but this sign writer letterer or painter assisted with wet wipes after pt had washed hands for throughness. OT ADL-Bathing Comments OT Bathing Comments not performed M5 OT- IP IADL's Start: 11/10/21 11:01 Freq: Status: Active Protocol: Document 11/10/21 11:02 CGR (Rec: 11/10/21 11:22 CGR [id number]) OT-Instrumental Activities of Daily Living Deficits IADL Deficits Identified No Deficits Home Safety Awareness Awareness of Need for Assistance at Home Good Awareness Ability to Problem Solve Emergency Able to Problem Solve Situations Medication Management Medication Management No Deficits Identified Money Management Money Management No Deficits Identified Meal Preparation Meal Preparation Caregiver Provides Assist Funeral Service Apprentice Funeral Service Apprentice Caregiver Provides Assist Driving Driving Comments Pt understands that he can not drive till cleared by his MD. M6 OT- IP Functional Cognition Start: 11/10/21 11:01 Freq: Status: Active Protocol: Document 11/10/21 11:02 CGR (Rec: 11/10/21 11:22 CGR [id number]) Cognitive Factors Limiting Selfcare Function Cognitive Ability Level of Alertness Alert Patient Orientation Name,Age,Birthday,Month,Date, Year,Day of Week,Place, Situation Attention Span Ability Capable of Focused Attention, Capable of Sustained Attention Ability to Follow Commands Able to Follow Multi-Step Commands OT- Vision and Hearing OT- Hearing Assessment OT- Hearing Assessment Hearing Impaired,Use of Hearing Aids OT- Vision Assessment Visual Acuity Glasses All The Time Visual Attentiveness WFL Occular Pursuits WFL Visual Convergence WFL Vision Assessment Comments Pt wears bifocals M7 OT- IP Mobility and Balance Start: 11/10/21 11:01 Freq: Status: Active Protocol: Document 11/12/21 10:19 CGR (Rec: 11/12/21 10:29 R [id number]) OT- Bed Mobility Assessment Supine to Sit Supine to Sit Assist Contact Guard Assistance Sit to Supine Sit to Supine Assist Contact Guard Assistance Scooting Scooting to Edge of Bed Independent OT-Transfer Assessment Sit to and From Stand Sit to and from Stand Standby Assistance Transfers Transfer Ability Standby Assistance,Minimal Assistance Technique Transfer Destination Bed,Chair,Toilet Transfer Technique Stand Step Pivot Devices Transfer Assistive Devices Gait Belt,Front Wheeled Walker Comments Mobility Comments Pt was able to perform bed mobility with HOB ~20 degrees and no physical assist. Pt then performed all transfers with SBA except for sit to stand from toilet where he required min a. Endurance was adequate to have BM seated on toilet then ambulate to sink for ADLs, return to chair, and then return to bed. OT- Balance Assessment Sitting Balance and Reactions Static Sitting Balance Ability Good Dynamic Sitting Balance Ability Good M8 OT- IP Objective Assessments Start: 11/10/21 11:01 Freq: Status: Active Protocol: Document 11/10/21 11:02 CGR (Rec: 11/10/21 11:22 CGR [id number]) OT Gross Range of Motion Upper Extremity Range of Motion Assessment Within Functional Limits OT Strength Upper Extremity Strength Assessment Within Functional Limits Comments Strength Comments 08/23 OT- Coordination Assessment Upper Extremity Finger to Nose Test Within Functional Limits Finger Tapping Test Within Functional Limits OT-Muscle Tone Assessment Muscle Tone WNL Yes OT Sensation Assessment Comments Summary Comments Pt states he has no sensation to the L side of his face from a previous facial sx. All sensation is typical for his baseline at this time. M9 OT- IP Assessment and Plan Start: 11/10/21 11:01 Freq: Status: Active Protocol: Document 11/12/21 10:19 CGR (Rec: 11/12/21 10:29 CGR [id number]) OT Summary Assessment and Plan Potential Rehabilitation Potential Excellent Analytic Complexity at Evaluation Moderate Summary OT Impairments Pain,Balance,Functional Mobility,Grooming,Dressing, Toileting,Bathing,Toilet Transfers,Shower Transfers, Activity Tolerance Progress Towards Goals Progressing Toward Goals Assessment Summary Pt presents as a moderate complexity evaluation s/p admit for fall with L hip fx and underwent 11/09/21 closed fixation of the hip. Pt is 50% or less wb to the L hip. Pt is mobilizing with SBA for most mobility although he needed min a for sit to stand from toilet. Pt is safe for discharge home with 2ww, tub transfer bench (tub is on the main level) and a toilet riser with arm rails. Goals Grooming Goal Independent Dressing Goal Independent Toileting Goal Independent Bathing Goal Independent Toilet Transfer Goal Independent Shower Transfer Goal Independent Days to Meet Goals 5 Frequency of Treatment Frequency Of Treatment Once a Day Treatment Plan OT Treatment Plan ADL Training,Functional Mobility,Patient/Family Education,Discharge Planning Other Treatment Recommendations and Next Shower, LB dressing Treatment Focus Discharge Recommendations OT Discharge Recommendations Home with Assistance Home Equipment Needs tub transfer bench, 2ww, toilet riser with arm rests, w /c Transportation Needs at Discharge Private Vehicle
--- NOTE | 2021-11-12 10:35 | PT.IPTN ---
Current Diagnoses Displaced midcervical fracture of left femur, initial encounter for closed fracture (11/08/21) Surgery Performed Operation Date: 11/09/21 18:00 Actual Procedures p ORIF Left Femoral Neck Fracture/Cannulated Screws(Left) - Clark Meyers MD Physical Therapy Treatment Note M2 PT-IP Current Condition Start: 11/10/21 12:47 Freq: NEEDED Status: Active Protocol: Document 11/12/21 10:10 SP (Rec: 11/12/21 11:24 SP [id number]) Physical Therapy Current Condition Current Condition Evaluation Date 11/10/21 Treatment Diagnosis L fem fx s/p close reduction & fixation; difficulty in walking Onset Date 11/08/21 M3 PT-IP Subjective Start: 11/10/21 12:47 Freq: NEEDED Status: Active Protocol: Document 11/12/21 10:10 SP (Rec: 11/12/21 11:24 SP [id number]) Subjective Physical Therapy Visit Type Type Treatment Note Visit Start Time 10:10 Visit Stop Time 10:35 Total Visit Minutes 25 Notes 50% PWB Vitals taken pre mobility: BP 132/75, Hr 84 SaO2 96% on RA. MARTHA Otto assisted with vital assessment and any need during tx while being directly supervised by JOVAN Bob. Number of VENEER TAPER Visits 3 Physical Therapy Visit Comments Patient Comments Pt agreeable to working with therapy. Patient Goals To return home with to assist him but not until tomorrow due to decreased pain control and inability to get DME required until tomorrow from business borrowing. M4 PT-IP Mobility and Gait Start: 11/10/21 12:47 Freq: NEEDED Status: Active Protocol: Document 11/12/21 10:10 SP (Rec: 11/12/21 11:24 SP [id number]) PT-Bed Mobility Assessment Supine to Sit Supine to Sit Contact Guard Assistance, Bedrails Sit to Supine Sit to Supine Standby Assistance,Bedrails Scooting Scooting to Edge of Bed Standby Assistance PT-Transfer Assessment Sit to and From Stand Sit to and from Stand Minimal Assistance,1 Person Assistance,Use of Upper Extremities Equipment Transfer Assistive Device Gait Belt,Front Wheeled Walker Orthotic/Prosthetic Devices or Brace: No Transfers Transfer Destination Bed Transfer Technique pt ambulated using FWW Transfer Ability Level of Assist Contact Guard Assistance,Use of Upper Extremities Comments Mobility Comments Pt in bed upon arrival. Good recall to WB allowance and precautions. Reviewed post op exercises: AP, HS. Complete supine to sit and scoot to EOB with HOB flat heavy use of bed rail CGA. Sit>stand Min A initially for trunk support. Gait to portable step 5 ft using FWW, CGA Step to patterning, complete ascend/ descend portable step using FWW retro ascend/forward descend to maintain PWB 50% on LLE. Pt returned to bed 5 ft w/ FWW CGA, and descend to sit in bed w/ proper hand placement. Pt declined further mobility due to increased pain in L hip, no scale rating given. Complete sit>supine SBA with RLE hook support to L LE into bed and self centering. Reapplied SCDs to BLE and pt had call light, bed alarmed and all needs in reach before left. Gait Assessment Gait Gait Assistance Required: Contact Guard Assist Distance (Feet) 10 Able to Maintain Weight Bearing Status Yes During Gait Assistive Devices Assistive Device Gait Belt,Front Wheeled Walker Orthotic/Prosthetic Devices or Brace: No Gait Deviations General Gait Pattern Antalgic,Decreased Stride Length,Decreased Feet Clearance,Step-to Gait Factors Limiting Gait Function Factors Limiting Gait Function Decreased Activity Tolerance, Decreased Strength,Limited Range of Motion,Pain Comments Gait Comments see mobility comments Stair Climbing Assessment Evaluation Level of Assist On Stairs Contact Guard Assistance, Minimal Assistance,1 Person Assistance Devices Stair Climbing Assistive Devices Front Wheel Walker Technique/Endurance Stair Climbing Direction Ascend and Descend Stair Climbing Technique Step to Step Number of Steps Climbed 1 Stair Climbing Set # Repetitions (reps) 1 Comments Stair Climbing Comments platform step then 6 to mimic home entrance w/ backwards approach for ascension to allow maintain downward pressure teresa FWW and 50% WB to LLE. PT-Balance Assessment Sitting Balance and Reactions Static Sitting Balance Ability Normal Dynamic Sitting Balance Ability Good Standing Balance and Reactions Static Standing Balance Ability Good Dynamic Standing Balance Ability Fair Device Used FWW M5 PT-IP Objective Assessments Start: 11/10/21 12:47 Freq: NEEDED Status: Active Protocol: Document 11/10/21 10:00 AB (Rec: 11/10/21 13:08 AB [id number]) Orientation Orientation/Cognition Level of Alertness Alert Orientation Name,Age,Birthday,Month,Date, Year,Day of Week,Place, Situation Language Function Ability No Deficits Noted Safety Awareness Understands Safety Issues Memory Description No Deficits Noted Gross Range of Motion Lower Extremity ROM Assessment Right Impaired Impairments R knee extension : ~ 15 deg less to 0 Strength Lower Extremity Strength Hip 4-/5 Knee 4-/5 Coordination Assessment Gross Coordination Gross Coordination WNL Sensation Assessment Sensation Gross Sensation WNL Muscle Tone Muscle Tone WNL Yes M6 PT-IP Treatment Start: 11/10/21 12:47 Freq: NEEDED Status: Active Protocol: Document 11/12/21 10:10 SP (Rec: 11/12/21 11:24 SP [id number]) Physical Therapy Treatment Exercises Exercises Ankle Pumps,Heel Slides,Seated Knee Flexion/Extension Education Education Provided Precautions,Weight Bearing Status,Safety M7 PT-IP Assessment and Plan Start: 11/10/21 12:47 Freq: NEEDED Status: Active Protocol: Document 11/12/21 10:10 SP (Rec: 11/12/21 11:24 SP [id number]) PT Summary Assessment and Plan Potential Rehabilitation Potential Fair Status of Condition at Evaluation Evolving Summary Impairments Pain,ROM,Strength,Balance, Coordination,Sensation,Tone, Cognition,Bed Mobility, Transfers,Gait,Activity Tolerance Progress Towards Goals Progressing Toward Goals,Slow Progress due to Pain,Slow Progress due to Activity Tolerance Assessment Summary Pt improving in decreased support needed for mobility, good maintaining WB precautions, CGA throughout w/ FWW, Min A with PF step mgt. Pt having pain which limited his activity tolerance, and awaiting DME from [employer] tomorrow. Pt is ok to return home with when medically stable. Recommending HHPT for progress strength and mobility . Goals Bed Mobility Goal Independent Transfer Goal Independent,Front Wheeled Walker Gait Goal Independent,Front Wheel Walker Gait Distance 50 Other Goals up/down 1 step using fWW CGA Days to Meet Goals 5 Frequency of Treatment Frequency Of Treatment Twice a Day Treatment Plan Physical Therapy Treatment Plan Bed Mobility Training,Transfer Training,Gait Training, Therapeutic Exercise,Balance Retraining,Post Op Education, Discharge Planning,Hot or Cold Pack,Neuromuscular Re-ed, Coordination Retraining,Manual Therapy Other Recommendations and Next Treatment LE ex, gait distance w/ FWW. Focus Weight Bearing Status Weight Bearing Status Partial Weight Bearing Allowed Weight Bearing Amount (enter % LLE: 50% PWB or #) (%) Recommendations To Nursing Amount of Assist Needed 1 Person Assist Discharge Recommendations PT Discharge Recommendations Home with Assistance,Home Health,Outpatient PT Equipment Needed for Home Before FWW, BSC, transfer bench Discharge Transportation Needs at Discharge Private Vehicle
--- NOTE | 2021-11-12 13:13 | PM.PN.1 ---
Subjective Subjective Date Patient Seen: 11/12/21 Interval history: Complains of more fatigue, slight increase in pain in L leg today. Feels weaker today than prior. No chest pain, shortness of breath, cough, abdominal pain, or dysuria. Exam Vital Signs (past 8 hours): - 11/12/21 07:25 Temperature 97.5 F L Pulse Rate 75 Respiratory Rate 19 Blood Pressure 138/61 Pulse Oximetry 97 Oxygen Flow Rate 0 Oxygen Delivery Method Nasal Cannula Oxygen Flow Rate 0 Narrative Exam Narrative: GEN: no acute distress HEENT: moist mucous membranes, PERRL NECK: trachea midline, no JVD. Evidence of prior left mandibulectomy surgery. CV: regular rate and rhythm, no murmurs CHEST: Port present on right chest, no surrounding erythema or induration PULM: clear bilaterally no wheezes rhonchi or rales ABD: soft, nontender, nondistended, no organomegaly EXT: warm and well perfused with no edema, left extremity with bandage over hip. Pain to palpation of the L hip more distal to the incision. NEURO: awake, alert, oriented, no focal deficits Objective Labs Result Diagrams: 11/11/21 06:05 11/11/21 06:05 [facility] Medical History Aortic root dilatation Atrial fibrillation, currently in sinus rhythm Chronic anticoagulation Cough Easy bruising HTN (hypertension) PAF (paroxysmal atrial fibrillation) (2014) Port-A-Cath in place (2014) Preoperative clearance Viral illness Surgical History History of surgery (2014) Hx of tonsillectomy Hx of total knee replacement Hx of transurethral resection of prostate Status post appendectomy Status post neck dissection (2014) Social History household members: spouse Smoking Status: Former smoker alcohol intake: never substance use type: does not use Assessment & Plan Assessment & Plan narrative: Srinivasa Perkins is a 76-year-old male with past medical history of paroxysmal atrial fibrillation on Eliquis, hypertension, hypothyroidism, squamous cell carcinoma of the left neck in remission and obesity who presents with left hip fracture after tripping over a gas station hose while filling up his car. Course complicated by post operative fever, and fatigue today. With h/h drop today concern for possible hematoma or bleeding. Will need additional monitoring prior to discharge. # acute left femoral neck fracture -due to fall onto the pavement at a gas station -left hip x-ray showed impacted left femoral transcervical fracture -Dr. Meyers, ortho consulted by ED -continue home eliquis -some worsening pain today, combined with fatigue and h/h drop of 1 point today continue to monitor for bleeding while on eliquis. Repeat H/h and if declining may need imaging to rule out hematoma. -PT/OT evals, partial weight bearing per ortho -patient requesting HH, RADIO SCRIPT WRITER to setup # acute fever, not present on admission -patient has port, blood cultures negative at 48 hours thus far. -Temp 100.6F on 11/09 -UA and CXR normal -was on ctx and vanco. stop antibiotics today as cultures continue to be negative. Continue to monitor for fever. Repeat blood culture if febrile. 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 Code status is full code COVID negative Proxy is [facility]. I have reviewed home meds and used all available resources to reconcile the home meds. Time Spent With Patient Critical Care time: I spent a total of [] minutes of critical care time on this patient's care today; this time is exclusive of procedural time. Quality VTE Deep Vein Thrombosis/Pulmonary Embolism Present on Admission: No
--- NOTE | 2021-11-12 13:33 | CM.DPC ---
DCP Home with HH Per MD, pt's labs were somewhat abnormal today so determining if pt stable for d/c today or tomorrow. Per GARDENING SUPERVISOR, pt needed less assist with bed mobility and pt will stay in recliner at home so assist needs will be minimal and recommending home with HH and spouse to get loaner DME tomorrow at [facility] so pt mentioned preference of d/c tomorrow. Per GARDENING SUPERVISOR, most needed DME is a bedside commode as home toilet too low. Confirmed BSC can be purchased at [employer] or [employer] etc.. if pt is stable for d/c today. SW updated MD and if pt does not meet medical criteria to remain in the hospital then pt could safely d/c home with purchased bedside commode and then spouse can get additional DME from [facility] tomorrow. [facility] already set up and F2F and orders previously faxed, d/c summary just needs to be faxed at discharge. Plan: SW to follow for pt to d/c home via spouse POV today vs tomorrow with new [facility] and to fax d/c summary to [facility] at discharge. Beatriz Byrnes, ATTENDING UROLOGIST
--- NOTE | 2021-11-12 14:50 | PT.IPTN ---
Current Diagnoses Displaced midcervical fracture of left femur, initial encounter for closed fracture (11/08/21) Surgery Performed Operation Date: 11/09/21 18:00 Actual Procedures p ORIF Left Femoral Neck Fracture/Cannulated Screws(Left) - Clark Meyers MD Physical Therapy Treatment Note M2 PT-IP Current Condition Start: 11/10/21 12:47 Freq: NEEDED Status: Active Protocol: Document 11/12/21 14:20 SP (Rec: 11/12/21 15:19 SP [id number]) Physical Therapy Current Condition Current Condition Evaluation Date 11/10/21 Treatment Diagnosis L fem fx s/p close reduction & fixation; difficulty in walking Onset Date 11/08/21 M3 PT-IP Subjective Start: 11/10/21 12:47 Freq: NEEDED Status: Active Protocol: Document 11/12/21 14:20 SP (Rec: 11/12/21 15:19 SP [id number]) Subjective Physical Therapy Visit Type Type Treatment Note Visit Start Time 14:20 Visit Stop Time 14:50 Total Visit Minutes 30 Notes 50% PWB Vitals taken post mobility: BP 145/69, 75 HR, SaO2 97% on RA . MARTHA Otto provided physical assist to pt under direct supervision of JOVAN Bob throughout tx. Number of DIRECTOR ACUTE Visits 4 Physical Therapy Visit Comments Patient Comments Pt agreeable to working with therapy. Patient Goals To return home with to assist him but not until tomorrow due to decreased pain control and inability to get DME required until tomorrow from business borrowing. M4 PT-IP Mobility and Gait Start: 11/10/21 12:47 Freq: NEEDED Status: Active Protocol: Document 11/12/21 14:20 SP (Rec: 11/12/21 15:19 SP [id number]) PT-Bed Mobility Assessment Supine to Sit Supine to Sit Standby Assistance,Bedrails Sit to Supine Sit to Supine Standby Assistance,Bedrails Scooting Scooting to Edge of Bed Standby Assistance PT-Transfer Assessment Sit to and From Stand Sit to and from Stand Contact Guard Assistance,1 Person Assistance,Use of Upper Extremities Equipment Transfer Assistive Device Gait Belt,Front Wheeled Walker Orthotic/Prosthetic Devices or Brace: No Transfers Transfer Destination Bed Transfer Technique pt ambulated using FWW Transfer Ability Level of Assist Contact Guard Assistance,Use of Upper Extremities Comments Mobility Comments Pt in bed upon arrival. Good recall in reviewing post op exercises: HS, QS, AP, GS. Complete supine to sit and scoot to EOB with HOB flat, heavy use of bed rails CGA. Sit > stand CGA w/ UE use on FWW and bed. Gait 180' into hallway CGA w/ FWW step-to patterning, with increased UE WB on FWW toward the last 60 ft due to decreased strength and activity tolerance while doing well maintaining 50% WB on LLE. Pt returned to bed w/ proper hand placement during stand > sit descent. Sit > supine SBA with RLE hook support to L LE into bed and self centering. Reapplied SCDs to BLE and pt had call light, bed alarmed and all needs in reach before left. Pt welcoming to CP to L hip end tx for pain control. Pt is ok to return home with when medically cleared to assist him. Recommend HHPT vs outpt pt to progress strength and functional mobility. [ End ] Gait Assessment Gait Gait Assistance Required: Contact Guard Assist Distance (Feet) 180 Able to Maintain Weight Bearing Status Yes During Gait Assistive Devices Assistive Device Gait Belt,Front Wheeled Walker Orthotic/Prosthetic Devices or Brace: No Gait Deviations General Gait Pattern Antalgic,Decreased Stride Length,Decreased Feet Clearance,Step-to Gait Factors Limiting Gait Function Factors Limiting Gait Function Decreased Activity Tolerance, Decreased Strength,Limited Range of Motion,Pain Comments Gait Comments see mobility comments Stair Climbing Assessment Comments Stair Climbing Comments Did not assess stair mgt due to did well with in am and has performed with during previous caregiver training with comment both felt confident and not needed further assessment. PT-Balance Assessment Sitting Balance and Reactions Static Sitting Balance Ability Normal Dynamic Sitting Balance Ability Good Standing Balance and Reactions Static Standing Balance Ability Good Dynamic Standing Balance Ability Fair Device Used FWW M5 PT-IP Objective Assessments Start: 11/10/21 12:47 Freq: NEEDED Status: Active Protocol: Document 11/10/21 10:00 AB (Rec: 11/10/21 13:08 AB [id number]) Orientation Orientation/Cognition Level of Alertness Alert Orientation Name,Age,Birthday,Month,Date, Year,Day of Week,Place, Situation Language Function Ability No Deficits Noted Safety Awareness Understands Safety Issues Memory Description No Deficits Noted Gross Range of Motion Lower Extremity ROM Assessment Right Impaired Impairments R knee extension : ~ 15 deg less to 0 Strength Lower Extremity Strength Hip 4-/5 Knee 4-/5 Coordination Assessment Gross Coordination Gross Coordination WNL Sensation Assessment Sensation Gross Sensation WNL Muscle Tone Muscle Tone WNL Yes M6 PT-IP Treatment Start: 11/10/21 12:47 Freq: NEEDED Status: Active Protocol: Document 11/12/21 14:20 SP (Rec: 11/12/21 15:19 SP [id number]) Physical Therapy Treatment Exercises Exercises Ankle Pumps,Heel Slides,Seated Knee Flexion/Extension Education Education Provided Precautions,Weight Bearing Status,Safety M7 PT-IP Assessment and Plan Start: 11/10/21 12:47 Freq: NEEDED Status: Active Protocol: Document 11/12/21 14:20 SP (Rec: 11/12/21 15:19 SP [id number]) PT Summary Assessment and Plan Potential Rehabilitation Potential Fair Status of Condition at Evaluation Evolving Summary Impairments Pain,ROM,Strength,Balance, Coordination,Sensation,Tone, Cognition,Bed Mobility, Transfers,Gait,Activity Tolerance Progress Towards Goals Progressing Toward Goals,Slow Progress due to Pain,Slow Progress due to Activity Tolerance Assessment Summary Pt improving in decreased support needed for mobility, good maintaining WB precautions, CGA throughout w/ FWW. Pt reported decrease L quad pain with mobility, suggested can use rolling pin for gentle massage at home. Pt and to get DME needed at [facility] tomorrow. Pt is ok to return home with when medically stable. Recommending HHPT for progress strength and mobility. Goals Bed Mobility Goal Independent Transfer Goal Independent,Front Wheeled Walker Gait Goal Independent,Front Wheel Walker Gait Distance 50 Other Goals up/down 1 step using fWW CGA Days to Meet Goals 5 Frequency of Treatment Frequency Of Treatment Twice a Day Treatment Plan Physical Therapy Treatment Plan Bed Mobility Training,Transfer Training,Gait Training, Therapeutic Exercise,Balance Retraining,Post Op Education, Discharge Planning,Hot or Cold Pack,Neuromuscular Re-ed, Coordination Retraining,Manual Therapy Other Recommendations and Next Treatment LE ex, gait distance w/ FWW. Focus Weight Bearing Status Weight Bearing Status Partial Weight Bearing Allowed Weight Bearing Amount (enter % LLE: 50% PWB or #) (%) Recommendations To Nursing Amount of Assist Needed 1 Person Assist Discharge Recommendations PT Discharge Recommendations Home with Assistance,Home Health,Outpatient PT Equipment Needed for Home Before FWW, BSC, transfer bench Discharge Transportation Needs at Discharge Private Vehicle
[2021-11-12 20:00] VITALS: BP 139/53; PULSE 81; RESP 20; TEMP 36.4; O2SAT 93
[2021-11-12 20:57] LABS: Vancomycin Trough 7.9 ug/mL (10-20)
[2021-11-12 21:03] VITALS: BP 139/53; PULSE 81
[2021-11-12] MEDS: GABAPENTIN 300 MG CAPSULE PO (21:03)
[2021-11-12] MEDS: MAGNESIUM HYDROXIDE 30 ML UDC PO (21:03)
[2021-11-12] MEDS: LOSARTAN 50 MG TABLET PO (21:03)
[2021-11-13] MEDS: OXYCODONE IR 10 MG TABLET PO ×2 (03:56→09:08)
[2021-11-13 05:06] VITALS: BP 118/68; PULSE 65; RESP 18; TEMP 36.1; O2SAT 95
[2021-11-13] MEDS: LEVOTHYROXINE 50 MCG TABLET PO (06:36)
[2021-11-13 07:40] VITALS: BP 137/74; PULSE 82; RESP 16; TEMP 36.5; O2SAT 94
[2021-11-13 08:43] LABS: Hematocrit 42.1 % (41-53); Hemoglobin 14.2 g/dL (13.5-17.5)
--- NOTE | 2021-11-13 08:56 | P.DS_ITS ---
History of Present Illness History of Present Illness Date Patient Seen: 11/13/21 Time Patient Seen: 08:56 Chief complaint: fell on lt. hip Narrative: Per Dr. Lama, Srinivasa Perkins is a 76-year-old male with past medical history of paroxysmal atrial fibrillation on Eliquis, hypertension, hypothyroidism, squamous cell carcinoma of the left neck in remission and obesity who presents with left hip fracture after tripping over a gas station hose while filling up his car. Patient states he attempted to grab onto a pilon to stabilize himself but instead and fell with his full weight onto his left side. He had immediate pain in his left hip. Bystander helped him into a scar where he then drove to the ER states his pain is currently an 8/10 in the hip. He did not strike his head. It is on Eliquis and last took a dose this morning 11/08. He denies any bleeding after his fall. He also denies chest pain, cough, shortness of breath, abdominal pain, diarrhea or dysuria. In the ED patient had a hip x-ray which showed impacted left femoral neck fracture. Dr. Meyers orthopedics was consulted. His vitals were normal but he was still in pain despite 0.3 mg of Dilaudid. Patient refused Tdap vaccine. Discharge Providers Provider Date of admission: 11/08/21 13:54 Discharge Date: 11/13/21 Primary care physician: Marcus Segovia DO Consults: 11/09/21 07:00 Consult to Occupational Therapy Evaluate & Treat Comment: Physician Instructions: Evaluate and treat Consult to Physical Therapy Evaluate & Treat Comment: Physician Instructions: Evaluate and Treat 11/09/21 19:25 Consult to Discharge Planning Routine Comment: Consult to Physical Therapy Evaluate & Treat Comment: Physician Instructions: Evaluate and Treat Consult to Respiratory Therapy Evaluate & Treat Comment: Physician Instructions: Evaluate and treat 11/10/21 08:18 Consult to Physical Therapy Evaluate & Treat Comment: s/p left hip fracture repair Physician Instructions: Evaluate and Treat 11/10/21 08:19 Consult to Occupational Therapy Evaluate & Treat Comment: s/p left hip fracture repair Physician Instructions: Evaluate and treat 11/11/21 11:38 Consult to Home Health Routine Comment: Left femoral fx with closed fixation Reason For Exam: Set up RN/PT for discharge home Discharge provider: Yoandy Gonzalez DO Summary Hospital Course Discharge Diagnosis: # acute left femoral neck fracture # acute fever, not present on admission # hypertension # obesity # paroxysmal atrial fibrillation, chronic # hypothyroidism, chronic # h/o squamous cell carcinoma of left neck s/p radical dissection with left jaw grafting Hospital Course: Srinivasa Perkins is a 76-year-old male with past medical history of paroxysmal atrial fibrillation on Eliquis, hypertension, hypothyroidism, squamous cell carcinoma of the left neck in remission and obesity who presents with left hip fracture after tripping over a gas station hose while filling up his car. He underwent repair with orthopedic surgery.?Course was complicated by a post operative fever for which he was started on broad antibiotics initially but were stopped after no infectious etiologies were found. Following this he had a slight drop in h/h with fatigue but h/h rebounded the following day. He had some mild hyperglycemia but A1c was 5.5%. He was discharged home with home health. His obesity increases his risk of post operative complications and risk for diabetes (with his mildly elevated glucose levels). Time Spent with Patient Time spent: Greater than 30 minutes Exam Vital Signs (past 8 hours): - 11/13/21 05:06 11/13/21 07:40 Temperature 97.0 F L 97.7 F Pulse Rate 65 82 Respiratory Rate 18 16 Blood Pressure 118/68 137/74 Pulse Oximetry 95 94 Oxygen Flow Rate 0 0 Oxygen Delivery Method Nasal Cannula Oxygen Flow Rate 0 Narrative Exam Narrative: GEN: no acute distress HEENT: moist mucous membranes, PERRL NECK: trachea midline, no JVD. Evidence of prior left mandibulectomy surgery. CV: regular rate and rhythm, no murmurs CHEST: Port present on right chest, no surrounding erythema or induration PULM: clear bilaterally no wheezes rhonchi or rales ABD: soft, nontender, nondistended, no organomegaly EXT: warm and well perfused with no edema, left extremity with bandage over hip. NEURO: awake, alert, oriented, no focal deficits Objective Labs Result Diagrams: 11/13/21 08:30 11/11/21 06:05 Labs: Laboratory Results - last 24 hr 11/12/21 11/13/21 20:23 08:30 Hgb 14.2 Hct 42.1 Vancomycin Trough 7.9 L PFSH Medical History Aortic root dilatation Atrial fibrillation, currently in sinus rhythm Chronic anticoagulation Cough Easy bruising HTN (hypertension) PAF (paroxysmal atrial fibrillation) (2015) Port-A-Cath in place (2014) Preoperative clearance Viral illness Surgical History History of surgery (2014) Hx of tonsillectomy Hx of total knee replacement Hx of transurethral resection of prostate Status post appendectomy Status post neck dissection (2014) Social History household members: spouse Smoking Status: Former smoker alcohol intake: never substance use type: does not use Discharge Plan Discharge Plan Patient Disposition: Home Provider Discharge Comment: You were admitted to the hospital after a hip fracture. Pain medication has been sent to your pharmacy. No changes to your home medications are needed at this time. Continue stool softeners which are OTC, and start laxitives if no bowel movement for 3 days while on increased o piate therapy. Discharge orders & Medications Prescriptions: New docusate sodium 100 mg Capsule 100 mg PO BID 14 Days Qty: 28 0RF oxycodone 10 mg Tablet 10 mg PO Q4H PRN (Reason: Pain, Moderate (4-6)) 7 Days Qty: 30 0RF Continued gabapentin 300 mg capsule See Rx Instructions .ROUTE .COMPLEX Qty: 90 2RF Dose Instruction: TAKE ONE CAPSULE BY MOUTH NIGHTLY AT BEDTIME Rx Instructions: TAKE ONE CAPSULE BY MOUTH NIGHTLY AT BEDTIME levothyroxine 50 mcg tablet See Rx Instructions .ROUTE .COMPLEX Qty: 90 3RF Dose Instruction: Take one tablet by mouth once daily in the morning. Rx Instructions: Take one tablet by mouth once daily in the morning. Eliquis 5 mg tablet 5 mg PO BID Qty: 180 3RF diltiazem HCl 240 mg capsule,extended release 24hr 240 mg PO DAILY Qty: 90 3RF losartan 50 mg Tablet 50 mg PO BEDTIME acetaminophen 500 mg Tablet 1,000 mg PO TID Discontinued oxycodone 5 mg tablet See Rx Instructions PO Q6H PRN (Reason: pain) Qty: 120 0RF Dose Instruction: PO Q6H PRN; Rx Instructions: Take 1-2 tabs by mouth every 6 hours as needed for pain. Medication counseling provided by Pharmacist: Yes Follow up/Referrals: Marcus Segovia DO [Primary Care Provider] - Clark Meyers MD [Physician] - (10-14 days for postoperative visit) Diet/Activity/Treatments Diet: Diet as Tolerated Diet comment: no restrictions Activity: -partial weight-bearing on the left lower extremity with walker x6 weeks. 50% partial weight bearing on left leg Cold/Heat Therapy: -use ice as needed for pain, protect your skin with a folded up pillow case Other treatments: Leave aquacel dressing in place until your follow up appointment. Skin/Wound/Dressing Care Report to your healthcare provider any signs of infection, such as:: chills, fever, night sweats, unusual drainage and unusual redness Visit Report/Discharge Packet Instructions: How to Choose and Use a Walker, DI for Constipation, How to Prevent Falls, DI for Open Reduction Internal Fixation Surgery, DI for Prescription Opioid Use, DI for Taking Pain Medication Stand Alone Forms: Surgery Discharge Discharge Data Primary Care Provider: Marcus Segovia Quality VTE Deep Vein Thrombosis/Pulmonary Embolism Present on Admission: No
[2021-11-13] MEDS: ACETAMINOPHEN SUSP 650 MG/20.3 ML UDC 1000 MG PO (09:07)
[2021-11-13] MEDS: APIXABAN 5 MG TABLET PO (09:08)
[2021-11-13] MEDS: DOCUSATE 100 MG CAPSULE PO (09:08)
[2021-11-13] MEDS: dilTIAZem CD 240 MG CAP PO (09:09)
--- NOTE | 2021-11-13 09:28 | PT.IPTN ---
Current Diagnoses Displaced midcervical fracture of left femur, initial encounter for closed fracture (11/08/21) Surgery Performed Operation Date: 11/09/21 18:00 Actual Procedures p ORIF Left Femoral Neck Fracture/Cannulated Screws(Left) - Clark Meyers MD Physical Therapy Treatment Note M2 PT-IP Current Condition Start: 11/10/21 12:47 Freq: NEEDED Status: Active Protocol: Document 11/12/21 14:20 SP (Rec: 11/12/21 15:19 SP [id number]) Physical Therapy Current Condition Current Condition Evaluation Date 11/10/21 Treatment Diagnosis L fem fx s/p close reduction & fixation; difficulty in walking Onset Date 11/08/21 M3 PT-IP Subjective Start: 11/10/21 12:47 Freq: NEEDED Status: Active Protocol: Document 11/13/21 09:15 KS (Rec: 11/13/21 09:38 KS [id number]) Subjective Physical Therapy Visit Type Type Treatment Note Visit Start Time 09:15 Visit Stop Time 09:28 Total Visit Minutes 13 Notes 50% PWB Number of CARD FILER Visits 5 Physical Therapy Visit Comments Patient Comments Pt agreeable to working with therapy. M4 PT-IP Mobility and Gait Start: 11/10/21 12:47 Freq: NEEDED Status: Active Protocol: Document 11/13/21 09:15 KS (Rec: 11/13/21 09:38 KS [id number]) PT-Bed Mobility Assessment Supine to Sit Supine to Sit Standby Assistance,Head of Bed Elevated Scooting Scooting to Edge of Bed Standby Assistance PT-Transfer Assessment Sit to and From Stand Sit to and from Stand Standby Assistance,1 Person Assistance,Use of Upper Extremities Equipment Transfer Assistive Device Gait Belt,Front Wheeled Walker Orthotic/Prosthetic Devices or Brace: No Transfers Transfer Destination Toilet Transfer Technique pt ambulated using FWW Transfer Ability Level of Assist Standby Assistance,Contact Guard Assistance,Use of Upper Extremities Comments Mobility Comments Pt in bed upon arrival and agreeable to working w/ therapy, but treatment cut short due to patient needing to have bowel movement. Pt able to use RLE to assist LLE out of bed and sup<>sit SBA. Pt requires increased time to complete bed mobility, but no physical assistance. Good awareness of PWB status and proper technique and hand placement w/o cues for sit<> stand w/ FWW. Pt then ambulated ~15 ft to toilet w/ FWW SBA while maintaining PWB. Able to slowly descend onto toilet using hand rail and CGA . Pt stated is picking up FWW from [employer] and feels ready to d/c home. States he has no further needs from PT at this time. Pt left in bathroom as requested w/ call light in reach and RN aware. Gait Assessment Gait Gait Assistance Required: Standby Assistance,Contact Guard Assist Distance (Feet) 15 Able to Maintain Weight Bearing Status Yes During Gait Assistive Devices Assistive Device Gait Belt,Front Wheeled Walker Orthotic/Prosthetic Devices or Brace: No Gait Deviations General Gait Pattern Antalgic,Decreased Stride Length,Decreased Feet Clearance,Step-to Gait Factors Limiting Gait Function Factors Limiting Gait Function Decreased Activity Tolerance, Decreased Strength,Limited Range of Motion,Pain Comments Gait Comments see mobility comments Stair Climbing Assessment Comments Stair Climbing Comments Did not assess. Pt has already cleared stair training and does not feel the need to complete further training. He has 1 BIRGIT and will stay on first floor in recliner. PT-Balance Assessment Sitting Balance and Reactions Static Sitting Balance Ability Normal Dynamic Sitting Balance Ability Good Standing Balance and Reactions Static Standing Balance Ability Good Dynamic Standing Balance Ability Fair Device Used FWW M5 PT-IP Objective Assessments Start: 11/10/21 12:47 Freq: NEEDED Status: Active Protocol: Document 11/10/21 10:00 AB (Rec: 11/10/21 13:08 AB [id number]) Orientation Orientation/Cognition Level of Alertness Alert Orientation Name,Age,Birthday,Month,Date, Year,Day of Week,Place, Situation Language Function Ability No Deficits Noted Safety Awareness Understands Safety Issues Memory Description No Deficits Noted Gross Range of Motion Lower Extremity ROM Assessment Right Impaired Impairments R knee extension : ~ 15 deg less to 0 Strength Lower Extremity Strength Hip 4-/5 Knee 4-/5 Coordination Assessment Gross Coordination Gross Coordination WNL Sensation Assessment Sensation Gross Sensation WNL Muscle Tone Muscle Tone WNL Yes M6 PT-IP Treatment Start: 11/10/21 12:47 Freq: NEEDED Status: Active Protocol: Document 11/13/21 09:15 KS (Rec: 11/13/21 09:38 KS [id number]) Physical Therapy Treatment Education Education Provided Precautions,Weight Bearing Status,Safety M7 PT-IP Assessment and Plan Start: 11/10/21 12:47 Freq: NEEDED Status: Active Protocol: Document 11/13/21 09:15 KS (Rec: 11/13/21 09:38 KS [id number]) PT Summary Assessment and Plan Potential Rehabilitation Potential Fair Status of Condition at Evaluation Evolving Summary Impairments Pain,ROM,Strength,Balance, Coordination,Sensation,Tone, Cognition,Bed Mobility, Transfers,Gait,Activity Tolerance Progress Towards Goals Progressing Toward Goals,Slow Progress due to Pain,Slow Progress due to Activity Tolerance Assessment Summary Pt only requiring SBA to CGA for mobility, has good awareness and adherence to PWB LLE precaution, and used prope technique when sitting, standing, and ambulating w/ FWW w/o need for cues. His is p/u DME from [facility], he has cleared stair training previously, and he is okay to return home w/ upon d/c and stay on first floor in recliner chair. Recommending HHPT for progress strength and mobility . Goals Bed Mobility Goal Independent Transfer Goal Independent,Front Wheeled Walker Gait Goal Independent,Front Wheel Walker Gait Distance 50 Other Goals up/down 1 step using fWW CGA Days to Meet Goals 5 Frequency of Treatment Frequency Of Treatment Twice a Day Treatment Plan Physical Therapy Treatment Plan Bed Mobility Training,Transfer Training,Gait Training, Therapeutic Exercise,Balance Retraining,Post Op Education, Discharge Planning,Hot or Cold Pack,Neuromuscular Re-ed, Coordination Retraining,Manual Therapy Other Recommendations and Next Treatment LE ex, gait distance w/ FWW. Focus Weight Bearing Status Weight Bearing Status Partial Weight Bearing Allowed Weight Bearing Amount (enter % LLE: 50% PWB or #) (%) Recommendations To Nursing Amount of Assist Needed 1 Person Assist Discharge Recommendations PT Discharge Recommendations Home with Assistance,Home Health,Outpatient PT Equipment Needed for Home Before FWW, BSC, transfer bench Discharge Transportation Needs at Discharge Private Vehicle
--- NOTE | 2021-11-13 10:06 | PC.NURSE ---
IV removed. PC deaccessed, Dsg to Left hip changed. Ideal intact without redness or bleeding.
--- NOTE | 2021-11-13 10:36 | CM.DPNOTE ---
Discharge Planning Note: Patient being readied for discharge by nursing. He states his spouse will be in this morning after she picks up DME at [facility]. Clinicals were faxed to Orestes at [facility] yesterday. This DCP faxed Discharge Summary to them and called to let them know (Mckayla) he is discharging today. P: EMA Jacbo RN/DCP
--- NOTE | 2021-11-13 11:29 | OT.IP.TRT ---
Current Diagnoses Displaced midcervical fracture of left femur, initial encounter for closed fracture (11/08/21) Surgery Performed Operation Date: 11/09/21 18:00 Actual Procedures p ORIF Left Femoral Neck Fracture/Cannulated Screws(Left) - Clark Meyers MD Occupational Therapy Treatment Note M2 OT-IP Current Condition Start: 11/10/21 11:01 Freq: Status: Active Protocol: Document 11/10/21 11:02 CGR (Rec: 11/10/21 11:22 R [id number]) Occupational Therapy Current Condition Current Condition Evaluation Date 11/10/21 Treatment Diagnosis L hip fx, underwent closed reduction and internal fixation 11/09/21 Diagnosis Onset Date 11/08/21 Weight Bearing Status Weight Bearing Status Partial Weight Bearing Allowed Weight Bearing Amount (enter % 50% or less or #) (%) M3 OT- IP Subjective and Pain Start: 11/10/21 11:01 Freq: Status: Active Protocol: Document 11/13/21 11:17 [facility] (Rec: 11/13/21 11:36 [facility] [id number]) OT- Subjective Occupational Therapy Visit Type Type Treatment Note Visit Start Time 11:17 Visit Stop Time 11:29 Total Visit Minutes 12 Occupational Therapy Visit Comments Patient Comments Pt's in the room assist pt to get dressed. Patient/Caregiver Goals To go home. OT Pain Assessment Pain When Pain Assessed At Rest Pain Present Pain Present Denied Pain M4 OT- IP ADL's Start: 11/10/21 11:01 Freq: Status: Active Protocol: Document 11/13/21 11:17 [facility] (Rec: 11/13/21 11:36 [facility] [id number]) OT ADL-Dressing Comments OT Dressing Comments Pt's already assisted pt with dressing prior to OT coming in to see the pt. OT ADL-Toileting Comments OT Toileting Comments Pt's able to roller picker a BSC for home use. OT ADL-Bathing Comments OT Bathing Comments Pt's able to get a tub bench for pt to use at home. M5 OT- IP IADL's Start: 11/10/21 11:01 Freq: Status: Active Protocol: Document 11/10/21 11:02 CGR (Rec: 11/10/21 11:22 R [id number]) OT-Instrumental Activities of Daily Living Deficits IADL Deficits Identified No Deficits Home Safety Awareness Awareness of Need for Assistance at Home Good Awareness Ability to Problem Solve Emergency Able to Problem Solve Situations Medication Management Medication Management No Deficits Identified Money Management Money Management No Deficits Identified Meal Preparation Meal Preparation Caregiver Provides Assist Launchman Launchman Caregiver Provides Assist Driving Driving Comments Pt understands that he can not drive till cleared by his MD. M6 OT- IP Functional Cognition Start: 11/10/21 11:01 Freq: Status: Active Protocol: Document 11/13/21 11:17 [facility] (Rec: 11/13/21 11:36 [facility] [id number]) Cognitive Factors Limiting Selfcare Function Cognitive Comments Cognitive Assessment Comments Intact M7 OT- IP Mobility and Balance Start: 11/10/21 11:01 Freq: Status: Active Protocol: Document 11/13/21 11:17 [facility] (Rec: 11/13/21 11:36 [facility] [id number]) OT- Bed Mobility Assessment Sit to Supine Sit to Supine Assist Standby Assistance Scooting Scooting to Edge of Bed Independent OT-Transfer Assessment Sit to and From Stand Sit to and from Stand Standby Assistance Comments Mobility Comments SBA to stand form the bed and sit down and get in at this time. Pt's states got an air mattress for pt to use on the main level. Suggested to have home health assess safety, appropriateness , and firmness of the air bed prior to having pt use the bed . Pt has a recliner that he can sleep in initially if needed. OT- Balance Assessment Sitting Balance and Reactions Static Sitting Balance Ability Good Dynamic Sitting Balance Ability Good Standing Balance and Reactions Static Standing Balance Ability Fair M8 OT- IP Objective Assessments Start: 11/10/21 11:01 Freq: Status: Active Protocol: Document 11/10/21 11:02 CGR (Rec: 11/10/21 11:22 CGR [id number]) OT Gross Range of Motion Upper Extremity Range of Motion Assessment Within Functional Limits OT Strength Upper Extremity Strength Assessment Within Functional Limits Comments Strength Comments 5/5 OT- Coordination Assessment Upper Extremity Finger to Nose Test Within Functional Limits Finger Tapping Test Within Functional Limits OT-Muscle Tone Assessment Muscle Tone WNL Yes OT Sensation Assessment Comments Summary Comments Pt states he has no sensation to the L side of his face from a previous facial sx. All sensation is typical for his baseline at this time. M9 OT- IP Assessment and Plan Start: 11/10/21 11:01 Freq: Status: Active Protocol: Document 11/13/21 11:17 [facility] (Rec: 11/13/21 11:36 [facility] [id number]) OT Summary Assessment and Plan Potential Rehabilitation Potential Excellent Analytic Complexity at Evaluation Moderate Summary OT Impairments Pain,Balance,Functional Mobility,Grooming,Dressing, Toileting,Bathing,Toilet Transfers,Shower Transfers, Activity Tolerance Progress Towards Goals Progressing Toward Goals Assessment Summary Pt's able to get all equipment needs for pt. Suggested to have home health look at the air bed to access safety and firmness prior to having pt try to sleep on it. Pt looking to go home with his to assist and home health. Goals Grooming Goal Independent Dressing Goal Independent Toileting Goal Independent Bathing Goal Independent Toilet Transfer Goal Independent Shower Transfer Goal Independent Days to Meet Goals 5 Frequency of Treatment Frequency Of Treatment Once a Day Treatment Plan OT Treatment Plan ADL Training,Functional Mobility,Patient/Family Education,Discharge Planning Discharge Recommendations OT Discharge Recommendations Home with Assistance Home Equipment Needs tub transfer bench, 2ww, toilet riser with arm rests, w /c Transportation Needs at Discharge Private Vehicle
--- NOTE | 2021-11-13 15:10 | PC.NURSE ---
Discharge: Pt feels ready to d/c to home. Tolerates diet w/out problems. Vds w/out diff. Po pain meds effective for pain. Seen by POA and given d/c instructions. Seen by PT/OT and received final instructions. Spouse here at time of teaching, is deaf, reads lips and this writers mask was off during the time of teaching with distancing maintained. Understands his 50% weight bear on the lt leg. Lt leg dressing changed to cover site. Incision is stapled. No drainage, minimal redness. Reviewed d/c packet. Rx has been esent. Questions answered. Both pt and spouse have no concerns about going home. Pt d/c home via auto w/spouse.
== END 2021-11-13 11:59 | disposition home health service (06) | DRG 482 ==
LOC: ED 13:37 → AC 13:55
PROVIDERS: Internal Medicine; Orthopaedic Surgery; Admitting Provider Student in an Organized Health Care Education/Training Program; Emergency Provider Nurse Practitioner Critical Care Medicine; PCP Family Medicine; Referring Provider Nurse Practitioner Critical Care Medicine; Visit Provider Student in an Organized Health Care Education/Training Program
PROC: 0QS704Z Reposition Left Upper Femur with Internal Fixation Device, Open Approach (ICD-10-PCS; principal; 2021-11-09 18:00)
DX: S72.032A Displaced midcervical fracture of left femur, initial encounter for closed fracture (principal); I10 Essential (primary) hypertension; E66.9 Obesity, unspecified; R50.82 Postprocedural fever; E03.9 Hypothyroidism, unspecified; R73.9 Hyperglycemia, unspecified; I48.0 Paroxysmal atrial fibrillation; W18.09XA Striking against other object with subsequent fall, initial encounter; Y92.512 Supermarket, store or market as the place of occurrence of the external cause; Z79.01 Long term (current) use of anticoagulants; Z20.822 Contact with and (suspected) exposure to COVID-19; Z68.31 Body mass index [BMI] 31.0-31.9, adult; Z72.0 Tobacco use
CPT/HCPCS: 36415; 71045; 73502; 76000; 80048; 80053; 80202; 81001; 83036; 84443; 85014; 85018; 85025; 85610; 86850; 86900; 86901; 87040; 87635; 93005; 93010; 96375; 97116; 97162; 97166; 97530; 97535; 99283; 99284; C9803; J0171; J0690; J0696; J1100; J1170; J2405; J2704; J3010

== ENCOUNTER → 2022-03-01 10:06 | Outpatient (CLI) | payer MEDICARE, OTHER, SELFPAY ==
[2022-03-01 11:58] LABS: Alanine Aminotransferase 15 IU/L (<50); Albumin 4.6 g/dL (3.5-5.0); Albumin Globulin Ratio 1.4 (1.0-2.8); Alkaline Phosphatase 105 U/L (38-126); Aspartate Aminotransferase 20 IU/L (17-59); BUN Creatinine Ratio 20.2 (6-22); Bilirubin Total 0.4 mg/dL (0.2-1.3); Blood Urea Nitrogen 24 mg/dL (9-20); Calcium 9.5 mg/dL (8.4-10.2); Carbon Dioxide 27 mmol/L (22-32); Chloride 102 mmol/L (98-107); Estimated Glomerular Filt Rate > 60 mL/min (>60); Globulin 3.2 g/dL (1.7-4.1); Glucose 87 mg/dL (80-110); HEMOLYSIS < 15 (0-50); Potassium 4.7 mmol/L (3.4-5.1); Sodium 142 mmol/L (137-145); Total Protein 7.8 g/dL (6.3-8.2)
[2022-03-01 12:16] LABS: Free T4, Direct Thyroxine 0.98 ng/dL (0.78-2.19)
[2022-03-01 12:30] LABS: Thyroid Stimulating Hormone 4.35 uIU/mL (0.47-4.68)
== END ==
PROVIDERS: PCP Family Medicine; Referring Provider Family Medicine; Visit Provider Family Medicine
DX: E03.9 Hypothyroidism, unspecified (principal); I48.91 Unspecified atrial fibrillation
CPT/HCPCS: 36415; 80053; 84439; 84443

== ENCOUNTER → 2022-10-30 11:38 | Outpatient (CLI) | payer MEDICARE, OTHER, SELFPAY ==
[2022-10-30 12:38] LABS: Add Manual Diff / Slide Review NO; Basophils Absolute Auto 100 /uL (0-100); Basophils Percent Auto 1.4 % (0-2); Eosinophils Absolute Auto 500 /uL (0-450); Eosinophils Percent Auto 7.3 % (2-4); Hematocrit 46.3 % (41-53); Hemoglobin 15.7 g/dL (13.5-17.5); Lymphocytes Absolute Auto 600 /uL (1100-4500); Lymphocytes Percent Auto 8.5 % (25-40); Mean Corpuscular HGB Conc 33.9 % (30-36); Mean Corpuscular Hemoglobin 30.5 PG (26-34); Mean Corpuscular Volume 89.9 fL (80-100); Monocytes Absolute Auto 500 /uL (0-900); Monocytes Percent Auto 7.5 % (3-14); Neutrophils Absolute Auto 5100 /uL (1500-7000); Neutrophils Percent Auto 75.3 % (50-75); Platelet Count 232 X10^3/uL (150-400); Red Blood Cell Count 5.16 X10^6/uL (4.5-5.9); Red Cell Distribution Width 14.9 % (11.6-14.8); White Blood Cell Count 6.8 X10^3/uL (4.5-11.0)
[2022-10-30 12:45] LABS: Appearance Urine UA CLEAR; Bilirubin Urine UA NEGATIVE (NEGATIVE); Color Urine UA ORANGE; Glucose Urine UA NEGATIVE (Negative); Ketones Urine UA NEGATIVE (NEGATIVE); Leukocyte Esterase Urine UA NEGATIVE (NEGATIVE); Nitrite Urine UA NEGATIVE (Negative); Occult Blood Urine UA 3+ (Negative); Protein Urine UA NEGATIVE (Negative); Specific Gravity Urine UA 1.025 (1.000-1.035); pH Urine UA 5.5 (4.5-8.0)
[2022-10-30 12:56] LABS: Amorphous Sediment Urine 2+; Bacteria Urine None Seen; Culture Indicated Urine Cult Not Indicated; RBC Urine 5-10/HPF (0-5/HPF); Squamous Epithelial Cell Urine None Seen (0-5/HPF); WBC Urine None Seen (0-5/HPF)
[2022-10-30 13:11] LABS: BUN Creatinine Ratio 19.6 (6-22); Blood Urea Nitrogen 22 mg/dL (9-20); Calcium 9.4 mg/dL (8.4-10.2); Carbon Dioxide 28 mmol/L (22-32); Chloride 102 mmol/L (98-107); Estimated Glomerular Filt Rate > 60 mL/min (>60); Glucose 100 mg/dL (80-110); HEMOLYSIS < 15 (0-50); Potassium 4.8 mmol/L (3.4-5.1); Sodium 139 mmol/L (137-145)
[2022-10-31 05:27] LABS: Labcorp Hemoglobin (Hb) A1c 5.6 % (4.8-5.6)
== END ==
PROVIDERS: PCP Family Medicine; Referring Provider Orthopaedic Surgery; Visit Provider Orthopaedic Surgery
DX: Z01.818 Encounter for other preprocedural examination (principal); R73.9 Hyperglycemia, unspecified; Z01.812 Encounter for preprocedural laboratory examination; N39.0 Urinary tract infection, site not specified
CPT/HCPCS: 36415; 80048; 81001; 83036; 85025; 93005

== ENCOUNTER → 2022-11-15 09:57 | Outpatient (CLI) | payer MEDICARE, OTHER, SELFPAY | PROVIDERS: PCP Family Medicine; Visit Provider Family Medicine | DX: R31.9 Hematuria, unspecified (principal) | CPT/HCPCS: 87086 ==

== ENCOUNTER → 2022-11-29 11:08 | Outpatient (CLI) | payer MEDICARE, OTHER, SELFPAY ==
--- NOTE | 2022-11-29 11:09 | DI.CT.S_ITS ---
PROCEDURE: CT IVP A/P W/WO INDICATIONS: eval microscopic hematuria TECHNIQUE: Optional 5 mm thick noncontrast images acquired from the diaphragm to the symphysis pubis. After the administration of intravenous contrast, 5 mm thick images acquired from the diaphragm to the symphysis pubis after a 10-minute delay. 2 mm thick coronal and sagittal reformats were then performed of the kidneys and ureters. For radiation dose reduction, the following was used: automated exposure control, adjustment of mA and/or kV according to patient size. COMPARISON: [facility], CR, XR PELVIS WITH LATERAL HIP LEFT, 10/16/2022, 14:37. [facility], CT, ABDOMEN/PELVIS WITH CONTRAST, 02/21/2017, 9:36. FINDINGS: Image quality: Excellent. Lung bases: Lung bases are clear. Heart size is normal. Urinary system: Both kidneys are normal in size, without hydronephrosis. Nonobstructing right kidney stone measuring at 0.2 cm. Right cortical calcification measuring 0.4 cm. Nonobstructing left kidney stones x3. Largest measuring 0.4 cm. No perinephric fat stranding. There is normal bilateral renal enhancement. Small benign right renal cysts. A few cortical hypodensities which are too small to further characterize. Small benign peripelvic cysts bilaterally. Renal calyces appear normal in morphology when filled with contrast. Opacified portions of both ureters demonstrate normal caliber. The distal right ureter is not well opacified. The left ureter is not well opacified Bladder is only partially distended. No calcified bladder stones. Other solid organs: Liver is normal in size and enhancement. Calcified granulomas in the liver. Gallbladder decompressed with probable gallstones . Biliary system is non dilated. Pancreas enhances normally. Spleen is normal in size and enhancement. Calcified granulomas. No adrenal nodules. Peritoneum and bowel: Bowel loops demonstrate normal wall thickness and caliber. Extensive diverticulosis. Nodular adjacent to the descending colon with punctate calcifications, (4/79), unchanged since at least 2016 and most consistent with a splenule. The appendix is absent. No free fluid or air. Nodes and vessels: No retroperitoneal or mesenteric adenopathy by size criteria. Aorta and inferior vena cava are normal in size. Abdominal wall: No ventral hernias. Pelvis: No pathologic free pelvic fluid. No inguinal hernias or adenopathy. Bones: No suspicious bony lesions. Multilevel DDD. Prior pinning of the left femoral neck fracture. No vertebral body compression fractures. IMPRESSION: 1. No hydronephrosis. No obstructing kidney stones. Small nonobstructing kidney stones bilaterally. 2. No solid renal mass. 3. No upper urinary tract filling defect. The left ureter under are suboptimally opacified. Dictated by: Refugio Yee M.D. on 11/29/2022 at 13:25 Approved by: Refugio Yee M.D. on 11/29/2022 at 13:39
== END ==
PROVIDERS: PCP Family Medicine; Referring Provider Family Medicine; Visit Provider Family Medicine
DX: R31.29 Other microscopic hematuria (principal); N20.0 Calculus of kidney
CPT/HCPCS: 74178; Q9967

== ENCOUNTER → 2023-02-24 11:37 | Outpatient (CLI) | payer OTHER, SELFPAY ==
[2023-02-24 13:24] LABS: Add Manual Diff / Slide Review NO; Basophils Absolute Auto 100 /uL (0-100); Basophils Percent Auto 1.1 % (0-2); Eosinophils Absolute Auto 400 /uL (0-450); Eosinophils Percent Auto 4.9 % (2-4); Hematocrit 44.5 % (41-53); Hemoglobin 15.4 g/dL (13.5-17.5); Lymphocytes Absolute Auto 500 /uL (1100-4500); Lymphocytes Percent Auto 6.5 % (25-40); Mean Corpuscular HGB Conc 34.6 % (30-36); Mean Corpuscular Hemoglobin 31.3 PG (26-34); Mean Corpuscular Volume 90.4 fL (80-100); Monocytes Absolute Auto 500 /uL (0-900); Monocytes Percent Auto 6.6 % (3-14); Neutrophils Absolute Auto 6500 /uL (1500-7000); Neutrophils Percent Auto 80.9 % (50-75); Platelet Count 220 X10^3/uL (150-400); Red Blood Cell Count 4.92 X10^6/uL (4.5-5.9); Red Cell Distribution Width 14.3 % (11.6-14.8); White Blood Cell Count 8.1 X10^3/uL (4.5-11.0)
[2023-02-24 13:47] LABS: BUN Creatinine Ratio 21.6 (6-22); Blood Urea Nitrogen 25 mg/dL (9-20); Calcium 9.4 mg/dL (8.4-10.2); Carbon Dioxide 29 mmol/L (22-32); Chloride 100 mmol/L (98-107); Estimated Glomerular Filt Rate > 60 mL/min (>60); Glucose 118 mg/dL (80-110); HEMOLYSIS < 15 (0-50); Potassium 4.9 mmol/L (3.4-5.1); Sodium 138 mmol/L (137-145)
== END ==
PROVIDERS: PCP Family Medicine; Referring Provider Orthopaedic Surgery; Visit Provider Orthopaedic Surgery
DX: Z01.812 Encounter for preprocedural laboratory examination (principal); M25.552 Pain in left hip
CPT/HCPCS: 36415; 80048; 85025

== ENCOUNTER → 2023-03-06 12:11 | Outpatient (CLI) | payer OTHER, SELFPAY ==
--- NOTE | 2023-03-06 | DI.ECHO.S_ITS ---
[facility] +---------+ : : [address] [place] : : : : [id number] : : : : Phone: [phone]+ Echocardiogram Report + + :Name: PABLO WHALEN Study Date: 03/06/2023 Height: 72 in : :[facility] ReadingLocation: Weight: 223 lb: : Gender: Male BSA: 2.2 m2 : :: 1945 Age: 77 yrs : :Reason For Study: Aortic Root Enlargement : :Ordering Physician: CHRISTINA, : :[place] Performed By: Anahi Mock : :Referring: AUGUSTO CARR : + + Interpretation Summary 1) Mildly increased left ventricular thickness (concentric) with normal size, normal wall motion, and normal systolic function (EF 55-60%). 2) Normal right ventricular size and function. 3) There is mild aortic regurgitation. 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 5) Compared to the Echo done 09/21/2021, no signifcant change. Procedure: A two-dimensional transthoracic echocardiogram with color flow and Doppler was performed. The study quality was technically adequate. Comparison is made with the echocardiogram of 09/21/2021. The patient was in normal sinus rhythm during the exam. Left Ventricle: The left ventricle is normal in size. There is mild concentric left ventricular hypertrophy. The ejection fraction is estimated to be 55-60%. Diastolic parameters suggest a relaxation abnormality of the left ventricle, consistent with probable normal filling pressures. Right Ventricle: The right ventricle is normal in size and function. Atria: The left atrial size is normal. Right atrial size is normal. There is no Doppler evidence for an interatrial shunt. Mitral Valve: The mitral valve leaflets are slightly calcified. There is mild mitral annular calcification. There is no mitral valve stenosis. There is mild mitral regurgitation. Aortic Valve: The aortic valve is not well visualized. There is no aortic valve stenosis. There is mild aortic regurgitation. Tricuspid Valve: The tricuspid valve is not well visualized. There is no tricuspid stenosis. There is trace tricuspid regurgitation. Pulmonary artery pressures cannot be estimated because of the lack of a measurable TR jet velocity. Pulmonic Valve: The pulmonic valve is not well visualized. There is no pulmonic valvular stenosis. There is no pulmonic valvular regurgitation. Great Vessels: The aortic root is mildly dilated. The ascending aorta is normal in size. The pulmonary artery is normal size. The IVC is of normal diameter and collapses greater than 50% with a sniff. This suggests a low right atrial pressure of 3 mm Hg. Pericardium/ Pleura There is no pericardial effusion. There is no pleural effusion. MMode/2D Measurements & Calculations LVIDd: 5.0 cm LVOT diam: 2.2 cm IVSd: 1.3 cm Ao root diam: 4.4 cm LVPWd: 1.1 cm asc Aorta Diam: 3.5 cm LV frey. diameter/BSA (cm/m^2): 2.2 RA area: 16.2 cm2 RVD1 (basal): 2.9 cm TAPSE: 2.6 cm Reading Physician:03:48 PM
== END ==
PROVIDERS: PCP Family Medicine; Referring Provider Internal Medicine Cardiovascular Disease; Visit Provider Internal Medicine Cardiovascular Disease
DX: I77.89 Other specified disorders of arteries and arterioles (principal); I08.0 Rheumatic disorders of both mitral and aortic valves; I77.810 Thoracic aortic ectasia
CPT/HCPCS: 93306

== ENCOUNTER 2023-03-18 11:22 | Day surgery (SDC) | payer OTHER, SELFPAY ==
[2023-03-12 13:32] VITALS: BMI 30.1
[2023-03-18] VITALS (17 sets, daily range): BP systolic 135–181; BP diastolic 11–97; PULSE 62–102; RESP 12–19; TEMP 36.2–37.4; O2SAT 3–97; BMI 30.1
[2023-03-18] MEDS: LACTATED RINGERS 1,000 ML 42 ML IV (12:53)
[2023-03-18] MEDS: VANCOMYCIN 1,000 MG/200 ML PIGGYBACK 200 MG IV (12:53)
--- NOTE | 2023-03-18 14:00 | DI.RAD.S_ITS ---
PROCEDURE: XR PELVIS 1-2V INDICATIONS: INNER OP TECHNIQUE: Intra-operative view of the pelvis and hip acquired. COMPARISON: None. FINDINGS: Bones: Intraoperative devices prior to placement of arthroplasty prostheses are in expected positions. No fractures or suspicious bony lesions. 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 Dictated by: Jordi Rodrigez M.D. on 03/18/2023 at 16:42 Approved by: Jordi Rodrigez M.D. on 03/18/2023 at 16:43
--- NOTE | 2023-03-18 14:06 | PM.PREOP ---
Pre-operative Note Interval Note History & Physical reviewed/Exam performed by Physician: Yes Changes to H&P: No
--- NOTE | 2023-03-18 14:06 | PM.PREOP ---
Pre-operative Note Interval Note History & Physical reviewed/Exam performed by Physician: Yes Changes to H&P: No
--- NOTE | 2023-03-18 14:07 | P.OP_ITS ---
Operative Date/Time/Diagnoses Date of procedure: 03/18/23 Time of procedure: 14:00 Pre-op diagnosis: Left hip femoral neck fracture with malunion and history of open reduction internal fixation Post-op diagnosis: same Procedure & Clinicians Procedure: Conversion of previous hip surgery to left total hip arthroplasty with removal of retained internal fixation Same procedure as scheduled: Yes Indications: The patient has had a history of a left femoral neck fracture. It was previously treated with open reduction internal fixation. He had a delayed and a malunion. He had persistent ongoing hip pain. He notes significant shortening of the left leg difficulty with walking and ongoing pain. Non- operative management has failed and the patient has requested total hip replacement. The risks, benefits and alternatives to surgery were discussed with the patient prior to proceeding. Risks discussed included, but were not limited to, failure to relieve pain, leg length discrepancy, dislocation, stiffness, infection, nerve damage, deep venous thrombosis, pulmonary embolism, stroke, coma, heart attack, permanent paralysis and , as well as the potential need for eventual revision of the prosthetic. Surgeon: Nenita George Canceling Machine Operator: Ramakrishna Arce Anesthesia Type: General Operative Notes Findings: Significant synovitis around the left hip screws, marked shortening of the femoral neck fracture, healed fracture, some synovitis in the hip but not severe, deformity of the proximal femur the fracture had healed, adequate stability, adequate bone, Closure Type: primary Specimen(s): other (Cultures and PCR) Prosthetic devices, grafts, tissues, transplants, or devices: George [employer] Nephew size 15 synergy cemented, size 60 acetabulum R3, neutral poly liner 60 x 40, size 60 +0 cobalt chrome head, one 6.5 mm screw Estimated Blood Loss (mL): 250 Blood products transfused: none Procedure in detail: The patient was seen in the pre-operative area, where the patient identified the left hip as the operative site and this was marked with my initials. The patient received pre-operative antibiotics and was taken to the operating room and placed on the operative table in the right lateral decubitus position after satisfactory anesthesia. A multimedia journalist out was performed. The left leg was prepared from the ankle to the iliac crest with ChloroPrep in the usual fashion and draped through sterile drapes. A PA was used during the procedure and was essential for intraoperative retraction and safe implantation of the components. The hip was approached through an approximately 24 cm incision centered over the greater trochanter and curving gently posteriorly as it went proximally. This was carried sharply to the fascia vero, which was divided and retracted with a self retaining retractor. The screw heads were identified. There was significant synovitis around the screw heads. I did send cultures and sensitivity from around the screw heads. The trochanteric bursa was excised with care being taken to avoid the sciatic nerve, which was identified and protected throughout the case. The short external rotators were incised and the capsulomuscular flap was raised and tagged for later repair. The hip was dislocated. The screws were meticulously removed. The hip was redislocated And a femoral neck osteotomy performed approximately 10 mm above the lesser trochanter. There was marked shortening of the femoral neck. Interesting the the fracture had healed. There was significant deformity of the proximal femur. Retractors were placed around the femur. The canal was opened with a box cutting osteotome, followed by a T handled reamer and a lateralizing reamer. The chili pepper broach was then used, followed by sequential reaming and broaching until there was good stability of the broach in the femur. Retractors were placed to expose the acetabulum. The labrum and central soft tissues were removed. Reaming was performed initially going up in 2 mm increments, then 1 mm increments until good bite was obtained with an odd sized reamer. The cup 1 mm larger than the last reamer was then inserted using the appropriate anteversion guides. It was further stabilized with a single screw. I meticulously adjusted the overall position of the cup. A trial neutral liner was placed. The broach was placed in the canal. A trial head and neck were then placed and the hip relocated and checked for leg length and stability. An intraoperative film confirmed the component position and no evidence of fracture. The patient was stable in the position of sleep, of squatting, and could be put through a range of motion with 45 degrees internal rotation without dislocation. At 90 degrees flexion, internal rotation to 80? was possible before dislocation. This was felt to be satisfactory and the appropriate components were opened, and the trials were removed. The acetabular liner was impacted into position. Cement was carefully mixed. A distal cement restrictor was used. We also used sounds for cement analyzer. Antibiotic cement was carefully mixed and pressurized into the canal. We packed bone along the lateral aspect of the femur and carefully held the position of t he screw holes to try and avoid significant extravasation of cement. The final stem was then impacted into the prepared femoral canal. The stem was carefully held until the cement had hardened and any loose cement was carefully removed. A brief Betadine soak was performed while trialing with head options. The hip was meticulously irrigated with normal saline. Finally the femoral head was impacted onto the stem. The acetabulum was cleared of all material and the hip relocated one final time. The capsulomuscular flap was then repaired to the greater trochanter though an awl hole using the tag sutures. The short external rotators were repaired with a nonabsorbable suture. The fascia vero was closed with Vicryl. The subcutaneous layer was closed with barbed sutures and surgical glue. An Aquacel Ag dressing was applied and the patient was taken to recovery having tolerated the procedure well. Complications: none Post-operative Condition: stable Disposition: Acute Care Plan for aftercare: The patient will be maintained on a standard total hip replacement protocol with weight bearing as tolerated and posterior hip precautions. The patient will receive Aspirin and sequential compression devices for DVT prophylaxis. The patient will be discharged home when safe for the home environment.
[2023-03-18] MEDS: CEFAZOLIN 2 GM/100 ML PREMIX 100 ML IV ×2 (14:30→21:18)
[2023-03-18] MEDS: TRANEXAMIC ACID 1,000 MG VIAL 1000 MG INJ ×2 (14:35→16:45)
--- NOTE | 2023-03-18 15:00 | SUR.OPER ---
Lateral on padded OR bed. Gel axillary roll. Arms secured on padded armboard with pillow supporting top arm. Padded hip positioner braces x4 - anterior and posterior chest and pelvis. Additional gel pad used anterior pelvis. Gel pad under bottom leg from knee to foot and secured with tape over sheet.
[2023-03-18] MEDS: BUPIVACAINE LIPOSOME 266 MG/20 ML VIAL INJ (15:10)
[2023-03-18] MEDS: BUPIVACAINE 0.25% (PF) 60 ML, EPINEPHrine 0.3 MG INJ (15:10)
--- NOTE | 2023-03-18 15:22 | CM.DPC ---
Addendum entered by AVELINO Cardoso 03/18/23 16:32: Disregard previous note. It was charted under wrong patient. Please ignore information below AVELINO Cardoso Original Note: DCP Cont-UPDATE CM coodinator received call today from the Evangelina family, caller stated that he was Shon Hutchinson, and the call was transferred to this PRODUCT BUILDER. Caller immediately stated, actually, this is Evans Hutchinson, and as a family we are looking into memory facilities in [place], and need the Medicaid LTC info. He then went on to say that he thought he should actually be the DPOA for healthcare, and acknowledged that her son was just made DPOA-HC by pt, and seemed to understand that the son would need to sign all paperwork relating to Medicaid as well as a facility. He then stated I could ask Sung (son) to give me Durable Power of Primary Care Coordinator to take over her Durable Power of Primary Care Coordinator (not legal) to which this PRODUCT BUILDER did not respond. PRODUCT BUILDER shared that tomorrow we plan to call the [facility] case assembler to clarify the date for the functional assessment, in order to expedite approval. He then began to try to tell this PRODUCT BUILDER that he was trespassed because I told people at the hospital things that they didn't want to hear, and asked if he could be un-trespassed. Again, this PRODUCT BUILDER did not respond, and instead agreed to communicate first with Sung, and update Evans re: date for assessment so that the family could make some decisions for which SNF they want her to go to for long-term care. PRODUCT BUILDER agreed to do this by email, including them both. PRODUCT BUILDER then updated CM Director of this contact and update.
--- NOTE | 2023-03-18 17:00 | DI.RAD.S_ITS ---
PROCEDURE: XR HIP W PEL IF DONE LT 2V INDICATIONS: POST OP LEFT HIP TECHNIQUE: AP pelvis and lateral view of the left hip acquired. COMPARISON: [facility], [place], XR HIP W PEL IF DONE LT 2V, 11/09/2021, 19:06. FINDINGS: Bones: Patient is status post left hip arthroplasty, with hardware components in expected positions. The hip joint appears congruent. The visualized bony structures appear intact. Soft tissues: Overlying postoperative changes are noted. No suspicious soft tissue densities. IMPRESSION: Postop changes from left total hip arthroplasty with anatomic left hip alignment. Dictated by: Lasha Sidhu M.D. on 03/19/2023 at 14:07 Approved by: Lasha Sidhu M.D. on 03/19/2023 at 14:07
[2023-03-18] MEDS: hydrOXYzine 50 MG/ML INJ 25 MG IM (17:16)
[2023-03-18] MEDS: ACETAMINOPHEN 325 MG TABLET 975 MG PO (17:16)
[2023-03-18] MEDS: ONDANSETRON 4 MG/2 ML INJ IV (17:16)
[2023-03-18] MEDS: HYDROMORPHONE 1 MG INJ IV ×4 (17:16→17:50)
[2023-03-18] MEDS: OXYCODONE IR 5 MG TABLET PO ×2 (17:35→21:20)
[2023-03-18] MEDS: LACTATED RINGERS 1,000 ML 100 ML IV (18:41)
[2023-03-18] MEDS: ACETAMINOPHEN 325 MG TABLET 650 MG PO (18:45)
[2023-03-18] MEDS: ALBUTEROL 2.5 MG/3 ML NEB (ADULT) INH (19:25)
[2023-03-18] MEDS: LOSARTAN 50 MG TABLET PO (21:18)
[2023-03-18] MEDS: GABAPENTIN 300 MG CAPSULE PO (21:18)
[2023-03-18] MEDS: DOCUSATE 100 MG CAPSULE PO (21:19)
[2023-03-19] MEDS: OXYCODONE IR 5 MG TABLET PO ×3 (00:24→09:02)
[2023-03-19] MEDS: ACETAMINOPHEN 325 MG TABLET 650 MG PO ×2 (00:25→05:37)
[2023-03-19] MEDS: LACTATED RINGERS 1,000 ML 100 ML IV (00:29)
[2023-03-19 00:46] VITALS: BP 129/52; PULSE 82; RESP 18; TEMP 35.7; O2SAT 95
[2023-03-19 04:00] VITALS: BP 115/60; PULSE 72; RESP 17; TEMP 36; O2SAT 95
[2023-03-19] MEDS: CEFAZOLIN 2 GM/100 ML PREMIX 100 ML IV (05:36)
[2023-03-19 06:49] LABS: Hematocrit 37.5 % (41-53); Hemoglobin 12.5 g/dL (13.5-17.5)
[2023-03-19 06:52] VITALS: O2SAT 93
--- NOTE | 2023-03-19 06:52 | P.DS_ITS ---
History of Present Illness History of Present Illness Date Patient Seen: 03/19/23 Time Patient Seen: 06:52 Chief complaint: Left OTTO w/removal of fixation device *OPB* Narrative: Operative Date/Time/Diagnoses Date of procedure: 03/18/23 Time of procedure: 14:00 Pre-op diagnosis: Left hip femoral neck fracture with malunion and history of open reduction internal fixation Post-op diagnosis: same Procedure & Clinicians Procedure: Conversion of previous hip surgery to left total hip arthroplasty with removal of retained internal fixation Same procedure as scheduled: Yes Indications: The patient has had a history of a left femoral neck fracture. It was previously treated with open reduction internal fixation. He had a delayed and a malunion. He had persistent ongoing hip pain. He notes significant shortening of the left leg difficulty with walking and ongoing pain. Non- operative management has failed and the patient has requested total hip replacement. The risks, benefits and alternatives to surgery were discussed with the patient prior to proceeding. Risks discussed included, but were not limited to, failure to relieve pain, leg length discrepancy, dislocation, stiffness, infection, nerve damage, deep venous thrombosis, pulmonary embolism, stroke, coma, heart attack, permanent paralysis and , as well as the potential need for eventual revision of the prosthetic. Surgeon: Nenita George Envelope Folding Machine Operator: Ramakrishna Arce Anesthesia Type: General Operative Notes Findings: Significant synovitis around the left hip screws, marked shortening of the femoral neck fracture, healed fracture, some synovitis in the hip but not severe, deformity of the proximal femur the fracture had healed, adequate stability, adequate bone, Closure Type: primary Specimen(s): other (Cultures and PCR) Prosthetic devices, grafts, tissues, transplants, or devices: George [employer] Nephew size 15 synergy cemented, size 60 acetabulum R3, neutral poly liner 60 x 40, size 60 +0 cobalt chrome head, one 6.5 mm screw Estimated Blood Loss (mL): 250 Blood products transfused: none Discharge Providers Provider Discharge Date: 03/19/23 Primary care physician: Marcus Segovia DO Consults: 03/07/23 07:19 Consult to Anesthesiology Routine Comment: Consulting Provider: Anesthesiologist Reason for consultation: Regional block for post operative pain control 03/18/23 07:48 Consult to Anesthesiology Routine Comment: Consulting Provider: Anesthesiologist Reason for consultation: Regional block for post operative pain control 03/18/23 18:22 Consult to Discharge Planning Routine Comment: Consult to Occupational Therapy Evaluate & Treat Comment: Physician Instructions: Evaluate and treat Consult to Physical Therapy Evaluate & Treat Comment: Physician Instructions: post op OTTO protocol Discharge provider: Jerica Carlson PA-C Summary Hospital Course Discharge Diagnosis: Left hip femoral neck fracture with malunion and history of open reduction internal fixation, s/p Conversion of previous hip surgery to left total hip arthroplasty with removal of retained internal fixation Hospital Course: Mr Perkins'filomena hospital course was unremarkable. On the morning of POD# 1, he was feeling well and wanted to go home. He was eating and voiding without difficulty and his pain was well-controlled with oral medication. He had not yet been OOB or worked w/ PT. Exam Vital Signs (past 8 hours): - 03/19/23 00:46 03/19/23 04:00 Temperature 96.3 F L 96.8 F L Pulse Rate 82 72 Respiratory Rate 18 17 Blood Pressure 129/52 L 115/60 Pulse Oximetry 95 95 Oxygen Flow Rate 3 2 Oxygen Delivery Method Nasal Cannula Oxygen Flow Rate 2 Narrative Exam Narrative: 5/5 strength in hip flexors, quadriceps, hamstrings, DF, PF, EHL on left. Se nsation to light touch intact throughout LLE. Calf soft, compressible, nontender. Aquacel dressing CDI. [facility] Medical History (Updated 03/12/23 @ 13:45 by Ivelsise Romero RN) Lower urinary tract symptoms History of tobacco use History of kidney stones Microscopic hematuria Reactive airway disease Cerumen impaction Fracture of femoral neck, left Port-A-Cath in place (2014) Easy bruising HTN (hypertension) Aortic root dilatation PAF (paroxysmal atrial fibrillation) (2014) Preoperative clearance Cough Viral illness Chronic anticoagulation Atrial fibrillation, currently in sinus rhythm Surgical History (Updated 03/19/23 @ 06:57 by Jerica Carlson PA-C) History of orthopedic surgery (11/08/21) Hx of total knee replacement Hx of tonsillectomy Hx of transurethral resection of prostate Status post appendectomy Status post neck dissection (2014) History of surgery (2014) Social History marital status: number of children: 4 household members: spouse occupational status: previously employed and other Smoking Status: Former smoker Tobacco: How many years used: 20 alcohol intake: former substance use type: does not use caffeine: Yes Type(s) of exercise: none Discharge Assessment & Plan Assessment and Plan Assessment: Left hip femoral neck fracture with malunion and history of open reduction internal fixation, s/p Conversion of previous hip surgery to left total hip arthroplasty with removal of retained internal fixation Plan of Treatment: Discharge after PT if PT agrees. Pt normally takes up to 4 oxycodone/day; will prescribe more for acute postop pain control. Eliquis for VTE prophlaxis, outpt PT, f/u in office in 2 weeks as scheduled. Discharge Plan Discharge Plan Patient Disposition: Home Discharge orders & Medications Discharge Orders: Discharge (Order); Ordered 03/19/23 Ordered By: Jerica Carlson Prescriptions: New oxycodone 5 mg Tablet 5 mg PO Q4-6H PRN (Reason: Pain, Moderate (4-6)) Qty: 50 0RF docusate sodium 100 mg Capsule 100 mg PO BID PRN (Reason: constipation) Qty: 60 1RF Continued albuterol sulfate 90 mcg/actuation HFA aerosol inhaler 1 - 2 inh inhalation Q6H PRN (Reason: shortness of breath or wheezing) Qty: 8.5 1RF gabapentin 300 mg capsule 300 mg PO ONCE PM Qty: 90 0RF oxycodone 5 mg tablet 2.5 mg PO Q6H PRN (Reason: Pain) Patient Comments: this was last prescribed on 03/06/23 with a quantity of #120 Eliquis 5 mg tablet 5 mg PO BID Qty: 180 3RF diltiazem HCl 240 mg capsule,extended release 24hr 240 mg PO DAILY Qty: 90 3RF acetaminophen 500 mg Tablet 1,000 mg PO BID rosuvastatin 5 mg Tablet 2.5 mg PO DAILY losartan 50 mg Tablet 50 mg PO BEDTIME levothyroxine 50 mcg tablet 50 mcg PO DAILY Rx Instructions: Take one tablet by mouth once daily in the morning. Follow up/Referrals: Marcus Segovia DO [Primary Care Provider] - Nenita George MD [Physician] - As previously scheduled (Follow up with Dr Delphine engle on 04/02/2023 @ 3:30 pm at [facility] office in [place].) Skin/Wound/Dressing Care Report to your healthcare provider any signs of infection, such as:: chills, fever, night sweats, unusual drainage and unusual redness Dressing: May shower. Leave Aquacel dressing in place until follow up in office. No bathing or otherwise soaking incision. Do not apply any creams, lotions, or ointments to incision. Visit Report/Discharge Packet Instructions: DI for Hip Replacement, DI for Prescription Opioid Use Stand Alone Forms: Patient Portal/API, Surgery Discharge Discharge Data Primary Care Provider: Marcus Segovia Attending Provider: Nenita George
[2023-03-19] MEDS: polyethylene glycoL 3350 17 GM POWD.PACK PO (08:05)
[2023-03-19] MEDS: dilTIAZem CD 120 MG CAP 240 MG PO (08:05)
[2023-03-19] MEDS: DOCUSATE 100 MG CAPSULE PO (08:05)
[2023-03-19] MEDS: ATORVASTATIN 20 MG TABLET 10 MG PO (08:05)
[2023-03-19] MEDS: LEVOTHYROXINE 50 MCG TABLET PO (08:06)
[2023-03-19] MEDS: IBUPROFEN 400 MG TABLET PO (08:06)
[2023-03-19 08:49] VITALS: BP 111/64; PULSE 68; RESP 18; TEMP 36.3; O2SAT 95
--- NOTE | 2023-03-19 09:00 | OT.IP.EVAL ---
Current Diagnoses Unilateral post-traumatic osteoarthritis, left hip (03/18/23) Fracture of unspecified part of neck of left femur, initial encounter for closed fracture (03/18/23) Presence of unspecified artificial hip joint (03/18/23) Surgery Performed Operation Date: 03/18/23 13:45 Actual Procedures p Total Hip Arthroplasty & removal of internal fixation device from deep bone(Left) - Nenita George MD Past Medical History (Last Updated 03/12/23 @ 13:45 by Ivelisse Romero RN) Aortic root dilatation Atrial fibrillation, currently in sinus rhythm Cerumen impaction Chronic anticoagulation Cough Easy bruising Fracture of femoral neck, left History of kidney stones History of tobacco use HTN (hypertension) Lower urinary tract symptoms Microscopic hematuria PAF (paroxysmal atrial fibrillation) (2014) Port-A-Cath in place (2014) Preoperative clearance Reactive airway disease Viral illness Surgical History (Last Updated 03/12/23 @ 13:57 by Ivelisse Romero RN) History of orthopedic surgery (11/08/21) History of surgery (2014) Hx of tonsillectomy Hx of total knee replacement Hx of transurethral resection of prostate Status post appendectomy Status post neck dissection (2014) Occupational Therapy Inpatient Evaluation/Re-Eval M1 PT/OT-IP Prior Functional Status Start: 03/19/23 09:51 Freq: NEEDED Status: Active Protocol: Document 03/19/23 08:32 [facility] (Rec: 03/19/23 10:04 [facility] [id number]) Medical Review Prior Functional Status Communication Independent Mobility and Gait Pt states did not use a device but had pain during ambulation. Activities of Daily Living and IADL's Pt states had pain during ADL and IADL needs. Social History Household Members spouse Living Arrangements House Number of Floors (Floors) Two Floors Number of Stairs To Enter/Railing? Pt has one step to enter with no rails and then 5 steps, landing, 9 steps with right rail going up. Home Environment Standard Height Toilet,Walk in Shower,Tub/Shower Home Equipment Front Wheel Walker,Straight Cane,Raised Toilet Seat w/ Armrests,Metal Control Worker Additional Social History Comment Pt to be able to assist per pt. M2 OT-IP Current Condition Start: 03/19/23 09:51 Freq: Status: Active Protocol: Document 03/19/23 08:32 [facility] (Rec: 03/19/23 10:04 [facility] [id number]) Occupational Therapy Current Condition Current Condition Evaluation Date 03/19/23 Treatment Diagnosis S/P L OTTO with removal of fixation device Diagnosis Onset Date 03/18/23 Post Operative Precautions Posterior Hip Precautions No Hip Flexion > 90 degrees,No Hip Internal Rotation,No Hip Adduction M3 OT- IP Subjective and Pain Start: 03/19/23 09:51 Freq: Status: Active Protocol: Document 03/19/23 08:32 [facility] (Rec: 03/19/23 10:04 [facility] [id number]) OT- Subjective Occupational Therapy Visit Type Type Initial Evaluation Visit Start Time 08:32 Visit Stop Time 09:00 Total Visit Minutes 28 Occupational Therapy Visit Comments Patient Comments Pt agreed to get dressed and states already did all his oral care, grooming, and used the toilet earlier with nursing. Patient/Caregiver Goals TO go home. OT Pain Assessment Pain When Pain Assessed During Mobility Pain Present Pain Present Pain Reported Location Left Upper Leg Intensity 6 Scale Used Numeric (0 - 10) M4 OT- IP ADL's Start: 03/19/23 09:51 Freq: Status: Active Protocol: Document 03/19/23 08:32 [facility] (Rec: 03/19/23 10:04 [facility] [id number]) OT [id number] General Evaluation Self-Feeding Ability Independent OT ADL-Grooming Comments OT Grooming Comments Pt did earlier. OT ADL-Oral Care Comments Oral Care Comments Pt did earlier. OT ADL-Dressing General Eval Lower Body Dressing Ability Minimal Assistance Comments OT Dressing Comments Able to practice use of renal case manager to assist with his underwear and pants. Pt educated best to lalit his LLE first and take out last. OT ADL-Toileting Comments OT Toileting Comments Pt did prior. OT ADL-Bathing Comments OT Bathing Comments Pt not wanting to do . Suggested pt get a shower chair, pt states does not feel that he needs one. M5 OT- IP IADL's Start: 03/19/23 09:51 Freq: Status: Active Protocol: Document 03/19/23 08:32 [facility] (Rec: 03/19/23 10:04 [facility] [id number]) OT-Instrumental Activities of Daily Living Deficits IADL Deficits Identified Deficits Home Safety Awareness Awareness of Need for Assistance at Home Decreased Awareness Ability to Problem Solve Emergency Able to Problem Solve Situations Meal Preparation Meal Preparation Caregiver Provides Assist Pleating Machine Operator Pleating Machine Operator Caregiver Provides Assist M6 OT- IP Functional Cognition Start: 03/19/23 09:51 Freq: Status: Active Protocol: Document 03/19/23 08:32 [facility] (Rec: 03/19/23 10:04 [facility] [id number]) Cognitive Factors Limiting Selfcare Function Cognitive Ability Level of Alertness Alert Patient Orientation Name,Place,Situation Attention Span Ability Capable of Focused Attention, Capable of Sustained Attention Ability to Follow Commands Able to Follow One Step Commands Safety Awareness Underestimates Need for Assistance Cognitive Comments Cognitive Assessment Comments Pt able to recall his precautions and incorporate during ADL needs. Pt would greatly benefit from a shower chair but pt feel it is not needed. OT- Vision and Hearing OT- Hearing Assessment OT- Hearing Assessment WFL OT- Vision Assessment Visual Acuity Glasses All The Time Visual Attentiveness WFL Occular Pursuits WFL M7 OT- IP Mobility and Balance Start: 03/19/23 09:51 Freq: Status: Active Protocol: Document 03/19/23 08:32 [facility] (Rec: 03/19/23 10:04 [facility] [id number]) OT-Transfer Assessment Sit to and From Stand Sit to and from Stand Standby Assistance Transfers Transfer Ability Standby Assistance Technique Transfer Destination Chair Transfer Technique Stand Step Pivot Devices Transfer Assistive Devices Front Wheeled Walker Comments Mobility Comments Pt able to stand from the recliner with SBA to the FWW and take a few step, but just wanting to sit back down to eat his breakfast. OT- Balance Assessment Sitting Balance and Reactions Static Sitting Balance Ability Normal Dynamic Sitting Balance Ability Good Standing Balance and Reactions Static Standing Balance Ability Good Dynamic Standing Balance Ability Fair M9 OT- IP Assessment and Plan Start: 03/19/23 09:51 Freq: Status: Active Protocol: Document 03/19/23 08:32 [facility] (Rec: 03/19/23 10:04 [facility] [id number]) OT Summary Assessment and Plan Potential Rehabilitation Potential Good Analytic Complexity at Evaluation Low Summary OT Impairments Pain,Balance,Functional Mobility,Bathing,Shower Transfers Progress Towards Goals Progressing Toward Goals Assessment Summary Pt low complexity and main barriers are pain and steps. Pt to go home with his to assist when medically stable and have outpt PT. Pt will benefit from a shower chair but pt not wanting one. Goals Grooming Goal Independent Dressing Goal Minimal Assistance Toileting Goal Independent Bathing Goal Standby Assistance Toilet Transfer Goal Independent Shower Transfer Goal Standby Assistance Days to Meet Goals 3 Frequency of Treatment Frequency Of Treatment Once a Day Treatment Plan OT Treatment Plan ADL Training,Functional Mobility,Patient/Family Education,Discharge Planning Discharge Recommendations OT Discharge Recommendations Home with Assistance, Outpatient PT Home Equipment Needs shower chair Transportation Needs at Discharge Private Vehicle
--- NOTE | 2023-03-19 09:15 | PT.IIE ---
Current Diagnoses Unilateral post-traumatic osteoarthritis, left hip (03/18/23) Fracture of unspecified part of neck of left femur, initial encounter for closed fracture (03/18/23) Presence of unspecified artificial hip joint (03/18/23) Surgery Performed Operation Date: 03/18/23 13:45 Actual Procedures p Total Hip Arthroplasty & removal of internal fixation device from deep bone(Left) - Nenita George MD Surgical History (Last Updated 03/12/23 @ 13:57 by Ivelisse Romero RN) History of orthopedic surgery (11/08/21) History of surgery (2014) Hx of tonsillectomy Hx of total knee replacement Hx of transurethral resection of prostate Status post appendectomy Status post neck dissection (2014) Medical History (Last Updated 03/12/23 @ 13:45 by Ivelisse Romero RN) Aortic root dilatation Atrial fibrillation, currently in sinus rhythm Cerumen impaction Chronic anticoagulation Cough Easy bruising Fracture of femoral neck, left History of kidney stones History of tobacco use HTN (hypertension) Lower urinary tract symptoms Microscopic hematuria PAF (paroxysmal atrial fibrillation) (2014) Port-A-Cath in place (2014) Preoperative clearance Reactive airway disease Viral illness Physical Therapy Inpatient Evaluation/Re-Eval M1 PT/OT-IP Prior Functional Status Start: 03/19/23 09:51 Freq: NEEDED Status: Discharge Protocol: Document 03/19/23 08:32 [facility] (Rec: 03/19/23 10:04 [facility] [id number]) Medical Review Prior Functional Status Communication Independent Mobility and Gait Pt staets did not use a device but had pain during ambulation. Activities of Daily Living and IADL's Pt states had pain during ADL and IADL needs. Social History Household Members spouse Living Arrangements House Number of Floors (Floors) Two Floors Number of Stairs To Enter/Railing? Pt has one step to enter with no rails and then 5 steps, landing, 9 steps with right rail going up. Home Environment Standard Height Toilet,Walk in Shower,Tub/Shower Home Equipment Front Wheel Walker,Straight Cane,Raised Toilet Seat w/ Armrests,[employer] Additional Social History Comment Pt to be able to assist per pt. M1 PT/OT-IP Prior Functional Status Start: 03/19/23 13:22 Freq: NEEDED Status: Active Protocol: Document 03/19/23 09:15 [facility] (Rec: 03/19/23 13:43 [facility] [id number]) Medical Review Prior Functional Status Medical History Reviewed Yes Communication ablel to make needs known Mobility and Gait pt stated that he was independent with all mobilities and ambulation without AD Activities of Daily Living and IADL's per OT note: Pt states had pain during ADL and IADL needs . Social History Household Members spouse Living Arrangements House Number of Floors (Floors) Two Floors Number of Stairs To Enter/Railing? 1 step to enter 15 steps R rail ascending to bedroom level Home Environment Standard Height Toilet,Walk in Shower Home Equipment Front Wheel Walker,Straight Cane,Crutches,Raised Toilet Seat w/Armrests M2 PT-IP Current Condition Start: 03/19/23 13:22 Freq: NEEDED Status: Active Protocol: Document 03/19/23 09:15 [facility] (Rec: 03/19/23 13:43 [facility] [id number]) Physical Therapy Current Condition Current Condition Evaluation Date 03/19/23 Treatment Diagnosis s/o L OTTO revision posterior approach; difficulty in walking Onset Date 03/18/23 M3 PT-IP Subjective Start: 03/19/23 13:22 Freq: NEEDED Status: Active Protocol: Document 03/19/23 09:15 [facility] (Rec: 03/19/23 13:43 [facility] [id number]) Subjective Physical Therapy Visit Type Type Initial Evaluation Visit Start Time 09:15 Visit Stop Time 10:22 Total Visit Minutes 67 Number of MAIL TRUCK DRIVER Visits 0 Physical Therapy Visit Comments Patient Comments agreeable to do PT Therapy Pain Assessment Pain When Pain Assessed At Rest Pain Present Pain Present Pain Reported Location Left Hip Intensity 5 Scale Used Numeric (0 - 10) Pain Management Techniques Apply Cold,Distraction, Modification of Treatment,Re- positioning,Timing of Activity with Medications M4 PT-IP Mobility and Gait Start: 03/19/23 13:22 Freq: NEEDED Status: Active Protocol: Document 03/19/23 09:15 [facility] (Rec: 03/19/23 13:43 [facility] [id number]) PT-Bed Mobility Assessment Supine to Sit Supine to Sit Standby Assistance Sit to Supine Sit to Supine Standby Assistance PT-Transfer Assessment Sit to and From Stand Sit to and from Stand Standby Assistance,Contact Guard Assistance,1 Person Assistance,Use of Upper Extremities Equipment Transfer Assistive Device Gait Belt,Front Wheeled Walker Orthotic/Prosthetic Devices or Brace: No Transfers Transfer Destination Bed,Chair Transfer Technique ambulated Transfer Ability Level of Assist Standby Assistance,Contact Guard Assistance,1 Person Assistance,Use of Upper Extremities Comments Mobility Comments pt is sitting on the chair. agreeable to do PT. educated pt on L hip posterior precautions. pt was able to recall his hip precautions. pt completed sit to stand from the chair. CGA and ambulated to the EOC ~ 12 ft using FWW SBA to CGA. pt completed sit<> supine SBA. cued for techniques and safety. spouse arrived and confirmed that she will be assisting pt at home. pt agreed to do stairs and completed sit to stand from EOB SBA. ambulated towards the stairs using FWW ~ 150 ft SBA to occasional CGA. pt stated that he has used a crutch do do stair climbing before and prefer to use a crutch that use a SPC. educated pt on how to do stairs. completed up/down platform step using FWW SBA to CGA. educated spouse on how to assist pt. pt completed ascending steps using R rail ascending + crutch SBA to CGA. pt stated that he descend steps backwards and completed using R rail and crutch CGA. pt completed stairs again but descended facing forward. SBA to CGA with ascending using R rail + crutch and CGA to min A for descending using L rail descending + crutch with slight L knee buckling with descent. pt stated that he feels more comfortable descending stairs backwards. assisted pt back to his room. pt ambulated from w/c to chair using fWW SBA. positioned pt on the chair. educated spouse on how to use safety belt and spouse was able to put safety belt on pt. call light and table positioned next to pt. Gait Assessment Gait Gait Assistance Required: Standby Assistance,Contact Guard Assist Distance (Feet) 150 Able to Maintain Weight Bearing Status Yes During Gait Assistive Devices Assistive Device Gait Belt,Front Wheeled Walker Orthotic/Prosthetic Devices or Brace: No Gait Deviations General Gait Pattern Antalgic,Decreased Stride Length,Decreased Feet Clearance,Step-to Gait Factors Limiting Gait Function Factors Limiting Gait Function Decreased Activity Tolerance, Decreased Strength,Limited Range of Motion,Pain,Poor Balance,Poor Safety Awareness Stair Climbing Assessment Evaluation Level of Assist On Stairs Standby Assistance,Contact Guard Assistance Devices Stair Climbing Assistive Devices Axillary Crutches,Right Railing Technique/Endurance Stair Climbing Direction Ascend and Descend Stair Climbing Technique Step to Step Number of Steps Climbed 3 Query Text: Stair Climbing Set # Repetitions (reps) 2 PT-Balance Assessment Sitting Balance and Reactions Static Sitting Balance Ability Normal Dynamic Sitting Balance Ability Good Standing Balance and Reactions Static Standing Balance Ability Fair Dynamic Standing Balance Ability Fair Device Used FWW M5 PT-IP Objective Assessments Start: 03/19/23 13:22 Freq: NEEDED Status: Active Protocol: Document 03/19/23 09:15 [facility] (Rec: 03/19/23 13:43 [facility] [id number]) Orientation Orientation/Cognition Level of Alertness Alert Orientation Name,Place,Situation Language Function Ability Hard of Hearing Safety Awareness Understands Safety Issues, Decreased Safety Awareness Memory Description No Deficits Noted Strength Lower Extremity Strength Assessment Left Impaired Hip 3+/5 Knee 4-/5 Sensation Assessment Sensation Sensation Description Numbness Comments Sensation Comments has chronic fingers and feet numbness per pt Muscle Tone Muscle Tone WNL Yes M6 PT-IP Treatment Start: 03/19/23 13:22 Freq: NEEDED Status: Active Protocol: Document 03/19/23 09:15 [facility] (Rec: 03/19/23 13:43 AB [id number]) Physical Therapy Treatment Education Education Provided Precautions,Weight Bearing Status,Post-Op Packet,Safety M7 PT-IP Assessment and Plan Start: 03/19/23 13:22 Freq: NEEDED Status: Active Protocol: Document 03/19/23 09:15 [facility] (Rec: 03/19/23 13:43 [facility] [id number]) PT Summary Assessment and Plan Potential Rehabilitation Potential Fair Status of Condition at Evaluation Stable Summary Impairments Pain,ROM,Strength,Balance, Coordination,Sensation,Tone, Cognition,Bed Mobility, Transfers,Gait,Activity Tolerance Assessment Summary pt is a 77 y/o M with h/o L hip ORIF with delayed and malunion and underwent L OTTO posterior approach. pt has L posterior hip precautions and is WBAT. pt requiring SBA to CGA with mobility and plans to go home with spouse to assist . pt has outpt PT set up. pt may go home when medically stable. Goals Bed Mobility Goal Independent Transfer Goal Independent,Front Wheeled Walker Gait Goal Independent,Front Wheel Walker Gait Distance 200 Other Goals up/down platform step using FWW mod I up/down 15 steps R rail ascending + 1 crutch mod I Days to Meet Goals 5 Frequency of Treatment Frequency Of Treatment Twice a Day Treatment Plan Physical Therapy Treatment Plan Bed Mobility Training,Transfer Training,Gait Training, Therapeutic Exercise,Balance Retraining,Post Op Education, Discharge Planning,Hot or Cold Pack,Neuromuscular Re-ed, Coordination Retraining,Manual Therapy Precautions Posterior Hip Precautions No Hip Flexion > 90 degrees,No Hip Internal Rotation,No Hip Adduction Weight Bearing Status Weight Bearing Status Weight Bear as Tolerated Allowed Weight Bearing Amount (enter % LLE WBAT or #) (%) Recommendations To Nursing Amount of Assist Needed 1 Person Assist Discharge Recommendations PT Discharge Recommendations Home with Assistance, Outpatient PT Transportation Needs at Discharge Private Vehicle
--- NOTE | 2023-03-19 11:37 | CM.DANOTE ---
DCP: Case received, EMR reviewed and met with patient. Spouse, Genoveva, was at bedside. Introduced self and role. Was able to obtain information regarding patient's baseline activity status prior to surgery. DCP assessment completed with information currently available. Patient is a 77 year old male who admitted yesterday morning to the care of the orthopedic team. PCP: Dr. Segovia. Payer: confirmed: [facility]. Patient came to the hospital via private vehicle for a surgical procedure. Patient had left hip femoral neck fracture with removal of retained internal fixation. Met with patient in his room. He is alert and oriented, spouse, was in the room, and was getting instruction from P.T. Confirmed that patient and spouse reside in [place]. At baseline, per O.T. uses no DME, but has a FWW for post surgery. Has on step to enter home. Patient drives at baseline. Will pursue outpatient P.T. P: Patient is discharging home today with no needs. Jelena Diane RN/Language Interpreter Discharge Planning/Care Management CM Discharge Assessment Start: 03/19/23 11:35 Freq: Status: Active Protocol: Document 03/19/23 11:36 (Rec: 03/19/23 11:37 [id number]) Discharge Planning Assessment Assigned Loan Representative Jelena Diane RN/Language Interpreter Advance Directives? Yes Advance Directives on File No History Provided By Patient,Medical Record Prior Living Arrangements House Household Members spouse Type of transporation used prior to Drives own vehicle admit Independent with ADL's Yes Is patient alert and oriented? Yes Caregiver for Another No DME Already Rented / Owned FWW / Walker Patient/Family Preference OP PT Therapy Barriers to Discharge No Comment Plan is home with spouse. Discharge Plan Home Transportation Arrangement Spouse Referrals Initiated None needed Whiteboard Updated in Patient Room with Yes name and ext. # of Loan Representative Review Status In Process Next Review Type Continued Stay Review Pre-Anesthesia Assessment Start: 03/12/23 13:32 Freq: Status: Discharge Protocol: Document 03/12/23 13:32 [facility] (Rec: 03/12/23 14:24 [facility] [id number]) Pre-Anesthesia Assessment Preferred Name Cosme Patient Information Reviewed Via Phone Assessment Assessment Completed With Patient Primary Care Provider Marcus Segovia Seen Specialist in Last 12 Months Yes Specialist Seen Fleet Maintenance Manager,Orthopedist, Urologist Primary Language Divehi Preferred Language Divehi Maturity Checker Required No Height 6 ft Weight 222 lb 0.017 oz Body Mass Index (BMI) 30.1 Hearing Ability Hearing Impaired,Use of Hearing Aid Visual Impairment Partially Limited Visual Assist Glasses Dentition Type Teeth, Natural Present,Teeth, Missing Barriers to Learning None Other Aids No Hx Anesthesia Reactions No Hx Family Anesthesia Reaction No Hx Malignant Hyperthermia No Hx Blood Transfusions Yes Hx Blood Transfusion Reaction No Anesthesia Review Requested No Transit Mix Operator No alcohol intake former alcohol intake frequency 0-2 drinks per day Smoking Status Former smoker Tobacco type cigarettes,smokeless tobacco how long ago did patient quit smoking 1992 Substance Use Type does not use Pain Present Pain Reported Musculoskeletal Symptoms Abnormal Gait,Back Pain, Difficulty Walking,Joint Pain, Joint Stiffness,Limited Range of Motion History of Falling (Recent or History of No ) Patient is completely paralyzed or No completely immobile Mental Status Oriented to own ability Is patient on oxygen? No Does patient have [place]/SOB No: Pt has excess phlegm Hx Sleep Apnea No CPAP/BIPAP use not prescribed Currently Taking a Beta Nancy No Can You Climb a Flight of Stairs Without Yes SOB Hx Chest Pain No Hx SOB No Hx Syncope or Dizziness No Anti-Coagulant Therapy Yes: Eliquis -pt will confirm w/cardiology on when to hold Has a Fleet Maintenance Manager Yes: Visit 02/14/[address] Carr @ [facility] Cardiac Testing Yes: Echo @ 03/06/23 Hx Pacemaker/ICD No Pacemaker Rep Required? No Cardiac Clearance Received Yes Comment Cardiac records scanned Diet Type At Home Regular Dysphagia No Genitourinary Symptoms Hematuria Chronic UTI No Urinary Catheter Present No Hx Urinary Self Catheterization No Diabetes No Hx Drug Resistant Organism Yes: C-diff 2014 Presence of External or Internal Medical No: left hip, Right knee Devices Received a COVID vaccine? No Marital Status Lives With spouse Current Living Arrangements House Number of Floors (Floors) Two Floors Number of Stairs To Enter/Railing? 2 Support System Spouse Does the Patient Have Assistance After Yes Surgery Patient Discharge Plan Description Return Home Comment Pt advised possible same day per PA w/surgeon Feels Safe in Current Environment Yes Been Physically Hurt or Threatened By a No Person in Current Environment Do you have thoughts of harming yourself None or others? Are you currently considering suicide? No Do you have a plan to hurt yourself or No Plan others? Do You Have Any Spiritual Beliefs That No May Affect Your HC Choices? Do You Have Any Cultural Practices That No May Affect Your HC Choices? Comment Faith Who Can We Speak to About Patient's Care Family, friends Identifying Code for Release of Patient Declines to issue Information Health Care Proxy/Next of Kin Genoveva () Health Care Proxy Emergency Contact Name Genoveva () Emergency Contact Advance Directives? Yes Advance Directives on File No Power of Carpentry Specialist Yes Power of Carpentry Specialist Name Genoveva singh PAC Instructions Durable medical equipment, Medications to take/avoid, Nasal antibiotic,No ETOH/ petroleum product on skin DOS, NPO,Pre-surgical wash,Sensory aids,Sturdy shoes/comfortable clothes,Do not bring valuables and remove jewelry
== END 2023-03-19 11:07 | disposition home or self-care (01) ==
LOC: OR 11:23 → AC 11:23
PROVIDERS: PCP Family Medicine; Referring Provider Orthopaedic Surgery; Visit Provider Orthopaedic Surgery
PROC: 0SRB0JZ Replacement of Left Hip Joint with Synthetic Substitute, Open Approach (ICD-10-PCS; CPT 27130; principal; 2023-03-18 13:45)
DX: M16.52 Unilateral post-traumatic osteoarthritis, left hip (principal); S72.002P Fracture of unspecified part of neck of left femur, subsequent encounter for closed fracture with malunion; I48.91 Unspecified atrial fibrillation; I10 Essential (primary) hypertension
CPT/HCPCS: 27130; 36591; 72170; 73502; 85014; 85018; 87070; 87075; 87176; 87205; 87801; 94640; 97162; 97165; 97530; 97535; C1776; C9290; J0171; J0690; J1100; J1170; J2405; J2704; J3010; J3410; J7613

== ENCOUNTER → 2023-12-25 10:18 | Outpatient (CLI) | payer MEDICARE, OTHER, SELFPAY ==
[2023-03-18 18:29] VITALS: BMI 30.1
--- NOTE | 2023-12-25 10:25 | DI.RAD.S_ITS ---
PROCEDURE: XR KNEE LT 3V INDICATIONS: evaluate knee pain TECHNIQUE: 3 views of the knee were acquired. COMPARISON: [facility], CR, XR KNEE RT 1TO2V, 08/03/2021, 15:01. [facility], CR, XR KNEE RT 3V, 03/04/2019, 13:25. FINDINGS: No acute fracture or dislocation. Mild tricompartmental osteoarthritis, most conspicuous in the patellofemoral compartment. Small suprapatellar recess joint effusion. Vascular calcifications. Heterotopic ossification in the distribution of the anterior tibial tuberosity. Status post prior mid diaphyseal fibular resection. IMPRESSION: Mild tricompartmental osteoarthritis and small joint effusion. Dictated by: Abhijeet Lazaro M.D. on 12/25/2023 at 13:20 Approved by: Abhijeet Lazaro M.D. on 12/25/2023 at 13:24
[2023-12-25 12:13] LABS: Add Manual Diff / Slide Review NO; Basophils Absolute Auto 100 /uL (0-100); Eosinophils Absolute Auto 600 /uL (0-450); Eosinophils Percent Auto 8.6 % (2-4); Hematocrit 46.9 % (41-53); Hemoglobin 15.8 g/dL (13.5-17.5); Lymphocytes Absolute Auto 700 /uL (1100-4500); Mean Corpuscular HGB Conc 33.7 % (30-36); Mean Corpuscular Hemoglobin 29.6 PG (26-34); Mean Corpuscular Volume 87.9 fL (80-100); Monocytes Absolute Auto 700 /uL (0-900); Monocytes Percent Auto 9.5 % (3-14); Neutrophils Absolute Auto 4800 /uL (1500-7000); Neutrophils Percent Auto 69.9 % (50-75); Platelet Count 201 X10^3/uL (150-400); Red Blood Cell Count 5.33 X10^6/uL (4.5-5.9); Red Cell Distribution Width 15.1 % (11.6-14.8); White Blood Cell Count 6.8 X10^3/uL (4.5-11.0)
[2023-12-25 12:28] LABS: Alanine Aminotransferase 18 IU/L (<50); Albumin 4.5 g/dL (3.5-5.0); Albumin Globulin Ratio 1.7 (1.0-2.8); Alkaline Phosphatase 94 U/L (38-126); Aspartate Aminotransferase 23 IU/L (17-59); BUN Creatinine Ratio 18.8 (6-22); Bilirubin Total 0.7 mg/dL (0.2-1.3); Blood Urea Nitrogen 22 mg/dL (9-20); Calcium 9.1 mg/dL (8.4-10.2); Carbon Dioxide 24 mmol/L (22-32); Chloride 103 mmol/L (98-107); Cholesterol 130 mg/dL (140-199); Estimated Glomerular Filt Rate > 60 mL/min (>60); Globulin 2.6 g/dL (1.7-4.1); Glucose 89 mg/dL (80-110); HDL Cholesterol 39 mg/dL (40-60); HEMOLYSIS < 15 (0-50); LDL Cholesterol Calculated 65 mg/dL (<100); Potassium 4.6 mmol/L (3.4-5.1); Sodium 138 mmol/L (137-145); Total Protein 7.1 g/dL (6.3-8.2); Triglycerides 128 mg/dL (35-150)
[2023-12-25 12:47] LABS: Free T4, Direct Thyroxine 1.04 ng/dL (0.78-2.19)
[2023-12-25 13:01] LABS: Thyroid Stimulating Hormone 3.47 uIU/mL (0.47-4.68)
== END ==
LOC: LAB 10:21
PROVIDERS: PCP Family Medicine; Referring Provider Internal Medicine Cardiovascular Disease; Visit Provider Internal Medicine Cardiovascular Disease
DX: E03.9 Hypothyroidism, unspecified (principal); M25.562 Pain in left knee; E78.2 Mixed hyperlipidemia; I10 Essential (primary) hypertension
CPT/HCPCS: 36415; 73562; 80053; 80061; 84439; 84443; 85025

== ENCOUNTER → 2024-05-10 15:50 | Outpatient (CLI) | payer MEDICARE, OTHER, SELFPAY ==
[2023-03-18 18:29] VITALS: BMI 30.1
--- NOTE | 2024-05-10 15:51 | DI.ECHO.S_ITS ---
[facility]---------+ [facility] : : [id number] : : [place] : : [id number] : : Phone: [phone] Echocardiogram Report + + :Name: PABLO WHALEN Study Date: 05/10/2024 Height: 72 in : :Hospital ReadingLocation: Weight: 235 lb : : Gender: Male BSA: 2.3 m2 : :: 1945 Age: 78 yrs BP: 168/87 mmHg: :Reason For Study: AORTIC ROOT ENLARGEMENT : :Ordering Physician: CHRISTINA, : :AU[place]O Performed By: Anselmo Vasquez : :Referring: AUGUSTO CARR : + + Interpretation Summary 1) Normal left ventricular size with mildly reduced systolic function (EF 45- 50%). 2) Normal right ventricular size and function. 3) There is mild mitral regurgitation. 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 It measured 4.6cm on echo 09/21/2021 and 4.7cm on Echo 08/07/2021. 5) Compared to the Echo done 03/06/2023, LVEF has decreased from normal to mildly reduced on this study. Procedure: A two-dimensional transthoracic echocardiogram with color flow and Doppler was performed. The study quality was technically good. Comparison is made with the echocardiogram of 03/06/2023. The patient was in atrial fibrillation with heart rates between 51-74 bpm during the exam. Left Ventricle: The left ventricle is normal in size. Left ventricular wall thickness is mildly increased. There is no ventricular septal defect visualized. The ejection fraction is estimated to be 45-50%. There is mild global hypokinesis of the left ventricle. Diastolic parameters suggest a relaxation abnormality of the left ventricle, consistent with probable normal filling pressures. Right Ventricle: The right ventricle is normal in size and function. Atria: The left atrium is mildly dilated. The right atrium is normal in size. There is no Doppler evidence for an interatrial shunt. Mitral Valve: The mitral valve leaflets are slightly calcified. There is mild mitral annular calcification. There is mild mitral regurgitation. Aortic Valve: The aortic valve is trileaflet. The aortic valve opens well. There is no aortic valve stenosis. There is mild aortic regurgitation. There is an eccentric jet of aortic insufficiency directed against the anterior mitral leaflet. Tricuspid Valve: The tricuspid valve leaflets are thin and pliable. There is trace tricuspid regurgitation. The right ventricular systolic pressure is estimated to be at least 30 mmHg based on an estimated right atrial pressure of 3 mm Hg. Pulmonic Valve: The pulmonic valve is not well seen, but is grossly normal. There is no pulmonic valvular regurgitation. Great Vessels: The aortic root is moderately dilated. The dimensions of the ascending aorta are normal. The pulmonary artery is normal size. The IVC is of normal diameter and collapses greater than 50% with a sniff. This suggests a low right atrial pressure of 3 mm Hg. Pericardium/ Pleura There is no pericardial effusion. There is no pleural effusion. MMode/2D Measurements & Calculations LVIDd: 5.0 cm LVOT diam: 2.3 cm LVIDs: 4.3 cm Ao root diam: 4.8 cm FS: 14.4 % asc Aorta Diam: 3.4 cm EPSS: 1.8 cm Ao Arch Diam (Prox Trans): 2.1 cm IVSd: 1.2 cm LVPWd: 1.1 cm LV frey. diameter/BSA (cm/m^2): 2.2 LV sys. diameter/BSA (cm/m^2): 1.9 LA A2 area: 27.6 cm2 RA long axis: 5.4 cm LA A4 area: 28.1 cm2 RA area: 14.5 cm2 LA length (vol): 6.5 cm RA vol: 32.8 ml LA vol: 101.3 ml RA : 14.4 ml/m2 LA vol index: 44.4 ml/m2 IVC diam: 1.5 cm RVD1 (basal): 3.8 cm RVD2 (mid): 3.5 cm TAPSE: 3.6 cm Doppler Measurements & Calculations Ao V2 max: 121.5 cm/sec LVOT Max Caden: 78.6 cm/sec Ao V2 mean: 79.4 cm/sec LV V1 max P.5 mmHg Ao max P.9 mmHg LV V1 VTI: 22.0 cm Ao mean P.9 mmHg KIRA(I,D): 3.3 cm2 Ao V2 VTI: 27.6 cm KIRA(V,D): 2.7 cm2 sev ratio: 0.80 KIRA indexed to BSA (cm^2/m^2): 1.5 MV E max caden: 63.4 cm/sec TR max caden: 261.7 cm/sec MV A max caden: 95.6 cm/sec TR max P.4 mmHg MV E/A: 0.66 PA V2 max: 77.8 cm/sec Med Peak E' Caden: 3.7 cm/sec PA V2 mean: 48.6 cm/sec E/E' med: 17.0 PA mean P.1 mmHg Lat Peak E' Caden: 4.8 cm/sec PA pr(Accel): 29.3 mmHg E/E' lat: 13.2 E/e' average: 15.1 MV dec time: 0.22 sec SV(LVOT): 92.4 ml Reading Physician:05:27 PM
== END ==
PROVIDERS: PCP Family Medicine; Referring Provider Internal Medicine Cardiovascular Disease; Visit Provider Internal Medicine Cardiovascular Disease
DX: I08.0 Rheumatic disorders of both mitral and aortic valves (principal); I77.89 Other specified disorders of arteries and arterioles; I48.91 Unspecified atrial fibrillation
CPT/HCPCS: 93306

== ENCOUNTER → 2024-09-28 11:12 | Outpatient (CLI) | payer MEDICARE, OTHER, SELFPAY ==
[2023-03-18 18:29] VITALS: BMI 30.1
[2024-09-28 11:56] LABS: Add Manual Diff / Slide Review NO; Basophils Absolute Auto 100 /uL (0-100); Basophils Percent Auto 1.3 % (0-2); Eosinophils Absolute Auto 500 /uL (0-450); Eosinophils Percent Auto 8.2 % (2-4); Hematocrit 44.4 % (41-53); Hemoglobin 15.2 g/dL (13.5-17.5); Lymphocytes Absolute Auto 600 /uL (1100-4500); Mean Corpuscular HGB Conc 34.3 % (30-36); Mean Corpuscular Hemoglobin 30.7 PG (26-34); Mean Corpuscular Volume 89.4 fL (80-100); Monocytes Absolute Auto 600 /uL (0-900); Monocytes Percent Auto 8.8 % (3-14); Neutrophils Absolute Auto 4800 /uL (1500-7000); Neutrophils Percent Auto 72.7 % (50-75); Platelet Count 211 X10^3/uL (150-400); Red Blood Cell Count 4.97 X10^6/uL (4.5-5.9); White Blood Cell Count 6.6 X10^3/uL (4.5-11.0)
[2024-09-28 12:39] LABS: Alanine Aminotransferase 18 IU/L (<50); Albumin 4.2 g/dL (3.5-5.0); Albumin Globulin Ratio 1.6 (1.0-2.8); Alkaline Phosphatase 80 U/L (38-126); Aspartate Aminotransferase 24 IU/L (17-59); BUN Creatinine Ratio 18.5 (6-22); Bilirubin Total 0.6 mg/dL (0.2-1.3); Blood Urea Nitrogen 28 mg/dL (9-20); Carbon Dioxide 25 mmol/L (22-32); Chloride 108 mmol/L (98-107); Estimated Glomerular Filt Rate 46 mL/min (>60); Globulin 2.6 g/dL (1.7-4.1); Glucose 90 mg/dL (70-99); HEMOLYSIS < 15 (0-50); Potassium 4.8 mmol/L (3.4-5.1); Sodium 140 mmol/L (137-145); Total Protein 6.8 g/dL (6.3-8.2)
[2024-09-28 13:07] LABS: TSH w/ Reflex to FT4 3.31 uIU/mL (0.47-4.68); Thyroid Stimulating Hormone 3.31 uIU/mL (0.47-4.68)
== END ==
PROVIDERS: PCP Family Medicine; Referring Provider Family Medicine; Visit Provider Family Medicine
DX: C41.1 Malignant neoplasm of mandible (principal); E03.9 Hypothyroidism, unspecified; I10 Essential (primary) hypertension; E78.2 Mixed hyperlipidemia
CPT/HCPCS: 36415; 80053; 84443; 85025

== ENCOUNTER → 2024-11-23 10:59 | Outpatient (CLI) | payer MEDICARE, OTHER, SELFPAY ==
[2023-03-18 18:29] VITALS: BMI 30.1
[2024-11-23 12:05] LABS: Alanine Aminotransferase 21 IU/L (<50); Albumin 4.5 g/dL (3.5-5.0); Albumin Globulin Ratio 1.9 (1.0-2.8); Alkaline Phosphatase 73 U/L (38-126); Blood Urea Nitrogen 29 mg/dL (9-20); Calcium 9.4 mg/dL (8.4-10.2); Carbon Dioxide 27 mmol/L (22-32); Chloride 102 mmol/L (98-107); Estimated Glomerular Filt Rate 50 mL/min (>60); Globulin 2.4 g/dL (1.7-4.1); Glucose 81 mg/dL (70-99); HEMOLYSIS < 15 (0-50); Potassium 5.2 mmol/L (3.4-5.1); Sodium 139 mmol/L (137-145); Total Protein 6.9 g/dL (6.3-8.2)
== END ==
PROVIDERS: PCP Family Medicine; Referring Provider Family Medicine; Visit Provider Family Medicine
DX: N18.31 Chronic kidney disease, stage 3a (principal)
CPT/HCPCS: 36415; 80053